=== PATIENT | male | born 1945 | race Caucasian/White ===

== ENCOUNTER 2020-06-14 16:16 | Emergency (ER) | payer MEDICARE, SELFPAY ==
--- NOTE | 2020-06-14 16:23 | ED.EYEPROB ---
HPI - Eye Problem General Chief complaint: Skin/Abscess/Foreign Body Stated complaint: right eye redness/rash Time Seen by Provider: 06/14/20 16:23 Source: patient and RN notes reviewed Mode of arrival: ambulatory Limitations: no limitations History of Present Illness HPI Narrative: 75-year-old male presents to the [facility] with complaints of crusted over and red eye for approximately 1 week, right worse than left. Denies pain to the eye but states every time he naps and wakes up in the morning it is crusted shut. Patient also reports that he wants his rash to the right inner thigh checked. Reports that he has had it for at least 3 to 4 weeks. Has been putting creams on it that you would use for diaper rash. Patient denies any past medical or surgical history. Additional information received from [facility] rocha's [id number]. She reports he does have a history of Parkinson's, hypertension and diabetes. She also reports that he had been recently living in [place] with a girlfriend. She reports that approximately 1 week ago her and Joe son received a call from the girlfriend stating she could no longer take care of him and they went picked him up and moved Joe in with them. She is unsure of medications that he takes. Has an appointment set up early July with a primary care doctor in the local area. Related Data Home Medications Medication Instructions Recorded Confirmed carbidopa-levodopa tablet 06/14/20 latanoprost drp 06/14/20 losartan 06/14/20 phentermine mg 06/14/20 tamsulosin mg PO 06/14/20 tramadol mg 06/14/20 Allergies Allergy/AdvReac Type Severity Reaction Status Date / Time No Known Allergies Allergy Verified 06/14/20 17:48 Review of Systems Review of Systems: Narrative: CONSTITUTIONAL: Denies fever, chills, or sweats. EYES: Denies visual changes. Reports redness with discharge. ENT: Denies rhinorrhea, congestion, sore throat, or otalgia. CARDIOVASCULAR: Denies chest pain, palpitations, or edema. RESPIRATORY: Denies cough or dyspnea. GASTROINTESTINAL: Denies abdominal pain, nausea, vomiting, or diarrhea. GENITOURINARY: Denies dysuria or hematuria. SKIN: Reports painful rash to the right inner thigh All other systems reviewed are negative, except as documented in HPI. PMFSH Past Medical History Medical History (Updated 06/14/20 @ 17:24 by Talita Spence) Diabetes Hypertension Parkinsons Social History Social History Gender identity (if verbalized by the patient): Male Comments At the time of my signature, I reviewed and agree with the nursing past medical, surgical, social, and family history. There is no relevant family history pertinent to the patient complaint. Exam Const: General: no acute distress, alert and confusion (Additional information had to be obtained from [id number], [employer]) Nutritional Appearance: thin Orientation/consciousness: patient oriented x3 Eyes: Conjunctivae: conjunctival abnormality bilateral Other: Red, crusted areas noted bilateral eyes, worse on right than left. Resp: Effort & Inspection: normal respiratory effort Cardio: Rate: regular rate Rhythm: regular rhythm : Male General Exam: No normal external exam Scrotum: scrotal swelling (With redness and pain) bilateral Other: [place] Area cellulitic changes noted, red with mild swelling. Patient reports is painful. Scrotum and penis red. Patient currently wears depends. Excoriated skin Neuro: Other: Uses a cane with a shuffling gait oriented to this place and self. Unable to answer questions Extrem: General: no pedal edema Psych: Attitude: cooperative Course Vital Signs Vital signs: Vital Signs Temperature 98.0 F 06/14/20 16:39 Pulse Rate 75 06/14/20 16:39 Respiratory Rate 16 06/14/20 16:39 Blood Pressure 162/90 H 06/14/20 16:39 Pulse Oximetry 98 06/14/20 16:39 Temperature 98.0 F 06/14/20 16:39 Pulse Rate 75 06/14/20 16:39 Respirato
[2020-06-14 16:39] VITALS: BP 162/90; PULSE 75; RESP 16; TEMP 36.7; O2SAT 98
--- NOTE | 2020-06-14 17:15 | PC.NURSE ---
1645- Eye kit was not used on pt as he was being transferred to ER, returned to [facility].
== END 2020-06-14 16:49 | disposition short-term general hospital (02) ==
PROVIDERS: Emergency Provider Nurse Practitioner
DX: L03.315 Cellulitis of perineum (principal); E11.9 Type 2 diabetes mellitus without complications; I10 Essential (primary) hypertension; G20 Parkinson's disease
CPT/HCPCS: 99212; A9270; G0463

== ENCOUNTER 2020-06-14 17:31 | Inpatient (IN) | payer MEDICARE, SELFPAY ==
--- NOTE | ~2020-06-14 | CT_ITS ---
EXAMINATION: CT abdomen pelvis w con DATE: 06/14/2020 19:00 INDICATION: Pelvic pain. TECHNIQUE: Computed tomography (CT) of the abdomen and pelvis was performed with 100 mL Omnipaque 350 intravenous contrast. Automated exposure control and iterative reconstruction technique were employe d. The dose-length product was 1140.22 mGy-cm. COMPARISON: None. FINDINGS: The visualized portions of the lung bases demonstrate mild atelectasis. No pleural effusion . The heart size is normal. There are coronary artery calcifications. No pericardial effusion. There are calcifications of the aortic valve. The liver, gallbladder, spleen, and adrenal glands are normal . There are calcifications in the pancreas, consistent with chronic pancreatitis. There are 12 mm and 10 mm cystic lesions in the head of the pancreas, likely pseudocysts. There is a 4 mm stone in right kidney. There are 10 mm and 3 mm stones in left kidney. The prostate is mildly enlarged. There are b rachytherapy seeds in the prostate and posterior bladder wall. Stool distends the rectum. There are n o dilated loops of bowel. The appendix is normal. There is calcified atherosclerosis of the aorta and many of the other arteries. There are chronic bilateral L5 pars defects. There is 9 mm anterolisthes is of L5 on S1. There is severe lower lumbar spondylosis. IMPRESSION: 1. Stool distends the rectum. Reviewed, dictated and finalized at location A.
[2020-06-14 17:36] VITALS: BP 173/83; PULSE 74; RESP 20; TEMP 36.7; O2SAT 97
[2020-06-14 18:13] LABS: Basophils Percent Auto 0.4 % (0.2-1.2); Eosinophils Absolute Auto 0.2 K/mm3 (0-0.3); Eosinophils Percent Auto 2.1 % (0-4.4); Hematocrit 40.5 % (42.0-52.0); Hemoglobin 13.4 g/dL (14.0-18.0); Immature Granulocyte Absolute 0.02 K/mm3 (0.00-0.031); Immature Granulocyte Percent A 0.2 % (0-0.5); Lymphocytes Absolute Auto 1.22 K/mm3 (0.9-3.2); Lymphocytes Percent Auto 15.1 % (18.3-44.2); Mean Corpuscular HGB Conc 33.1 g/dl (32-36); Mean Corpuscular Hemoglobin 29.1 pg (26-34); Mean Corpuscular Volume 87.9 fl (80-100); Mean Platelet Volume 9.6 fl (7.4-10.4); Monocytes Absolute Auto 0.5 K/mm3 (0.1-0.6); Monocytes Percent Auto 6.5 % (2.6-8.5); Neutrophils Absolute Auto 6.1 K/mm3 (1.3-6.7); Neutrophils Percent Auto 75.7 % (45.5-73.1); Platelet Count Result 201 k/mm3 (150-375); Red Blood Count 4.61 M/mm3 (4.6-6.20); Red Cell Distribution Width 12.8 % (11.5-14.5); White Blood Count 8.1 K/mm3 (4.5-10.0)
[2020-06-14 18:23] LABS: Lactic Acid Reflex 1.7 mmol/L (0.7-2.1)
[2020-06-14 18:25] LABS: Alanine Aminotransferase 16 U/L (4-50); Albumin Level 3.9 g/dL (3.5-5.1); Alkaline Phosphatase 93 U/L (38-126); Anion Gap 4 mmol/L (8-16); Aspartate Amino Transferase 20 U/L (17-59); Bilirubin,Total 0.5 mg/dL (0.2-1.3); Blood Urea Nitrogen 13 mg/dL (9-20); Calcium 9.5 mg/dL (8.4-10.2); Carbon Dioxide 35 mmol/L (22-30); Chloride 98 mmol/L (98-107); Estimated CRCL calculation 57 ml/min; Estimated Glomerular Filt Rate > 60; Glucose 380 mg/dL (75-110); Potassium 4.3 mmol/L (3.4-5.0); Sodium 137 mmol/L (137-145)
[2020-06-14 18:28] LABS: Add Urine Microscopic? YES; Appearance Urine Clear (Clear); Bilirubin Urine Negative (Negative); Blood Urine Negative (Negative); Color Urine Yellow (Yellow); Glucose Urine UA 3+ mg/dL (Negative); Ketones Urine Negative (Negative); Leukocyte Esterase Ur Negative LEU/UL (Negative); Mucus Urine Rare /lpf; Nitrate Urine Negative (Negative); Protein Urine Negative (Negative); RBC Urine 0-2 /hpf (0-2); Urobilinogen Urine Negative mg/dL (<2.0); WBC Urine 0-3 /hpf
[2020-06-14 18:34] LABS: Partial Thromboplastin Time 26.7 SECONDS (22.3-36.8); Prothrombin Time 13.6 Seconds (11.1-14.7)
[2020-06-14 18:52] LABS: Specific Grav Ur 1.035 (1.001-1.035)
--- NOTE | 2020-06-14 18:56 | PC.NURSE ---
Pt to CT via stretcher at this time.
[2020-06-14] MEDS: SODIUM CHLORIDE 0.9% IV 1,000 ML 999 ML IV CONT (20:08)
--- NOTE | 2020-06-14 20:11 | ED.GENADULT ---
HPI - General Adult General Chief complaint: Skin/Abscess/Foreign Body Stated complaint: right redness and drainage, genital rash Time Seen by Provider: 06/14/20 17:41 Source: RN notes reviewed History of Present Illness HPI narrative: Patient presents to emergency department from urgent care for right eye infection and rash in the groin. Patient states his right thigh has been erythematous for the past 1 to 2 weeks with drainage of thick mucus he notes some mild swelling of the upper and lower eyelids he denies any trauma or injury denies any vision changes denies any trauma or injury. Patient also notes a rash in his penis scrotum and groin region has been present for the past 3 weeks and progressively worsening he notes pain to the region he denies any fevers or chills abdominal pain nausea vomiting or any other symptoms. Patient does states he has a history of Parkinson's disease as well as diabetes mellitus Related Data Home Medications Medication Instructions Recorded Confirmed carbidopa-levodopa tablet 06/14/20 latanoprost drp 06/14/20 losartan 06/14/20 phentermine mg 06/14/20 tamsulosin mg PO 06/14/20 tramadol mg 06/14/20 Allergies Allergy/AdvReac Type Severity Reaction Status Date / Time No Known Allergies Allergy Verified 06/14/20 17:48 Review of Systems Review of Systems: Narrative: Gen.: Denies fevers or chills Eyes: See HPI ENT: Denies congestion Respiratory: Denies shortness of breath or cough CV: Denies chest pain or palpitations GI: Denies abdominal pain nausea, emesis or diarrhea denies burning, urgency, frequency or hematuria Musculoskeletal: Denies back pain or muscle pain Neuro: Denies numbness, tingling, weakness or focal weakness Skin: See HPI Except as documented, all other systems reviewed and negative [facility] Past Medical History Medical History Diabetes Hypertension Parkinsons Social History Social History (Updated 06/14/20 @ 20:15 by Jamie No DO) Smoking status: Never smoker Gender identity (if verbalized by the patient): Male Exam Narrative: Exam Narrative: APPEARANCE: No acute distress, nontoxic, resting in bed EYES: EOMI PERRL, the left eye is normal in appearance, the right eye has mild erythema of the upper eyelid mild swelling there is diffuse conjunctival erythema of the right eye with thick yellow mucus drainage full range of motion of the eyes without pain no papilledema HEENT: Normocephalic, atraumatic, OMM RESPIRATORY: No respiratory distress Clear to auscultation bilaterally with no rhonchi wheezing or rales. CARDIOVASCULAR: Regular rate and rhythm without murmurs rubs or gallops. ABDOMINAL: Soft, nontender, nondistended, no rebound or guarding : Circumcised male no testicular tenderness to palpation review of both the, the scrotum is nontender to palpation there is diffuse erythema of the entire penis and scrotum that extends into the bilateral groin and the perineum and stops at the rectum there is no fluctuance there is no crepitance there is mild serous oozing MUSCULOSKELETAl: Moves all extremities. No clubbing, cyanosis or edema. NEURO: Awake and alert. Following commands, speech normal, no focal deficits SKIN:: Warm, dry. No other rashes other than those noted in PSYCHIATRIC: Normal affect/mood, Course Course Emergency Course: Discussed with Dr. Donnelly presentation work-up agrees with admission at this time with patient started on imipenem and vancomycin per antibiotic protocol request consult with urology Discussed Dr. Carroll for urology agrees with consult Discussed with patient and family results of workup and diagnosis. Discussed need for admission. Patient and family understand and agree to current treatment plan Vital Signs Vital signs: Vital Signs Temperature 98.1 F 06/14/20 17:36 Pulse Rate 74 06/14/20 17:36 Respiratory Rate 20 06/14/20 17:36 Blood Pressure
[2020-06-14 20:15] LABS: Glucose Point of Care 312 (65-105)
[2020-06-14] MEDS: INSULIN ASPART (*BKC) 100 UNITS/ML SUB-Q (21:43)
[2020-06-14 21:50] VITALS: BP 153/81; PULSE 68; RESP 18; TEMP 36.4; O2SAT 98
--- NOTE | 2020-06-14 21:54 | PC.NURSE ---
vancomycin transported to floor, 200ml left to infuse.
--- NOTE | 2020-06-14 22:12 | ADMGEN ---
This patient, Joe Marion, was admitted to 3 Med Surg Room 316-01. Patient/family oriented to hospital policies and general routines including ID bracelet, bed and alarms, visiting hours, pain management, procedures, bathroom and other care routines, personal items, smoking policy, room service/diet, and visiting hours. Information on how to activate the Rapid Response Team has been discussed. Patient/Family are encouraged to report perceived risks to care and to ask questions if they do not understand what they are told or what they should do.
[2020-06-14 22:13] VITALS: BMI 23.8
--- NOTE | 2020-06-14 22:43 | PM.IMHP ---
H&P: HPI History of Present Illness Date/Time: 06/14/20 22:43 Patient presents to emergency department from urgent care for right eye infection and rash in the groin. he reorts that he has been having erythematous rash on his groin and scrotum, which is itchy for the past few weeks period. he has been using local treatmetn for this with benadryl however today he developed redness in eyes and hence went to the urgent care. they saw the rash thre and bianca sent to the ED for evaluation. no fever, chills. he is chronicaly urine incontinent and has underlying diabetes. he uses depends. Chief Complaint: rash, cellulitis Review of Systems Review of Systems: Narrative: - CONSTITUTIONAL: Denies weight loss, fever and chills. - HEENT: Denies changes in vision and hearing, rash on his right eye with draainage - RESPIRATORY: Denies SOB and cough. - CV: Denies palpitations and CP. - GI: Denies abdominal pain, nausea, vomiting and diarrhea. - : Denies dysuria and urinary frequency. - MSK: Denies myalgia and joint pain. - SKIN: reports rash and pruritus. - NEUROLOGICAL: Denies headache and syncope. - PSYCHIATRIC: Denies recent changes in mood. Denies anxiety and depression. All systems reviewed & are unremarkable except as noted in HPI and below PMFSH Past Medical History Medical History (Updated 06/14/20 @ 23:49 by Carlos Donnelly MD) Diabetes Hypertension Parkinsons Family History Family History (Updated 06/14/20 @ 22:21 by Ela Herrera RN) Father Heart attack Mother Heart attack Sibling Diabetes mellitus Social History Social History (Updated 06/14/20 @ 20:15 by Jamie No DO) Smoking status: Former smoker Alcohol intake: current Drinks per week: 3 Substance use: never Gender identity (if verbalized by the patient): Male Spiritual care concerns: No Meds Home Medications and Allergies Home Medications Medication Instructions Recorded Confirmed Type Xadago 50 mg PO DAILY 06/14/20 06/14/20 History allopurinol 150 mg BYMOUTH DAILY 06/14/20 06/14/20 History amlodipine [Norvasc] 5 mg PO DAILY 06/14/20 06/14/20 History aspirin 81 mg PO DAILY 06/14/20 06/14/20 History carbidopa-levodopa tablet 06/14/20 History cetirizine 5 mg PO DAILY 06/14/20 06/14/20 History cholecalciferol (vitamin D3) 125 mg PO DAILY 06/14/20 06/14/20 History escitalopram oxalate 10 mg PO DAILY 06/14/20 06/14/20 History hydrochlorothiazide 25 mg PO DAILY 06/14/20 06/14/20 History latanoprost drp 06/14/20 History lorazepam 1 mg PO DAILY 06/14/20 06/14/20 History losartan 06/14/20 History metformin 500 mg PO BID 06/14/20 06/14/20 History pravastatin 10 mg PO HS 06/14/20 06/14/20 History sitagliptin 10 mg PO DAILY 06/14/20 06/14/20 History tamsulosin mg PO 06/14/20 History tramadol mg 06/14/20 History Allergies Allergy/AdvReac Type Severity Reaction Status Date / Time No Known Allergies Allergy Verified 06/14/20 17:48 Vital Signs Vital Signs - 24 hr 06/14/20 17:36 Temperature 98.1 F Pulse Rate 74 Respiratory Rate 20 Blood Pressure 173/83 H Pulse Oximetry 97 Exam Narrative: Exam Narrative: GENERAL APPEARANCE: No acute distress, nontoxic, resting in bed EYES: EOMI PERRL, the left eye is normal in appearance, the right eye has mild erythema of the upper eyelid mild swelling there is diffuse conjunctival erythema of the right eye with thick yellow mucus drainage full range of motion of the eyes without pain HEENT: Normocephalic, atraumatic, RESPIRATORY: No respiratory distress Clear to auscultation bilaterally with no rhonchi wheezing or rales. CARDIOVASCULAR: Regular rate and rhythm without murmurs rubs or gallops. ABDOMINAL: Soft, nontender, nondistended, no rebound or guarding : Circumcised male, whole area of scrotum and the groin along with penis diffusely erythematous extends back to perineum and around the rectal area. no sloughing of skin noted, no creptiance, few scratch
[2020-06-14 23:16] LABS: Glucose Point of Care 299 (65-105)
[2020-06-14] MEDS: ERYTHROMYCIN OPHTH OINTMENT 1 GM TUBE 1 APPLIC EACH EYE (23:40)
[2020-06-14] MEDS: SODIUM CHLORIDE 0.9% IV 1,000 ML 125 ML IV CONT (23:40)
[2020-06-15] MEDS: PRAVASTATIN SODIUM 10 MG TABLET PO ×2 (01:12→20:46)
[2020-06-15] MEDS: TAMSULOSIN HCL 0.4 MG CAPSULE PO ×2 (01:12→20:45)
[2020-06-15] MEDS: CARBIDOPA/LEVODOPA 25/100 MG TABLET 1 TABLET PO ×4 (01:12→17:29)
[2020-06-15] MEDS: LATANOPROST 0.005% OP SOLN 2.5 ML BTL 1 DROP EACH EYE ×2 (01:13→20:46)
[2020-06-15] MEDS: INSULIN GLARGINE (*BKC) 100 UNITS/ML 30 UNITS SUB-Q ×2 (01:16→20:57)
[2020-06-15] MEDS: ERYTHROMYCIN OPHTH OINTMENT 1 GM TUBE 1 APPLIC EACH EYE ×5 (05:08→20:46)
[2020-06-15 06:00] VITALS: BP 146/75; PULSE 71; RESP 18; TEMP 36.3; O2SAT 95
[2020-06-15 06:13] LABS: Basophils Percent Auto 0.4 % (0.2-1.2); Eosinophils Absolute Auto 0.2 K/mm3 (0-0.3); Eosinophils Percent Auto 2.5 % (0-4.4); Hematocrit 36.3 % (42.0-52.0); Hemoglobin 12.3 g/dL (14.0-18.0); Immature Granulocyte Absolute 0.03 K/mm3 (0.00-0.031); Immature Granulocyte Percent A 0.3 % (0-0.5); Lymphocytes Absolute Auto 1.46 K/mm3 (0.9-3.2); Mean Corpuscular HGB Conc 33.9 g/dl (32-36); Mean Corpuscular Hemoglobin 28.9 pg (26-34); Mean Corpuscular Volume 85.4 fl (80-100); Mean Platelet Volume 10.2 fl (7.4-10.4); Monocytes Absolute Auto 0.7 K/mm3 (0.1-0.6); Monocytes Percent Auto 7.8 % (2.6-8.5); Neutrophils Absolute Auto 6.6 K/mm3 (1.3-6.7); Platelet Count Result 184 k/mm3 (150-375); Red Blood Count 4.25 M/mm3 (4.6-6.20); Red Cell Distribution Width 12.7 % (11.5-14.5); White Blood Count 9.1 K/mm3 (4.5-10.0)
[2020-06-15 06:28] LABS: Anion Gap 3 mmol/L (8-16); Blood Urea Nitrogen 12 mg/dL (9-20); Calcium 8.7 mg/dL (8.4-10.2); Carbon Dioxide 33 mmol/L (22-30); Chloride 101 mmol/L (98-107); Estimated CRCL calculation 68 ml/min; Estimated Glomerular Filt Rate > 60; Glucose 255 mg/dL (75-110); Potassium 3.7 mmol/L (3.4-5.0); Sodium 137 mmol/L (137-145)
--- NOTE | 2020-06-15 07:25 | WPDURCON ---
Assessment and Plan Assessment and plan (1) Fungal rash of torso: Code(s): B36.9 - Superficial mycosis, unspecified Status: Acute Assessment and Plan: Genital rash for which, to me, is more consistent with an advanced fungal infection than true cellulitis. I will add an antifungal cream to the antibiotics which he is currently receiving. Urology Consult Note HPI Date Seen: 06/15/20 Requesting Physician: Carlos Donnelly MD Primary Care Provider: PHYSICIAN NOT ON STAFF Consult Narrative Narrative: Joe Marion is a 75 year old male admitted to the emergency department after presenting with a several week history of incrustation of his eye, consistent with conjunctivitis. Additionally, he reports a 3 history of genital rash that is mildly pruritic. He denies significant obstructive her irritable voiding symptoms. Review of Systems Eyes: Eyes: Reports as per HPI Cardiovascular: Cardiovascular: Denies chest pain, Denies lightheadedness, Denies palpitations and Denies dyspnea Respiratory: Respiratory: Denies dyspnea Gastrointestinal: Gastrointestinal: Denies diarrhea, Denies nausea and Denies vomiting Genitourinary: Genitourinary: Reports as per HPI, Denies hematuria and Denies dysuria Endocrine: Endocrine: Denies palpitations PMFSH Past Medical History Medical History Diabetes Hypertension Parkinsons Family History Family History Father Heart attack Mother Heart attack Sibling Diabetes mellitus Social History Social History Smoking status: Former smoker Alcohol intake: current Drinks per week: 3 Substance use: never Gender identity (if verbalized by the patient): Male Spiritual care concerns: No Meds Home Medications and Allergies Home Medications Medication Instructions Recorded Confirmed Type Xadago 50 mg PO DAILY 06/14/20 06/14/20 History allopurinol 150 mg BYMOUTH DAILY 06/14/20 06/14/20 History amlodipine [Norvasc] 5 mg PO DAILY 06/14/20 06/14/20 History aspirin 81 mg PO DAILY 06/14/20 06/14/20 History carbidopa-levodopa [Sinemet] 25 - 100 tablet PO TID 06/14/20 06/14/20 History cetirizine 5 mg PO DAILY 06/14/20 06/14/20 History cholecalciferol (vitamin D3) 125 mg PO DAILY 06/14/20 06/14/20 History escitalopram oxalate 10 mg PO DAILY 06/14/20 06/14/20 History hydrochlorothiazide 25 mg PO DAILY 06/14/20 06/14/20 History latanoprost 1 drp EACH EYE HS 06/14/20 06/14/20 History lorazepam 1 mg PO DAILY 06/14/20 06/14/20 History losartan [Cozaar] 50 mg PO DAILY 06/14/20 06/14/20 History metformin 500 mg PO BID 06/14/20 06/14/20 History pravastatin 10 mg PO HS 06/14/20 06/14/20 History sitagliptin 100 mg PO DAILY 06/14/20 06/15/20 History tamsulosin [Flomax] 0.4 mg PO HS 06/14/20 06/14/20 History tramadol [Ultram] 50 mg PO Q6H PRN 06/14/20 06/14/20 History Allergies Allergy/AdvReac Type Severity Reaction Status Date / Time No Known Allergies Allergy Verified 06/14/20 17:48 Vital Signs Vital Signs - 24 hr 06/14/20 17:36 06/14/20 21:50 06/15/20 06:00 Temperature 98.1 F 97.5 F L 97.3 F L Pulse Rate 74 68 71 Respiratory Rate 20 18 18 Blood Pressure 173/83 H 153/81 H 146/75 H Pulse Oximetry 97 98 95 Exam Const: General: no acute distress Resp: Effort & Inspection: normal respiratory effort GI: Inspection: non-distended GI Palp: No abdominal tenderness and No Guarding due to palpation present (GI) Auscultation: normal bowel sounds Results Labs CBC & Chem 7: 06/15/20 05:53 06/15/20 05:53 Labs: Short CBC 06/14/20 06/15/20 Range/Units 18:05 05:53 WBC 8.1 9.1 (4.5-10.0) K/mm3 Hgb 13.4 L 12.3 L (14.0-18.0) g/dL Hct 40.5 L 36.3 L (42.0-52.0) % Plt Count 201 184 (150-375) k/mm3 [facility] 06/14/20 06/15/20 18:05 05:
[2020-06-15 07:45] LABS: Glucose Point of Care 231 (65-105)
[2020-06-15] MEDS: SODIUM CHLORIDE 0.9% IV 1,000 ML 125 ML IV CONT ×2 (08:08→17:31)
[2020-06-15] MEDS: INSULIN ASPART (*BKC) 100 UNITS/ML SUB-Q ×3 (08:11→17:28)
[2020-06-15] MEDS: LORazepam (*CRX) 1 MG TABLET PO (08:12)
[2020-06-15] MEDS: ASPIRIN 81 MG CHEWABLE TABLET PO (08:13)
[2020-06-15] MEDS: allopurinoL 150 MG TABLET BY MOUTH (08:13)
[2020-06-15] MEDS: amLODIPine BESYLATE 5 MG TABLET PO (08:13)
[2020-06-15] MEDS: CHOLECALCIFEROL 1,000 UNITS TABLET 5000 UNITS PO (08:13)
[2020-06-15] MEDS: LORATADINE 5 MG TABLET PO (08:14)
[2020-06-15] MEDS: LOSARTAN POTASSIUM 50 MG TABLET PO (08:14)
[2020-06-15] MEDS: hydroCHLOROthiazide 25 MG TABLET PO (08:14)
[2020-06-15] MEDS: metFORMIN HCL 500 MG TABLET PO ×2 (08:15→17:30)
[2020-06-15] MEDS: FLUCONAZOLE 200 MG/NACL 100 ML 200 MG/100 ML BAG 100 MG IVPB (08:51)
[2020-06-15] MEDS: BETAMETHASONE/CLOTRIMAZOLE CR 15 GM TUBE 1 APPLIC TOPICAL ×2 (08:54→20:46)
[2020-06-15 10:16] VITALS: O2SAT 94
[2020-06-15 11:41] LABS: Glucose Point of Care 339 (65-105)
--- NOTE | 2020-06-15 13:21 | PM.IMPN ---
Progress Note: A&P Assessment and Plan (1) Cellulitis of scrotum: Code(s): N49.2 - Inflammatory disorders of scrotum Status: Acute Assessment and Plan: Urology has been consulted, Pt on iv imipenem and vancomycin for bacterial coverage. will also add fluconazole iv for antifungal coverage. (2) Acute conjunctivitis, right eye: Code(s): H10.31 - Unspecified acute conjunctivitis, right eye Status: Acute Assessment and Plan: pt is on eyes drops (3) Diabetes mellitus: Code(s): E11.9 - Type 2 diabetes mellitus without complications Status: Acute Assessment and Plan: ACCUCHECKS< SSI (4) Fungal infection of the groin: Code(s): B35.6 - Tinea cruris Status: Acute Assessment and Plan: Pt seen by urology continue recommendations (5) Cellulitis: Qualifiers: Site of cellulitis: trunk Site of cellulitis of trunk: perineum Qualified Code(s): L03.315 - Cellulitis of perineum Code(s): L03.90 - Cellulitis, unspecified Status: Inactive (6) Urine incontinence: Code(s): R32 - Unspecified urinary incontinence Status: Acute (7) Parkinsons: Code(s): G20 - Parkinson's disease Status: Acute Assessment and Plan: History of Parkinson Subjective Date/time seen: 06/15/20 13:21 Interval history: 75 year old male presented with right eye infection and rash in the groin. Pt states he was trying some care on it for a few days himself. without going to doctor. But it was getting worse and now his eyes are both purulent, Pt denies any sexual activity. or std problems. Review of Systems Review of Systems: All systems reviewed & are unremarkable except as noted in HPI and below Exam Narrative: Exam Narrative: GENERAL APPEARANCE: No acute distress EYES: BL eyes with yellow purulent drainage HEENT: Normocephalic, atraumatic RESPIRATORY: No respiratory distress Clear to auscultation bilaterally with no rhonchi wheezing or rales. CARDIOVASCULAR: Regular rate and rhythm without murmurs rubs or gallops. ABDOMINAL: Soft, nontender, nondistended, no rebound or guarding : Erythematous red swollen scrotum and penis with excoriation and whitish patches in the groin. Objective Data Vital Signs Vital Signs: Vital Signs - 24 hr 06/14/20 17:36 06/14/20 21:50 06/15/20 06:00 Temperature 36.7 C 36.4 C L 36.3 C L Pulse Rate 74 68 71 Respiratory Rate 20 18 18 Blood Pressure 173/83 H 153/81 H 146/75 H Pulse Oximetry 97 98 95 06/15/20 10:16 Temperature Pulse Rate Respiratory Rate Blood Pressure Pulse Oximetry 94 Intake/Output Intake/Output: Intake & Output 06/12/20 06/13/20 06/14/20 06/15/20 23:59 23:59 23:59 23:59 Intake Total 1000 1900 Output Total 850 Balance 1000 1050 Meds/Results Medications: Active Medications Generic Name Dose Route Start Last Admin Trade Name Luisq PRN Reason Stop Dose Admin Allopurinol 150 mg 06/15/20 09:00 06/15/20 08:13 Allopurinol 150 Mg Tablet BY MOUTH 150 mg DAILY RADHA Administration Amlodipine Besylate 5 mg 06/15/20 09:00 06/15/20 08:13 Amlodipine Besylate 5 Mg Tablet PO 5 mg DAILY RADHA Administration Aspirin 81 mg 06/15/20 09:00 06/15/20 08:13 Aspirin 81 Mg Chewable Tablet PO 81 mg DAILY RADHA Administration Carbidopa/Levodopa 1 tablet 06/14/20 23:45 06/15/20 12:12 Carbidopa/Levodopa 25/100 Mg Tablet PO 1 tablet TID RADHA Administration Clotrimazole 1 applic 06/15/20 09:00 06/15/20 08:54 Betamethasone/Clotrimazole Cr 15 Gm Tube TOPICAL 1 applic Q12HR RADHA Administration Dextrose 12.5 gm 06/14/20 23:46 Dextrose 50% 25 Gm/50 Ml Syringe IV PUSH PRN PRN Hypoglycemia Protocol Erythromycin 1 applic 06/14/20 21:00 06/15/20 12:12 Erythromycin Ophth Ointment 1 Gm Tube EACH EYE 1 applic Q4HWA RADHA Administration Glucagon 1 mg 06/14/20 23:46 Glucagon For Inj 1 Mg V
[2020-06-15 14:00] VITALS: BP 150/73; PULSE 81; RESP 18; TEMP 36.4; O2SAT 96
[2020-06-15 17:21] LABS: Glucose Point of Care 249 (65-105)
[2020-06-15 21:02] LABS: Glucose Point of Care 290 (65-105)
[2020-06-15 22:00] VITALS: BP 157/75; PULSE 75; RESP 16; TEMP 36.2; O2SAT 97
[2020-06-16] MEDS: SODIUM CHLORIDE 0.9% IV 1,000 ML 125 ML IV CONT ×2 (02:34→15:09)
[2020-06-16] MEDS: ERYTHROMYCIN OPHTH OINTMENT 1 GM TUBE 1 APPLIC EACH EYE ×5 (05:23→20:14)
[2020-06-16 06:00] VITALS: BP 158/67; PULSE 92; RESP 18; TEMP 36.3; O2SAT 96
--- NOTE | 2020-06-16 07:19 | WPDUROPN2 ---
Progress Note: A&P Assessment and Plan (1) Fungal infection of the groin: Code(s): B35.6 - Tinea cruris Status: Acute Assessment and Plan: Genital rash unchanged. Agree with systemic antifungal (either IV or oral) x1 week. If not improving by early next week I would recommend dermatology evaluation. I'm comfortable with treating genital rash as outpatient once other issues improved. Subjective Subjective Date/Time Seen: 06/16/20 07:19 No c/o genital pain, itching or voiding difficulty Review of Systems Cardiovascular: Cardiovascular: Denies chest pain, Denies lightheadedness, Denies palpitations and Denies dyspnea Respiratory: Respiratory: Denies dyspnea Gastrointestinal: Gastrointestinal: Denies diarrhea, Denies nausea and Denies vomiting Genitourinary: Genitourinary: Denies hematuria and Denies dysuria Endocrine: Endocrine: Denies palpitations Exam Const: General: no acute distress Resp: Effort & Inspection: normal respiratory effort GI: Inspection: non-distended GI Palp: No abdominal tenderness and No Guarding due to palpation present (GI) Auscultation: normal bowel sounds : General: Yes other (Genital rash unchanged) Objective Data Vital Signs Vital Signs: Vital Signs - 24 hr 06/15/20 10:16 06/15/20 14:00 06/15/20 22:00 Temperature 97.5 F L 97.2 F L Pulse Rate 81 75 Respiratory Rate 18 16 Blood Pressure 150/73 H 157/75 H Pulse Oximetry 94 96 97 06/16/20 06:00 Temperature 97.3 F L Pulse Rate 92 Respiratory Rate 18 Blood Pressure 158/67 H Pulse Oximetry 96 Intake/Output Intake/Output: Intake & Output 06/13/20 06/14/20 06/15/20 06/16/20 23:59 23:59 23:59 23:59 Intake Total 1000 5190 1350 Output Total 1600 1200 Balance 1000 3590 150 Meds/Results Medications: Active Medications Generic Name Dose Route Start Last Admin Trade Name Freq PRN Reason Stop Dose Admin Allopurinol 150 mg 06/15/20 09:00 06/15/20 08:13 Allopurinol 150 Mg Tablet BY MOUTH 150 mg DAILY RADHA Administration Amlodipine Besylate 5 mg 06/15/20 09:00 06/15/20 08:13 Amlodipine Besylate 5 Mg Tablet PO 5 mg DAILY RADHA Administration Aspirin 81 mg 06/15/20 09:00 06/15/20 08:13 Aspirin 81 Mg Chewable Tablet PO 81 mg DAILY RADHA Administration Carbidopa/Levodopa 1 tablet 06/14/20 23:45 06/15/20 17:29 Carbidopa/Levodopa 25/100 Mg Tablet PO 1 tablet TID RADHA Administration Clotrimazole 1 applic 06/15/20 09:00 06/15/20 20:46 Betamethasone/Clotrimazole Cr 15 Gm Tube TOPICAL 1 applic Q12HR RADHA Administration Dextrose 12.5 gm 06/14/20 23:46 Dextrose 50% 25 Gm/50 Ml Syringe IV PUSH PRN PRN Hypoglycemia Protocol Erythromycin 1 applic 06/14/20 21:00 06/16/20 05:23 Erythromycin Ophth Ointment 1 Gm Tube EACH EYE 1 applic Q4HWA RADHA Administration Glucagon 1 mg 06/14/20 23:46 Glucagon For Inj 1 Mg Vial IM PRN PRN Hypoglycemia Protocol Glucose 15 gm 06/14/20 23:46 Glucose Oral Gel 15 Gm Of Glucse In 37.5 Gm Tube PO PRN PRN Hypoglycemia Protocol Hydrochlorothiazide 25 mg 06/15/20 09:00 06/15/20 08:14 Hydrochlorothiazide 25 Mg Tablet PO 25 mg DAILY RADHA Administration Sodium Chloride 1,000 mls @ 125 mls/hr 06/14/20 20:00 06/16/20 02:34 Normal Saline Iv IV CONT 125 mls/hr .Q8H RADHA Administration Fluconazole 200 mg in 100 mls @ 100 mls/hr 06/15/20 09:00 06/15/20 13:48 Diflucan 200 Mg/Nacl 100 Ml IVPB Infused DAILY RADHA Infusion Dextrose 1,000 mls @ 100 mls/hr 06/14/20 23:46 Dextrose 5% 1,000 Ml IVPB PRN PRN Hypoglycemia Protocol Imipenem/Cilastatin Sodium 500 mg in 100 mls @ 300 mls/hr 06/15/20 16:00 06/16/20 02:48 Primaxin 500 Mg/D5w 100 Ml IVPB Infused Q8H RADHA Infusion Vancomycin HCl 1,250 mg in 250 mls @ 200 mls/hr 06/16/20 12:00 Vancomycin 1,250 Mg/D5w 250 Ml IVPB Q12H RADHA Insulin Asp
[2020-06-16 08:06] LABS: Glucose Point of Care 200 (65-105)
[2020-06-16] MEDS: CHOLECALCIFEROL 1,000 UNITS TABLET 5000 UNITS PO (08:49)
[2020-06-16] MEDS: ASPIRIN 81 MG CHEWABLE TABLET PO (08:49)
[2020-06-16] MEDS: BETAMETHASONE/CLOTRIMAZOLE CR 15 GM TUBE 1 APPLIC TOPICAL ×2 (08:49→20:14)
[2020-06-16] MEDS: CARBIDOPA/LEVODOPA 25/100 MG TABLET 1 TABLET PO ×3 (08:49→16:20)
[2020-06-16] MEDS: allopurinoL 150 MG TABLET BY MOUTH (08:50)
[2020-06-16] MEDS: LOSARTAN POTASSIUM 50 MG TABLET PO (08:50)
[2020-06-16] MEDS: metFORMIN HCL 500 MG TABLET PO ×2 (08:50→16:20)
[2020-06-16] MEDS: amLODIPine BESYLATE 5 MG TABLET PO (08:50)
[2020-06-16] MEDS: hydroCHLOROthiazide 25 MG TABLET PO (08:50)
[2020-06-16] MEDS: LORATADINE 5 MG TABLET PO (08:50)
[2020-06-16] MEDS: LORazepam (*CRX) 1 MG TABLET PO (09:08)
[2020-06-16] MEDS: FLUCONAZOLE 200 MG/NACL 100 ML 200 MG/100 ML BAG 100 MG IVPB (11:12)
--- NOTE | 2020-06-16 12:13 | PM.IMPN ---
Progress Note: A&P Assessment and Plan (1) Cellulitis of scrotum: Code(s): N49.2 - Inflammatory disorders of scrotum Status: Acute Assessment and Plan: Urology has been consulted, Pt on iv imipenem and vancomycin for bacterial coverage. will also add fluconazole iv for antifungal coverage. Continue seen by urology. (2) Acute conjunctivitis, right eye: Code(s): H10.31 - Unspecified acute conjunctivitis, right eye Status: Acute Assessment and Plan: pt is on eyes drops (3) Diabetes mellitus: Code(s): E11.9 - Type 2 diabetes mellitus without complications Status: Acute Assessment and Plan: ACCUCHECKs, SSI (4) Fungal infection of the groin: Code(s): B35.6 - Tinea cruris Status: Acute Assessment and Plan: Pt seen by urology continue recommendations (5) Cellulitis: Qualifiers: Site of cellulitis: trunk Site of cellulitis of trunk: perineum Qualified Code(s): L03.315 - Cellulitis of perineum Code(s): L03.90 - Cellulitis, unspecified Status: Inactive (6) Urine incontinence: Code(s): R32 - Unspecified urinary incontinence Status: Acute (7) Parkinsons: Code(s): G20 - Parkinson's disease Status: Acute Assessment and Plan: History of Parkinson start patient on PT/ OT Subjective Date/time seen: 06/16/20 12:13 Interval history: 75 year old male presented with right eye infection and rash in the groin. Pt states he was trying some care on it for a few days himself. without going to doctor. But it was getting worse and now his eyes are both purulent, Pt denies any sexual activity. or std problems. Discussion with his granddaughter pt has not been looking after himself. Pt has Parkinson disease, lives with his granddaughter and family who are his main carers. Review of Systems Review of Systems: All systems reviewed & are unremarkable except as noted in HPI and below Exam Narrative: Exam Narrative: GENERAL APPEARANCE: No acute distress EYES: BL eyes with yellow purulent drainage HEENT: Normocephalic, atraumatic RESPIRATORY: No respiratory distress Clear to auscultation bilaterally with no rhonchi wheezing or rales. CARDIOVASCULAR: Regular rate and rhythm without murmurs rubs or gallops. ABDOMINAL: Soft, nontender, nondistended, no rebound or guarding : Erythematous red swollen scrotum and penis with excoriation and whitish patches in the groin. Objective Data Vital Signs Vital Signs: Vital Signs - 24 hr 06/15/20 14:00 06/15/20 22:00 06/16/20 06:00 Temperature 36.4 C L 36.2 C L 36.3 C L Pulse Rate 81 75 92 Respiratory Rate 18 16 18 Blood Pressure 150/73 H 157/75 H 158/67 H Pulse Oximetry 96 97 96 Intake/Output Intake/Output: Intake & Output 06/13/20 06/14/20 06/15/20 06/16/20 23:59 23:59 23:59 23:59 Intake Total 1000 5190 1690 Output Total 1600 1200 Balance 1000 3590 490 Meds/Results Medications: Active Medications Generic Name Dose Route Start Last Admin Trade Name Freq PRN Reason Stop Dose Admin Allopurinol 150 mg 06/15/20 09:00 06/16/20 08:50 Allopurinol 150 Mg Tablet BY MOUTH 150 mg DAILY RADHA Administration Amlodipine Besylate 5 mg 06/15/20 09:00 06/16/20 08:50 Amlodipine Besylate 5 Mg Tablet PO 5 mg DAILY RADHA Administration Aspirin 81 mg 06/15/20 09:00 06/16/20 08:49 Aspirin 81 Mg Chewable Tablet PO 81 mg DAILY RADHA Administration Carbidopa/Levodopa 1 tablet 06/14/20 23:45 06/16/20 08:49 Carbidopa/Levodopa 25/100 Mg Tablet PO 1 tablet TID RADHA Administration Clotrimazole 1 applic 06/15/20 09:00 06/16/20 08:49 Betamethasone/Clotrimazole Cr 15 Gm Tube TOPICAL 1 applic Q12HR RADHA Administration Dextrose 12.5 gm 06/14/20 23:46 Dextrose 50% 25 Gm/50 Ml Syringe IV PUSH PRN PRN Hypoglycemia Protocol Erythromycin 1 applic 06/14/20 21:00 06/16/20 08:50 Erythromycin Ophth Oi
[2020-06-16 12:23] LABS: Glucose Point of Care 228 (65-105)
[2020-06-16] MEDS: INSULIN ASPART (*BKC) 100 UNITS/ML SUB-Q (12:25)
[2020-06-16 14:00] VITALS: BP 156/94; PULSE 87; RESP 18; TEMP 36.7; O2SAT 97
[2020-06-16 16:20] LABS: Glucose Point of Care 197 (65-105)
[2020-06-16] MEDS: PRAVASTATIN SODIUM 10 MG TABLET PO (20:13)
[2020-06-16] MEDS: TAMSULOSIN HCL 0.4 MG CAPSULE PO (20:13)
[2020-06-16] MEDS: INSULIN GLARGINE (*BKC) 100 UNITS/ML 30 UNITS SUB-Q (20:14)
[2020-06-16] MEDS: LATANOPROST 0.005% OP SOLN 2.5 ML BTL 1 DROP EACH EYE (20:14)
[2020-06-16 20:46] LABS: Glucose Point of Care 303 (65-105)
[2020-06-16 22:00] VITALS: BP 161/77; PULSE 86; RESP 18; TEMP 36.4; O2SAT 98
[2020-06-16 23:39] LABS: Vancomycin Trough 14.3 ug/mL (10.0-20.0)
[2020-06-17] MEDS: SODIUM CHLORIDE 0.9% IV 1,000 ML 125 ML IV CONT (00:19)
[2020-06-17] MEDS: ERYTHROMYCIN OPHTH OINTMENT 1 GM TUBE 1 APPLIC EACH EYE ×4 (05:30→20:18)
[2020-06-17 05:59] LABS: Hemoglobin 12.6 g/dL (14.0-18.0); Mean Corpuscular HGB Conc 34.1 g/dl (32-36); Mean Corpuscular Hemoglobin 28.9 pg (26-34); Mean Corpuscular Volume 84.9 fl (80-100); Mean Platelet Volume 9.9 fl (7.4-10.4); Platelet Count Result 189 k/mm3 (150-375); Red Blood Count 4.36 M/mm3 (4.6-6.20); Red Cell Distribution Width 12.5 % (11.5-14.5); White Blood Count 7.8 K/mm3 (4.5-10.0)
[2020-06-17 06:00] VITALS: BP 167/55; PULSE 90; RESP 20; TEMP 36.4; O2SAT 99
[2020-06-17 06:16] LABS: Anion Gap 4 mmol/L (8-16); Blood Urea Nitrogen 15 mg/dL (9-20); Calcium 9.5 mg/dL (8.4-10.2); Carbon Dioxide 32 mmol/L (22-30); Chloride 103 mmol/L (98-107); Estimated CRCL calculation 76 ml/min; Estimated Glomerular Filt Rate > 60; Glucose 238 mg/dL (75-110); Sodium 139 mmol/L (137-145)
[2020-06-17 08:22] LABS: Glucose Point of Care 182 (65-105)
[2020-06-17] MEDS: metFORMIN HCL 500 MG TABLET PO ×2 (08:30→16:32)
[2020-06-17] MEDS: LORazepam (*CRX) 1 MG TABLET PO (08:30)
[2020-06-17] MEDS: LOSARTAN POTASSIUM 50 MG TABLET PO (08:30)
[2020-06-17] MEDS: hydroCHLOROthiazide 25 MG TABLET PO (08:30)
[2020-06-17] MEDS: BETAMETHASONE/CLOTRIMAZOLE CR 15 GM TUBE 1 APPLIC TOPICAL ×2 (08:31→20:18)
[2020-06-17] MEDS: CHOLECALCIFEROL 1,000 UNITS TABLET 5000 UNITS PO (08:31)
[2020-06-17] MEDS: allopurinoL 150 MG TABLET BY MOUTH (08:31)
[2020-06-17] MEDS: LORATADINE 5 MG TABLET PO (08:31)
[2020-06-17] MEDS: amLODIPine BESYLATE 5 MG TABLET PO (08:31)
[2020-06-17] MEDS: ASPIRIN 81 MG CHEWABLE TABLET PO (08:31)
[2020-06-17] MEDS: CARBIDOPA/LEVODOPA 25/100 MG TABLET 2 TABLET PO ×3 (08:52→16:33)
[2020-06-17] MEDS: FLUCONAZOLE 200 MG/NACL 100 ML 200 MG/100 ML BAG 100 MG IVPB (09:40)
--- NOTE | 2020-06-17 11:09 | PCOTNOTE ---
Patient with Physical therapy first attempt; sleeping soundly second attempt.
[2020-06-17 12:27] LABS: Glucose Point of Care 324 (65-105)
--- NOTE | 2020-06-17 12:35 | PM.IMPN ---
Progress Note: A&P Assessment and Plan (1) Cellulitis of scrotum: Code(s): N49.2 - Inflammatory disorders of scrotum Status: Acute Assessment and Plan: Urology has been consulted, Pt on iv imipenem and vancomycin for bacterial coverage. will also add fluconazole iv for antifungal coverage. continue current treatment until Friday then hopeful Dc home. (2) Acute conjunctivitis, right eye: Code(s): H10.31 - Unspecified acute conjunctivitis, right eye Status: Acute Assessment and Plan: Pt is on eyes drops (3) Diabetes mellitus: Code(s): E11.9 - Type 2 diabetes mellitus without complications Status: Acute Assessment and Plan: ACCUCHECKs, SSI, continue home lantus (4) Fungal infection of the groin: Code(s): B35.6 - Tinea cruris Status: Acute Assessment and Plan: Pt seen by urology continue recommendations, pt is on fluconzoale iv for antifungal covergae.and nystatin powder. (5) Cellulitis: Qualifiers: Site of cellulitis: trunk Site of cellulitis of trunk: perineum Qualified Code(s): L03.315 - Cellulitis of perineum Code(s): L03.90 - Cellulitis, unspecified Status: Inactive Assessment and Plan: iv imipenem and vancomycin. Bc negative to date (6) Urine incontinence: Code(s): R32 - Unspecified urinary incontinence Status: Acute (7) Parkinsons: Code(s): G20 - Parkinson's disease Status: Acute Assessment and Plan: History of Parkinson start patient on PT/ OT on carbidpoa levodopa Subjective Date/time seen: 06/17/20 12:35 Interval history: 75 year old male presented with right eye infection and rash in the groin. Pt states he was trying some care on it for a few days himself. without going to doctor. But it was getting worse and now his eyes are both purulent, Pt denies any sexual activity. or std problems. Discussion with his granddaughter pt has not been looking after himself. Pt has Parkinson disease, lives with his granddaughter and family who are his main carers. Eyes are clear rash ongoing mostly in groin area Review of Systems Review of Systems: All systems reviewed & are unremarkable except as noted in HPI and below Exam Narrative: Exam Narrative: GENERAL APPEARANCE: No acute distress, alert sitting up, more talkative EYES: BL eyes clean no discharge HEENT: Normocephalic, atraumatic RESPIRATORY: No respiratory distress Clear to auscultation bilaterally with no rhonchi wheezing or rales. CARDIOVASCULAR: Regular rate and rhythm without murmurs rubs or gallops. ABDOMINAL: Soft, nontender, nondistended, no rebound or guarding : Erythematous red swollen scrotum and penis with excoriation and whitish patches in the groin- improving Objective Data Vital Signs Vital Signs: Vital Signs - 24 hr 06/16/20 14:00 06/16/20 22:00 06/17/20 06:00 Temperature 36.7 C 36.4 C L 36.4 C Pulse Rate 87 86 90 Respiratory Rate 18 18 20 Blood Pressure 156/94 H 161/77 H 167/55 H Pulse Oximetry 97 98 99 Intake/Output Intake/Output: Intake & Output 06/14/20 06/15/20 06/16/20 06/17/20 23:59 23:59 23:59 23:59 Intake Total 1000 5190 3990 2040 Output Total 1600 1460 400 Balance 1000 3590 2530 1640 Meds/Results Medications: Active Medications Generic Name Dose Route Start Last Admin Trade Name Freq PRN Reason Stop Dose Admin Allopurinol 150 mg 06/15/20 09:00 06/17/20 08:31 Allopurinol 150 Mg Tablet BY MOUTH 150 mg DAILY RADHA Administration Amlodipine Besylate 5 mg 06/15/20 09:00 06/17/20 08:31 Amlodipine Besylate 5 Mg Tablet PO 5 mg DAILY RADHA Administration Aspirin 81 mg 06/15/20 09:00 06/17/20 08:31 Aspirin 81 Mg Chewable Tablet PO 81 mg DAILY RADHA Administration Carbidopa/Levodopa 2 tablet 06/17/20 09:00 06/17/20 08:52 Carbidopa/Levodopa 25/100 Mg Tablet PO 2 tablet TID RADHA Administration Clotrimazole 1 applic 06/15/20 09:
[2020-06-17] MEDS: INSULIN ASPART (*BKC) 100 UNITS/ML SUB-Q ×2 (13:00→17:18)
[2020-06-17 14:00] VITALS: BP 137/64; PULSE 87; RESP 18; TEMP 36.7; O2SAT 96
[2020-06-17 17:18] LABS: Glucose Point of Care 320 (65-105)
[2020-06-17] MEDS: INSULIN GLARGINE (*BKC) 100 UNITS/ML 30 UNITS SUB-Q (20:18)
[2020-06-17] MEDS: PRAVASTATIN SODIUM 10 MG TABLET PO (20:18)
[2020-06-17] MEDS: TAMSULOSIN HCL 0.4 MG CAPSULE PO (20:18)
[2020-06-17] MEDS: LATANOPROST 0.005% OP SOLN 2.5 ML BTL 1 DROP EACH EYE (20:18)
[2020-06-17 21:55] VITALS: BP 132/63; PULSE 80; RESP 18; TEMP 36.3; O2SAT 94
[2020-06-17 22:09] LABS: Glucose Point of Care 260 (65-105)
[2020-06-18] MEDS: ERYTHROMYCIN OPHTH OINTMENT 1 GM TUBE 1 APPLIC EACH EYE ×5 (05:35→21:33)
[2020-06-18 06:00] VITALS: BP 147/65; PULSE 81; RESP 18; TEMP 37.1; O2SAT 93
[2020-06-18] MEDS: INSULIN ASPART (*BKC) 100 UNITS/ML SUB-Q ×3 (08:09→16:47)
[2020-06-18] MEDS: CHOLECALCIFEROL 1,000 UNITS TABLET 5000 UNITS PO (08:17)
[2020-06-18] MEDS: CARBIDOPA/LEVODOPA 25/100 MG TABLET 2 TABLET PO ×3 (08:18→16:49)
[2020-06-18] MEDS: BETAMETHASONE/CLOTRIMAZOLE CR 15 GM TUBE 1 APPLIC TOPICAL ×2 (08:18→22:27)
[2020-06-18] MEDS: allopurinoL 150 MG TABLET BY MOUTH (08:18)
[2020-06-18] MEDS: amLODIPine BESYLATE 5 MG TABLET PO (08:19)
[2020-06-18] MEDS: ASPIRIN 81 MG CHEWABLE TABLET PO (08:19)
[2020-06-18] MEDS: hydroCHLOROthiazide 25 MG TABLET PO (08:19)
[2020-06-18] MEDS: LORATADINE 5 MG TABLET PO (08:19)
[2020-06-18] MEDS: metFORMIN HCL 500 MG TABLET PO ×2 (08:19→16:49)
[2020-06-18] MEDS: LOSARTAN POTASSIUM 50 MG TABLET PO (08:19)
[2020-06-18] MEDS: LORazepam (*CRX) 1 MG TABLET PO (08:21)
[2020-06-18 08:25] LABS: Glucose Point of Care 282 (65-105)
[2020-06-18] MEDS: FLUCONAZOLE 200 MG/NACL 100 ML 200 MG/100 ML BAG 100 MG IVPB (09:21)
[2020-06-18 11:36] LABS: Glucose Point of Care 277 (65-105)
--- NOTE | 2020-06-18 12:00 | WPDUROPN2 ---
Progress Note: A&P Assessment and Plan (1) Fungal infection of the groin: Code(s): B35.6 - Tinea cruris Status: Acute Assessment and Plan: Genital rash much improved Would recommend another week of oral Fluconazole and topical antifungal at time of discharge. Subjective Subjective Date/Time Seen: 06/18/20 12:00 Comfortable, no complaints Review of Systems Cardiovascular: Cardiovascular: Denies chest pain, Denies lightheadedness, Denies palpitations and Denies dyspnea Respiratory: Respiratory: Denies dyspnea Gastrointestinal: Gastrointestinal: Denies diarrhea, Denies nausea and Denies vomiting Genitourinary: Genitourinary: Denies hematuria and Denies dysuria Endocrine: Endocrine: Denies palpitations Exam Const: General: no acute distress Resp: Effort & Inspection: normal respiratory effort GI: Inspection: non-distended GI Palp: No abdominal tenderness and No Guarding due to palpation present (GI) Auscultation: normal bowel sounds : Male General Exam: Yes erythema (much improved) Objective Data Vital Signs Vital Signs: Vital Signs - 24 hr 06/17/20 14:00 06/17/20 21:55 06/18/20 06:00 Temperature 98.0 F 97.3 F L 98.7 F Pulse Rate 87 80 81 Respiratory Rate 18 18 18 Blood Pressure 137/64 132/63 147/65 H Pulse Oximetry 96 94 93 Intake/Output Intake/Output: Intake & Output 06/15/20 06/16/20 06/17/20 06/18/20 23:59 23:59 23:59 23:59 Intake Total 5190 3990 3970 1090 Output Total 1600 1460 400 650 Balance 3590 2530 3570 440 Meds/Results Medications: Active Medications Generic Name Dose Route Start Last Admin Trade Name Freq PRN Reason Stop Dose Admin Allopurinol 150 mg 06/15/20 09:00 06/18/20 08:18 Allopurinol 150 Mg Tablet BY MOUTH 150 mg DAILY RADHA Administration Amlodipine Besylate 5 mg 06/15/20 09:00 06/18/20 08:19 Amlodipine Besylate 5 Mg Tablet PO 5 mg DAILY RADHA Administration Aspirin 81 mg 06/15/20 09:00 06/18/20 08:19 Aspirin 81 Mg Chewable Tablet PO 81 mg DAILY RADHA Administration Carbidopa/Levodopa 2 tablet 06/17/20 09:00 06/18/20 11:41 Carbidopa/Levodopa 25/100 Mg Tablet PO 2 tablet TID RADHA Administration Clotrimazole 1 applic 06/15/20 09:00 06/18/20 08:18 Betamethasone/Clotrimazole Cr 15 Gm Tube TOPICAL 1 applic Q12HR RADHA Administration Dextrose 12.5 gm 06/14/20 23:46 Dextrose 50% 25 Gm/50 Ml Syringe IV PUSH PRN PRN Hypoglycemia Protocol Erythromycin 1 applic 06/14/20 21:00 06/18/20 11:41 Erythromycin Ophth Ointment 1 Gm Tube EACH EYE 1 applic Q4HWA RADHA Administration Glucagon 1 mg 06/14/20 23:46 Glucagon For Inj 1 Mg Vial IM PRN PRN Hypoglycemia Protocol Glucose 15 gm 06/14/20 23:46 Glucose Oral Gel 15 Gm Of Glucse In 37.5 Gm Tube PO PRN PRN Hypoglycemia Protocol Hydrochlorothiazide 25 mg 06/15/20 09:00 06/18/20 08:19 Hydrochlorothiazide 25 Mg Tablet PO 25 mg DAILY RADHA Administration Fluconazole 200 mg in 100 mls @ 100 mls/hr 06/15/20 09:00 06/18/20 10:19 Diflucan 200 Mg/Nacl 100 Ml IVPB Infused DAILY RADHA Infusion Dextrose 1,000 mls @ 100 mls/hr 06/14/20 23:46 Dextrose 5% 1,000 Ml IVPB PRN PRN Hypoglycemia Protocol Imipenem/Cilastatin Sodium 500 mg in 100 mls @ 300 mls/hr 06/15/20 16:00 06/18/20 09:09 Primaxin 500 Mg/D5w 100 Ml IVPB Infused Q8H RADHA Infusion Vancomycin HCl 1,500 mg in 500 mls @ 333.333 mls/hr 06/17/20 02:00 06/18/20 03:22 Vancomycin 1,500 Mg/D5w 500 Ml IVPB Infused Q12H RADHA Infusion Insulin Aspart 2 - 5 units 06/15/20 08:00 06/18/20 11:36 Insulin Aspart (*Bkc) 100 Units/Ml SUB-Q 3 units TIDWM RADHA Administration Protocol Insulin Glargine 30 units 06/14/20 23:50 06/17/20 20:18 Insulin Glargine (*Bkc) 100 Units/Ml SUB-Q 30 units HS RADHA Administration Latanoprost 1 drop 06/14/20 23:50 06/17/20 20:18 [place]
[2020-06-18 14:00] VITALS: BP 115/74; PULSE 76; RESP 16; TEMP 36.3; O2SAT 99
--- NOTE | 2020-06-18 14:06 | PM.IMPN ---
Progress Note: A&P Assessment and Plan (1) Cellulitis of scrotum: Code(s): N49.2 - Inflammatory disorders of scrotum Status: Acute Assessment and Plan: Urology has been consulted, Pt on iv imipenem and vancomycin for bacterial coverage. will also add fluconazole iv for antifungal coverage. continue current treatment until Friday then hopeful Dc home. (2) Acute conjunctivitis, right eye: Code(s): H10.31 - Unspecified acute conjunctivitis, right eye Status: Acute Assessment and Plan: Pt is on eyes drops (3) Diabetes mellitus: Code(s): E11.9 - Type 2 diabetes mellitus without complications Status: Acute Assessment and Plan: ACCUCHECKs, SSI, continue home lantus (4) Fungal infection of the groin: Code(s): B35.6 - Tinea cruris Status: Acute Assessment and Plan: Pt seen by urology continue recommendations, pt is on fluconzoale iv for antifungal covergae.and nystatin powder. (5) Cellulitis: Qualifiers: Site of cellulitis: trunk Site of cellulitis of trunk: perineum Qualified Code(s): L03.315 - Cellulitis of perineum Code(s): L03.90 - Cellulitis, unspecified Status: Inactive Assessment and Plan: iv imipenem and vancomycin. Bc negative to date (6) Urine incontinence: Code(s): R32 - Unspecified urinary incontinence Status: Acute (7) Parkinsons: Code(s): G20 - Parkinson's disease Status: Acute Assessment and Plan: History of Parkinson start patient on PT/ OT on carbidpoa levodopa Subjective Date/time seen: 06/18/20 14:06 Interval history: 75 year old male presented with right eye infection and rash in the groin. Pt states he was trying some care on it for a few days himself. without going to doctor. But it was getting worse and now his eyes are both purulent, Pt denies any sexual activity. or std problems. Discussion with his granddaughter pt has not been looking after himself. Pt has Parkinson disease, lives with his granddaughter and family who are his main carers. Eyes are clear rash much improved, hopeful DC tomorrow. Review of Systems Review of Systems: All systems reviewed & are unremarkable except as noted in HPI and below Exam Narrative: Exam Narrative: GENERAL APPEARANCE: No acute distress, alert sitting up, more talkative EYES: BL eyes clean no discharge HEENT: Normocephalic, atraumatic RESPIRATORY: No respiratory distress Clear to auscultation bilaterally with no rhonchi wheezing or rales. CARDIOVASCULAR: Regular rate and rhythm without murmurs rubs or gallops. ABDOMINAL: Soft, nontender, nondistended, no rebound or guarding : Slight redness of scrotum and penis with excoriation and whitish patches in the groin- improving Objective Data Vital Signs Vital Signs: Vital Signs - 24 hr 06/17/20 21:55 06/18/20 06:00 06/18/20 14:00 Temperature 36.3 C L 37.1 C 36.3 C L Pulse Rate 80 81 76 Respiratory Rate 18 18 16 Blood Pressure 132/63 147/65 H 115/74 Pulse Oximetry 94 93 99 Intake/Output Intake/Output: Intake & Output 06/15/20 06/16/20 06/17/20 06/18/20 23:59 23:59 23:59 23:59 Intake Total 5190 3990 3970 1330 Output Total 1600 1460 400 650 Balance 3590 2530 3570 680 Meds/Results Medications: Active Medications Generic Name Dose Route Start Last Admin Trade Name Luisq PRN Reason Stop Dose Admin Allopurinol 150 mg 06/15/20 09:00 06/18/20 08:18 Allopurinol 150 Mg Tablet BY MOUTH 150 mg DAILY RADHA Administration Amlodipine Besylate 5 mg 06/15/20 09:00 06/18/20 08:19 Amlodipine Besylate 5 Mg Tablet PO 5 mg DAILY RADHA Administration Aspirin 81 mg 06/15/20 09:00 06/18/20 08:19 Aspirin 81 Mg Chewable Tablet PO 81 mg DAILY RADHA Administration Carbidopa/Levodopa 2 tablet 06/17/20 09:00 06/18/20 11:41 Carbidopa/Levodopa 25/100 Mg Tablet PO 2 tablet TID RADHA Administration Clotrimazole 1 applic 06/15/20
[2020-06-18 14:21] LABS: Vancomycin Trough 16.8 ug/mL (10.0-20.0)
[2020-06-18 16:44] VITALS: O2SAT 97
[2020-06-18 16:49] LABS: Glucose Point of Care 305 (65-105)
[2020-06-18 22:00] VITALS: BP 129/71; PULSE 89; RESP 16; TEMP 36.4; O2SAT 97
[2020-06-18] MEDS: TAMSULOSIN HCL 0.4 MG CAPSULE PO (22:27)
[2020-06-18] MEDS: PRAVASTATIN SODIUM 10 MG TABLET PO (22:27)
[2020-06-18] MEDS: LATANOPROST 0.005% OP SOLN 2.5 ML BTL 1 DROP EACH EYE (22:27)
[2020-06-18] MEDS: INSULIN GLARGINE (*BKC) 100 UNITS/ML 30 UNITS SUB-Q (22:28)
[2020-06-18 22:51] LABS: Glucose Point of Care 303 (65-105)
[2020-06-19] MEDS: ERYTHROMYCIN OPHTH OINTMENT 1 GM TUBE 1 APPLIC EACH EYE ×4 (01:51→12:25)
[2020-06-19 06:00] VITALS: BP 160/85; PULSE 81; RESP 18; TEMP 36.2; O2SAT 98
[2020-06-19 06:25] LABS: Estimated CRCL calculation 68 ml/min; Estimated Glomerular Filt Rate > 60
[2020-06-19 08:03] LABS: Glucose Point of Care 216 (65-105)
[2020-06-19] MEDS: INSULIN ASPART (*BKC) 100 UNITS/ML SUB-Q ×2 (08:03→12:29)
[2020-06-19] MEDS: CHOLECALCIFEROL 1,000 UNITS TABLET 5000 UNITS PO (08:07)
[2020-06-19] MEDS: CARBIDOPA/LEVODOPA 25/100 MG TABLET 2 TABLET PO ×2 (08:08→12:25)
[2020-06-19] MEDS: ASPIRIN 81 MG CHEWABLE TABLET PO (08:08)
[2020-06-19] MEDS: hydroCHLOROthiazide 25 MG TABLET PO (08:08)
[2020-06-19] MEDS: amLODIPine BESYLATE 5 MG TABLET PO (08:08)
[2020-06-19] MEDS: LORATADINE 5 MG TABLET PO (08:08)
[2020-06-19] MEDS: LOSARTAN POTASSIUM 50 MG TABLET PO (08:08)
[2020-06-19] MEDS: metFORMIN HCL 500 MG TABLET PO (08:08)
[2020-06-19] MEDS: allopurinoL 150 MG TABLET BY MOUTH (08:08)
[2020-06-19] MEDS: BETAMETHASONE/CLOTRIMAZOLE CR 15 GM TUBE 1 APPLIC TOPICAL (08:09)
[2020-06-19] MEDS: FLUCONAZOLE 200 MG/NACL 100 ML 200 MG/100 ML BAG 100 MG IVPB (09:22)
[2020-06-19] MEDS: LORazepam (*CRX) 1 MG TABLET PO (09:23)
[2020-06-19 12:46] LABS: Glucose Point of Care 276 (65-105)
--- NOTE | 2020-06-19 13:29 | PM.DS ---
DS: Admitting Diagnosis Admitting Diagnosis Admitting Diagnosis: Rash, cellulitis DS: Discharge Diagnosis Discharge Diagnosis (1) Cellulitis of scrotum: Code(s): N49.2 - Inflammatory disorders of scrotum Status: Acute Assessment and Plan: Urology has been consulted, Pt on iv imipenem and vancomycin for bacterial coverage. will also add fluconazole iv for antifungal coverage. continue current treatment until Friday then hopeful Dc home. With 10 days of oral fluconazole and antifungal cream. (2) Acute conjunctivitis, right eye: Code(s): H10.31 - Unspecified acute conjunctivitis, right eye Status: Resolved Assessment and Plan: After using eyes drops (3) Diabetes mellitus: Code(s): E11.9 - Type 2 diabetes mellitus without complications Status: Acute Assessment and Plan: ACCUCHECKs, SSI, continue home lantus (4) Fungal infection of the groin: Code(s): B35.6 - Tinea cruris Status: Acute Assessment and Plan: Pt seen by urology continue recommendations, pt is on fluconzoale iv for antifungal covergae.and nystatin powder. (5) Cellulitis: Qualifiers: Site of cellulitis: trunk Site of cellulitis of trunk: perineum Qualified Code(s): L03.315 - Cellulitis of perineum Code(s): L03.90 - Cellulitis, unspecified Status: Inactive Assessment and Plan: iv imipenem and vancomycin. Bc negative to date can stop antibiotics now. (6) Urine incontinence: Code(s): R32 - Unspecified urinary incontinence Status: Chronic Assessment and Plan: Pt to follow with urology, urinary incontinence source of fungal infection (7) Parkinsons: Code(s): G20 - Parkinson's disease Status: Acute Assessment and Plan: History of Parkinson start patient on PT/ OT on carbidpoa levodopa DS: Summary Hospital Course Hospital Course: 75 year old male presented with right eye infection and rash in the groin. Pt states he was trying some care on it for a few days himself. without going to doctor. But it was getting worse and now his eyes are both purulent, Pt denies any sexual activity. or std problems. Discussion with his granddaughter pt has not been looking after himself. Pt has Parkinson disease, lives with his granddaughter and family who are his main carers. Eyes are clear groin rash much improved, discharge today. Time Spent with Patient Time attestation: Total time spent providing and/or coordinating discharge services:40 minutes on day of discharge Exam Narrative: Exam Narrative: GENERAL APPEARANCE: No acute distress, alert sitting up, more talkative EYES: BL eyes clean no discharge HEENT: Normocephalic, atraumatic RESPIRATORY: No respiratory distress Clear to auscultation bilaterally with no rhonchi wheezing or rales. CARDIOVASCULAR: Regular rate and rhythm without murmurs rubs or gallops. ABDOMINAL: Soft, nontender, nondistended, no rebound or guarding : Slight redness of scrotum and penis much improved DS: Data Data Completed and Pending Labs on day of discharge: Labs from last 24 hours 06/19/20 06/19/20 06/19/20 12:23 07:51 05:50 Creatinine 0.90 Estim Creat Clear Calc 68 Estimated GFR > 60 POC Capillary Glucose 276 H 216 H Vancomycin Trough 06/18/20 06/18/20 06/18/20 22:26 16:43 13:12 Creatinine Estim Creat Clear Calc Estimated GFR POC Capillary Glucose 303 H 305 H Vancomycin Trough 16.8 Preliminary micro results at discharge 06/14/20 18:05 Blood Culture - Preliminary Blood 06/14/20 18:08 Blood Culture - Preliminary Blood Discharge Plan Discharge Attending physician on discharge: Leena Lisa Consulting providers: Jr Carroll Discharging Clinician: Leena Lisa Anticipated Discharge Date/Time: 06/19/20 13:22 Patient Disposition: Home, Self-Care Activity: as tolerated Diet: diabetic Discharg
[2020-06-19 14:00] VITALS: BP 140/74; PULSE 91; RESP 20; TEMP 36.8; O2SAT 96
--- NOTE | 2020-06-19 16:30 | PC.NURSE ---
Went over discharge instructions with jarad Smith and Gave address and phone number to [facility]. Also discussed how to put cream on private area.
--- NOTE | 2020-06-19 16:35 | PC.NURSE ---
Called son Luis Marion about his dads discharge for today.. Son was very upset because Dr Lisa had not called him back. Son was here at [phone] waiting to talk to doctor. Dr Lisa came by at 1100. Son did not return to the hospital. I called Dr Lisa that son was upset she had not returned phone call.
--- NOTE | 2020-06-20 18:51 | PC.NURSE ---
received call at 1830 from Luis (patient's son) regarding inability to get diflucan because dose needed clarified. Attempted to reach Dr. Lisa and message left at 1830. Pharmacy closes at [address] Montemayor notified at 183. Dr. Montemayor attempted to reach Dr. Lisa to clarify medication and did not receive a call back either. Orders received at 184 for Diflucan 100 mg tonight and to have Dr. Lisa clarify medication tomorrow. Pharmacy called and order placed. Luis notified.
== END 2020-06-19 16:35 | disposition home health service (06) | DRG 607 ==
LOC: ANHED 20:19 → ANH3MEDSUR 21:29
PROVIDERS: Admitting Provider Internal Medicine; Emergency Provider Emergency Medicine; Visit Provider Family Medicine
DX: B36.8 Other specified superficial mycoses (principal); L03.315 Cellulitis of perineum; B96.89 Other specified bacterial agents as the cause of diseases classified elsewhere; N49.2 Inflammatory disorders of scrotum; H10.31 Unspecified acute conjunctivitis, right eye; E11.8 Type 2 diabetes mellitus with unspecified complications; B35.6 Tinea cruris; G20 Parkinson's disease; R32 Unspecified urinary incontinence
CPT/HCPCS: 36415; 74177; 80048; 80053; 80202; 81001; 82565; 82948; 83605; 85025; 85027; 85610; 85730; 87040; 96361; 96365; 96366; 96367; 96368; 96374; 97110; 97116; 97161; 97165; 97530; 97535; 99285; A9270; G0378; J0743; J1450; J1815; J3370; J7030; Q9967

== ENCOUNTER 2020-07-17 18:14 | Emergency (ER) | payer MEDICARE, SELFPAY ==
[2020-07-17 18:27] VITALS: BP 148/77; PULSE 96; RESP 18; TEMP 36.6; O2SAT 97
[2020-07-17 18:43] LABS: Basophils Percent Auto 0.5 % (0.2-1.2); Eosinophils Absolute Auto 0.1 K/mm3 (0-0.3); Eosinophils Percent Auto 1.8 % (0-4.4); Hematocrit 36.2 % (42.0-52.0); Hemoglobin 12.2 g/dL (14.0-18.0); Immature Granulocyte Absolute 0.03 K/mm3 (0.00-0.031); Immature Granulocyte Percent A 0.4 % (0-0.5); Lymphocytes Absolute Auto 1.34 K/mm3 (0.9-3.2); Mean Corpuscular HGB Conc 33.7 g/dl (32-36); Mean Corpuscular Hemoglobin 29.1 pg (26-34); Mean Corpuscular Volume 86.4 fl (80-100); Mean Platelet Volume 10.4 fl (7.4-10.4); Monocytes Absolute Auto 0.5 K/mm3 (0.1-0.6); Monocytes Percent Auto 6.5 % (2.6-8.5); Neutrophils Absolute Auto 5.8 K/mm3 (1.3-6.7); Neutrophils Percent Auto 73.8 % (45.5-73.1); Platelet Count Result 225 k/mm3 (150-375); Red Blood Count 4.19 M/mm3 (4.6-6.20); Red Cell Distribution Width 12.4 % (11.5-14.5); White Blood Count 7.9 K/mm3 (4.5-10.0)
[2020-07-17 18:57] LABS: Alanine Aminotransferase 14 U/L (4-50); Alkaline Phosphatase 103 U/L (38-126); Anion Gap 12 mmol/L (8-16); Aspartate Amino Transferase 19 U/L (17-59); Bilirubin,Total 0.6 mg/dL (0.2-1.3); Blood Urea Nitrogen 17 mg/dL (9-20); Calcium 9.8 mg/dL (8.4-10.2); Carbon Dioxide 26 mmol/L (22-30); Chloride 95 mmol/L (98-107); Estimated CRCL calculation 57 ml/min; Estimated Glomerular Filt Rate > 60; Glucose 512 mg/dL (75-110); Potassium 4.1 mmol/L (3.4-5.0); Sodium 133 mmol/L (137-145)
[2020-07-17 19:05] VITALS: PULSE 79; RESP 18; O2SAT 100
[2020-07-17 19:19] VITALS: PULSE 81; RESP 13; O2SAT 97
--- NOTE | 2020-07-17 19:25 | ED.GENADULT ---
HPI - General Adult General Chief complaint: Skin/Abscess/Foreign Body Stated complaint: wound on leg- hx of cellulitis Time Seen by Provider: 07/17/20 19:01 Source: patient and family History of Present Illness HPI narrative: Patient is a 75 y/o male complaining of bilateral groin rash for over 1 month. The rash is erythematous. Patient states that he was admitted for this approximately 1 month ago. He was prescribed antifungal cream, which helped. However, he ran out of his medication. He states that his rash itches, but does not hurt. He has no fever, chill or vomiting. Related Data Home Medications Medication Instructions Recorded Confirmed Xadago 50 mg PO DAILY 06/14/20 06/14/20 allopurinol 150 mg BYMOUTH DAILY 06/14/20 06/14/20 amlodipine [Norvasc] 5 mg PO DAILY 06/14/20 06/14/20 aspirin 81 mg PO DAILY 06/14/20 06/14/20 carbidopa-levodopa [Sinemet] 2 tablet PO TID 06/14/20 06/16/20 cetirizine 5 mg PO DAILY 06/14/20 06/14/20 cholecalciferol (vitamin D3) 125 mg PO DAILY 06/14/20 06/14/20 escitalopram oxalate 10 mg PO DAILY 06/14/20 06/14/20 hydrochlorothiazide 25 mg PO DAILY 06/14/20 06/14/20 latanoprost 1 drp EACH EYE HS 06/14/20 06/14/20 lorazepam 1 mg PO DAILY 06/14/20 06/14/20 losartan [Cozaar] 50 mg PO DAILY 06/14/20 06/14/20 metformin 500 mg PO BID 06/14/20 06/14/20 pravastatin 10 mg PO HS 06/14/20 06/14/20 sitagliptin 100 mg PO DAILY 06/14/20 06/15/20 tamsulosin [Flomax] 0.4 mg PO HS 06/14/20 06/14/20 tramadol [Ultram] 50 mg PO Q6H PRN 06/14/20 06/14/20 Allergies Allergy/AdvReac Type Severity Reaction Status Date / Time No Known Allergies Allergy Verified 06/16/20 02:46 Review of Systems Constitutional: Constitutional: Denies chills, Denies fever(s), Denies headache(s) and Denies weakness Eyes: Eyes: Denies blurry vision ENT: Denies headache(s) and Denies neck pain Cardiovascular: Cardiovascular: Denies chest pain and Denies dyspnea Respiratory: Respiratory: Denies cough and Denies dyspnea Gastrointestinal: Gastrointestinal: Denies abdominal pain, Denies diarrhea, Denies nausea and Denies vomiting Genitourinary: Genitourinary: Denies hematuria and Denies dysuria Musculoskeletal: Musculoskeletal: Denies back pain and Denies neck pain Integumentary/Breasts: Skin/Breast: Reports rash Neurologic: Denies headache(s) and Denies weakness PMFSH Past Medical History Medical History Diabetes Hypertension Parkinsons Family History Family History Father Heart attack Mother Heart attack Sibling Diabetes mellitus Social History Social History Smoking status: Former smoker Alcohol intake: current Drinks per week: 3 Substance use: never Gender identity (if verbalized by the patient): Male Spiritual care concerns: No Exam Const: General: no acute distress and well developed Orientation/consciousness: oriented to person, oriented to place, oriented to time and patient oriented x3 HENMT: Head: normocephalic Ears: external ears normal General nose exam: Normal external nose present Eyes: General: appearance normal, both eyes and all related structures Conjunctivae: conjunctivae normal Neck: Neck: normal visual inspection and full ROM Chest: Chest palpation & inspection: normal inspection of the chest and no tenderness Resp: Effort & Inspection: normal respiratory effort Auscultation: clear to auscultation bilaterally Cardio: Rate: regular rate Rhythm: regular rhythm GI: GI Palp: No abdominal tenderness and Yes Soft to palpation Skin: General skin exam: normal color and turgor normal Rashes: rashes noted (bilateral erthematous rash in groin) and other (No sign of necrotic tissue) Neuro: General: oriented to person, oriented to place, oriented to time and patient oriented x3 Cognition (Neuro): normal cognition Extrem:
[2020-07-17 19:30] VITALS: PULSE 81; RESP 15
[2020-07-17 19:31] VITALS: BP 131/66; PULSE 80; RESP 15; O2SAT 96
[2020-07-17 19:45] VITALS: PULSE 83; RESP 18; O2SAT 94
--- NOTE | 2020-07-17 19:47 | PC.NURSE ---
Per , Insulin and fluids ordered for pt's high blood glucose. pt is diabetic, but poorly managed. he reports to this RN that he would like to go home, and he will take his own insulin there. this is the same thing he told Dr. Huerta prior to my arrival. Per Dr. Huerta, OK to d/c pt.
== END 2020-07-17 20:14 | disposition home or self-care (01) ==
PROVIDERS: Emergency Medicine; Emergency Provider Emergency Medicine; PCP Physician Assistant
DX: E11.65 Type 2 diabetes mellitus with hyperglycemia (principal); B35.6 Tinea cruris; I10 Essential (primary) hypertension; G20 Parkinson's disease; Z79.84 Long term (current) use of oral hypoglycemic drugs
CPT/HCPCS: 36415; 80053; 85025; 99283

== ENCOUNTER 2021-09-12 13:44 | Inpatient (IN) | payer MEDICARE, SELFPAY ==
--- NOTE | ~2021-09-12 | XR_ITS ---
EXAMINATION: XR forearm LT 2V DATE: 09/13/2021 05:56 INDICATION: Left forearm injury. TECHNIQUE: 2 views of left forearm were obtained. COMPARISON: None. FINDINGS: Bone alignment is normal. No fracture. Joint spaces are normal. No elbow joint effusion. IMPRESSION: 1. No fracture. Reviewed, dictated and finalized at location A. IMPRESSION: 1. No fracture.
--- NOTE | ~2021-09-12 | XR_ITS ---
EXAMINATION: XR chest 1V portable DATE: 09/12/2021 14:32 INDICATION: Cough. Transient alteration of awareness. TECHNIQUE: frontal view of the chest was obtained. COMPARISON: None FINDINGS: The lungs are clear with no focal airspace opacities, pulmonary edema, pleural effusion or pneumothor ax. The cardiomediastinal silhouette is normal. Age-indeterminate anterior left sixth and anterior ri ght seventh rib fractures. IMPRESSION: 1. No acute cardiopulmonary disease. 2. A couple age-indeterminate bilateral anterior rib fractures. Reviewed, dictated and finalized at location A.
--- NOTE | ~2021-09-12 | XR_ITS ---
EXAM: XR foot RT min 3V DATE: 09/12/2021 17:42 HISTORY: fall, DORSUM SWELLING, POOR HISTORIAN . COMPARISON: None available. FINDINGS: Decreased mineralization. No fracture or dislocation. No lytic or blastic lesion. Scattere d degenerative changes. No erosion or periosteal change. Vascular calcification. IMPRESSION: No acute osseous finding in the feet. Reviewed, dictated and finalized at location K.
--- NOTE | ~2021-09-12 | XR_ITS ---
EXAM: XR knee LT min 4V DATE: 09/12/2021 17:42 HISTORY: fall TODAY, ABRASION TO ANTERIOR SIDE, POOR HISTORIAN . COMPARISON: None available. FINDINGS: Decreased mineralization. No fracture or dislocation. No lytic or blastic lesion. Moderate tricompartmental osteoarthritis. No erosion or periosteal change. Extensive vascular calcification. IMPRESSION: No acute osseous finding in the left knee. Reviewed, dictated and finalized at location K.
--- NOTE | ~2021-09-12 | CT_ITS ---
EXAMINATION: CT brain wo con DATE: 09/12/2021 14:51 INDICATION: ams . TECHNIQUE: Computed tomography (CT) of the head was performed without intravenous contrast. The mA wa s adjusted according to patient size. Iterative reconstruction technique was employed. The dose-lengt h product was 681.00 mGy-cm. COMPARISON: None FINDINGS: No acute intracranial hemorrhage or extra-axial fluid collection. No hydrocephalus, mass, or herniation. No acute ischemic infarct. Unremarkable dural venous sinus attenuation. No acute osseous abnormality. Right middle ethmoid air cell and bilateral maxillary retention cyst/polyps, otherwise the aerated sp aces are clear. Moderate atrophy and chronic white matter change. Bilateral basal ganglia old lacunar infarcts. Ather osclerotic intracranial calcification. Bilateral lens replacements. IMPRESSION: No acute intracranial process. Reviewed, dictated and finalized at location K.
--- NOTE | ~2021-09-12 | XR_ITS ---
EXAM: XR foot LT min 3V DATE: 09/12/2021 17:42 HISTORY: fall TODAY, DORSUM SWELLING, POOR HISTORIAN . COMPARISON: None available. FINDINGS: Decreased mineralization. No fracture or dislocation. No lytic or blastic lesion. Scattere d degenerative changes. No erosion or periosteal change. Vascular calcification. IMPRESSION: No acute osseous finding in the feet. Reviewed, dictated and finalized at location K.
[2021-09-12 13:45] VITALS: BP 132/69; PULSE 122; RESP 20; TEMP 38.7; O2SAT 94
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
[2021-09-12 14:08] LABS: Alveolar/Arterial O2 Gradient 37.4 mmHg; Base Excess ABG 2.8 mEq/l (+/-2.0); Carboxyhemoglobin 0.2 % THb (0-2.0); Fractional Inspired Oxygen 21 %; HCO3 ABG 26.9 mEq/l (22.0-26.0); Methemoglobin ABG 0.2 %THb (0-1.5); Oxygen Content ABG 16.2 %vol (16.0-22.0); Oxygen Saturation ABG 93.8 % (95.0-100.0); Oxyhemoglobin 92.2 % THb (90.0-100.0); PCO2 ABG 39.3 mmHg (35.0-45.0); PO2 ABG 65.3 mmHg (80.0-100.0); PO2 FiO2 Ratio Arterial Blood 3.11 %; Reduced Hemoglobin 7.4 %THb (0-5.0); Total Hemoglobin 12.5 g/dL (12.0-18.0); pH ABG 7.453 (7.350-7.450)
[2021-09-12 14:09] LABS: Device ROOM AIR; Modified Allen's Test Pass; Site Drawn RIGHT RADIAL
[2021-09-12 14:09] LABS: Basophils Absolute Auto 0.1 K/mm3 (0.0-0.1); Basophils Percent Auto 0.9 % (0.2-1.2); Eosinophils Absolute Auto 0.1 K/mm3 (0-0.3); Eosinophils Percent Auto 2.6 % (0-4.4); Hematocrit 35.6 % (42.0-52.0); Hemoglobin 11.8 g/dL (14.0-18.0); Immature Granulocyte Absolute 0.03 K/mm3 (0.00-0.031); Immature Granulocyte Percent A 0.6 % (0-0.5); Lymphocytes Absolute Auto 0.96 K/mm3 (0.9-3.2); Lymphocytes Percent Auto 17.9 % (18.3-44.2); Mean Corpuscular HGB Conc 33.1 g/dl (32-36); Mean Corpuscular Hemoglobin 28.9 pg (26-34); Mean Corpuscular Volume 87.3 fl (80-100); Mean Platelet Volume 10.8 fl (7.4-10.4); Monocytes Absolute Auto 0.4 K/mm3 (0.1-0.6); Monocytes Percent Auto 7.8 % (2.6-8.5); Neutrophils Absolute Auto 3.8 K/mm3 (1.3-6.7); Neutrophils Percent Auto 70.2 % (45.5-73.1); Platelet Count Result 231 k/mm3 (150-375); Red Blood Count 4.08 M/mm3 (4.6-6.20); Red Cell Distribution Width 12.5 % (11.5-14.5); White Blood Count 5.4 K/mm3 (4.5-10.0)
[2021-09-12 14:19] LABS: Prothrombin Time 12.4 Seconds (11.1-14.7)
[2021-09-12 14:20] LABS: Ethanol < 10 mg/dL (<10); Lactic Acid Reflex 2.9 mmol/L (0.7-2.0)
[2021-09-12 14:20] LABS: Appearance Urine Clear (Clear); Bilirubin Urine Negative (Negative); Blood Urine 2+ (Negative); Color Urine Yellow (Yellow); Glucose Urine UA 2+ mg/dL (Negative); Ketones Urine Negative (Negative); Leukocyte Esterase Ur Negative LEU/UL (Negative); Nitrate Urine Negative (Negative); Protein Urine Negative (Negative); Specific Grav Ur <= 1.005 (1.001-1.035); Urobilinogen Urine 0.2 mg/dL (<2.0); pH Urine 5.5 (5.0-9.0)
[2021-09-12 14:22] LABS: Glucose Point of Care > 500 mg/dl (65-105)
[2021-09-12 14:27] LABS: RBC Urine 21-50 /hpf (0-2); Squamous Epithelial Cell Urine Rare /hpf (Few); WBC Urine 0-3 /hpf
[2021-09-12 14:30] LABS: Add Urine Microscopic? YES
[2021-09-12 14:42] LABS: Beta-Hydroxybutyrate/Acetoacetate 0.37 mmol/L (0.02-0.27)
[2021-09-12] MEDS: SODIUM CHLORIDE 0.9% IV 1,000 ML 999 ML IV CONT ×2 (14:43→15:34)
[2021-09-12 14:50] LABS: Troponin I < 0.012 ng/mL (0.000-0.034)
[2021-09-12 15:06] LABS: SARS-CoV-2 RNA PCR Negative
--- NOTE | 2021-09-12 15:24 | ECG_ITS ---
Measurements Intervals [place] Rate: 120 P: 39 OK: 141 QRS: -53 QRSD: 97 T: 58 QT: 305 QTc: 433 Interpretive Statements SINUS TACHYCARDIA BASELINE ARTIFACT PATTERN CONSISTENT WITH PULMONARY DISEASE LEFT ANTERIOR FASCICULAR BLOCK ABNORMAL ECG NO PREVIOUS ECG AVAILABLE FOR COMPARISON Electronically Signed On 09-12-2021 16:09:30 CDT by Tha Mitchell M.D.
[2021-09-12 15:41] VITALS: BP 120/67; PULSE 87; RESP 14; TEMP 37; O2SAT 97
[2021-09-12 16:20] LABS: Alanine Aminotransferase 13 U/L (6-50); Albumin Level 3.5 g/dL (3.5-5.1); Alkaline Phosphatase 88 U/L (38-126); Anion Gap 6 mmol/L (8-16); Aspartate Amino Transferase 22 U/L (17-59); Bilirubin,Total 0.5 mg/dL (0.2-1.3); Blood Urea Nitrogen 14 mg/dL (9-20); Calcium 8.7 mg/dL (8.4-10.2); Carbon Dioxide 28 mmol/L (22-30); Chloride 98 mmol/L (98-107); Creatine Kinase 96 U/L (55-170); Estimated CRCL calculation 64 ml/min; Estimated Glomerular Filt Rate > 60; Glucose 466 mg/dL (65-110); Lipase 48 U/L (23-300); Magnesium 1.9 mg/dL (1.6-2.3); Potassium 4.7 mmol/L (3.4-5.0); Sodium 132 mmol/L (137-145)
[2021-09-12 16:24] LABS: Troponin I < 0.012 ng/mL (0.000-0.034)
--- NOTE | 2021-09-12 16:41 | PC.NURSE ---
blood glucose 414 at 1640
[2021-09-12 16:50] LABS: Glucose Point of Care 414 mg/dl (65-105)
[2021-09-12] MEDS: INSULIN ASPART (*BKC) 100 UNITS/ML 8 UNITS SUB-Q ×2 (16:52→21:08)
[2021-09-12 17:06] LABS: Reflex Lactic Acid Yes or No Add Lactic
[2021-09-12 17:37] VITALS: PULSE 83; RESP 16; O2SAT 98
[2021-09-12 18:32] LABS: Glucose Point of Care 374 mg/dl (65-105)
[2021-09-12 18:33] LABS: Lactic Acid 2.1 mmol/L (0.7-2.0)
[2021-09-12 18:38] VITALS: BP 138/70; PULSE 80; RESP 13; O2SAT 98
[2021-09-12 19:10] VITALS: BP 141/74; PULSE 82; RESP 14; O2SAT 99
[2021-09-12 19:19] LABS: Troponin I < 0.012 ng/mL (0.000-0.034)
--- NOTE | 2021-09-12 20:10 | ADMGEN ---
This patient, Joe Marion, was admitted to Medical Room 253-01. Patient/family oriented to hospital policies and general routines including ID bracelet, bed and alarms, visiting hours, pain management, procedures, bathroom and other care routines, personal items, smoking policy, room service/diet, and visiting hours. Information on how to activate the Rapid Response Team has been discussed. Patient/Family are encouraged to report perceived risks to care and to ask questions if they do not understand what they are told or what they should do.
[2021-09-12 20:19] VITALS: BP 154/61; PULSE 78; RESP 16; TEMP 36.4; O2SAT 97
[2021-09-12 20:20] VITALS: BMI 24.0
[2021-09-12] MEDS: SODIUM CHLORIDE 0.9% IV 1,000 ML 100 ML IV CONT (21:08)
[2021-09-12 21:51] LABS: Troponin I 0.014 ng/mL (0.000-0.034)
[2021-09-12 22:15] LABS: Glucose Point of Care 343 mg/dl (65-105)
[2021-09-12 22:15] LABS: Glucose Point of Care 266 mg/dl (65-105)
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
--- NOTE | 2021-09-12 23:21 | PC.NURSE ---
Unable to reach JERRELL Smith for home medication list, pt states son takes care of all of his medications. Message left with Luis, will reattempt to contact in AM.
[2021-09-13 00:02] LABS: Lactic Acid Reflex 2.8 mmol/L (0.7-2.0)
[2021-09-13 03:36] VITALS: BP 148/60; PULSE 54; RESP 17; TEMP 36.5; O2SAT 95
[2021-09-13 06:41] LABS: Basophils Percent Auto 0.7 % (0.2-1.2); Eosinophils Absolute Auto 0.2 K/mm3 (0-0.3); Eosinophils Percent Auto 3.3 % (0-4.4); Hematocrit 33.6 % (42.0-52.0); Hemoglobin 10.8 g/dL (14.0-18.0); Immature Granulocyte Absolute 0.07 K/mm3 (0.00-0.031); Immature Granulocyte Percent A 1.1 % (0-0.5); Lymphocytes Absolute Auto 1.58 K/mm3 (0.9-3.2); Lymphocytes Percent Auto 25.9 % (18.3-44.2); Mean Corpuscular HGB Conc 32.1 g/dl (32-36); Mean Corpuscular Hemoglobin 28.9 pg (26-34); Mean Corpuscular Volume 89.8 fl (80-100); Mean Platelet Volume 10.9 fl (7.4-10.4); Monocytes Absolute Auto 0.5 K/mm3 (0.1-0.6); Monocytes Percent Auto 8.5 % (2.6-8.5); Neutrophils Absolute Auto 3.7 K/mm3 (1.3-6.7); Neutrophils Percent Auto 60.5 % (45.5-73.1); Platelet Count Result 200 k/mm3 (150-375); Red Blood Count 3.74 M/mm3 (4.6-6.20); Red Cell Distribution Width 12.4 % (11.5-14.5); White Blood Count 6.1 K/mm3 (4.5-10.0)
[2021-09-13 06:57] LABS: Alanine Aminotransferase 13 U/L (6-50); Albumin Level 3.2 g/dL (3.5-5.1); Alkaline Phosphatase 77 U/L (38-126); Anion Gap 5 mmol/L (8-16); Aspartate Amino Transferase 26 U/L (17-59); Bilirubin,Total 0.5 mg/dL (0.2-1.3); Blood Urea Nitrogen 10 mg/dL (9-20); Calcium 8.1 mg/dL (8.4-10.2); Carbon Dioxide 28 mmol/L (22-30); Chloride 103 mmol/L (98-107); Estimated CRCL calculation 59 ml/min; Estimated Glomerular Filt Rate > 60; Glucose 197 mg/dL (65-110); Potassium 3.8 mmol/L (3.4-5.0); Sodium 136 mmol/L (137-145)
[2021-09-13 07:32] LABS: Hemoglobin A1C 13.9 % (<5.7)
[2021-09-13 07:51] LABS: Glucose Point of Care 233 mg/dl (65-105)
[2021-09-13 08:33] LABS: Lactic Acid Reflex 0.8 mmol/L (0.7-2.0)
[2021-09-13 09:00] VITALS: BP 159/73
[2021-09-13] MEDS: ASPIRIN 81 MG ENTERIC TABLET PO (09:01)
[2021-09-13] MEDS: INSULIN ASPART (*BKC) 100 UNITS/ML SUB-Q ×3 (09:01→17:23)
[2021-09-13] MEDS: amLODIPine BESYLATE 5 MG TABLET PO (09:01)
[2021-09-13] MEDS: SODIUM CHLORIDE 0.9% IV 1,000 ML 100 ML IV CONT ×2 (09:03→23:17)
[2021-09-13 12:17] LABS: Glucose Point of Care 400 mg/dl (65-105)
[2021-09-13] MEDS: INSULIN ASPART (*BKC) 100 UNITS/ML 6 UNITS SUB-Q (12:23)
[2021-09-13] MEDS: ACETAMINOPHEN 325 MG TABLET 650 MG PO (12:24)
[2021-09-13 13:22] VITALS: BP 126/53; PULSE 60; RESP 16; TEMP 36.1; O2SAT 96
[2021-09-13 14:53] LABS: Glucose Point of Care 345 mg/dl (65-105)
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
[2021-09-13 17:22] LABS: Glucose Point of Care 270 mg/dl (65-105)
[2021-09-13] MEDS: INSULIN ASPART (*BKC) 100 UNITS/ML 7 UNITS SUB-Q (17:23)
[2021-09-13] MEDS: DOXYCYCLINE HYCLATE 100 MG TABLET PO (17:24)
[2021-09-13 17:40] LABS: Ammonia < 9 umol/L (9-30)
[2021-09-13 21:26] VITALS: O2SAT 95
[2021-09-13] MEDS: FLUTICASONE/SALMETEROL 115-21 MCG INHALER 1 PUFF 2 PUFF INHALATION (21:28)
[2021-09-13 21:32] VITALS: BP 132/53; PULSE 59; RESP 20; TEMP 36.6; O2SAT 96
[2021-09-13] MEDS: INSULIN GLARGINE (*BKC) 100 UNITS/ML 35 UNITS SUB-Q (22:43)
[2021-09-13] MEDS: LOSARTAN POTASSIUM 50 MG TABLET PO (23:17)
[2021-09-13 23:43] LABS: Glucose Point of Care 150 mg/dl (65-105)
[2021-09-14] VITALS (7 sets, daily range): BP systolic 112–165; BP diastolic 52–70; PULSE 58–70; RESP 12–20; TEMP 36.2–36.9; O2SAT 95–100
[2021-09-14 05:50] LABS: Basophils Percent Auto 0.7 % (0.2-1.2); Eosinophils Absolute Auto 0.3 K/mm3 (0-0.3); Eosinophils Percent Auto 4.4 % (0-4.4); Hematocrit 33.8 % (42.0-52.0); Immature Granulocyte Absolute 0.06 K/mm3 (0.00-0.031); Lymphocytes Absolute Auto 1.62 K/mm3 (0.9-3.2); Lymphocytes Percent Auto 26.6 % (18.3-44.2); Mean Corpuscular HGB Conc 32.5 g/dl (32-36); Mean Corpuscular Hemoglobin 29.4 pg (26-34); Mean Corpuscular Volume 90.4 fl (80-100); Monocytes Absolute Auto 0.5 K/mm3 (0.1-0.6); Monocytes Percent Auto 8.9 % (2.6-8.5); Neutrophils Absolute Auto 3.6 K/mm3 (1.3-6.7); Neutrophils Percent Auto 58.4 % (45.5-73.1); Platelet Count Result 197 k/mm3 (150-375); Red Blood Count 3.74 M/mm3 (4.6-6.20); Red Cell Distribution Width 12.5 % (11.5-14.5); White Blood Count 6.1 K/mm3 (4.5-10.0)
[2021-09-14 06:03] LABS: Anion Gap 5 mmol/L (8-16); Blood Urea Nitrogen 16 mg/dL (9-20); Calcium 8.6 mg/dL (8.4-10.2); Carbon Dioxide 27 mmol/L (22-30); Chloride 103 mmol/L (98-107); Estimated CRCL calculation 65 ml/min; Estimated Glomerular Filt Rate > 60; Glucose 207 mg/dL (65-110); Potassium 3.7 mmol/L (3.4-5.0); Sodium 135 mmol/L (137-145)
[2021-09-14 08:10] LABS: Glucose Point of Care 205 mg/dl (65-105)
[2021-09-14] MEDS: FLUTICASONE/SALMETEROL 115-21 MCG INHALER 1 PUFF 2 PUFF INHALATION ×2 (08:21→20:53)
[2021-09-14] MEDS: ASPIRIN 81 MG ENTERIC TABLET PO (08:34)
[2021-09-14] MEDS: DOXYCYCLINE HYCLATE 100 MG TABLET PO ×2 (08:34→19:58)
[2021-09-14] MEDS: INSULIN ASPART (*BKC) 100 UNITS/ML 7 UNITS SUB-Q ×3 (08:34→17:33)
[2021-09-14] MEDS: INSULIN ASPART (*BKC) 100 UNITS/ML SUB-Q ×2 (08:35→17:32)
[2021-09-14] MEDS: amLODIPine BESYLATE 5 MG TABLET PO (08:40)
[2021-09-14] MEDS: ACETAMINOPHEN 325 MG TABLET 650 MG PO (10:08)
[2021-09-14] MEDS: SODIUM CHLORIDE 0.9% IV 1,000 ML 100 ML IV CONT ×2 (10:10→20:45)
--- NOTE | 2021-09-14 12:07 | P.PNIM_ITS ---
Progress Note: A&P Assessment and Plan (1) Sepsis: Code(s): A41.9 - Sepsis, unspecified organism Status: Suspected Assessment and Plan: Patient met sepsis criteria on admission evident by fever, tachycardia, and lactic acidosis * Etiology not clear at this time and in fact may be questionable. Pts son states his initial fever of 101.6 was taken immediately on arrival after the patient was outside during a heat advisory for >1 hour while wearing a sweater. He believes this was falsely elevated and the patient was overheated. He has had no subsequent fever. Patient tachycardic only on initial screening as well and heart rate has been well controlled following. * UA not concerning for infection, no evidence of pneumonia or respiratory illness on exam or imaging, no evidence of intra-abdominal infection, no evidence of cellulitis or septic arthritis. * Possibly related to ingrown infected toenail, although this is not concerning for acute infection on my exam. No evidence of osseous abnormality on imaging of the foot. The toenail was removed in the ED * Patient initially started on broad spectrum abx but narrowed to PO Doxycycline 09/13/21. Will continue and monitor for response. Discussed case wit ID PharmD. * Patient afebrile 36 hours, no leukocytosis, tachycardia resolved. Lactic acidosis resolved following IV fluid bolus and may be better explained due to metformin use. * Monitor output, vital signs, labs. * Blood cultures pending, negative to date (2) Confusion: Code(s): R41.0 - Disorientation, unspecified Status: Acute Assessment and Plan: Persistent issue for 1 month with odd, eyi-ut-qiaelhtyw behavior. 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 Will plan for outpatient Neurology follow up * Suspect patient has underlying dementia which is now becoming more evident (3) Diabetes mellitus: Qualifiers: Diabetes mellitus complication status: with hyperglycemia Diabetes mellitus automation clerk insulin use: with shelter use Diabetes mellitus type: type 2 Qualified Code(s): E11.65 - Type 2 diabetes mellitus with hyperglycemia; Z79.4 - director regulatory agency (current) use of insulin Code(s): E11.9 - Type 2 diabetes mellitus without complications Status: Acute Assessment and Plan: Uncontrolled. Glucose >500 on arrival. A1c is 13.9 * Patient had been poorly compliant with glucose regimen * Accuchecks, high dose sliding scale insulin, and hypoglycemic protocol * Scheduled insulin 7 units TID with meals * Lantus 35 units qHS * No anion gap elevation. * Blood sugars better controlled today 160-200 (4) Hypertension: Code(s): I10 - Essential (primary) hypertension Status: Chronic Assessment and Plan: Blood pressures have been reasonable. Last BP 158/68 * Continue home amlodipine and losartan * Monitor BP trends (5) Parkinsons: Code(s): G20 - Parkinson's disease Status: Acute Assessment and Plan: Questionable history * Patient is not on medications for Parkinsons * No tremor on exam * Outpatient neurology follow is planned (6) Lactic acidosis: Code(s): E87.2 - Acidosis Status: Acute Assessment and Plan: Lactic acid 2.9 on arrival * May have been due to dehydration vs metformin use vs sepsis [facility]
--- NOTE | 2021-09-14 12:07 | PM.IMPN ---
Progress Note: A&P Assessment and Plan (1) Sepsis: Code(s): A41.9 - Sepsis, unspecified organism Status: Suspected Assessment and Plan: Patient met sepsis criteria on admission evident by fever, tachycardia, and lactic acidosis Etiology not clear at this time and in fact may be questionable. Pts son states his initial fever of 101.6 was taken immediately on arrival after the patient was outside during a heat advisory for >1 hour while wearing a sweater. He believes this was falsely elevated and the patient was overheated. He has had no subsequent fever. Patient tachycardic only on initial screening as well and heart rate has been well controlled following. UA not concerning for infection, no evidence of pneumonia or respiratory illness on exam or imaging, no evidence of intra-abdominal infection, no evidence of cellulitis or septic arthritis. Possibly related to ingrown infected toenail, although this is not concerning for acute infection on my exam. No evidence of osseous abnormality on imaging of the foot. The toenail was removed in the ED Patient initially started on broad spectrum abx but narrowed to PO Doxycycline 09/13/21. Will continue and monitor for response. Discussed case with ID PharmD. Patient afebrile 36 hours, no leukocytosis, tachycardia resolved. Lactic acidosis resolved following IV fluid bolus and may be better explained due to metformin use. Monitor output, vital signs, labs. Blood cultures pending, negative to date (2) Confusion: Code(s): R41.0 - Disorientation, unspecified Status: Acute Assessment and Plan: Persistent issue for 1 month with odd, syk-rp-kauuyvlug behavior. 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 Will plan for outpatient Neurology follow up Suspect patient has underlying dementia which is now becoming more evident (3) Diabetes mellitus: Qualifiers: Diabetes mellitus complication status: with hyperglycemia Diabetes mellitus long term care pharmacist insulin use: with alf use Diabetes mellitus type: type 2 Qualified Code(s): E11.65 - Type 2 diabetes mellitus with hyperglycemia; Z79.4 - termite exterminator (current) use of insulin Code(s): E11.9 - Type 2 diabetes mellitus without complications Status: Acute Assessment and Plan: Uncontrolled. Glucose >500 on arrival. A1c is 13.9 Patient had been poorly compliant with glucose regimen Accuchecks, high dose sliding scale insulin, and hypoglycemic protocol Scheduled insulin 7 units TID with meals Lantus 35 units qHS No anion gap elevation. Blood sugars better controlled today 160-200 (4) Hypertension: Code(s): I10 - Essential (primary) hypertension Status: Chronic Assessment and Plan: Blood pressures have been reasonable. Last BP 158/68 Continue home amlodipine and losartan Monitor BP trends (5) Parkinsons: Code(s): G20 - Parkinson's disease Status: Acute Assessment and Plan: Questionable history Patient is not on medications for Parkinsons No tremor on exam Outpatient neurology follow is planned (6) Lactic acidosis: Code(s): E87.2 - Acidosis Status: Acute Assessment and Plan: Lactic acid 2.9 on arrival May have been due to dehydration vs metformin use vs sepsis which does seem less likely at this juncture Resolved with IV fluids Continue to avoid metformin Plan Appreciate PT/OT eval. Planning for SNF Time Spent With Patient Time: 50 minutes Subjective Date/time seen: 09/14/21 12:07 Interval history: Date of service: 09/14/2021 Joe Daviesfoster is a 76-year-old male with a history of poorly controlled type 2 diabetes mellitus, Parkinson's disease
[2021-09-14 12:17] LABS: Glucose Point of Care 158 mg/dl (65-105)
[2021-09-14 16:56] LABS: Glucose Point of Care 206 mg/dl (65-105)
[2021-09-14] MEDS: LOSARTAN POTASSIUM 50 MG TABLET PO (19:58)
[2021-09-14 21:04] LABS: Glucose Point of Care 86 mg/dl (65-105)
[2021-09-15 04:42] VITALS: BP 147/89; PULSE 67; RESP 16; TEMP 36.6; O2SAT 98
[2021-09-15 06:36] LABS: Hematocrit 36.1 % (42.0-52.0); Hemoglobin 11.7 g/dL (14.0-18.0); Mean Corpuscular HGB Conc 32.4 g/dl (32-36); Mean Corpuscular Hemoglobin 29.3 pg (26-34); Mean Corpuscular Volume 90.5 fl (80-100); Mean Platelet Volume 11.2 fl (7.4-10.4); Platelet Count Result 217 k/mm3 (150-375); Red Blood Count 3.99 M/mm3 (4.6-6.20); Red Cell Distribution Width 12.6 % (11.5-14.5); White Blood Count 5.8 K/mm3 (4.5-10.0)
[2021-09-15 07:08] LABS: Anion Gap 6 mmol/L (8-16); Blood Urea Nitrogen 14 mg/dL (9-20); CRP < 0.5 mg/dL (<1.0); Calcium 8.4 mg/dL (8.4-10.2); Carbon Dioxide 28 mmol/L (22-30); Chloride 105 mmol/L (98-107); Estimated CRCL calculation 59 ml/min; Estimated Glomerular Filt Rate > 60; Glucose 274 mg/dL (65-110); Potassium 3.9 mmol/L (3.4-5.0); Sodium 139 mmol/L (137-145)
[2021-09-15 08:12] LABS: Glucose Point of Care 271 mg/dl (65-105)
[2021-09-15] MEDS: FLUTICASONE/SALMETEROL 115-21 MCG INHALER 1 PUFF 2 PUFF INHALATION ×2 (08:33→20:38)
[2021-09-15] MEDS: INSULIN ASPART (*BKC) 100 UNITS/ML SUB-Q ×4 (08:55→17:56)
[2021-09-15 08:56] VITALS: RESP 16; O2SAT 98
[2021-09-15] MEDS: amLODIPine BESYLATE 5 MG TABLET PO (08:56)
[2021-09-15] MEDS: DOXYCYCLINE HYCLATE 100 MG TABLET PO (08:56)
[2021-09-15] MEDS: ASPIRIN 81 MG ENTERIC TABLET PO (08:56)
[2021-09-15] MEDS: SODIUM CHLORIDE 0.9% IV 1,000 ML 100 ML IV CONT ×2 (08:56→22:00)
[2021-09-15 12:00] LABS: Glucose Point of Care 200 mg/dl (65-105)
[2021-09-15] MEDS: ACETAMINOPHEN 325 MG TABLET 650 MG PO (12:21)
--- NOTE | 2021-09-15 15:03 | P.PNIM_ITS ---
Progress Note: A&P Assessment and Plan (1) Sepsis: Code(s): A41.9 - Sepsis, unspecified organism Status: Ruled-out Assessment and Plan: Ruled out. Patient met sepsis criteria on admission evident by fever, tach ycardia, and lactic acidosis, however findings are better explained by heat exhaustion/dehydration. * Pts son states his initial fever of 101.6 was taken immediately on arrival after the patient was outside during a heat advisory for >1 hour while wearing a sweater. Elevated temperature likely due to heat exposure. No subsequent fevers. * Patient tachycardic only on initial screening as and heart rate has been well controlled following. Also can be explained by dehydration/heat * UA not concerning for infection, no evidence of pneumonia or respiratory illness on exam or imaging, no evidence of intra-abdominal infection, no evidence of cellulitis or septic arthritis. * Patient initially started on broad spectrum abx but narrowed to PO Doxycycline 09/13/21. Will discontinue antibiotics at this time as sepsis ruled out and no evidence of acute infection * Blood cultures pending, negative to date (2) Confusion: Code(s): R41.0 - Disorientation, unspecified Status: Acute Assessment and Plan: Persistent issue for 1 month with odd, atd-dj-umteouuaw behavior. 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 Will plan for outpatient Neurology follow up * Suspect patient has underlying dementia which is now becoming more evident * Planning for placement as the patient can no longer be cared for at home. Care coordination following (3) Diabetes mellitus: Qualifiers: Diabetes mellitus complication status: with hyperglycemia Diabetes mellitus custodial insulin use: with watermaster use Diabetes mellitus type: type 2 Qualified Code(s): E11.65 - Type 2 diabetes mellitus with hyperglycemia; Z79.4 - jail (current) use of insulin Code(s): E11.9 - Type 2 diabetes mellitus without complications Status: Acute Assessment and Plan: Uncontrolled. Glucose >500 on arrival. A1c is 13.9 * Patient had been poorly compliant with glucose regimen * Accuchecks, high dose sliding scale insulin, and hypoglycemic protocol * Blood sugars today ranging 200-270 * Scheduled insulin 5 units TID with meals * Increae Lantus to 40 units qHS * No anion gap elevation. (4) Hypertension: Code(s): I10 - Essential (primary) hypertension Status: Chronic Assessment and Plan: Blood pressures have been reasonable. Last BP 147/89 * Continue home amlodipine and losartan * Monitor BP trends (5) Parkinsons: Code(s): G20 - Parkinson's disease Status: Acute Assessment and Plan: Questionable history * Patient is not on medications for Parkinsons * No tremor on exam * Outpatient neurology follow is planned (6) Lactic acidosis: Code(s): E87.2 - Acidosis Status: Acute Assessment and Plan: Lactic acid 2.9 on arrival * Most likely due to dehydration however may have been exacerbated by metformin although renal function is stable * Resolved with IV fluids * Metformin on hold Plan Appreciate PT/OT eval. Planning for SNF Subjective Date/time seen: 09/15/21 15:03 Interval histo
--- NOTE | 2021-09-15 15:03 | PM.IMPN ---
Progress Note: A&P Assessment and Plan (1) Sepsis: Code(s): A41.9 - Sepsis, unspecified organism Status: Ruled-out Assessment and Plan: Ruled out. Patient met sepsis criteria on admission evident by fever, tachycardia, and lactic acidosis, however findings are better explained by heat exhaustion/dehydration. Pts son states his initial fever of 101.6 was taken immediately on arrival after the patient was outside during a heat advisory for >1 hour while wearing a sweater. Elevated temperature likely due to heat exposure. No subsequent fevers. Patient tachycardic only on initial screening as and heart rate has been well controlled following. Also can be explained by dehydration/heat UA not concerning for infection, no evidence of pneumonia or respiratory illness on exam or imaging, no evidence of intra-abdominal infection, no evidence of cellulitis or septic arthritis. Patient initially started on broad spectrum abx but narrowed to PO Doxycycline 09/13/21. Will discontinue antibiotics at this time as sepsis ruled out and no evidence of acute infection Blood cultures pending, negative to date (2) Confusion: Code(s): R41.0 - Disorientation, unspecified Status: Acute Assessment and Plan: Persistent issue for 1 month with odd, yiw-ps-nszwndlui behavior. 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 Will plan for outpatient Neurology follow up Suspect patient has underlying dementia which is now becoming more evident Planning for placement as the patient can no longer be cared for at home. Care coordination following (3) Diabetes mellitus: Qualifiers: Diabetes mellitus complication status: with hyperglycemia Diabetes mellitus jail insulin use: with electroencephalograph technician use Diabetes mellitus type: type 2 Qualified Code(s): E11.65 - Type 2 diabetes mellitus with hyperglycemia; Z79.4 - seed laboratory technician (current) use of insulin Code(s): E11.9 - Type 2 diabetes mellitus without complications Status: Acute Assessment and Plan: Uncontrolled. Glucose >500 on arrival. A1c is 13.9 Patient had been poorly compliant with glucose regimen Accuchecks, high dose sliding scale insulin, and hypoglycemic protocol Blood sugars today ranging 200-270 Scheduled insulin 5 units TID with meals Increae Lantus to 40 units qHS No anion gap elevation. (4) Hypertension: Code(s): I10 - Essential (primary) hypertension Status: Chronic Assessment and Plan: Blood pressures have been reasonable. Last BP 147/89 Continue home amlodipine and losartan Monitor BP trends (5) Parkinsons: Code(s): G20 - Parkinson's disease Status: Acute Assessment and Plan: Questionable history Patient is not on medications for Parkinsons No tremor on exam Outpatient neurology follow is planned (6) Lactic acidosis: Code(s): E87.2 - Acidosis Status: Acute Assessment and Plan: Lactic acid 2.9 on arrival Most likely due to dehydration however may have been exacerbated by metformin although renal function is stable Resolved with IV fluids Metformin on hold Plan Appreciate PT/OT eval. Planning for SNF Subjective Date/time seen: 09/15/21 15:03 Interval history: Date of service: 09/15/2021 Joe Marion is a 76-year-old male with a history of poorly controlled type 2 diabetes mellitus, Parkinson's disease, hypertension, anxiety, and BPH who is seen in follow-up for increased confusion. He states he feels tired today. He just ate lunch in states he has a good appetite. He denies abdominal pain, nausea, vomiting, fever, or chills. He did state he had an episode of diarrhea this morning. He denies
[2021-09-15 15:39] VITALS: BP 119/89; PULSE 50; RESP 16; TEMP 36.6; O2SAT 98
[2021-09-15 17:31] LABS: Glucose Point of Care 189 mg/dl (65-105)
[2021-09-15 19:49] VITALS: BP 133/58; PULSE 60; RESP 16; TEMP 36.7; O2SAT 97
[2021-09-15 20:41] VITALS: O2SAT 94
[2021-09-15] MEDS: INSULIN GLARGINE (*BKC) 100 UNITS/ML 40 UNITS SUB-Q (20:47)
[2021-09-15] MEDS: LOSARTAN POTASSIUM 50 MG TABLET PO (20:47)
[2021-09-15 21:55] LABS: Glucose Point of Care 249 mg/dl (65-105)
[2021-09-16] VITALS (8 sets, daily range): BP systolic 138–159; BP diastolic 54–68; PULSE 52–75; RESP 16–18; TEMP 36.6–37; O2SAT 95–98
[2021-09-16] MEDS: ACETAMINOPHEN 325 MG TABLET 650 MG PO ×3 (01:27→20:39)
[2021-09-16 06:25] LABS: Hematocrit 31.9 % (42.0-52.0); Hemoglobin 10.4 g/dL (14.0-18.0); Mean Corpuscular HGB Conc 32.6 g/dl (32-36); Mean Corpuscular Hemoglobin 29.4 pg (26-34); Mean Corpuscular Volume 90.1 fl (80-100); Mean Platelet Volume 11.1 fl (7.4-10.4); Platelet Count Result 202 k/mm3 (150-375); Red Blood Count 3.54 M/mm3 (4.6-6.20); Red Cell Distribution Width 12.7 % (11.5-14.5); White Blood Count 5.1 K/mm3 (4.5-10.0)
[2021-09-16 06:40] LABS: Anion Gap 5 mmol/L (8-16); Blood Urea Nitrogen 12 mg/dL (9-20); Calcium 8.1 mg/dL (8.4-10.2); Carbon Dioxide 29 mmol/L (22-30); Chloride 105 mmol/L (98-107); Estimated CRCL calculation 59 ml/min; Estimated Glomerular Filt Rate > 60; Glucose 240 mg/dL (65-110); Potassium 3.8 mmol/L (3.4-5.0); Sodium 139 mmol/L (137-145)
[2021-09-16] MEDS: SODIUM CHLORIDE 0.9% IV 1,000 ML 100 ML IV CONT ×2 (07:14→17:34)
[2021-09-16] MEDS: FLUTICASONE/SALMETEROL 115-21 MCG INHALER 1 PUFF 2 PUFF INHALATION ×2 (08:01→20:42)
[2021-09-16 08:07] LABS: Glucose Point of Care 177 mg/dl (65-105)
[2021-09-16] MEDS: ASPIRIN 81 MG ENTERIC TABLET PO (08:18)
[2021-09-16] MEDS: amLODIPine BESYLATE 5 MG TABLET PO (08:18)
[2021-09-16] MEDS: INSULIN ASPART (*BKC) 100 UNITS/ML 6 UNITS SUB-Q ×3 (08:18→17:36)
--- NOTE | 2021-09-16 11:07 | P.PNIM_ITS ---
Progress Note: A&P Assessment and Plan (1) Sepsis: Code(s): A41.9 - Sepsis, unspecified organism Status: Ruled-out Assessment and Plan: Ruled out. Patient met sepsis criteria on admission evident by fever, tach ycardia, and lactic acidosis, however findings are better explained by heat exhaustion/dehydration. * Pts son states his initial fever of 101.6 was taken immediately on arrival after the patient was outside during a heat advisory for >1 hour while wearing a sweater. Initial elevated temp likely due to heat exposure. No subsequent fevers. * Patient tachycardic only on initial screening and heart rate has been well controlled following. Also can be explained by dehydration/heat * UA not concerning for infection, no evidence of pneumonia or respiratory illness on exam or imaging, no evidence of intra-abdominal infection, no evidence of cellulitis or septic arthritis. * Patient initially started on broad spectrum abx but narrowed to PO Doxycycline 09/13/21. Antibiotics discontinued on 09/15/2021s sepsis ruled out and no evidence of acute infection * Blood cultures pending, negative to date (2) Confusion: Code(s): R41.0 - Disorientation, unspecified Status: Acute Assessment and Plan: Persistent issue for 1 month with odd, zax-ih-unjjldqod behavior per family. 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 Will plan for outpatient Neurology follow up * Suspect patient has underlying dementia which is now becoming more evident * Planning for placement as the patient can no longer be cared for at home. Care coordination following (3) Diabetes mellitus: Qualifiers: Diabetes mellitus complication status: with hyperglycemia Diabetes mellitus correction insulin use: with buttermaker helper use Diabetes mellitus type: type 2 Qualified Code(s): E11.65 - Type 2 diabetes mellitus with hyperglycemia; Z79.4 - termite treater helper (current) use of insulin Code(s): E11.9 - Type 2 diabetes mellitus without complications Status: Acute Assessment and Plan: Uncontrolled. Glucose >500 on arrival. A1c is 13.9 * Patient had been poorly compliant with glucose regimen * Accuchecks, high dose sliding scale insulin, and hypoglycemic protocol * Blood sugars today ranging 170-240 * Scheduled insulin 6 units TID with meals * Increase Lantus to 42 units qHS * No anion gap elevation. (4) Hypertension: Code(s): I10 - Essential (primary) hypertension Status: Chronic Assessment and Plan: Blood pressures have been reasonable. Last BP 159/68 * Continue home amlodipine and losartan * Monitor BP trends (5) Parkinsons: Code(s): G20 - Parkinson's disease Status: Acute Assessment and Plan: Questionable history * Patient is not on medications for Parkinsons * No tremor on exam * Outpatient neurology follow is planned (6) Lactic acidosis: Code(s): E87.2 - Acidosis Status: Resolved Assessment and Plan: Resolved. Lactic acid 2.9 on arrival * Most likely due to dehydration. May have been exacerbated by metformin although renal function is stable * Resolved with IV fluids * Metformin on hold Plan Appreciate PT/OT eval. Planning for SNF Subjective Date/time seen: 09/16/21 11:07 In
--- NOTE | 2021-09-16 11:07 | PM.IMPN ---
Progress Note: A&P Assessment and Plan (1) Sepsis: Code(s): A41.9 - Sepsis, unspecified organism Status: Ruled-out Assessment and Plan: Ruled out. Patient met sepsis criteria on admission evident by fever, tachycardia, and lactic acidosis, however findings are better explained by heat exhaustion/dehydration. Pts son states his initial fever of 101.6 was taken immediately on arrival after the patient was outside during a heat advisory for >1 hour while wearing a sweater. Initial elevated temp likely due to heat exposure. No subsequent fevers. Patient tachycardic only on initial screening and heart rate has been well controlled following. Also can be explained by dehydration/heat UA not concerning for infection, no evidence of pneumonia or respiratory illness on exam or imaging, no evidence of intra-abdominal infection, no evidence of cellulitis or septic arthritis. Patient initially started on broad spectrum abx but narrowed to PO Doxycycline 09/13/21. Antibiotics discontinued on 09/15/2021s sepsis ruled out and no evidence of acute infection Blood cultures pending, negative to date (2) Confusion: Code(s): R41.0 - Disorientation, unspecified Status: Acute Assessment and Plan: Persistent issue for 1 month with odd, uis-uz-fokmqinkj behavior per family. 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 Will plan for outpatient Neurology follow up Suspect patient has underlying dementia which is now becoming more evident Planning for placement as the patient can no longer be cared for at home. Care coordination following (3) Diabetes mellitus: Qualifiers: Diabetes mellitus complication status: with hyperglycemia Diabetes mellitus longterm insulin use: with longterm use Diabetes mellitus type: type 2 Qualified Code(s): E11.65 - Type 2 diabetes mellitus with hyperglycemia; Z79.4 - snf (current) use of insulin Code(s): E11.9 - Type 2 diabetes mellitus without complications Status: Acute Assessment and Plan: Uncontrolled. Glucose >500 on arrival. A1c is 13.9 Patient had been poorly compliant with glucose regimen Accuchecks, high dose sliding scale insulin, and hypoglycemic protocol Blood sugars today ranging 170-240 Scheduled insulin 6 units TID with meals Increase Lantus to 42 units qHS No anion gap elevation. (4) Hypertension: Code(s): I10 - Essential (primary) hypertension Status: Chronic Assessment and Plan: Blood pressures have been reasonable. Last BP 159/68 Continue home amlodipine and losartan Monitor BP trends (5) Parkinsons: Code(s): G20 - Parkinson's disease Status: Acute Assessment and Plan: Questionable history Patient is not on medications for Parkinsons No tremor on exam Outpatient neurology follow is planned (6) Lactic acidosis: Code(s): E87.2 - Acidosis Status: Resolved Assessment and Plan: Resolved. Lactic acid 2.9 on arrival Most likely due to dehydration. May have been exacerbated by metformin although renal function is stable Resolved with IV fluids Metformin on hold Plan Appreciate PT/OT eval. Planning for SNF Subjective Date/time seen: 09/16/21 11:07 Interval history: Date of service: 09/16/2021 Joe Marion is a 76-year-old male with a history of poorly controlled type 2 diabetes mellitus, Parkinson's disease, hypertension, anxiety, and BPH who is seen in follow-up for increased confusion. he is feeling well today. He offers no complaints. He ate a good breakfast. He states he is still feeling hungry because he did not feel like he had enough food on his tray. He denies abdominal pain, n
[2021-09-16 12:31] LABS: Glucose Point of Care 176 mg/dl (65-105)
[2021-09-16 17:33] LABS: Glucose Point of Care 157 mg/dl (65-105)
[2021-09-16 20:06] LABS: Glucose Point of Care 155 mg/dl (65-105)
[2021-09-16] MEDS: LOSARTAN POTASSIUM 50 MG TABLET PO (20:34)
[2021-09-16] MEDS: INSULIN GLARGINE (*BKC) 100 UNITS/ML 42 UNITS SUB-Q (20:37)
[2021-09-17] VITALS (7 sets, daily range): BP systolic 132–143; BP diastolic 52–65; PULSE 55–75; RESP 12–16; TEMP 36.6–36.7; O2SAT 94–100
[2021-09-17] MEDS: SODIUM CHLORIDE 0.9% IV 1,000 ML 100 ML IV CONT (03:32)
[2021-09-17] MEDS: ACETAMINOPHEN 325 MG TABLET 650 MG PO (04:49)
[2021-09-17 05:44] LABS: Hematocrit 34.2 % (42.0-52.0); Mean Corpuscular HGB Conc 32.2 g/dl (32-36); Mean Corpuscular Hemoglobin 29.4 pg (26-34); Mean Corpuscular Volume 91.4 fl (80-100); Mean Platelet Volume 10.6 fl (7.4-10.4); Platelet Count Result 213 k/mm3 (150-375); Red Blood Count 3.74 M/mm3 (4.6-6.20); White Blood Count 6.3 K/mm3 (4.5-10.0)
[2021-09-17 07:50] LABS: Anion Gap 7 mmol/L (8-16); Blood Urea Nitrogen 12 mg/dL (9-20); Calcium 8.6 mg/dL (8.4-10.2); Carbon Dioxide 26 mmol/L (22-30); Chloride 107 mmol/L (98-107); Estimated CRCL calculation 65 ml/min; Estimated Glomerular Filt Rate > 60; Glucose 78 mg/dL (65-110); Potassium 3.7 mmol/L (3.4-5.0); Sodium 140 mmol/L (137-145)
[2021-09-17] MEDS: ASPIRIN 81 MG ENTERIC TABLET PO (08:09)
[2021-09-17] MEDS: amLODIPine BESYLATE 5 MG TABLET PO (08:09)
[2021-09-17 08:11] LABS: Glucose Point of Care 85 mg/dl (65-105)
[2021-09-17] MEDS: FLUTICASONE/SALMETEROL 115-21 MCG INHALER 1 PUFF 2 PUFF INHALATION ×2 (08:18→20:26)
[2021-09-17 11:38] LABS: EDCOVIDSCREEN Negative (Negative)
[2021-09-17 12:13] LABS: Glucose Point of Care 142 mg/dl (65-105)
--- NOTE | 2021-09-17 16:18 | P.PNIM_ITS ---
Progress Note: A&P Assessment and Plan (1) Sepsis: Code(s): A41.9 - Sepsis, unspecified organism Status: Ruled-out Assessment and Plan: Ruled out. Patient met sepsis criteria on admission evident by fever, tach ycardia, and lactic acidosis, however findings are better explained by heat exhaustion/dehydration. * Pts son states his initial fever of 101.6 was taken immediately on arrival after the patient was outside during a heat advisory for >1 hour while wearing a sweater. Initial elevated temp likely due to heat exposure. No subsequent fevers. * Patient tachycardic only on initial screening and heart rate has been well controlled following. Also can be explained by dehydration/heat * UA not concerning for infection, no evidence of pneumonia or respiratory illness on exam or imaging, no evidence of intra-abdominal infection, no evidence of cellulitis or septic arthritis. * Patient initially started on broad spectrum abx but narrowed to PO Doxycycline 09/13/21. Antibiotics discontinued on 09/15/2021 as sepsis ruled out and no evidence of acute infection * Blood cultures pending, negative to date (2) Confusion: Code(s): R41.0 - Disorientation, unspecified Status: Acute Assessment and Plan: Persistent issue for 1 month with odd, [id number]-dkrqarect behavior per family. * No evidence of UTI * Head CT with no acute findings and findings of old infarct which was known to patients family * Electrolytes stable * TSH, B12, folate, and ammonia within normal limits * Unfortunately no access to inpatient neurology consultation at this time * Discussed case with patients PCP. Will plan for outpatient Neurology follow up * Suspect patient has underlying dementia which is now becoming more evident * Planning for placement as the patient can no longer be cared for at home. 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 Glucose >500 on arrival. A1c is 13.9 * Patient had been poorly compliant with glucose regimen * Accuchecks, high dose sliding scale insulin, and hypoglycemic protocol * Fasting blood sugar today was 85. * Will discontinue scheduled NovoLog with meals * Decrease Lantus to 40 units q.h.s. * Monitor glucose trends closely (4) Hypertension: Code(s): I10 - Essential (primary) hypertension Status: Chronic Assessment and Plan: Blood pressures have been stable. Last BP 132/55 * Continue home amlodipine and losartan * Monitor BP trends (5) Parkinsons: Code(s): G20 - Parkinson's disease Status: Acute Assessment and Plan: Questionable history * Patient is not on medications for Parkinsons * No tremor on exam * Outpatient neurology follow up is planned (6) Lactic acidosis: Code(s): E87.2 - Acidosis Status: Resolved Assessment and Plan: Resolved. Lactic acid 2.9 on arrival * Most likely due to dehydration. May have been exacerbated by metformin although renal function is stable * Resolved with IV fluids * Metformin on hold Plan Appreciate PT/OT eval. Planning for SNF. Plan for discharge tomorrow pending facility acceptanc
--- NOTE | 2021-09-17 16:18 | PM.IMPN ---
Progress Note: A&P Assessment and Plan (1) Sepsis: Code(s): A41.9 - Sepsis, unspecified organism Status: Ruled-out Assessment and Plan: Ruled out. Patient met sepsis criteria on admission evident by fever, tachycardia, and lactic acidosis, however findings are better explained by heat exhaustion/dehydration. Pts son states his initial fever of 101.6 was taken immediately on arrival after the patient was outside during a heat advisory for >1 hour while wearing a sweater. Initial elevated temp likely due to heat exposure. No subsequent fevers. Patient tachycardic only on initial screening and heart rate has been well controlled following. Also can be explained by dehydration/heat UA not concerning for infection, no evidence of pneumonia or respiratory illness on exam or imaging, no evidence of intra-abdominal infection, no evidence of cellulitis or septic arthritis. Patient initially started on broad spectrum abx but narrowed to PO Doxycycline 09/13/21. Antibiotics discontinued on 09/15/2021 as sepsis ruled out and no evidence of acute infection Blood cultures pending, negative to date (2) Confusion: Code(s): R41.0 - Disorientation, unspecified Status: Acute Assessment and Plan: Persistent issue for 1 month with odd, [id number]-fw-[id number] behavior per family. No evidence of UTI Head CT with no acute findings and findings of old infarct which was known to patients family Electrolytes stable TSH, B12, folate, and ammonia within normal limits Unfortunately no access to inpatient neurology consultation at this time Discussed case with patients PCP. Will plan for outpatient Neurology follow up Suspect patient has underlying dementia which is now becoming more evident Planning for placement as the patient can no longer be cared for at home. 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 Glucose >500 on arrival. A1c is 13.9 Patient had been poorly compliant with glucose regimen Accuchecks, high dose sliding scale insulin, and hypoglycemic protocol Fasting blood sugar today was 85. Will discontinue scheduled NovoLog with meals Decrease Lantus to 40 units q.h.s. Monitor glucose trends closely (4) Hypertension: Code(s): I10 - Essential (primary) hypertension Status: Chronic Assessment and Plan: Blood pressures have been stable. Last BP 132/55 Continue home amlodipine and losartan Monitor BP trends (5) Parkinsons: Code(s): G20 - Parkinson's disease Status: Acute Assessment and Plan: Questionable history Patient is not on medications for Parkinsons No tremor on exam Outpatient neurology follow up is planned (6) Lactic acidosis: Code(s): E87.2 - Acidosis Status: Resolved Assessment and Plan: Resolved. Lactic acid 2.9 on arrival Most likely due to dehydration. May have been exacerbated by metformin although renal function is stable Resolved with IV fluids Metformin on hold Plan Appreciate PT/OT eval. Planning for SNF. Plan for discharge tomorrow pending facility acceptance. Subjective Date/time seen: 09/17/21 16:18 Interval history: Date of service: 09/17/2021 Joe Marion is a 76-year-old male with a history of poorly controlled type 2 diabetes mellitus, Parkinson's disease, hypertension, anxiety, and BPH who is seen in follow-up for increased confusion. He feels very well today. States he ate a good breakfast. He did not sleep very well last night. He does complain of so
[2021-09-17 17:58] LABS: Glucose Point of Care 186 mg/dl (65-105)
[2021-09-17] MEDS: LOSARTAN POTASSIUM 50 MG TABLET PO (20:42)
[2021-09-17] MEDS: INSULIN GLARGINE (*BKC) 100 UNITS/ML 40 UNITS SUB-Q (20:44)
[2021-09-17 20:56] LABS: Glucose Point of Care 291 mg/dl (65-105)
[2021-09-18 04:51] VITALS: BP 150/61; PULSE 51; RESP 16; TEMP 36.9; O2SAT 95
[2021-09-18] MEDS: ASPIRIN 81 MG ENTERIC TABLET PO (08:06)
[2021-09-18] MEDS: amLODIPine BESYLATE 5 MG TABLET PO (08:06)
[2021-09-18 08:41] LABS: Glucose Point of Care 190 mg/dl (65-105)
[2021-09-18] MEDS: FLUTICASONE/SALMETEROL 115-21 MCG INHALER 1 PUFF 2 PUFF INHALATION (08:58)
[2021-09-18 09:00] VITALS: O2SAT 99
[2021-09-18 11:20] LABS: EDCOVIDSCREEN Negative (Negative)
--- NOTE | 2021-09-18 11:42 | PC.NURSE ---
On 09/18/21, the Graduate Nurse, Duc Carrillo, provided care and completed [facility] documentation on this patient. I have reviewed the student's documentation and agree with the findings.
--- NOTE | 2021-09-18 11:50 | P.DS_ITS ---
DS: Admitting Diagnosis Discharge Date 09/18/2021 Admitting Diagnosis Confusion DS: Discharge Diagnosis Discharge Diagnosis (1) Sepsis: Code(s): A41.9 - Sepsis, unspecified organism Status: Ruled-out Assessment and Plan: Ruled out. Patient met sepsis criteria on admission evident by fever, tachycardia, and lactic acidosis, however findings are better explained by heat exhaustion/dehydration. * Pts son states his initial fever of 101.6 was taken immediately on arrival after the patient was outside during a heat advisory for >1 hour while wearing a sweater. Initial elevated temp likely due to heat exposure. No subsequent fevers. * Patient tachycardic only on initial screening and heart rate has been well controlled following. Also can be explained by dehydration/heat * UA not concerning for infection, no evidence of pneumonia or respiratory illness on exam or imaging, no evidence of intra-abdominal infection, no evidence of cellulitis or septic arthritis. * Patient initially started on broad spectrum abx but narrowed to PO Doxycycline 09/13/21. Antibiotics discontinued on 09/15/2021 as sepsis was ruled out and no evidence of acute infection * Blood cultures negative (2) Confusion: Code(s): R41.0 - Disorientation, unspecified Status: Acute Assessment and Plan: Persistent issue for 1> month with odd, [id number] behavior per family. * No evidence of UTI * Head CT with no acute findings and findings of old infarct which was known to patients family * Electrolytes stable * TSH, B12, folate, and ammonia within normal limits * Unfortunately no inpatient Neurology consultation available during admission * Discussed case with patients PCP. Will plan for outpatient Neurology follow up. I set up an appt with Dr. Levine, Neurology, on 10/02/21 at 3:00 pm. * Suspect patient has underlying dementia which is now becoming more evident * SNF placement as the patient could no longer be cared for at home. 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 Glucose >500 on arrival. A1c is 13.9 * Patient had been poorly compliant with glucose regimen * Managed during admission with accuchecks, high dose sliding scale insulin, and hypoglycemic protocol * Continue with home Lantus 40 units. * Record blood sugars ACHS at nursing facility and follow up with PCP in 1-2 weeks. (4) Hypertension: Code(s): I10 - Essential (primary) hypertension Status: Chronic Assessment and Plan: Blood pressures were stable * Continue home amlodipine and losartan (5) Parkinsons: Code(s): G20 - Parkinson's disease Status: Acute Assessment and Plan: Questionable history * Patient is not on medications for Parkinsons * No tremor on exam * Outpatient neurology follow up is planned (6) Lactic acidosis: Code(s): E87.2 - Acidosis Status: Resolved Assessment and Plan: Resolved. Lactic acid 2.9 on arrival * Most likely due to dehydration. * Resolved with IV fluids * May have been exacerbated by metformin although renal function is stable. Metformin will be held and follow up with PCP.
--- NOTE | 2021-09-18 11:50 | PM.DS ---
DS: Admitting Diagnosis Discharge Date 09/18/2021 Admitting Diagnosis Confusion DS: Discharge Diagnosis Discharge Diagnosis (1) Sepsis: Code(s): A41.9 - Sepsis, unspecified organism Status: Ruled-out Assessment and Plan: Ruled out. Patient met sepsis criteria on admission evident by fever, tachycardia, and lactic acidosis, however findings are better explained by heat exhaustion/dehydration. Pts son states his initial fever of 101.6 was taken immediately on arrival after the patient was outside during a heat advisory for >1 hour while wearing a sweater. Initial elevated temp likely due to heat exposure. No subsequent fevers. Patient tachycardic only on initial screening and heart rate has been well controlled following. Also can be explained by dehydration/heat UA not concerning for infection, no evidence of pneumonia or respiratory illness on exam or imaging, no evidence of intra-abdominal infection, no evidence of cellulitis or septic arthritis. Patient initially started on broad spectrum abx but narrowed to PO Doxycycline 09/13/21. Antibiotics discontinued on 09/15/2021 as sepsis was ruled out and no evidence of acute infection Blood cultures negative (2) Confusion: Code(s): R41.0 - Disorientation, unspecified Status: Acute Assessment and Plan: Persistent issue for 1> month with odd, mdw-mu-psayotlfd behavior per family. No evidence of UTI Head CT with no acute findings and findings of old infarct which was known to patients family Electrolytes stable TSH, B12, folate, and ammonia within normal limits Unfortunately no inpatient Neurology consultation available during admission Discussed case with patients PCP. Will plan for outpatient Neurology follow up. I set up an appt with Dr. Levine, Neurology, on 10/02/21 at 3:00 pm. Suspect patient has underlying dementia which is now becoming more evident SNF placement as the patient could no longer be cared for at home. (3) Diabetes mellitus: Qualifiers: Diabetes mellitus complication status: with hyperglycemia Diabetes mellitus [facility] use: with [facility] use Diabetes mellitus type: type 2 Qualified Code(s): E11.65 - Type 2 diabetes mellitus with hyperglycemia; Z79.4 - intermediate project manager (current) use of insulin Code(s): E11.9 - Type 2 diabetes mellitus without complications Status: Acute Assessment and Plan: Uncontrolled. Glucose >500 on arrival. A1c is 13.9 Patient had been poorly compliant with glucose regimen Managed during admission with accuchecks, high dose sliding scale insulin, and hypoglycemic protocol Continue with home Lantus 40 units. Record blood sugars ACHS at nursing facility and follow up with PCP in 1-2 weeks. (4) Hypertension: Code(s): I10 - Essential (primary) hypertension Status: Chronic Assessment and Plan: Blood pressures were stable Continue home amlodipine and losartan (5) Parkinsons: Code(s): G20 - Parkinson's disease Status: Acute Assessment and Plan: Questionable history Patient is not on medications for Parkinsons No tremor on exam Outpatient neurology follow up is planned (6) Lactic acidosis: Code(s): E87.2 - Acidosis Status: Resolved Assessment and Plan: Resolved. Lactic acid 2.9 on arrival Most likely due to dehydration. Resolved with IV fluids May have been exacerbated by metformin although renal function is stable. Metformin will be held and follow up with PCP. DS: Summary Hospital Course Hospital Course: Date of admission: 09/12/2021 Date of discharge: 09/18/2021 Joe Marion is a 76-year-old male with a history of poorly controlled type 2 diabetes mellitus, Parkinson's disease, hypertension, anxiety, and BPH who presented to the emergency department on 09/12/2021 due to altered mental status. He was reportedly found by his neighbors outside in the heat and was felt t
[2021-09-18 12:12] LABS: Glucose Point of Care 288 mg/dl (65-105)
[2021-09-18] MEDS: INSULIN ASPART (*BKC) 100 UNITS/ML SUB-Q (12:49)
== END 2021-09-18 13:35 | DRG 641 ==
LOC: ANHED 18:50 → ANH2MED 19:26
PROVIDERS: Nurse Practitioner; Physician Assistant; Admitting Provider Internal Medicine; Emergency Provider Emergency Medicine; PCP Physician Assistant; Visit Provider Internal Medicine
DX: E86.0 Dehydration (principal); X30.XXXA Exposure to excessive natural heat, initial encounter; R00.0 Tachycardia, unspecified; R41.0 Disorientation, unspecified; L60.0 Ingrowing nail; E87.2 Acidosis; Z20.822 Contact with and (suspected) exposure to COVID-19; E11.65 Type 2 diabetes mellitus with hyperglycemia; F03.90 Unspecified dementia, unspecified severity, without behavioral disturbance, psychotic disturbance, mood disturbance, and anxiety; G20 Parkinson's disease; I10 Essential (primary) hypertension; N40.0 Benign prostatic hyperplasia without lower urinary tract symptoms; F41.9 Anxiety disorder, unspecified; H40.9 Unspecified glaucoma; Z79.4 Long term (current) use of insulin; Z87.891 Personal history of nicotine dependence; Z91.14 Patient's other noncompliance with medication regimen
CPT/HCPCS: 36415; 36600; 70450; 71045; 73090; 73564; 73630; 80048; 80053; 80307; 81001; 82010; 82140; 82375; 82550; 82607; 82746; 82805; 82948; 83036; 83050; 83605; 83690; 83735; 84443; 84484; 85025; 85027; 85610; 85730; 86140; 87040; 87426; 93005; 94640; 96361; 96365; 96366; 96376; 97110; 97116; 97161; 97165; 97530; 97535; 99285; A9270; C9803; G0378; J0131; J0743; J1815; J3370; J7030; U0003; U0005

== ENCOUNTER 2022-01-23 20:29 | Emergency (ER) | payer MEDICARE, SELFPAY ==
[2022-01-23] VITALS (17 sets, daily range): BP systolic 146–183; BP diastolic 73–96; PULSE 80–109; RESP 16–20; TEMP 37.2; O2SAT 90–98
--- NOTE | ~2022-01-23 | XR_ITS ---
EXAM: XR hip RT 2V w AP pelvis DATE: 01/23/2022 21:10 HISTORY: fall, hip pain . COMPARISON: None available. FINDINGS: Normal mineralization. No fracture or dislocation. No lytic or blastic lesion. Lower lumba r degenerative disc disease. Moderate bilateral hip osteoarthritis. Scattered pelvic enthesopathy No erosion or periosteal change. Surgical clips over the midline pelvis. Vascular calcifications. IMPRESSION: No acute osseous finding in the pelvis or right hip. Reviewed, dictated and finalized at location K. [employer] GR[employer]
--- NOTE | ~2022-01-23 | XR_ITS ---
EXAM: XR tibia fibula RT 2V DATE: 01/23/2022 21:10 HISTORY: leg pain s/p fall . COMPARISON: None available. FINDINGS: Normal mineralization. No fracture or dislocation. No lytic or blastic lesion. Joint space s are maintained. No erosion or periosteal change. Vascular calcifications. IMPRESSION: No acute osseous finding in the right tibia or fibula. Reviewed, dictated and finalized at location K. [employer]
--- NOTE | ~2022-01-23 | CT_ITS ---
EXAMINATION: CT brain wo con DATE: 01/23/2022 21:11 INDICATION: fall . TECHNIQUE: Computed tomography (CT) of the head was performed without intravenous contrast. The mA wa s adjusted according to patient size. Iterative reconstruction technique was employed. The dose-lengt h product was 681.00 mGy-cm. COMPARISON: 09/12/2021. FINDINGS: No acute intracranial hemorrhage or extra-axial fluid collection. No hydrocephalus, mass, or herniation. No acute ischemic infarct. Unremarkable dural venous sinus attenuation. No acute osseous abnormality. Mucosal thickening in the maxillary and ethmoid sinuses, the remaining aerated spaces are clear. Mild atrophy and chronic white matter change. Atherosclerotic intracranial calcification. Bilateral l ens replacements. Bilateral chronic lacunar infarcts. IMPRESSION: No acute intracranial process. Reviewed, dictated and finalized at location K. RETTE MAKER
--- NOTE | 2022-01-23 20:42 | ED.FALL ---
HPI - Fall General Chief Complaint: Fall Stated Complaint: RLE PAIN S/P FALL Time Seen by Provider: 01/23/22 20:42 Source: patient and EMS Mode of arrival: EMS Limitations: no limitations History of Present Illness HPI Narrative: The patient is a 76-year-old male with a history type 2 diabetes mellitus, Parkinson's disease, hypertension, presenting to the emergency department for evaluation of fall while being transferred to bed. Patient states that he rolled while being transferred, falling onto his bottom. Patient is reporting right lower leg pain. He denies hip or lower back pain. He denies head trauma or loss of conscious. Patient denies prodromal symptoms prior to the fall such as chest pain, lightheadedness, dizziness or palpitations patient is not on any anticoagulation per my chart review. Patient states that he ambulates with the use of a walker. He denies any fever, chills, nausea or vomiting. He was given some Tylenol for the pain but denies any improvement with this. Patient reports an aching sensation in the right lower extremity. He denies bruising or bleeding. He denies ankle pain or foot pain. Related Data Home Medications Medication Instructions Recorded Confirmed cholecalciferol (vitamin D3) 125 mg PO DAILY 06/14/20 09/13/21 latanoprost 0.005 % eye drops 1 drp EACH EYE HS 06/14/20 09/13/21 insulin glargine 100 unit/mL (3 40 unit subcut HS 09/13/21 09/13/21 mL) subcutaneous pen (Basaglar KwikPen U-100 Insulin) losartan 50 mg tablet (Cozaar) 50 mg PO HS 09/13/21 09/13/21 Allergies Allergy/AdvReac Type Severity Reaction Status Date / Time No Known Allergies Allergy Verified 08/27/21 10:33 Review of Systems Review of Systems: CONSTITUTIONAL: Denies fever CARDIOVASCULAR: Denies chest pain RESPIRATORY: Denies cough or dyspnea. GASTROINTESTINAL: Denies abdominal pain SKIN: Denies rash MUSCULOSKELETAL: Denies back pain, reports right lower extremity pain NEUROLOGIC: Denies headache PMFSH Past Medical History Medical History Anxiety BPH (benign prostatic hyperplasia) Cellulitis of scrotum Confusion Diabetes DKA (diabetic ketoacidosis) Glaucoma Hypertension Insomnia Lactic acidosis Overweight (BMI 25.0-29.9) Parkinsons Sepsis Type 2 diabetes mellitus Surgical History Surgical History Cataract extraction status Hernia Family History Family History Father Heart attack Alcoholism Mother Heart attack Heart disease Cerebrovascular accident Sibling Diabetes mellitus Heart disease Cerebrovascular accident Hypertension Cancer Social History Social History Social History: the patient tells me that he has 1 son. He is . He used to smoke. He is not sure if he has a durable power insurance attorney for healthcare. It was noted earlier in ER that the son stated that the patient lives with him and his . The patient believes that he lives home alone. Code status full code Smoking packs per day: 1 Smoking cigarettes per day: 20.0 Years smoked: 30 Smoking pack-years: 30.00 Smoking status: Former smoker Tobacco type: cigarettes Alcohol intake: current Drinks per week: 1 Substance use: never Substance use type: does not use Gender identity (if verbalized by the patient): Male Spiritual care concerns: No Exam Narrative: Nursing note and vitals reviewed. CONSTITUTIONAL: The patient appears well-developed and well-nourished. No distress. HEAD: Normocephalic and atraumatic. EYES: PERRL, EOMI, normal conjunctiva, anicteric EARS: External ears clear bilaterally, no hemotympanum MOUTH: OP clear, no erythema, exudates NECK: midline trachea, supple, FROM. No midline cervical spinal tenderness. CARDIOVASCULAR: Normal rate, regula
[2022-01-23 21:28] LABS: Basophils Percent Auto 0.6 % (0.2-1.2); Eosinophils Absolute Auto 0.1 K/mm3 (0-0.3); Eosinophils Percent Auto 1.1 % (0-4.4); Hematocrit 36.7 % (42.0-52.0); Hemoglobin 12.3 g/dL (14.0-18.0); Immature Granulocyte Absolute 0.03 K/mm3 (0.00-0.031); Immature Granulocyte Percent A 0.5 % (0-0.5); Lymphocytes Absolute Auto 0.93 K/mm3 (0.9-3.2); Lymphocytes Percent Auto 14.2 % (18.3-44.2); Mean Corpuscular HGB Conc 33.5 g/dl (32-36); Mean Corpuscular Hemoglobin 28.7 pg (26-34); Mean Corpuscular Volume 85.5 fl (80-100); Mean Platelet Volume 10.1 fl (7.4-10.4); Monocytes Absolute Auto 0.8 K/mm3 (0.1-0.6); Monocytes Percent Auto 11.5 % (2.6-8.5); Neutrophils Absolute Auto 4.7 K/mm3 (1.3-6.7); Neutrophils Percent Auto 72.1 % (45.5-73.1); Platelet Count Result 183 k/mm3 (150-375); Red Blood Count 4.29 M/mm3 (4.6-6.20); Red Cell Distribution Width 12.8 % (11.5-14.5); White Blood Count 6.5 K/mm3 (4.5-10.0)
[2022-01-23 21:45] LABS: Anion Gap 7 mmol/L (8-16); Blood Urea Nitrogen 19 mg/dL (9-20); Calcium 8.5 mg/dL (8.4-10.2); Carbon Dioxide 27 mmol/L (22-30); Chloride 106 mmol/L (98-107); Estimated CRCL calculation 47 ml/min; Estimated Glomerular Filt Rate 54; Glucose 207 mg/dL (65-110); Potassium 3.8 mmol/L (3.4-5.0); Sodium 140 mmol/L (137-145)
[2022-01-23] MEDS: oxyCODONE/ACETAMINOPHEN (*CRX) 5-325 MG TABLET 1 TABLET PO (21:50)
== END 2022-01-23 23:59 ==
PROVIDERS: Emergency Provider Emergency Medicine; PCP Physician Assistant
DX: M79.604 Pain in right leg (principal); G20 Parkinson's disease; I10 Essential (primary) hypertension; E11.39 Type 2 diabetes mellitus with other diabetic ophthalmic complication; H42 Glaucoma in diseases classified elsewhere; N40.0 Benign prostatic hyperplasia without lower urinary tract symptoms; E66.3 Overweight; Z68.28 Body mass index [BMI] 28.0-28.9, adult; Z79.4 Long term (current) use of insulin; Z98.49 Cataract extraction status, unspecified eye; Z87.891 Personal history of nicotine dependence; W18.39XA Other fall on same level, initial encounter
CPT/HCPCS: 36415; 70450; 73502; 73590; 80048; 85025; 99284; A9270

== ENCOUNTER 2022-06-10 15:16 | Observation (INO) | payer OTHER, SELFPAY ==
[2022-06-10] VITALS (21 sets, daily range): BP systolic 99–165; BP diastolic 53–105; PULSE 63–87; RESP 11–21; TEMP 36.2–36.6; O2SAT 90–100
--- NOTE | ~2022-06-10 | CT_ITS ---
EXAMINATION: CT brain wo con DATE: 06/10/2022 17:15 INDICATION: AMS . TECHNIQUE: Computed tomography (CT) of the head was performed without intravenous contrast. The mA wa s adjusted according to patient size. Iterative reconstruction technique was employed. The dose-lengt h product was 681.00 mGy-cm. COMPARISON: 01/23/2022. FINDINGS: No acute intracranial hemorrhage or extra-axial fluid collection. No hydrocephalus, mass, or herniation. No acute ischemic infarct. Unremarkable dural venous sinus attenuation. No acute osseous abnormality. Left maxillary and ethmoid mucosal thickening, the remaining aerated spaces are clear. Mild atrophy and chronic white matter change. Atherosclerotic intracranial calcification. Bilateral l ens replacements. Bilateral chronic basal ganglia lacunar infarcts. IMPRESSION: No acute intracranial process. Reviewed, dictated and finalized at location K.
--- NOTE | ~2022-06-10 | XR_ITS ---
EXAMINATION: XR chest 1V portable DATE: 06/10/2022 17:01 INDICATION: Altered mental status TECHNIQUE: frontal view of the chest was obtained. COMPARISON: Chest radiograph dated 09/12/2021 FINDINGS: Unchanged elevation the right hemidiaphragm. Mild streaky opacities at the left lower lung zone. No o ther airspace opacities, pulmonary edema, pleural effusion or pneumothorax. The cardiomediastinal betsy houette is normal. Visualized bones and soft tissues are unremarkable. IMPRESSION: 1. Mild opacities at the left lower lung zone and favor atelectasis over pneumonia. 2. Unchanged elevation of the right hemidiaphragm. Reviewed, dictated and finalized at location B. IMPRESSION: 1. Mild opacities at the left lower lung zone and favor atelectasis over pneumo lyla. 2. Unchanged elevation of the right hemidiaphragm.
--- NOTE | ~2022-06-10 | XR_ITS ---
EXAMINATION: XR barium swallow modified DATE: 06/11/2022 10:07 INDICATION: Aspiration. TECHNIQUE: The patient was given barium-containing material of multiple consistencies to swallow by t jovana speech pathologist while I performed fluoroscopy. Fluoroscopy exposure time was 2.5 minutes. The n umber of fluoroscopy images saved to the PACS was 1. Dose-area product was 1.881 Gy-cm^2. FINDINGS: There is reduced laryngeal elevation and reduced tongue base retraction. There is vallecular residue and piriform sinus residue. There is laryngeal penetration of uncontrolled thin liquids without cough . IMPRESSION: 1. Laryngeal penetration. 2. Please refer to the speech therapy report for recommendations. Reviewed, dictated and finalized at location A.
--- NOTE | 2022-06-10 15:28 | ECG_ITS ---
Measurements Intervals [place] Rate: 76 P: 17 [place]: 161 QRS: -34 QRSD: 109 T: 16 QT: 400 QTc: 451 Interpretive Statements SINUS RHYTHM LEFT AXIS DEVIATION PATTERN CONSISTENT WITH PULMONARY DISEASE BASELINE ARTIFACT- V1-V2 BORDERLINE ECG COMPARED TO ECG 09/12/2021 13:58:10 SINUS RHYTHM NOW PRESENT Electronically Signed On 06-10-2022 16:09:17 CDT by Ran Estrella D.O.
[2022-06-10 15:50] LABS: Basophils Percent Auto 0.6 % (0.2-1.2); Eosinophils Absolute Auto 0.4 K/mm3 (0-0.3); Eosinophils Percent Auto 6.1 % (0-4.4); Hematocrit 37.7 % (42.0-52.0); Immature Granulocyte Absolute 0.03 K/mm3 (0.00-0.031); Immature Granulocyte Percent A 0.5 % (0-0.5); Lymphocytes Absolute Auto 1.13 K/mm3 (0.9-3.2); Lymphocytes Percent Auto 17.8 % (18.3-44.2); Mean Corpuscular HGB Conc 31.8 g/dl (32-36); Mean Corpuscular Hemoglobin 28.2 pg (26-34); Mean Corpuscular Volume 88.7 fl (80-100); Mean Platelet Volume 10.4 fl (7.4-10.4); Monocytes Absolute Auto 0.5 K/mm3 (0.1-0.6); Monocytes Percent Auto 7.9 % (2.6-8.5); Neutrophils Absolute Auto 4.3 K/mm3 (1.3-6.7); Neutrophils Percent Auto 67.1 % (45.5-73.1); Platelet Count Result 239 k/mm3 (150-375); Red Blood Count 4.25 M/mm3 (4.6-6.20); Red Cell Distribution Width 13.5 % (11.5-14.5); White Blood Count 6.4 K/mm3 (4.5-10.0)
[2022-06-10 15:55] LABS: Alanine Aminotransferase 31 U/L (6-50); Albumin Level 3.9 g/dL (3.5-5.1); Alkaline Phosphatase 94 U/L (38-126); Anion Gap 8 mmol/L (8-16); Aspartate Amino Transferase 33 U/L (17-59); Bilirubin,Total 0.6 mg/dL (0.2-1.3); Blood Urea Nitrogen 24 mg/dL (9-20); Calcium 8.7 mg/dL (8.4-10.2); Carbon Dioxide 28 mmol/L (22-30); Chloride 105 mmol/L (98-107); Estimated CRCL calculation 46 ml/min; Estimated Glomerular Filt Rate 54; Glucose 164 mg/dL (65-110); Potassium 3.7 mmol/L (3.4-5.0); Sodium 141 mmol/L (137-145)
[2022-06-10 15:56] LABS: Appearance Urine Clear (Clear); Bacteria Urine None Seen /hpf; Bilirubin Urine Negative (Negative); Blood Urine Negative (Negative); Color Urine Yellow (Yellow); Glucose Urine UA Trace mg/dL (Negative); Ketones Urine Negative (Negative); Leukocyte Esterase Ur Negative LEU/UL (Negative); Nitrate Urine Negative (Negative); Non Pathogenic Casts 0-2; Protein Urine Trace mg/dL (Negative); RBC Urine 0-2 /hpf (0-2); Specific Grav Ur 1.023 (1.001-1.035); Squamous Epithelial Cell Urine None seen /hpf (Few); WBC Urine 0-5 /hpf
[2022-06-10 15:59] LABS: Add Urine Microscopic? YES
[2022-06-10] MEDS: DEXTROSE 10% 500 ML 10 ML IV CONT (16:00)
[2022-06-10 16:08] LABS: INR 1.1; Prothrombin Time 14.4 Seconds (11.1-14.7)
[2022-06-10 16:10] LABS: Partial Thromboplastin Time 28.9 SECONDS (22.3-36.8)
[2022-06-10 16:34] LABS: Glucose Point of Care 113 mg/dl (65-105)
--- NOTE | 2022-06-10 16:51 | ED.AMS ---
HPI - Altered Mental Status General Chief Complaint: Altered Mental Status Stated Complaint: AMS Time Seen by Provider: 06/10/22 15:39 History of Present Illness HPI narrative: Patient presents with declining health over the last year, according to family, with increasing weakness and sleepiness especially over the last few weeks. Patient denies any symptoms. EMS, they noted that blood sugar was low and patient seemed to improve in mental status after given sugar, supposedly he had not been eating well at the shelter and had received a dose of insulin. Related Data Home Medications Medication Instructions Recorded Confirmed cholecalciferol (vitamin D3) 125 mg PO DAILY 06/14/20 09/13/21 latanoprost 0.005 % eye drops 1 drp EACH EYE HS 06/14/20 09/13/21 insulin glargine 100 unit/mL (3 40 unit subcut HS 09/13/21 09/13/21 mL) subcutaneous pen (Basaglar KwikPen U-100 Insulin) losartan 50 mg tablet (Cozaar) 50 mg PO HS 09/13/21 09/13/21 Allergies Allergy/AdvReac Type Severity Reaction Status Date / Time No Known Allergies Allergy Verified 06/10/22 15:51 Review of Systems Review of Systems: CONST: No fever. HEENT: No sore throat C/V: No chest pain RESP: No trouble breathing GI: no abdominal pain : No dysuria. M/S: No joint pain. SKIN: No rash. NEURO: [No headache or focal numbness or weakness] PSYCH: [No depression] PMFSH Past Medical History Medical History Anxiety BPH (benign prostatic hyperplasia) Cellulitis of scrotum Confusion Diabetes DKA (diabetic ketoacidosis) Glaucoma Hypertension Insomnia Lactic acidosis Overweight (BMI 25.0-29.9) Parkinsons Sepsis Type 2 diabetes mellitus Surgical History Surgical History Cataract extraction status Hernia Family History Family History Father Heart attack Alcoholism Mother Heart attack Heart disease Cerebrovascular accident Sibling Diabetes mellitus Heart disease Cerebrovascular accident Hypertension Cancer Social History Social History Social History: the patient tells me that he has 1 son. He is . He used to smoke. He is not sure if he has a durable power commercial attorney for healthcare. It was noted earlier in ER that the son stated that the patient lives with him and his . The patient believes that he lives home alone. Code status full code Smoking packs per day: 1 Smoking cigarettes per day: 20.0 Years smoked: 30 Smoking pack-years: 30.00 Smoking status: Former smoker Tobacco type: cigarettes Alcohol intake: current Drinks per week: 1 Substance use: never Substance use type: does not use Gender identity (if verbalized by the patient): Male Spiritual care concerns: No Exam Narrative: EXAMINATION OF ORGAN SYSTEMS/BODY AREAS: Constitutional: Vital signs per nursing GENERAL: Sleeping but arouses to voice and answers questions HEAD: Normal with no signs of head trauma. EYES: EOMI, crusted eyes ENT: Hearing grossly intact LUNGS: Nonlabored breathing. HEART: [Regular rate and rhythm] ABD: [Soft], [nontender to palpation] EXT: Moves all extremities to stimulus SKIN: [No rashes or lesions.] NEURO: [Sleepy but arouses to voice, oriented x2. No gross focal sensory or strength deficits.] PSYCH: Normal affect Course Vital Signs Vital signs: Vital Signs Pulse Rate 80 06/10/22 15:24 Temperature 97.1 F L 06/10/22 15:29 Pulse Rate 76 06/10/22 16:31 Respiratory Rate 14 06/10/22 16:31 Blood Pressure 102/65 06/10/22 16:31 Pulse Oximetry 100 06/10/22 16:31 MDM - Altered Mental Status MDM Narrative Medical decision making narrative: 76-year-old male with history of dementia, prior strokes, diabetes presents here with altered mental status an
[2022-06-10 17:52] LABS: Glucose Point of Care 82 mg/dl (65-105)
--- NOTE | 2022-06-10 18:32 | PC.NURSE ---
Attempted call to [facility] at [phone] , x 3 unsuccessful attempt with no voice mail set up for facility at this time.
--- NOTE | 2022-06-10 19:00 | PC.NURSE ---
Received verbal order to finish EMS bag of D10W which equal 200ml given and to administer the last 300ml to pt at this time.
[2022-06-10 19:28] LABS: Glucose Point of Care 114 mg/dl (65-105)
[2022-06-10 20:55] LABS: Glucose Point of Care 65 mg/dl (65-105)
--- NOTE | 2022-06-10 21:04 | PC.NURSE ---
Call [facility] at [phone] to cancel transport. Patient is admiited to the hospital.
[2022-06-10] MEDS: DEXTROSE 5%/0.45% SOD CHL 1,000 ML 100 ML IV CONT (21:13)
[2022-06-10 22:03] LABS: Glucose Point of Care 60 mg/dl (65-105)
[2022-06-10 22:30] LABS: Glucose Point of Care 82 mg/dl (65-105)
--- NOTE | 2022-06-10 23:26 | PC.NURSE ---
Report given to DARRELL Shaw at this time.
[2022-06-10 23:34] LABS: Glucose Point of Care 87 mg/dl (65-105)
--- NOTE | 2022-06-10 23:35 | PM.IMHP ---
H&P: HPI History of Present Illness Date/Time: 06/10/22 23:35 Chief Complaint: Hypoglycemia Narrative: 77-year-old male with past medical history of COPD, diabetes, hypertension, Parkinson's related dementia, CVA and BPH presented to the ER from [facility] for concern of altered mental status versus stroke. When EMS arrived on scene the patient's glucoses were 64. The patient was initially only arousable to pain. The patient received 300 mL of D10 fluids and patient woke up and was alert and complaining of back pain with altered mental status. In the ER the patient's mental status was waxing and waning but at the time my evaluation he was alert oriented to person and place he could tell us that it was his birthday. However he could not tell us his age he stated that he was [age] years old and he is currently 77 years old. He would intermittently know that he is at the hospital. He could not state the year. The nursing staff had told the ER that the patient has had steady decline in his mental status for the last week and half. ER provider contact the patient's family who reported the patient has not been eating. ER staff did give patient some nutrition by mouth in the ER and the patient was noted to choke on the pudding. [facility] staff has evidently continued to give the patient is insulin despite decreased oral intake. The patient will not answer any of my questions regarding review of systems in just tells me to leave him alone. He keeps trying to cover himself up fallen trying to perform his exam. Review of Systems Review of Systems: ROS unobtainable: Yes unobtainable due to mental status and other (Lack of cooperation) FORMERLY [facility], [facility] Past Medical History Medical History (Updated 06/11/22 @ 05:06 by Martha Adrian DO) Anxiety BPH (benign prostatic hyperplasia) Cellulitis of scrotum CVA (cerebral vascular accident) Dementia Diabetes DKA (diabetic ketoacidosis) Glaucoma Hypertension Insomnia Kidney stones Overweight (BMI 25.0-29.9) Parkinsons Type 2 diabetes mellitus Surgical History Surgical History Cataract extraction status Hernia Family History Family History Father Heart attack Alcoholism Mother Heart attack Heart disease Cerebrovascular accident Sibling Diabetes mellitus Heart disease Cerebrovascular accident Hypertension Cancer Social History Social History (Updated 06/11/22 @ 04:55 by Martha Adrian DO) Social History: He is and has 1 son. He used to smoke. The patient previously lived with his son and [id number] (I am assuming until his last hospitalization September 2021) but he now resides at [facility]. Code status: DNR/DNI Surrogate decision maker: Son Smoking packs per day: 1 Smoking cigarettes per day: 20.0 Years smoked: 30 Smoking pack-years: 30.00 Smoking status: Former smoker Tobacco type: cigarettes Alcohol intake: never Drinks per week: 1 Substance use: never Substance use type: does not use Lack of Transportation: No Lack of Food: Never True Current Housing: I Have Housing Concerned About Future Housing: No Difficulty Paying Gas/Electric Bills: No Difficulty Paying for Meds: No Currently Unemployed: No Education: High School Diploma/GED Difficulty w/ Childcare or Family Care: No Gender identity (if verbalized by the patient): Male Spiritual care concerns: No Meds Home Medications and Allergies Home Medications Medication Instructions Recorded Confirmed Type cholecalciferol (vitamin D3) 125 mg PO DAILY 06/14/20 06/11/22 History latanoprost 0.005 % eye drops 1 drp EACH EYE HS 06/14/20 06/11/22 History amlodipine 5 mg tablet (Norvasc) 5 mg PO DAILY #90 tabs 05/28/21 06/11/22 Rx aspirin 81 mg tablet,delayed 81 mg PO DAILY #90 tabs 05/28/21 06/11/22 Rx release ([facility]
[2022-06-11 00:16] VITALS: BP 129/64; PULSE 81; RESP 12; TEMP 36.4; O2SAT 96
[2022-06-11 00:37] VITALS: BMI 26.7
[2022-06-11 00:39] VITALS: BP 156/72; PULSE 69; RESP 20; TEMP 36.9; O2SAT 92
--- NOTE | 2022-06-11 00:42 | ADMGEN ---
This patient, Joe Marion, was admitted to Medical Room 245-. Patient/family oriented to hospital policies and general routines including ID bracelet, bed and alarms, visiting hours, pain management, procedures, bathroom and other care routines, personal items, smoking policy, room service/diet, and visiting hours. Information on how to activate the Rapid Response Team has been discussed. Patient/Family are encouraged to report perceived risks to care and to ask questions if they do not understand what they are told or what they should do.
[2022-06-11 00:44] LABS: Glucose Point of Care 90 mg/dl (65-105)
[2022-06-11] MEDS: DEXTROSE 10% 1,000 ML 75 ML IV CONT (01:29)
[2022-06-11 04:32] VITALS: BP 144/93; PULSE 98; RESP 22; TEMP 36.6; O2SAT 100
[2022-06-11 04:33] LABS: Glucose Point of Care 128 mg/dl (65-105)
[2022-06-11 05:24] LABS: Hematocrit 31.9 % (42.0-52.0); Hemoglobin 10.5 g/dL (14.0-18.0); Mean Corpuscular HGB Conc 32.9 g/dl (32-36); Mean Corpuscular Hemoglobin 28.4 pg (26-34); Mean Corpuscular Volume 86.2 fl (80-100); Platelet Count Result 216 k/mm3 (150-375); Red Cell Distribution Width 13.1 % (11.5-14.5); White Blood Count 5.9 K/mm3 (4.5-10.0)
[2022-06-11 05:33] LABS: Anion Gap 4 mmol/L (8-16); Blood Urea Nitrogen 17 mg/dL (9-20); Calcium 8.1 mg/dL (8.4-10.2); Carbon Dioxide 28 mmol/L (22-30); Chloride 108 mmol/L (98-107); Estimated CRCL calculation 58 ml/min; Estimated Glomerular Filt Rate > 60; Glucose 138 mg/dL (65-110); Potassium 3.5 mmol/L (3.4-5.0); Sodium 140 mmol/L (137-145)
[2022-06-11 08:36] LABS: Glucose Point of Care 155 mg/dl (65-105)
[2022-06-11] MEDS: ENOXAPARIN 40 MG/0.4 ML SYRINGE SUB-Q (08:49)
[2022-06-11 09:05] VITALS: O2SAT 99
[2022-06-11] MEDS: FLUCONAZOLE 100 MG/NACL 50 ML 100 MG/50 ML BTL 50 MG IVPB (10:10)
[2022-06-11 12:10] LABS: Glucose Point of Care 138 mg/dl (65-105)
--- NOTE | 2022-06-11 12:24 | PCSTNOTE ---
Please refer to the Modified Barium Swallow Evaluation in the EMR.
--- NOTE | 2022-06-11 13:47 | PM.IMPN ---
Progress Note: A&P Assessment and Plan (1) Hypoglycemia due to insulin: Code(s): E16.0 - Drug-induced hypoglycemia without coma; T38.3X5A - Adverse effect of insulin and oral hypoglycemic [antidiabetic] drugs, initial encounter Status: Acute Assessment and Plan: Patient is having hypoglycemia due to decreased oral intake in the setting of continued insulin use. Lantus and mealtime insulin on hold Continue Accu-Cheks ACHS. Continue with D10 water at 75 ml/hr Monitor glucose trends closely (2) Aspiration into airway: Qualifiers: Encounter type: initial encounter Qualified Code(s): T17.908A - Unspecified foreign body in respiratory tract, part unspecified causing other injury, initial encounter Code(s): T17.908A - Unspecified foreign body in respiratory tract, part unspecified causing other injury, initial encounter Status: Acute Assessment and Plan: The patient was witnessed to cough and choke on pudding in the ER concerning for airway aspiration Appreciate speech therapy eval and treatment Underwent modified barium swallow today which revealed penetration only on thin liquids Recommendations for minced and moist diet with mildly thickened liquids Aspiration precautions in place No findings to suggest pneumonia and antibiotic therapy has been deferred as patient has no leukocytosis or fever and no radiographic findings on CXR (3) Type 2 diabetes mellitus: Qualifiers: Diabetes mellitus complication detail: with other oral complications Diabetes mellitus complication status: with oral complications Diabetes mellitus long-term insulin use: with terminal operator use Qualified Code(s): E11.638 - Type 2 diabetes mellitus with other oral complications; Z79.4 - terminal operator (current) use of insulin Code(s): E11.9 - Type 2 diabetes mellitus without complications Status: Acute Assessment and Plan: With hypoglycemia as noted above Plan as above. Continue with Accu-Cheks (4) Failure to thrive: Qualifiers: Failure to thrive age range: in adult Qualified Code(s): R62.7 - Adult failure to thrive Status: Acute Assessment and Plan: The patient has been having decreased oral intake which has lead to hypoglycemia and decreased responsiveness. I think patient's decreased oral intake is likely a combination of the patient's dementia due to Parkinson's disease and likely component of oral thrush. Discussed G-tube vs possible palliative care/hospice. Pt declines G tube Will assess patients ability to tolerate dietary modifications and monitor oral intake If still with decreased PO intake and decline, will revisit possible hospice care (5) Oral thrush: Code(s): B37.0 - Candidal stomatitis Status: Acute Assessment and Plan: The patient had mild leukoplakia noted to the tongue on admission but was unable to evaluate the patient's whole oral cavity today Continue Fluconazole, will transition to PO 100 mg daily Subjective Date/time seen: 06/11/22 11:00 Interval history: Date of service: 06/11/2022 Joe Marion is a 77-year-old male with a history of hypertension, type 2 diabetes mellitus, CVA, BPH, Parkinson's who is seen in follow-up for hypoglycemia and aspiration. Patient was seen this morning just after modified barium swallow study. He complains of feeling hungry. He also complains of chronic back and leg pain. He states that he has been regurgitating food and having a hard time keeping it down. He states that if required, he would not wish to have a G-tube placed. He denies nausea. No fevers or chills. No shortness of breath, cough, or chest pain. He endorses feeling weak. Review of Systems Review of Systems: All systems reviewed & are unremarkable except as noted in HPI and below Exam Narrative: General: Thin, chronically ill-appearing 77-year-old male, sitting up in bed, co
[2022-06-11 14:00] VITALS: BP 132/69; PULSE 79; RESP 18; TEMP 36.8; O2SAT 97
[2022-06-11 17:18] LABS: Glucose Point of Care 201 mg/dl (65-105)
[2022-06-11] MEDS: LOSARTAN POTASSIUM 50 MG TABLET PO (20:08)
[2022-06-11] MEDS: OLANZapine 5 MG TABLET PO (20:08)
[2022-06-11] MEDS: LATANOPROST 0.005% OP SOLN 2.5 ML BTL 1 DROP EACH EYE (20:08)
[2022-06-11 20:18] VITALS: BP 154/73; PULSE 73; RESP 22; TEMP 36.6; O2SAT 97
[2022-06-11 20:53] LABS: Glucose Point of Care 162 mg/dl (65-105)
[2022-06-12 03:52] VITALS: BP 155/75; PULSE 75; RESP 20; TEMP 36.8; O2SAT 94
[2022-06-12 05:42] LABS: Hematocrit 35.7 % (42.0-52.0); Hemoglobin 11.6 g/dL (14.0-18.0); Mean Corpuscular HGB Conc 32.5 g/dl (32-36); Mean Corpuscular Hemoglobin 27.7 pg (26-34); Mean Corpuscular Volume 85.2 fl (80-100); Mean Platelet Volume 10.1 fl (7.4-10.4); Platelet Count Result 250 k/mm3 (150-375); Red Blood Count 4.19 M/mm3 (4.6-6.20); Red Cell Distribution Width 12.7 % (11.5-14.5); White Blood Count 5.5 K/mm3 (4.5-10.0)
[2022-06-12 05:50] LABS: Anion Gap 3 mmol/L (8-16); Blood Urea Nitrogen 12 mg/dL (9-20); Calcium 8.4 mg/dL (8.4-10.2); Carbon Dioxide 31 mmol/L (22-30); Chloride 104 mmol/L (98-107); Estimated CRCL calculation 53 ml/min; Estimated Glomerular Filt Rate > 60; Glucose 135 mg/dL (65-110); Potassium 3.8 mmol/L (3.4-5.0); Sodium 138 mmol/L (137-145)
[2022-06-12 07:10] VITALS: PULSE 83; RESP 18; O2SAT 95
[2022-06-12] MEDS: FLUTICASONE/UMECLIDIN/VILANTER 100-62.5-25 MCG ELLIPTA 1 PUFF INHALATION (07:10)
[2022-06-12 08:32] LABS: Glucose Point of Care 148 mg/dl (65-105)
[2022-06-12 09:20] VITALS: BP 152/64; PULSE 78
[2022-06-12] MEDS: CHOLECALCIFEROL 1,000 UNITS TABLET 5000 UNITS PO (09:25)
[2022-06-12] MEDS: OLANZapine 5 MG TABLET PO ×2 (09:25→20:13)
[2022-06-12] MEDS: oxyBUTYnin CHLORIDE XL 5 MG TAB.ER.24 PO (09:27)
[2022-06-12] MEDS: amLODIPine BESYLATE 5 MG TABLET PO (09:27)
[2022-06-12] MEDS: FLUCONAZOLE 100 MG TABLET PO (09:28)
[2022-06-12] MEDS: ENOXAPARIN 40 MG/0.4 ML SYRINGE SUB-Q (09:29)
[2022-06-12] MEDS: ASPIRIN 81 MG CHEWABLE TABLET PO (10:27)
[2022-06-12 10:42] LABS: Hemoglobin A1C 6.9 % (<5.7)
--- NOTE | 2022-06-12 11:32 | PCPTNOTE ---
Attempted PT evaluation, pt with OT at this time. Will follow
[2022-06-12 11:54] LABS: Glucose Point of Care 168 mg/dl (65-105)
--- NOTE | 2022-06-12 12:34 | PC.NURSE ---
Contacted speech therapy per provider to clarify if they needed to see pt again before d/c. Speech therapy OK with d/c.
[2022-06-12 13:05] LABS: EDCOVIDSCREEN Negative (Negative)
[2022-06-12 14:10] VITALS: BP 113/62; PULSE 73; RESP 18; TEMP 36.7; O2SAT 97
--- NOTE | 2022-06-12 14:41 | PM.DS ---
DS: Admitting Diagnosis Discharge Date 06/12/2022 Admitting Diagnosis Hypoglycemia Type 2 diabetes mellitus on insulin therapy aspiration into airway Oral thrush Failure to thrive DS: Discharge Diagnosis Discharge Diagnosis (1) Hypoglycemia due to insulin: Code(s): E16.0 - Drug-induced hypoglycemia without coma; T38.3X5A - Adverse effect of insulin and oral hypoglycemic [antidiabetic] drugs, initial encounter Status: Acute Assessment and Plan: Patient is having hypoglycemia due to decreased oral intake in the setting of continued insulin use. Lantus and mealtime insulin on hold Continue Accu-Cheks ACHS. Continue with D10 water at 75 ml/hr Monitor glucose trends closely (2) Aspiration into airway: Qualifiers: Encounter type: initial encounter Qualified Code(s): T17.908A - Unspecified foreign body in respiratory tract, part unspecified causing other injury, initial encounter Code(s): T17.908A - Unspecified foreign body in respiratory tract, part unspecified causing other injury, initial encounter Status: Acute Assessment and Plan: The patient was witnessed to cough and choke on pudding in the ER concerning for airway aspiration Appreciate speech therapy eval and treatment Underwent modified barium swallow today which revealed penetration only on thin liquids Recommendations for minced and moist diet with mildly thickened liquids Aspiration precautions in place No findings to suggest pneumonia and antibiotic therapy has been deferred as patient has no leukocytosis or fever and no radiographic findings on CXR (3) Type 2 diabetes mellitus: Qualifiers: Diabetes mellitus complication detail: with other oral complications Diabetes mellitus complication status: with oral complications Diabetes mellitus watermelon inspector insulin use: with senior care use Qualified Code(s): E11.638 - Type 2 diabetes mellitus with other oral complications; Z79.4 - longterm (current) use of insulin Code(s): E11.9 - Type 2 diabetes mellitus without complications Status: Acute Assessment and Plan: With hypoglycemia as noted above Plan as above. Continue with Accu-Cheks (4) Failure to thrive: Qualifiers: Failure to thrive age range: in adult Qualified Code(s): R62.7 - Adult failure to thrive Status: Acute Assessment and Plan: The patient has been having decreased oral intake which has lead to hypoglycemia and decreased responsiveness. I think patient's decreased oral intake is likely a combination of the patient's dementia due to Parkinson's disease and likely component of oral thrush. Discussed G-tube vs possible palliative care/hospice. Pt declines G tube Will assess patients ability to tolerate dietary modifications and monitor oral intake If still with decreased PO intake and decline, will revisit possible hospice care (5) Oral thrush: Code(s): B37.0 - Candidal stomatitis Status: Acute Assessment and Plan: The patient had mild leukoplakia noted to the tongue on admission but was unable to evaluate the patient's whole oral cavity today Continue Fluconazole, will transition to PO 100 mg daily DS: Summary Hospital Course Reason for hospitalization: Hypoglycemia Hospital Course: Patient is a 77-year-old male with Parkinson disease, dementia, prior stroke, BPH, COPD, insulin dependent diabetes mellitus, and hypertension. Patient presented to the emergency department from [facility] for concerns of altered mental status. Upon arrival patient's glucose was noted to be 64 he was only arousable to pain. He received 300 mL of D10 fluids with improvement in mentation. In the emergency department he had waxing and waning mentation. The emergency room was reportedly told by [facility] staff patient has had steady decline in mentation over the last week prior to admission and had not been e
--- NOTE | 2022-06-12 15:25 | PCCCNOTE ---
On 06/12/22, the student, [Sharon Washington ], provided care and completed [facility] documentation on this patient. I have reviewed the student's documentation and agree with the findings.
[2022-06-12 17:08] LABS: Glucose Point of Care 160 mg/dl (65-105)
[2022-06-12] MEDS: LATANOPROST 0.005% OP SOLN 2.5 ML BTL 1 DROP EACH EYE (20:13)
[2022-06-12] MEDS: LOSARTAN POTASSIUM 50 MG TABLET PO (20:13)
[2022-06-12 20:20] VITALS: PULSE 83; RESP 17; O2SAT 95
[2022-06-12 20:28] LABS: Glucose Point of Care 187 mg/dl (65-105)
[2022-06-12 21:01] VITALS: BP 129/70; PULSE 83; RESP 17; TEMP 36.7; O2SAT 95
[2022-06-27 16:56] LABS: Glucose Point of Care 159 mg/dl (65-105)
== END 2022-06-12 21:25 ==
LOC: ANHED 21:07 → ANH2MED 06-11 00:49
PROVIDERS: Emergency Medicine; Nurse Practitioner Family; Admitting Provider Internal Medicine; Emergency Provider Emergency Medicine; PCP Hospitalist; Visit Provider Physician Assistant
DX: E16.0 Drug-induced hypoglycemia without coma (principal); T38.3X5A Adverse effect of insulin and oral hypoglycemic [antidiabetic] drugs, initial encounter; T17.908A Unspecified foreign body in respiratory tract, part unspecified causing other injury, initial encounter; E11.638 Type 2 diabetes mellitus with other oral complications; B37.0 Candidal stomatitis; R62.7 Adult failure to thrive; F41.9 Anxiety disorder, unspecified; Z20.822 Contact with and (suspected) exposure to COVID-19; N40.0 Benign prostatic hyperplasia without lower urinary tract symptoms; H40.9 Unspecified glaucoma; I10 Essential (primary) hypertension; G47.00 Insomnia, unspecified; E66.3 Overweight; Z68.26 Body mass index [BMI] 26.0-26.9, adult; G20 Parkinson's disease; G89.29 Other chronic pain; M79.606 Pain in leg, unspecified; M54.9 Dorsalgia, unspecified; F02.80 Dementia in other diseases classified elsewhere, unspecified severity, without behavioral disturbance, psychotic disturbance, mood disturbance, and anxiety; F10.90 Alcohol use, unspecified, uncomplicated; Z66 Do not resuscitate; Z79.4 Long term (current) use of insulin; Z86.73 Personal history of transient ischemic attack (TIA), and cerebral infarction without residual deficits; Z87.891 Personal history of nicotine dependence; Z79.82 Long term (current) use of aspirin; Z79.51 Long term (current) use of inhaled steroids; Z79.899 Other long term (current) drug therapy; Z83.3 Family history of diabetes mellitus
CPT/HCPCS: 36415; 70450; 71045; 80048; 80053; 81001; 82948; 83036; 84443; 85025; 85027; 85610; 85730; 87426; 92611; 93005; 94640; 96365; 96366; 96372; 96375; 96376; 97165; 99285; A9270; C9803; G0378; J1450; J1650

== ENCOUNTER 2023-02-22 02:59 | Inpatient (IN) | payer MEDICARE, MEDICAID, SELFPAY ==
[2023-02-22] VITALS (16 sets, daily range): BP systolic 109–138; BP diastolic 55–94; PULSE 56–105; RESP 12–17; TEMP 36.1–36.7; O2SAT 95–100
--- NOTE | ~2023-02-22 | XR_ITS ---
EXAMINATION: XR shoulder LT min 2V INDICATION: Left shoulder pain TECHNIQUE: Four views of the left shoulder are submitted. COMPARISON: None FINDINGS: Normal alignment. No fracture. There is mild osteoarthritis of the glenohumeral and acromio clavicular joints. Soft tissues are unremarkable. IMPRESSION: 1. No acute osseous abnormality. Reviewed, dictated and finalized at location F. IRONER
--- NOTE | ~2023-02-22 | XR_ITS ---
EXAMINATION: XR chest 1V portable INDICATION: Pain after fall TECHNIQUE: Portable AP chest at 0431 hours COMPARISON: 06/10/2022 FINDINGS: The lungs are free of acute opacities. No pleural effusion or pneumothorax. The cardiomedia stinal silhouette is normal. IMPRESSION: 1. No acute cardiopulmonary abnormality. Reviewed, dictated and finalized at location F. E DOG TRAINER
--- NOTE | ~2023-02-22 | CT_ITS ---
EXAMINATION: CT cervical spine wo con DATE: 02/22/2023 04:32 INDICATION: Neck pain TECHNIQUE: Computed tomography (CT) of the cervical spine was performed without intravenous contrast. The dose-length product (DLP) was 418.48 mGy-cm. Automated exposure control and iterative reconstruc tion technique were employed. COMPARISON: CT brain, 01/23/2022 FINDINGS: There are 2 mm of retrolisthesis of C5 on C6. There is severe loss of intervertebral disc s pace height at C5-6 and C6-7. The vertebral body heights are maintained. There is no acute fracture. There is a well-corticated osseous fragment without change posterolateral to the tip of the odontoid process which could reflect prior fracture and/or ligamentous calcification. There is multilevel marilyn re facet and uncovertebral joint osteoarthritis. IMPRESSION: 1. Severe cervical spondylosis without acute findings. Reviewed, dictated and finalized at location F. RUCTIONAL FACILITATOR
--- NOTE | ~2023-02-22 | XR_ITS ---
EXAMINATION: XR pelvis 1-2V INDICATION: Pain after fall TECHNIQUE: AP view of the pelvis is obtained. COMPARISON: None available FINDINGS: Bone alignment is normal. There is no fracture. There is moderate osteoarthritis of the hip s. Calcified atherosclerosis is noted. There are surgical clips in the pelvis, likely related to pros tatectomy. IMPRESSION: 1. No acute osseous abnormality. Reviewed, dictated and finalized at location F. ICAL SPRAYER
--- NOTE | ~2023-02-22 | CT_ITS ---
EXAMINATION: CT brain wo con INDICATION: Headache COMPARISON: 06/10/2022 TECHNIQUE: Standard unenhanced head CT. The dose-length product (DLP) was 681.00 mGy-cm. The mA was a djusted according to patient size. Iterative reconstruction technique was employed. FINDINGS: No acute intraparenchymal hemorrhage. No evidence of mass lesion. No evidence of acute infa rction. There are old infarcts of the bilateral basal ganglia. There is mild periventricular and subc ortical hypodensity probably related to small vessel ischemic disease. There is mild prominence of th e sulci and ventricles related to cerebral atrophy. Intracranial calcified cerebral atherosclerosis i s noted. No extra-axial collections. No mass effect or midline shift. Changes in the globes are likel y from ocular lens surgery. There is mild mucosal thickening of the paranasal sinuses. IMPRESSION: 1. Areas of prior infarction without acute intracranial abnormality. 2. Age related findings. Reviewed, dictated and finalized at location F. ER PLACEMENT SERVICES COUNSELOR
--- NOTE | ~2023-02-22 | XR_ITS ---
MODIFIED ESOPHAGRAM HISTORY: Dysphagia. TECHNIQUE: Modified barium esophagram was performed on 02/24/2023. I administered fluoroscopy and perf ormed the exam with speech pathologist. Patient was seated for lateral fluoroscopic imaging for tello stion of thin liquids, pudding, solids and quantified amounts, followed by thin liquids in uncontroll ed amounts. This was recorded on tape. A single fluoroscopic spot image was also recorded. The DAP fo r this procedure was 2.085 Gycm2. The amount of fluoroscopy time used during this procedure was 3.7 m inutes. FINDINGS: Oral stage: Reduced lingual movement with excessive oral transit time. Pharyngeal stage: Reduced laryngeal elevation, tongue base retraction and pharyngeal squeeze. There i s large amount of vallecular residue with delayed laryngeal penetration with thin and pudding consist encies. There is expected to result in eventual aspiration although this was not directly observed. Cervical/esophageal stage: Adequate function. IMPRESSION: Oropharyngeal dysphagia with large amount of vallecular residue resulting in delayed christen ngeal penetration. This is expected to result in aspiration although this would not directly observed . Please correlate with speech pathologist findings and specific feeding recommendations. Reviewed, dictated and finalized at location A. MBLER BONDING IMPRESSION: Oropharyngeal dysphagia with large amount of vallecular residue res ulting in delayed laryngeal penetration. This is expected to result in aspirati on although this would not directly observed. Please correlate with speech pat hologist findings and specific feeding recommendations.
--- NOTE | 2023-02-22 03:25 | ECG_ITS ---
Measurements Intervals [place] Rate: 103 P: 44 SD: 169 QRS: -66 QRSD: 86 T: -20 QT: 357 QTc: 468 Interpretive Statements SINUS TACHYCARDIA ANTEROLATERAL INFARCT, AGE INDETERMINATE INFERIOR INFARCT, AGE INDETERMINATE BORDERLINE ST-T WAVE ABNORMALITY- HIGH LATERAL LEADS ABNORMAL ECG COMPARED TO ECG 06/10/2022 15:27:53 SINUS TACHYCARDIA NOW PRESENT MYOCARDIAL INFARCT FINDING NOW PRESENT Electronically Signed On 02-22-2023 7:14:52 RIGGER HELPER by Ran Estrella D.O.
--- NOTE | 2023-02-22 03:26 | ED.GENADULT ---
HPI - General Adult General Chief complaint: Fall Stated complaint: fall Time Seen by Provider: 02/22/23 03:16 History of Present Illness HPI narrative: This is a 77-year-old male from the half[place]way presenting for unwitnessed fall. The patient self does not know why he is in the emergency department. Patient is A&O x3 but a poor historian. His only complaint at this time his neck pain and left shoulder pain. He denies head trauma, headache chest pain difficulty breathing abdominal pain urinary symptoms. Related Data Home Medications Medication Instructions Recorded Confirmed cholecalciferol (vitamin D3) 125 mg PO DAILY 06/14/20 06/11/22 latanoprost 0.005 % eye drops 1 drp EACH EYE HS 06/14/20 06/11/22 losartan 50 mg tablet (Cozaar) 50 mg PO HS 09/13/21 06/11/22 albuterol sulfate 90 mcg/actuation 2 puff inhalation Q4H PRN 06/11/22 06/11/22 aerosol inhaler Shortness Of Breath Or Wheezing olanzapine 5 mg tablet 5 mg PO Q12H 06/11/22 06/11/22 quetiapine 25 mg tablet 12.5 mg PO DAILY 06/11/22 06/11/22 trazodone 50 mg tablet 50 mg PO HS 06/11/22 06/11/22 Allergies Allergy/AdvReac Type Severity Reaction Status Date / Time No Known Allergies Allergy Verified 06/10/22 15:51 [facility] Past Medical History Medical History Anxiety BPH (benign prostatic hyperplasia) Cellulitis of scrotum CVA (cerebral vascular accident) Dementia Diabetes DKA (diabetic ketoacidosis) Glaucoma Hypertension Insomnia Kidney stones Overweight (BMI 25.0-29.9) Parkinsons Type 2 diabetes mellitus Surgical History Surgical History Cataract extraction status Hernia Family History Family History Father Heart attack Alcoholism Mother Heart attack Heart disease Cerebrovascular accident Sibling Diabetes mellitus Heart disease Cerebrovascular accident Hypertension Cancer Social History Social History Social History: He is and has 1 son. He used to smoke. The patient previously lived with his son and [id number] (I am assuming until his last hospitalization September 2021) but he now resides at [facility]. Code status: DNR/DNI Surrogate decision maker: Son Smoking packs per day: 1 Smoking cigarettes per day: 20.0 Years smoked: 30 Smoking pack-years: 30.00 Smoking status: Former smoker Tobacco type: cigarettes Alcohol intake: never Drinks per week: 1 Substance use: never Substance use type: does not use Lack of Transportation: No Lack of Food: Never True Current Housing: I Have Housing Concerned About Future Housing: No Difficulty Paying Gas/Electric Bills: No Difficulty Paying for Meds: No Currently Unemployed: No Education: High School Diploma/GED Difficulty w/ Childcare or Family Care: No Gender identity (if verbalized by the patient): Male Spiritual care concerns: No Exam Narrative: APPEARANCE: No apparent distress. Head: atraumatic. EYES: EOMI, NOSE: Atraumatic NECK: Trachea midline, supple, no midline tenderness RESPIRATORY: No increased rate of breathing, clear to auscultation CARDIOVASCULAR: RRR, no peripheral edema ABDOMINAL: Non-distended, soft nontender MUSCULOSKELETAl: Head to toe trauma exam revealed no obvious deformities. Some pain with active and passive range of motion of the left shoulder. NEURO: Alert. Moving 4/4 extremities SKIN:: Warm, dry. Normal color PSYCHIATRIC: Normal affect Course Vital Signs Vital signs: Vital Signs Temperature 97.9 F 02/22/23 02:57 Pulse Rate 105 H 02/22/23 02:57 Respiratory Rate 15 02/22/23 02:57 Blood Pressure 126/75 02/22/23 02:57 Pulse Oximetry 95 02/22/23 02:57 Oxygen Delivery Room Air 02/22/23 02:57 Temperature 97.9 F 02/22/23 02:57 Pulse Ra
[2023-02-22] MEDS: SODIUM CHLORIDE 0.9% IV 2,000 ML 999 ML IV CONT (03:38)
[2023-02-22 03:51] LABS: Basophils Percent Auto 0.2 % (0.2-1.2); Eosinophils Absolute Auto 0.1 K/mm3 (0-0.3); Eosinophils Percent Auto 0.8 % (0-4.4); Hematocrit 35.9 % (42.0-52.0); Hemoglobin 11.4 g/dL (14.0-18.0); Immature Granulocyte Absolute 0.05 K/mm3 (0.00-0.031); Immature Granulocyte Percent A 0.4 % (0-0.5); Lymphocytes Absolute Auto 1.13 K/mm3 (0.9-3.2); Lymphocytes Percent Auto 9.2 % (18.3-44.2); Mean Corpuscular HGB Conc 31.8 g/dl (32-36); Mean Corpuscular Hemoglobin 28.1 pg (26-34); Mean Corpuscular Volume 88.4 fl (80-100); Mean Platelet Volume 10.7 fl (7.4-10.4); Monocytes Absolute Auto 0.8 K/mm3 (0.1-0.6); Monocytes Percent Auto 6.6 % (2.6-8.5); Neutrophils Absolute Auto 10.2 K/mm3 (1.3-6.7); Neutrophils Percent Auto 82.8 % (45.5-73.1); Platelet Count Result 222 k/mm3 (150-375); Red Blood Count 4.06 M/mm3 (4.6-6.20); Red Cell Distribution Width 12.6 % (11.5-14.5); White Blood Count 12.3 K/mm3 (4.5-10.0)
[2023-02-22 04:01] LABS: Ethanol < 10 mg/dL (<10); Lactic Acid Reflex 3.2 mmol/L (0.7-2.0)
[2023-02-22 04:02] LABS: Alanine Aminotransferase 17 U/L (6-50); Albumin Level 3.4 g/dL (3.5-5.1); Alkaline Phosphatase 83 U/L (38-126); Anion Gap 7 mmol/L (8-16); Aspartate Amino Transferase 28 U/L (17-59); Bilirubin,Total 0.5 mg/dL (0.2-1.3); Blood Urea Nitrogen 15 mg/dL (9-20); Calcium 9.1 mg/dL (8.4-10.2); Carbon Dioxide 27 mmol/L (22-30); Chloride 105 mmol/L (98-107); Creatine Kinase 113 U/L (55-170); Estimated CRCL calculation 64 ml/min; Estimated Glomerular Filt Rate > 60; Glucose 268 mg/dL (65-110); Lipase 24 U/L (23-300); Magnesium 1.3 mg/dL (1.6-2.3); Sodium 139 mmol/L (137-145)
[2023-02-22 04:04] LABS: Prothrombin Time 13.6 Seconds (11.1-14.7)
[2023-02-22 04:05] LABS: Partial Thromboplastin Time 32.5 SECONDS (22.3-36.8)
[2023-02-22 04:19] LABS: Appearance Urine Clear (Clear); Bacteria Urine None Seen /hpf; Bilirubin Urine Negative (Negative); Blood Urine 3+ (Negative); Color Urine Yellow (Yellow); Glucose Urine UA 3+ mg/dL (Negative); Ketones Urine 1+ mg/dL (Negative); Leukocyte Esterase Ur Negative LEU/UL (Negative); Nitrate Urine Negative (Negative); Non Pathogenic Casts 0-2; Protein Urine Trace mg/dL (Negative); RBC Urine 21-50 /hpf (0-2); Specific Grav Ur 1.026 (1.001-1.035); Squamous Epithelial Cell Urine None seen /hpf (Few); WBC Urine 0-5 /hpf
[2023-02-22 04:27] LABS: Add Urine Microscopic? YES
[2023-02-22 04:33] LABS: Influenza A QL RT-PCR Negative (Negative); Influenza B QL RT-PCR Negative (Negative); RSV RNA, RT-PCR Negative (Negative); SARS-CoV-2 RNA PCR Negative (Negative)
[2023-02-22 04:39] LABS: NT Pro B Type Natriuretic Pept 2100 pg/mL (19.9-100)
--- NOTE | 2023-02-22 04:40 | ECG_ITS ---
Measurements Intervals [place] Rate: 93 P: 31 OH: 116 QRS: -55 QRSD: 100 T: -53 QT: 396 QTc: 494 Interpretive Statements SINUS RHYTHM WITH SHORT OH INTERVAL ATRIAL PREMATURE COMPLEXES LEFT ANTERIOR FASCICULAR BLOCK ST-T WAVE ABNORMALITY IN ANTEROLATERAL LEADS- CONSIDER ISCHEMIA ABNORMAL ECG COMPARED TO ECG 02/22/2023 03:07:18 SINUS RHYTHM NOW PRESENT LEFT ANTERIOR FASCICULAR BLOCK NOW PRESENT Electronically Signed On 02-24-2023 7:58:23 WIRE DRAWING SETTER by Ran Estrella D.O.
[2023-02-22 04:41] LABS: Amphetamine Screen Urine Negative (Negative); Barbiturate Screen Urine Negative (Negative); Benzodiazepines Screen Urine Negative (Negative); Cannabinoid Screen Urine Negative (Negative); Cocaine Screen Urine Negative (Negative); Methadone Screen Urine Negative (Negative); Opiate Screen Urine Negative (Negative); Phencyclidine Screen Urine Negative (Negative)
[2023-02-22 06:14] LABS: Glucose Point of Care 206 mg/dl (65-105)
[2023-02-22 06:48] LABS: Reflex Lactic Acid Yes or No Add Lactic
[2023-02-22] MEDS: HEPARIN SODIUM 5,000 UNITS/ML VIAL 4000 UNITS IV PUSH (06:59)
[2023-02-22] MEDS: HEPARIN SOD/D5W 100 UNITS/ML 25,000 UNITS/250 ML BAG 10 UNITS IV CONT (07:14)
--- NOTE | 2023-02-22 07:17 | PC.NURSE ---
This RN attempted to call [facility] to update staff that pt is to be admitted. No answer from facility at this time, no option to leave a voicemail.
[2023-02-22 07:26] LABS: Basophils Percent Auto 0.3 % (0.2-1.2); Eosinophils Absolute Auto 0.1 K/mm3 (0-0.3); Hematocrit 33.3 % (42.0-52.0); Hemoglobin 10.4 g/dL (14.0-18.0); Immature Granulocyte Absolute 0.05 K/mm3 (0.00-0.031); Immature Granulocyte Percent A 0.4 % (0-0.5); Lymphocytes Absolute Auto 1.47 K/mm3 (0.9-3.2); Lymphocytes Percent Auto 11.5 % (18.3-44.2); Mean Corpuscular HGB Conc 31.2 g/dl (32-36); Mean Corpuscular Hemoglobin 27.8 pg (26-34); Mean Platelet Volume 10.4 fl (7.4-10.4); Monocytes Absolute Auto 0.8 K/mm3 (0.1-0.6); Monocytes Percent Auto 6.1 % (2.6-8.5); Neutrophils Absolute Auto 10.3 K/mm3 (1.3-6.7); Neutrophils Percent Auto 80.7 % (45.5-73.1); Platelet Count Result 207 k/mm3 (150-375); Red Blood Count 3.74 M/mm3 (4.6-6.20); Red Cell Distribution Width 12.7 % (11.5-14.5); White Blood Count 12.7 K/mm3 (4.5-10.0)
[2023-02-22] MEDS: ASPIRIN 81 MG CHEWABLE TABLET 324 MG PO (07:37)
[2023-02-22 07:41] LABS: Lactic Acid 1.7 mmol/L (0.7-2.0)
--- NOTE | 2023-02-22 12:24 | PC.NURSE ---
This RN called [facility] and spoke with Kathy RAMÍREZ, This RN gave update regarding pt and told her that pt is to be admitted
--- NOTE | 2023-02-22 12:42 | PM.CNCAR ---
Assessment and Plan Assessment and plan (1) Non-ST elevation [place] (NSTEMI): Code(s): I21.4 - Non-ST elevation (NSTEMI) myocardial infarction Status: Acute Assessment and Plan: Patient presented with an unwitnessed fall the EKG is concerning for recent infarction. Troponins are elevated. Continue to trend with a repeat troponin now. Will start heparin drip per weight based protocol. Aspirin 81 mg p.o. daily will also be continued. 2D echocardiogram Doppler will be ordered and reviewed. Metoprolol 12.5 mg p.o. b.i.d.. Will start atorvastatin 20 mg daily and check a fasting lipid panel. (2) Failure to thrive: Qualifiers: Failure to thrive age range: in adult Qualified Code(s): R62.7 - Adult failure to thrive Status: Acute Assessment and Plan: In a nursing facility at this point (3) Hypertension associated with diabetes: Code(s): E11.59 - Type 2 diabetes mellitus with other circulatory complications; I15.2 - Hypertension secondary to endocrine disorders Status: Acute Assessment and Plan: On losartan Hold amlodipine for now. will use metoprolol instead (4) History of CVA (cerebrovascular accident): Code(s): Z86.73 - Personal history of transient ischemic attack (TIA), and cerebral infarction without residual deficits Status: Acute Assessment and Plan: Continue aspirin History of Present Illness History of Present Illness Consult date/time: 02/22/23 12:42 Requesting physician: Trell Aparicio MD Consult reason: Other (Non-STEMI) Reason For Visit: NSTEMI Narrative: Date of service 02/22/2023 Reason consultation: Non-STEMI Requesting provider: Dr. Aparicio History: Patient is a 77-year-old male who is a very difficult historian. He does not know why he is here. Reportedly came to the hospital following an unwitnessed fall. Patient does admit to being a bit more short of breath over the past several days. He denies any chest pain. No syncope that he is aware of. No paroxysmal nocturnal dyspnea, orthopnea, edema, palpitations. In the process of workup an EKG was performed which was abnormal. Discussion was had with Dr. Perez in according to ER records and it was decided that the patient was not having an acute ST-elevation myocardial infarction. Troponins were drawn which were modestly elevated. He currently is pain-free and still in the emergency department. Review of Systems Review of Systems: All systems reviewed & are unremarkable except as noted in HPI and below Constitutional: Constitutional: Denies body ache(s) Eyes: Eyes: Denies blurry vision ENT: Reports Normal hearing present Cardiovascular: Cardiovascular: Denies chest pain Respiratory: Respiratory: Reports dyspnea Gastrointestinal: Gastrointestinal: Denies abdominal pain Genitourinary: Genitourinary: Denies hematuria Musculoskeletal: Musculoskeletal: Denies back pain Integumentary/Breasts: Skin/Breast: Denies pruritus, Reports erythema and Reports unusual bruising Neurologic: Denies confusion Psychiatric: Psychiatric: Denies anxiety Endocrine: Endocrine: Denies excessive sweating Hematologic/Lymphatic: Hematologic/Lymphatic: Denies easy bleeding Allergic/Immunologic: Allergic/Immunologic: Denies GI upset with certain foods PMFSH Past Medical History Medical History Anxiety BPH (benign prostatic hyperplasia) Cellulitis of scrotum CVA (cerebral vascular accident) Dementia Diabetes DKA (diabetic ketoacidosis) Glaucoma Hypertension Insomnia Kidney stones Overweight (BMI 25.0-29.9) Parkinsons Type 2 diabetes mellitus Surgical History Surgical History Cataract extraction status Hernia Family History Family History Father Heart attack Alcoholism Mother Heart attack Heart disea
[2023-02-22 13:07] LABS: INR 1.1; Prothrombin Time 14.6 Seconds (11.1-14.7)
[2023-02-22 13:09] LABS: Partial Thromboplastin Time 111.3 SECONDS (22.3-36.8)
[2023-02-22 13:20] LABS: Cholesterol 135 mg/dL (0-200); HDL Direct 30 mg/dL; Triglycerides 73 mg/dL (<150)
--- NOTE | 2023-02-22 13:21 | ECG_ITS ---
Rate ND QRSd QT QTc P QRS T Severity 93 116 100 396 494 31 -55 -53 Abnormal ECG SINUS RHYTHM WITH SHORT ND INTERVAL ATRIAL PREMATURE COMPLEXES LEFT ANTERIOR FASCICULAR BLOCK ST-T WAVE ABNORMALITY IN ANTEROLATERAL LEADS- CONSIDER ISCHEMIA ABNORMAL ECG Electronically Signed On 02-22-2023 7:16:20 PUTTY GLAZER by Ran Estrella D.O. COMPARED TO ECG 02/22/2023 03:07:18 SINUS RHYTHM NOW PRESENT LEFT ANTERIOR FASCICULAR BLOCK NOW PRESENT MTDD
[2023-02-22] MEDS: ATORVASTATIN 20 MG TABLET PO (13:29)
[2023-02-22 13:31] LABS: LDL Cholesterol Direct 93 mg/dL
--- NOTE | 2023-02-22 13:45 | PM.IMHP ---
H&P: HPI History of Present Illness Date/Time: 02/22/23 14:45 Chief Complaint: Unwitnessed fall. Narrative: This is a 77-year-old male with history of stroke, Parkinson's related dementia, hypertension, type 2 diabetes mellitus, chronic obstructive pulmonary disease, and benign prostatic hyperplasia who presented to the emergency department via EMS from his nursing facility for evaluation after an unwitnessed fall. He is alert and oriented x2 but is a poor historian. He does not remember how or when he fell but is my understanding that he fell or slid out of bed. Upon arrival to the ED was complaining of pain in the neck and left shoulder; imaging did not show any acute findings. Labs were significant for a WBC count of 12.7, hemoglobin 10.4, lactic acid 3.2, magnesium 1.3, troponin 1.340, proBNP 2100, total CK 113. Urine showed 3+ glucose, 1+ ketone, 3+ blood, 21 to 50 RBC. Urine drug screen was negative. He was negative for influenza, COVID, and SARS-CoV-2 by PCR. Brain and cervical spine CT showed no acute findings. X-rays of the chest, pelvis, and shoulder were also without acute findings. EKG is concerning for a recent infarction and with elevated troponins he is being admitted in this setting. He has no complaints of chest pain but does admit to being a bit short of breath though he does not elaborate. He has no current complaints. Review of Systems Review of Systems: Twelve systems were reviewed but are limited due to his memory loss. He essentially said no to every question asked of him. [facility] Past Medical History Medical History (Updated 02/22/23 @ 19:05 by Myra Painting PA-C) Anxiety Benign prostatic hyperplasia Cerebrovascular accident Chronic anemia Dementia Glaucoma Hypertension Insomnia Insulin dependent type 2 diabetes mellitus Kidney stones Overweight (BMI 25.0-29.9) Parkinsons Type 2 diabetes mellitus Surgical History Surgical History (Updated 02/22/23 @ 19:02 by Myra Painting PA-C) History of cataract extraction History of hernia repair Family History Family History Father Heart attack Alcoholism Mother Heart attack Heart disease Cerebrovascular accident Sibling Diabetes mellitus Heart disease Cerebrovascular accident Hypertension Cancer Social History Social History Social History: Code status: DNR/DNI Surrogate decision maker: Son Smoking packs per day: 1 Smoking cigarettes per day: 20.0 Years smoked: 30 Smoking pack-years: 30.00 Smoking status: Former smoker Tobacco type: cigarettes Alcohol intake: never Drinks per week: 1 Substance use: never Substance use type: does not use Lack of Transportation: No Lack of Food: Never True Current Housing: I Have Housing Concerned About Future Housing: No Difficulty Paying Gas/Electric Bills: No Difficulty Paying for Meds: No Currently Unemployed: No Education: High School Diploma/GED Difficulty w/ Childcare or Family Care: No Additional living arrangements comments: Resident at [facility]. with 1 son. Spiritual care concerns: No Meds Home Medications and Allergies Home Medications Medication Instructions Recorded Confirmed Type cholecalciferol (vitamin D3) 125 mg PO DAILY 06/14/20 02/22/23 History latanoprost 0.005 % eye drops 1 drp EACH EYE HS 06/14/20 02/22/23 History amlodipine 5 mg tablet (Norvasc) 5 mg PO DAILY #90 tabs 05/28/21 02/22/23 Rx budesonide 160 mcg-glycopyr 9 2 inh inhalation QAM AND QPM #10.7 06/12/21 02/22/23 Rx mcg-formot 4.8 mcg/actuation HFA grams inhaler (Breztri Aerosphere) oxybutynin chloride 5 mg 5 mg PO DAILY #90 tabs 08/27/21 02/22/23 Rx tablet,extended release 24 hr losartan 50 mg tablet (Cozaar) 50 mg PO HS 09/13/21 02/22/23 History albuterol sulfate 90 mcg/actuation 2 puff inhalation Q4H PRN 05/0
[2023-02-22] MEDS: MAGNESIUM SULF 2 GM/WATER 50ML 2 GM/50 ML BAG IVPB (14:49)
--- NOTE | 2023-02-22 15:26 | ADMGEN ---
This patient, Joe Marion, was admitted to IMU Room 206-01. Patient/family oriented to hospital policies and general routines including ID bracelet, bed and alarms, visiting hours, pain management, procedures, bathroom and other care routines, personal items, smoking policy, room service/diet, and visiting hours. Information on how to activate the Rapid Response Team has been discussed. Patient/Family are encouraged to report perceived risks to care and to ask questions if they do not understand what they are told or what they should do.
[2023-02-22 16:41] LABS: Glucose Point of Care 151 mg/dl (65-105)
[2023-02-22 20:11] LABS: Glucose Point of Care 153 mg/dl (65-105)
[2023-02-22 20:55] LABS: Partial Thromboplastin Time 61.6 SECONDS (22.3-36.8)
[2023-02-22] MEDS: HEPARIN SODIUM 5,000 UNITS/ML VIAL 3500 UNITS IV PUSH (21:07)
[2023-02-22] MEDS: LOSARTAN POTASSIUM 50 MG TABLET PO (21:08)
[2023-02-22] MEDS: OLANZapine 2.5 MG TABLET PO (21:08)
[2023-02-22] MEDS: traZODone HCL 50 MG TABLET PO (21:08)
[2023-02-22] MEDS: METOPROLOL TARTRATE 12.5 MG TABLET PO (21:08)
[2023-02-22] MEDS: LATANOPROST 0.005% OP SOLN 2.5 ML BTL 1 DROP EACH EYE (21:23)
[2023-02-23] VITALS (21 sets, daily range): BP systolic 131–147; BP diastolic 56–78; PULSE 47–77; RESP 12–20; TEMP 36.3–36.9; O2SAT 93–100
[2023-02-23 04:01] LABS: Basophils Percent Auto 0.5 % (0.2-1.2); Eosinophils Absolute Auto 0.4 K/mm3 (0-0.3); Eosinophils Percent Auto 6.2 % (0-4.4); Hematocrit 31.8 % (42.0-52.0); Immature Granulocyte Absolute 0.02 K/mm3 (0.00-0.031); Immature Granulocyte Percent A 0.3 % (0-0.5); Lymphocytes Absolute Auto 1.71 K/mm3 (0.9-3.2); Lymphocytes Percent Auto 26.6 % (18.3-44.2); Mean Corpuscular HGB Conc 31.4 g/dl (32-36); Mean Corpuscular Hemoglobin 28.1 pg (26-34); Mean Corpuscular Volume 89.3 fl (80-100); Mean Platelet Volume 10.9 fl (7.4-10.4); Monocytes Absolute Auto 0.6 K/mm3 (0.1-0.6); Monocytes Percent Auto 8.9 % (2.6-8.5); Neutrophils Absolute Auto 3.7 K/mm3 (1.3-6.7); Neutrophils Percent Auto 57.5 % (45.5-73.1); Platelet Count Result 195 k/mm3 (150-375); Red Blood Count 3.56 M/mm3 (4.6-6.20); Red Cell Distribution Width 12.7 % (11.5-14.5); White Blood Count 6.4 K/mm3 (4.5-10.0)
[2023-02-23 04:11] LABS: Anion Gap 3 mmol/L (8-16); Blood Urea Nitrogen 11 mg/dL (9-20); Carbon Dioxide 30 mmol/L (22-30); Chloride 107 mmol/L (98-107); Cholesterol 137 mg/dL (0-200); Estimated CRCL calculation 64 ml/min; Estimated Glomerular Filt Rate > 60; Glucose 148 mg/dL (65-110); HDL Direct 28 mg/dL; Magnesium 1.8 mg/dL (1.6-2.3); Potassium 3.7 mmol/L (3.4-5.0); Sodium 140 mmol/L (137-145); Triglycerides 87 mg/dL (<150)
[2023-02-23 04:22] LABS: LDL Cholesterol Direct 88 mg/dL
[2023-02-23 04:32] LABS: Partial Thromboplastin Time 174.7 SECONDS (22.3-36.8)
[2023-02-23] MEDS: FLUTICASONE/UMECLIDIN/VILANTER 100-62.5-25 MCG ELLIPTA 1 PUFF INHALATION (07:58)
[2023-02-23 08:56] LABS: Glucose Point of Care 175 mg/dl (65-105)
[2023-02-23] MEDS: CHOLECALCIFEROL 1,000 UNITS TABLET 5000 UNITS PO (09:12)
[2023-02-23] MEDS: oxyBUTYnin CHLORIDE XL 5 MG TAB.ER.24 PO (09:12)
[2023-02-23] MEDS: ASPIRIN 81 MG ENTERIC TABLET PO (09:12)
[2023-02-23] MEDS: METOPROLOL TARTRATE 12.5 MG TABLET PO ×2 (09:13→20:21)
[2023-02-23] MEDS: ATORVASTATIN 20 MG TABLET PO (09:13)
[2023-02-23] MEDS: OLANZapine 2.5 MG TABLET PO ×2 (09:13→20:21)
--- NOTE | 2023-02-23 09:21 | PM.IMPN ---
Progress Note: A&P Assessment and Plan (1) Non-ST elevation [place] (NSTEMI): Code(s): I21.4 - Non-ST elevation (NSTEMI) myocardial infarction Status: Acute (2) Insulin dependent type 2 diabetes mellitus: Code(s): E11.9 - Type 2 diabetes mellitus without complications; Z79.4 - front line supervisor (current) use of insulin Status: Acute (3) Hypertension: Code(s): I10 - Essential (primary) hypertension Status: Chronic (4) Hematuria: Code(s): R31.9 - Hematuria, unspecified Status: Acute (5) Chronic anemia: Code(s): D64.9 - Anemia, unspecified Status: Acute (6) Dementia associated with Parkinson's disease: Code(s): G20.A1 - Parkinson's disease without dyskinesia, without mention of fluctuations; F02.80 - Dementia in other diseases classified elsewhere, unspecified severity, without behavioral disturbance, psychotic disturbance, mood disturbance, and anxiety Status: Acute Plan 77-year-old male from [facility] presented with unwitnessed fall. He was found on the floor. Poor historian and history of dementia complained of neck pain and left shoulder pain. ED evaluation showed normal vitals. Troponin was elevated at 1.34 EKG showed nonspecific T-wave changes. Ruled out for STEMI. Underlying history of Parkinson's disease diabetes anxiety WBC count was elevated at 12.3. Lactate was high at 3.2 alcohol and UDS is negative urinalysis is negative for infection. COVID RSV flu negative bNP 2100 cardiology consulted. Serial troponin with continued elevation to 1.6-2.9. Aspirin beta-don and statin started heparin drip started. Diagnosed with non ST elevation MA. CT head and CT cervical spine with no acute findings. LDL at 88/93 History of CVA on aspirin Dementia COPD Type 2 diabetes Hypertension Chronic anemia BPH with some hematuria noted on UA DVT prophylaxis on heparin drip Subjective Date/time seen: 02/23/23 09:21 Interval history: 77-year-old male from [facility] presented with unwitnessed fall. He was found on the floor. Poor historian and history of dementia complained of neck pain and left shoulder pain. ED evaluation showed normal vitals. Troponin was elevated at 1.34 EKG showed nonspecific T-wave changes. Ruled out for STEMI. Underlying history of Parkinson's disease diabetes anxiety WBC count was elevated at 12.3. Lactate was high at 3.2 alcohol and UDS is negative urinalysis is negative for infection. COVID RSV flu negative bNP 2100 cardiology consulted. Aspirin beta-don and statin started heparin drip started. Diagnosed with non ST elevation MA. CT head and CT cervical spine with no acute findings. History of CVA on aspirin Dementia COPD Type 2 diabetes Hypertension BPH with some hematuria noted on UA. DVT prophylaxis on heparin drip Review of Systems Review of Systems: All systems reviewed & are unremarkable except as noted in HPI and below Exam Narrative: APPEARANCE: No apparent distress. Awake but confused Head: atraumatic. EYES:? EOMI, NOSE: Atraumatic NECK: Trachea midline, supple, no midline tenderness RESPIRATORY: No increased rate of breathing, clear to auscultation CARDIOVASCULAR: RRR, no peripheral edema ABDOMINAL: Non-distended, soft nontender NEURO: Alert. Moving 4/4 extremities confused due to underlying dementia SKIN:: Warm, dry. Normal color PSYCHIATRIC: Normal affect Objective Data Vital Signs Vital Signs: Vital Signs - 24 hr 02/22/23 09:31 02/22/23 13:22 02/22/23 13:30 Temperature Pulse Rate 63 66 82 Respiratory Rate 15 14 17 Blood Pressure 115/59 L 127/76 127/76 Pulse Oximetry 99 99 100 Oxygen Delivery 02/22/23 14:39 02/22/23 16:00 02/22/23 16:00 Temperature 98.1 F Pulse Rate 66 66 77 Respiratory Rate 14 12 Blood Pressure 117/67 137/66 Pulse Oximetry 99 99 Oxygen Delivery 02/22/23 16:00 02/22/23 18:00 02/22/23 20:00 Temperature 97.0 F L Pulse Rate 73 67 Respir
--- NOTE | 2023-02-23 10:31 | PM.PNCARD ---
Progress Note: A&P Assessment and Plan (1) Non-ST elevation [place] (NSTEMI): Code(s): I21.4 - Non-ST elevation (NSTEMI) myocardial infarction Status: Acute Assessment and Plan: Patient presented with an unwitnessed fall. The EKG is concerning for recent infarction. Troponins are elevated. Last troponin was still elevating. Will repeat a troponin now. Continue heparin drip, aspirin, statin, metoprolol. Echocardiogram is pending. Nitropaste 1/2 inch q.6 hours to be started. Consider cardiac catheterization but given his comorbid Parkinson's and dementia, medical management may be more reasonable. In the meantime he is completely asymptomatic at this point and will continue to treat medically and await the result of the echo and further testing/discussion with family (2) Failure to thrive: Qualifiers: Failure to thrive age range: in adult Qualified Code(s): R62.7 - Adult failure to thrive Status: Acute Assessment and Plan: In a nursing facility at this point (3) Hypertension associated with diabetes: Code(s): E11.59 - Type 2 diabetes mellitus with other circulatory complications; I15.2 - Hypertension secondary to endocrine disorders Status: Acute Assessment and Plan: On losartan And metoprolol (4) History of CVA (cerebrovascular accident): Code(s): Z86.73 - Personal history of transient ischemic attack (TIA), and cerebral infarction without residual deficits Status: Acute Assessment and Plan: Continue aspirin Subjective Date/time seen: 02/23/23 10:31 Interval history: 77-year-old male from skilled nursing presented with unwitnessed fall. He was found on the floor. Poor historian and history of dementia complained of neck pain and left shoulder pain. ED evaluation showed normal vitals. Troponin was elevated at 1.34 EKG showed nonspecific T-wave changes. Ruled out for STEMI. Underlying history of Parkinson's disease diabetes anxiety Date of service: 02/23/2023: Denies chest pain. Denies shortness of breath. Review of Systems Review of Systems: All systems reviewed & are unremarkable except as noted in HPI and below Constitutional: Constitutional: Denies body ache(s) and Denies excessive sweating Eyes: Eyes: Denies blurry vision ENT: Reports Normal hearing present Cardiovascular: Cardiovascular: Denies chest pain and Reports dyspnea Respiratory: Respiratory: Reports dyspnea Gastrointestinal: Gastrointestinal: Denies abdominal pain Genitourinary: Genitourinary: Denies hematuria Musculoskeletal: Musculoskeletal: Denies back pain Integumentary/Breasts: Skin/Breast: Denies pruritus, Reports erythema and Reports unusual bruising Neurologic: Reports Normal hearing present and Denies confusion Psychiatric: Psychiatric: Denies anxiety and Denies confusion Endocrine: Endocrine: Denies excessive sweating Hematologic/Lymphatic: Hematologic/Lymphatic: Denies easy bleeding Allergic/Immunologic: Allergic/Immunologic: Denies GI upset with certain foods Exam Narrative: Awake but speech is slow. Const: General: comfortable and no acute distress; No confusion Orientation/consciousness: No confusion HENMT: Face/Nose/Sinus: Normal nares present Mouth: Yes moist mucous membranes Eyes: General: appearance normal, both eyes and all related structures Sclera: sclerae normal Neck: Neck: supple and no JVD Chest: Other: No reproducible chest wall pain to palpation Resp: Effort & Inspection: normal respiratory effort Auscultation: clear to auscultation bilaterally Cardio: Rate: regular rate Rhythm: regular rhythm Heart sounds: no murmurs GI: Inspection: non-distended Auscultation: normal bowel sounds Skin: General skin exam: normal color Other: Bruising noted Neuro: General: No confusion Cranial nerves: Yes Normal hearing present Speech: normal speech Sensory Exam: normal sensation Extrem: Gener
--- NOTE | 2023-02-23 11:55 | PC.NURSE ---
Pt's son and POA, Luis Marion, indicated that patient is a DNR which was incorrectly reflected in [facility] paperwork. Son to bring physical paperwork 02/24 to add to chart. Code status changed to DNR per son's request.
[2023-02-23 12:11] LABS: Partial Thromboplastin Time 51.9 SECONDS (22.3-36.8)
[2023-02-23] MEDS: NITROGLYCERIN OINTMENT 1 INCH DOSE 0.5 INCH TRANSDERM ×3 (12:37→23:42)
[2023-02-23] MEDS: HEPARIN SODIUM 5,000 UNITS/ML VIAL 4000 UNITS IV PUSH (12:38)
[2023-02-23] MEDS: HEPARIN SOD/D5W 100 UNITS/ML 25,000 UNITS/250 ML BAG 11 UNITS IV CONT (12:44)
[2023-02-23 14:25] LABS: Glucose Point of Care 150 mg/dl (65-105)
[2023-02-23 16:33] LABS: Glucose Point of Care 179 mg/dl (65-105)
[2023-02-23 19:24] LABS: Partial Thromboplastin Time 135.6 SECONDS (22.3-36.8)
[2023-02-23 20:21] LABS: Glucose Point of Care 201 mg/dl (65-105)
[2023-02-23] MEDS: traZODone HCL 50 MG TABLET PO (20:21)
[2023-02-23] MEDS: LOSARTAN POTASSIUM 50 MG TABLET PO (20:21)
[2023-02-23] MEDS: LATANOPROST 0.005% OP SOLN 2.5 ML BTL 1 DROP EACH EYE (20:21)
[2023-02-23 21:47] LABS: Appearance Urine Clear (Clear); Bacteria Urine None Seen /hpf; Bilirubin Urine Negative (Negative); Blood Urine 1+ (Negative); Color Urine Yellow (Yellow); Glucose Urine UA 1+ mg/dL (Negative); Ketones Urine 1+ mg/dL (Negative); Leukocyte Esterase Ur Negative LEU/UL (Negative); Nitrate Urine Negative (Negative); Non Pathogenic Casts 0-2; Protein Urine Negative (Negative); RBC Urine 21-50 /hpf (0-2); Specific Grav Ur 1.024 (1.001-1.035); Squamous Epithelial Cell Urine None seen /hpf (Few); WBC Urine 0-5 /hpf
[2023-02-23 22:03] LABS: Add Urine Microscopic? YES
[2023-02-24] VITALS (16 sets, daily range): BP systolic 112–143; BP diastolic 58–70; PULSE 48–71; RESP 16–18; TEMP 36.3–37; O2SAT 95–100; BMI 22.7
--- NOTE | 2023-02-24 | ECHO_ITS ---
Patient Info Name: Joe Marion Age: 77 years : 1945 Gender: Male Ht: 71 in Wt: 200 lbs BSA: 2.15 m2 HR: 59 bpm BP: 147 / 63 mmHg Heart Rhythm: Sinus Rhythm Technical Quality: Fair Exam Date: 02/24/2023 9:03 AM Exam Location: Echo Lab Patient Status: Inpatient Admit Date: 02/22/2023 Staff Ordering Physician: Ted Fuentes MD Attending Provider: Sandra Garnica DO Referring Physician: Gina DEJESUS; Exam Type: CA echo doppler color flow Study Info Indications I21.4 - Non-ST elevation (NSTEMI) myocardial infarction Complete two-dimensional, color flow and Doppler transthoracic echocardiogram is performed. Summary 1. Complete two-dimensional, color flow and Doppler transthoracic echocardiogram is performed. 2. Normal left ventricular size with overall normal systolic function and grade 1 diastolic noncompliance. 3. Small area of akinesia/dyskinesia of the left ventricular apex consistent with area of previous infarction. 4. Calcified mitral valve annulus. 5. Mildly enlarged left atrium. Left Ventricle Left ventricular chamber dimension is normal. Left ventricular systolic function is normal, estimated at 55-60%. The left ventricular diastolic function is grade I diastolic dysfunction. Right Ventricle Right ventricular chamber dimension is normal. Left Atria Left atrial chamber dimension is mildly enlarged. Right Atria Right atrial chamber dimension is normal. Aortic Valve The aortic valve is trileaflet. There is mild aortic valve sclerosis. Pulmonic Valve The pulmonic valve is normal. Mitral Valve The mitral valve has normal leaflets. Tricuspid Valve The tricuspid valve leaflets are normal. Pericardium/Pleural The pericardium appears normal. Aorta The aortic root size at the sinus of Valsalva is normal. Left Ventricular Outflow Tract Name Value Normal LVOT 2D LVOT Diameter 2.0 cm LVOT Doppler LVOT Peak Gradient 4 mmHg LVOT Mean Gradient 2 mmHg LVOT VTI 26 cm LVOT VTI/AV VTI Ratio 0.9 LVOT Stroke Volume 81 ml LVOT CO 5.6 l/min LVOT CI 2.6 l/min/m2 Mitral Valve Name Value Normal MV Doppler MV Peak Gradient 8 mmHg MV Mean Gradient 2 mmHg MV Decel [place] 298 cm/s2 MV PHT 95 ms MV Area (PHT) 2.3 cm2 4.0-5.0 MV Area (Cont Eq VTI) 1.7 cm2 MV Diastolic Function MV E Peak Velocity 98 cm/s MV A Peak Velocity 129 cm/s MV E/A 0.8 MV Decel Time
[2023-02-24 02:59] LABS: Basophils Percent Auto 0.5 % (0.2-1.2); Eosinophils Absolute Auto 0.3 K/mm3 (0-0.3); Hematocrit 30.3 % (42.0-52.0); Hemoglobin 9.7 g/dL (14.0-18.0); Immature Granulocyte Absolute 0.03 K/mm3 (0.00-0.031); Immature Granulocyte Percent A 0.5 % (0-0.5); Lymphocytes Absolute Auto 1.49 K/mm3 (0.9-3.2); Lymphocytes Percent Auto 24.6 % (18.3-44.2); Mean Corpuscular Volume 87.3 fl (80-100); Mean Platelet Volume 10.6 fl (7.4-10.4); Monocytes Absolute Auto 0.6 K/mm3 (0.1-0.6); Monocytes Percent Auto 9.9 % (2.6-8.5); Neutrophils Absolute Auto 3.6 K/mm3 (1.3-6.7); Neutrophils Percent Auto 59.5 % (45.5-73.1); Platelet Count Result 210 k/mm3 (150-375); Red Blood Count 3.47 M/mm3 (4.6-6.20); Red Cell Distribution Width 12.7 % (11.5-14.5); White Blood Count 6.1 K/mm3 (4.5-10.0)
[2023-02-24 03:11] LABS: Alanine Aminotransferase 12 U/L (6-50); Alkaline Phosphatase 73 U/L (38-126); Anion Gap 5 mmol/L (8-16); Aspartate Amino Transferase 20 U/L (17-59); Bilirubin,Total 0.4 mg/dL (0.2-1.3); Blood Urea Nitrogen 12 mg/dL (9-20); Calcium 8.3 mg/dL (8.4-10.2); Carbon Dioxide 27 mmol/L (22-30); Chloride 106 mmol/L (98-107); Estimated CRCL calculation 72 ml/min; Estimated Glomerular Filt Rate > 60; Glucose 175 mg/dL (65-110); Magnesium 1.7 mg/dL (1.6-2.3); Partial Thromboplastin Time 62.1 SECONDS (22.3-36.8); Potassium 3.7 mmol/L (3.4-5.0); Sodium 138 mmol/L (137-145)
[2023-02-24] MEDS: NITROGLYCERIN OINTMENT 1 INCH DOSE 0.5 INCH TRANSDERM ×3 (05:11→23:32)
[2023-02-24 05:17] LABS: Glucose Point of Care 177 mg/dl (65-105)
[2023-02-24 07:43] LABS: Glucose Point of Care 154 mg/dl (65-105)
[2023-02-24] MEDS: METOPROLOL TARTRATE 12.5 MG TABLET PO ×2 (08:19→20:28)
[2023-02-24] MEDS: oxyBUTYnin CHLORIDE XL 5 MG TAB.ER.24 PO (08:20)
[2023-02-24] MEDS: ATORVASTATIN 20 MG TABLET PO (08:20)
[2023-02-24] MEDS: CHOLECALCIFEROL 1,000 UNITS TABLET 5000 UNITS PO (08:20)
[2023-02-24] MEDS: ASPIRIN 81 MG ENTERIC TABLET PO (08:20)
[2023-02-24] MEDS: OLANZapine 2.5 MG TABLET PO ×2 (08:20→20:29)
[2023-02-24] MEDS: FLUTICASONE/UMECLIDIN/VILANTER 100-62.5-25 MCG ELLIPTA 1 PUFF INHALATION (08:23)
--- NOTE | 2023-02-24 09:11 | PCSTNOTE ---
Please refer to the Bedside Swallow Evaluation in the EMR. Please note, silent aspiration cannot be ruled out at bedside.
--- NOTE | 2023-02-24 09:23 | PM.PNCARD ---
Progress Note: A&P Assessment and Plan (1) Non-ST elevation [place] (NSTEMI): Code(s): I21.4 - Non-ST elevation (NSTEMI) myocardial infarction Status: Acute Assessment and Plan: Patient presented with an unwitnessed fall. The EKG is concerning for recent infarction. Troponins are elevated. Last troponin checked yesterday was downtrending. He was heparinized for 48 hours, will d/c heparin this morning. Continue aspirin, statin, metoprolol, and will add Plavix as well. Continue with medical management for now. Echo showed overall normal LV systolic function with small area of akinesia/dyskinesia of the left ventricular apex consistent with area of previous infarction, grade I diastolic dysfunction. (2) Failure to thrive: Qualifiers: Failure to thrive age range: in adult Qualified Code(s): R62.7 - Adult failure to thrive Status: Acute Assessment and Plan: In a nursing facility at this point (3) Hypertension associated with diabetes: Code(s): E11.59 - Type 2 diabetes mellitus with other circulatory complications; I15.2 - Hypertension secondary to endocrine disorders Status: Acute Assessment and Plan: On losartan And metoprolol (4) History of CVA (cerebrovascular accident): Code(s): Z86.73 - Personal history of transient ischemic attack (TIA), and cerebral infarction without residual deficits Status: Acute Assessment and Plan: Continue aspirin Subjective Date/time seen: 02/24/23 09:23 Interval history: 77-year-old male from skilled nursing presented with unwitnessed fall. He was found on the floor. Poor historian and history of dementia complained of neck pain and left shoulder pain. ED evaluation showed normal vitals. Troponin was elevated at 1.34 EKG showed nonspecific T-wave changes. Ruled out for STEMI. Underlying history of Parkinson's disease diabetes anxiety Date of service: 02/23/2023: Denies chest pain. Denies shortness of breath. Date of service 02/24/23:Feels ok. Denies any chest pain. Review of Systems Review of Systems: All systems reviewed & are unremarkable except as noted in HPI and below Constitutional: Constitutional: Denies body ache(s) and Denies excessive sweating Eyes: Eyes: Denies blurry vision ENT: Reports Normal hearing present Cardiovascular: Cardiovascular: Denies chest pain and Reports dyspnea Respiratory: Respiratory: Reports dyspnea Gastrointestinal: Gastrointestinal: Denies abdominal pain Genitourinary: Genitourinary: Denies hematuria Musculoskeletal: Musculoskeletal: Denies back pain Integumentary/Breasts: Skin/Breast: Denies pruritus, Reports erythema and Reports unusual bruising Neurologic: Reports Normal hearing present and Denies confusion Psychiatric: Psychiatric: Denies anxiety and Denies confusion Endocrine: Endocrine: Denies excessive sweating Hematologic/Lymphatic: Hematologic/Lymphatic: Denies easy bleeding Allergic/Immunologic: Allergic/Immunologic: Denies GI upset with certain foods Exam Narrative: Awake but speech is slow. Const: General: comfortable and no acute distress; No confusion Orientation/consciousness: No confusion HENMT: Face/Nose/Sinus: Normal nares present Mouth: Yes moist mucous membranes Eyes: General: appearance normal, both eyes and all related structures Sclera: sclerae normal Neck: Neck: supple and no JVD Chest: Other: No reproducible chest wall pain to palpation Resp: Effort & Inspection: normal respiratory effort Auscultation: clear to auscultation bilaterally Cardio: Rate: regular rate Rhythm: regular rhythm Heart sounds: no murmurs GI: Inspection: non-distended Auscultation: normal bowel sounds Skin: General skin exam: normal color Other: Bruising noted Neuro: General: No confusion Cranial nerves: Yes Normal hearing present Speech: normal speech Sensory Exam: normal sensation Extrem: General: normal
[2023-02-24 09:36] LABS: Partial Thromboplastin Time 71.9 SECONDS (22.3-36.8)
[2023-02-24 12:21] LABS: Glucose Point of Care 276 mg/dl (65-105)
--- NOTE | 2023-02-24 12:58 | PCSTNOTE ---
Please refer to the Modified Barium Swallow Evaluation in the EMR.
--- NOTE | 2023-02-24 14:49 | PM.IMPN ---
Progress Note: A&P Assessment and Plan (1) Non-ST elevation [place] (NSTEMI): Code(s): I21.4 - Non-ST elevation (NSTEMI) myocardial infarction Status: Acute (2) Insulin dependent type 2 diabetes mellitus: Code(s): E11.9 - Type 2 diabetes mellitus without complications; Z79.4 - extermination inspector (current) use of insulin Status: Acute (3) Hypertension: Code(s): I10 - Essential (primary) hypertension Status: Chronic (4) Hematuria: Code(s): R31.9 - Hematuria, unspecified Status: Acute (5) Chronic anemia: Code(s): D64.9 - Anemia, unspecified Status: Acute (6) Dementia associated with Parkinson's disease: Code(s): G20.A1 - Parkinson's disease without dyskinesia, without mention of fluctuations; F02.80 - Dementia in other diseases classified elsewhere, unspecified severity, without behavioral disturbance, psychotic disturbance, mood disturbance, and anxiety Status: Acute Plan 77-year-old male from skilled nursing presented with unwitnessed fall. He was found on the floor. Poor historian and history of dementia complained of neck pain and left shoulder pain. ED evaluation showed normal vitals. Troponin was elevated at 1.34 EKG showed nonspecific T-wave changes. Ruled out for STEMI. Underlying history of Parkinson's disease diabetes anxiety WBC count was elevated at 12.3. Lactate was high at 3.2 alcohol and UDS is negative urinalysis is negative for infection. COVID RSV flu negative bNP 2100 cardiology consulted. Serial troponin with continued elevation to 1.6-2.9. Aspirin beta-don and statin started heparin drip started. Diagnosed with non ST elevation GA. CT head and CT cervical spine with no acute findings. LDL at 88/93. Echocardiogram 02/24/2023: Normal left ventricular size normal systolic function grade 1 diastolic noncompliance small area of akinesia/dyskinesia of the left ventricular apex consistent with the area of previous infarction. No valvular abnormality. Started on dual antiplatelet therapy for non ST elevation GA. Conservative medical treatment with DAPT and beta-don and statin History of CVA on aspirin Dementia COPD Type 2 diabetes Hypertension Chronic anemia BPH with some hematuria noted on UA DVT prophylaxis on heparin drip Subjective Date/time seen: 02/24/23 14:50 Interval history: 77-year-old male from skilled nursing presented with unwitnessed fall. He was found on the floor. Poor historian and history of dementia complained of neck pain and left shoulder pain. ED evaluation showed normal vitals. Troponin was elevated at 1.34 EKG showed nonspecific T-wave changes. Ruled out for STEMI. Underlying history of Parkinson's disease diabetes anxiety WBC count was elevated at 12.3. Lactate was high at 3.2 alcohol and UDS is negative urinalysis is negative for infection. COVID RSV flu negative bNP 2100 cardiology consulted. Aspirin beta-don and statin started heparin drip started. Diagnosed with non ST elevation GA. CT head and CT cervical spine with no acute findings. History of CVA on aspirin Dementia COPD Type 2 diabetes Hypertension BPH with some hematuria noted on UA. DVT prophylaxis on heparin drip 02/24/2023: No overnight events. Denies any issues. Patient has underlying dementia remains confused. Echocardiogram done today Review of Systems Review of Systems: All systems reviewed & are unremarkable except as noted in HPI and below Exam Narrative: APPEARANCE: No apparent distress. Awake but confused Head: atraumatic. EYES:? EOMI, NOSE: Atraumatic NECK: Trachea midline, supple, no midline tenderness RESPIRATORY: No increased rate of breathing, clear to auscultation CARDIOVASCULAR: RRR, no peripheral edema ABDOMINAL: Non-distended, soft nontender NEURO: Alert. Moving 4/4 extremities confused due to underlying dementia SKIN:: Warm, dry. Normal color PSYCHIATRIC: Normal affect Objective Data Vital Signs Vital Sig
[2023-02-24 16:45] LABS: Glucose Point of Care 175 mg/dl (65-105)
[2023-02-24 20:22] LABS: Glucose Point of Care 189 mg/dl (65-105)
[2023-02-24] MEDS: traZODone HCL 50 MG TABLET PO (20:28)
[2023-02-24] MEDS: LOSARTAN POTASSIUM 50 MG TABLET PO (20:29)
[2023-02-24] MEDS: LATANOPROST 0.005% OP SOLN 2.5 ML BTL 1 DROP EACH EYE (20:29)
[2023-02-25] VITALS (8 sets, daily range): BP systolic 119–122; BP diastolic 42–60; PULSE 45–76; RESP 16; TEMP 36.6–37.1; O2SAT 94–98
[2023-02-25 04:42] LABS: Basophils Percent Auto 0.4 % (0.2-1.2); Eosinophils Absolute Auto 0.3 K/mm3 (0-0.3); Eosinophils Percent Auto 4.8 % (0-4.4); Hematocrit 29.9 % (42.0-52.0); Hemoglobin 9.7 g/dL (14.0-18.0); Immature Granulocyte Absolute 0.04 K/mm3 (0.00-0.031); Immature Granulocyte Percent A 0.7 % (0-0.5); Lymphocytes Absolute Auto 1.29 K/mm3 (0.9-3.2); Mean Corpuscular HGB Conc 32.4 g/dl (32-36); Mean Corpuscular Hemoglobin 28.4 pg (26-34); Mean Corpuscular Volume 87.7 fl (80-100); Mean Platelet Volume 10.2 fl (7.4-10.4); Monocytes Absolute Auto 0.6 K/mm3 (0.1-0.6); Monocytes Percent Auto 11.9 % (2.6-8.5); Neutrophils Absolute Auto 3.1 K/mm3 (1.3-6.7); Neutrophils Percent Auto 58.2 % (45.5-73.1); Platelet Count Result 191 k/mm3 (150-375); Red Blood Count 3.41 M/mm3 (4.6-6.20); Red Cell Distribution Width 12.7 % (11.5-14.5); White Blood Count 5.4 K/mm3 (4.5-10.0)
[2023-02-25 04:53] LABS: Alanine Aminotransferase 11 U/L (6-50); Alkaline Phosphatase 71 U/L (38-126); Anion Gap 4 mmol/L (8-16); Aspartate Amino Transferase 27 U/L (17-59); Bilirubin,Total 0.5 mg/dL (0.2-1.3); Blood Urea Nitrogen 11 mg/dL (9-20); Calcium 8.2 mg/dL (8.4-10.2); Carbon Dioxide 29 mmol/L (22-30); Chloride 105 mmol/L (98-107); Estimated CRCL calculation 57 ml/min; Estimated Glomerular Filt Rate > 60; Glucose 163 mg/dL (65-110); Magnesium 1.7 mg/dL (1.6-2.3); Potassium 3.8 mmol/L (3.4-5.0); Sodium 138 mmol/L (137-145)
[2023-02-25] MEDS: NITROGLYCERIN OINTMENT 1 INCH DOSE 0.5 INCH TRANSDERM (05:20)
[2023-02-25] MEDS: FLUTICASONE/UMECLIDIN/VILANTER 100-62.5-25 MCG ELLIPTA 1 PUFF INHALATION (07:32)
[2023-02-25] MEDS: CLOPIDOGREL BISULFATE 75 MG TABLET PO (08:49)
[2023-02-25] MEDS: ATORVASTATIN 20 MG TABLET PO (08:49)
[2023-02-25] MEDS: ASPIRIN 81 MG ENTERIC TABLET PO (08:49)
[2023-02-25] MEDS: METOPROLOL TARTRATE 12.5 MG TABLET PO (08:49)
[2023-02-25] MEDS: oxyBUTYnin CHLORIDE XL 5 MG TAB.ER.24 PO (08:50)
[2023-02-25] MEDS: CHOLECALCIFEROL 1,000 UNITS TABLET 5000 UNITS PO (08:50)
[2023-02-25] MEDS: OLANZapine 2.5 MG TABLET PO (08:50)
[2023-02-25 09:07] LABS: Glucose Point of Care 169 mg/dl (65-105)
--- NOTE | 2023-02-25 10:31 | PM.PNCARD ---
Progress Note: A&P Assessment and Plan (1) Non-ST elevation [place] (NSTEMI): Code(s): I21.4 - Non-ST elevation (NSTEMI) myocardial infarction Status: Acute Assessment and Plan: Patient presented with an unwitnessed fall. The EKG is concerning for recent infarction or anterolateral ischemia. Troponins are elevated. Teating pt for his NstEMI. ll. Continue with medical management for now. Echo showed overall normal LV systolic function with small area of akinesia/dyskinesia of the left ventricular apex consistent with area of previous infarction, grade I diastolic dysfunction. BP and heart rate are good, and doing fine on room air. Doesn't look like we can titrate meds any further at this time. He was heparinized for 48 hours, discontinued 02/24/2023. Continue statin, metoprolol, and continue dual antiplatelet therapy with aspirin and Plavix. DC NTP. Add SL TNG prn. OK for discharge (2) Failure to thrive: Qualifiers: Failure to thrive age range: in adult Qualified Code(s): R62.7 - Adult failure to thrive Status: Acute Assessment and Plan: In a nursing facility at this point (3) Hypertension associated with diabetes: Code(s): E11.59 - Type 2 diabetes mellitus with other circulatory complications; I15.2 - Hypertension secondary to endocrine disorders Status: Acute Assessment and Plan: BP at goal Continue losartan And metoprolol (4) History of CVA (cerebrovascular accident): Code(s): Z86.73 - Personal history of transient ischemic attack (TIA), and cerebral infarction without residual deficits Status: Acute Assessment and Plan: Continue aspirin (5) Anemia: Code(s): D64.9 - Anemia, unspecified Status: Acute Assessment and Plan: H&H has drifted down slightly; may need to be followed as OPT. Subjective Date/time seen: 02/25/23 10:31 Interval history: 77-year-old male from alf presented with unwitnessed fall. He was found on the floor. Poor historian and history of dementia complained of neck pain and left shoulder pain. ED evaluation showed normal vitals. Troponin was elevated at 1.34. EKG showed nonspecific T-wave changes. Being treated as a NSTEMI, medically with aspirin, Plavix, statin, beta-don and heparin. Underlying history of Parkinson's disease, diabetes,anxiety, stroke. Echo showed small area of akinesis at the apex, overall good LV function, diastolic dysfunction. Date of service: 02/23/2023: Denies chest pain. Denies shortness of breath. Date of service 02/24/23: Feels ok. Denies any chest pain. Heparin discontinued. Date of service 02/25/2023: Wants to go back to bed. No CP, SOB. Tele: NSR, occ PVCs, APCs EKGs on 02/22/2023 reviewed, some anterolateral ST and T-wave changes consistent with ischemia. Review of Systems Review of Systems: No shortness of breath, chest pain, nausea, abdominal pain. Main complaint is that he is tired and wants to go back to bed, and is cold. Exam Narrative: Sitting up in chair, no distress, I provided an extra blanket. Const: General: cooperative and comfortable Orientation/consciousness: oriented to person HENMT: Mouth: Yes moist mucous membranes Eyes: EOM: EOMs intact bilaterally Neck: Neck: supple and no JVD Resp: Effort & Inspection: normal respiratory effort Auscultation: clear to auscultation bilaterally Other: Decreased breath sounds right base Cardio: Rate: regular rate Rhythm: regular rhythm Heart sounds: no gallops, no murmurs and no rubs GI: Inspection: normal to inspection GI Palp: No abdominal tenderness Skin: General skin exam: normal color and no rashes or lesions noted Neuro: General: oriented to person Extrem: Right lower extremity: no edema Left lower extremity: no edema Psych: Mental Status: other (Flat affect but verbal) Speech and movement: Slowed speech present (Psych) Insig
[2023-02-25 11:51] LABS: Glucose Point of Care 293 mg/dl (65-105)
--- NOTE | 2023-02-25 12:27 | PCSTNOTE ---
[employer]HW[employer] ENGINE[employer] attempted to see Joe for speech therapy session. Pt was not awake and nurse stated he refused to awaken recently for vitals.
[2023-02-25] MEDS: INSULIN ASPART (*BKC) 100 UNITS/ML SUB-Q (12:28)
--- NOTE | 2023-02-25 13:49 | PM.DS ---
DS: Admitting Diagnosis Discharge Date 02/25/2023 Admitting Diagnosis Fall DS: Discharge Diagnosis Discharge Diagnosis (1) Non-ST elevation [place] (NSTEMI): Code(s): I21.4 - Non-ST elevation (NSTEMI) myocardial infarction Status: Acute (2) Insulin dependent type 2 diabetes mellitus: Code(s): E11.9 - Type 2 diabetes mellitus without complications; Z79.4 - retirement (current) use of insulin Status: Acute (3) Hypertension: Code(s): I10 - Essential (primary) hypertension Status: Chronic (4) Hematuria: Code(s): R31.9 - Hematuria, unspecified Status: Acute (5) Chronic anemia: Code(s): D64.9 - Anemia, unspecified Status: Acute (6) Dementia associated with Parkinson's disease: Code(s): G20.A1 - Parkinson's disease without dyskinesia, without mention of fluctuations; F02.80 - Dementia in other diseases classified elsewhere, unspecified severity, without behavioral disturbance, psychotic disturbance, mood disturbance, and anxiety Status: Acute DS: Summary Hospital Course Hospital Course: 77-year-old male from long term presented with unwitnessed fall.? He was found on the floor.? Poor historian and history of dementia complained of neck pain and left shoulder pain.? ED evaluation showed normal vitals.? Troponin was elevated at 1.34 EKG showed nonspecific T-wave changes.? Ruled out for STEMI. Underlying history of Parkinson's disease diabetes anxiety WBC count was elevated at 12.3.? Lactate was high at 3.2 alcohol and UDS is negative urinalysis is negative for infection.? COVID RSV flu negative bNP 2100 cardiology consulted.? Serial troponin with continued elevation to 1.6-2.9.? Aspirin beta-don and statin started heparin drip started.? Diagnosed with non ST elevation NC.? CT head and CT cervical spine with no acute findings.? LDL at 88/93.? Echocardiogram 02/24/2023:? Normal left ventricular size normal systolic function grade 1 diastolic noncompliance small area of akinesia/dyskinesia of the left ventricular apex consistent with the area of previous infarction.? No valvular abnormality.? Started on dual antiplatelet therapy for non ST elevation NC along with statin.? Conservative medical treatment with DAPT and beta-don and statin. Remained stable throughout the hospital stay okay urge per Cardiology History of CVA on aspirin Dementia COPD Type 2 diabetes back to home regimen Hypertension nude at discharge metoprolol added at discharge Chronic anemia BPH with some hematuria noted on UA DVT prophylaxis treated with heparin drip Time Spent with Patient Time attestation: Total time spent providing and/or coordinating discharge services: 45 minutes Exam Narrative: APPEARANCE: No apparent distress. Awake but confused Head: atraumatic. EYES:? EOMI, NOSE: Atraumatic NECK: Trachea midline, supple, no midline tenderness RESPIRATORY: No increased rate of breathing, clear to auscultation CARDIOVASCULAR: RRR, no peripheral edema ABDOMINAL: Non-distended, soft nontender NEURO: Alert. Moving 4/4 extremities confused due to underlying dementia SKIN:: Warm, dry. Normal color PSYCHIATRIC: Normal affect DS: Data Data Completed and Pending Completed studies during hospitalization: Exam Type: ? ? CA echo doppler color flow Study Info Indications ? ? I21.4 - Non-ST elevation (NSTEMI) myocardial infarction Complete two-dimensional, color flow and Doppler transthoracic echocardiogram is performed. Account #: ? ? [id number] Summary ? 1. Complete two-dimensional, color flow and Doppler transthoracic echocardiogram is performed. ? 2. Normal left ventricular size with overall normal systolic function and grade 1 diastolic noncompliance. ? 3. Small area of akinesia/dyskinesia of the left ventricular apex consistent with area of previous infarction. ? 4. Calcified mitral valve annulus. ? 5. Mildly enlarged left atrium. Left Ventricle ? Left ventricular ch
--- NOTE | 2023-02-25 14:21 | PC.NURSE ---
Pt received discharge orders. Nurse called [facility] and gave report to Kathy(nurse) at [phone].
== END 2023-02-25 14:42 | DRG 282 ==
LOC: ANHED 07:31 → ANH3MEDSUR 08:04 → ANHIMU 14:19
PROVIDERS: Internal Medicine; Internal Medicine Cardiovascular Disease; Physician Assistant; Admitting Provider Student in an Organized Health Care Education/Training Program; Emergency Provider Emergency Medicine; PCP Hospitalist; Visit Provider Internal Medicine
DX: I21.4 Non-ST elevation (NSTEMI) myocardial infarction (principal); I10 Essential (primary) hypertension; E11.9 Type 2 diabetes mellitus without complications; J44.9 Chronic obstructive pulmonary disease, unspecified; D64.9 Anemia, unspecified; R31.9 Hematuria, unspecified; R62.7 Adult failure to thrive; N40.0 Benign prostatic hyperplasia without lower urinary tract symptoms; H40.9 Unspecified glaucoma; G20.A1 Parkinson's disease without dyskinesia, without mention of fluctuations; F02.80 Dementia in other diseases classified elsewhere, unspecified severity, without behavioral disturbance, psychotic disturbance, mood disturbance, and anxiety; F41.9 Anxiety disorder, unspecified; Z20.822 Contact with and (suspected) exposure to COVID-19; Z68.22 Body mass index [BMI] 22.0-22.9, adult; Z79.82 Long term (current) use of aspirin; Z79.4 Long term (current) use of insulin; Z87.442 Personal history of urinary calculi; Z86.73 Personal history of transient ischemic attack (TIA), and cerebral infarction without residual deficits; Z87.891 Personal history of nicotine dependence
CPT/HCPCS: 36415; 70450; 71045; 72125; 72170; 73030; 80048; 80053; 80061; 80307; 81001; 82550; 82948; 83605; 83690; 83735; 83880; 84443; 84484; 85025; 85610; 85730; 87040; 87637; 92610; 92611; 93005; 93306; 94640; 96361; 96365; 96366; 99291; A9270; J1644; J1815; J2250; J3475; J7030

== ENCOUNTER 2023-06-23 20:52 | Inpatient (IN) | payer MEDICARE, MEDICAID, SELFPAY ==
--- NOTE | ~2023-06-23 | XR_ITS ---
MODIFIED ESOPHAGRAM HISTORY: Aspiration TECHNIQUE: Modified barium esophagram was performed on 06/25/2023. I administered fluoroscopy and perf ormed the exam with speech pathologist. Patient was seated for lateral fluoroscopic imaging for tello stion of thin liquids, pudding, solids and quantified amounts, followed by thin liquids in uncontroll ed amounts. This was recorded on tape. A single fluoroscopic spot image was also recorded. The DAP fo r this procedure was 3.22 Gycm2. The amount of fluoroscopy time used during this procedure was 4.6 mi nutes. FINDINGS: Oral stage: Adequate function. Pharyngeal stage: There is reduced laryngeal elevation and tongue base retraction. There is vallecula r and piriform sinus residue. There is laryngeal penetration and aspiration. Cervical/esophageal stage: Adequate function. IMPRESSION: Pharyngeal dysphagia with laryngeal penetration and aspiration. Please correlate with sp eech pathologist findings and specific feeding recommendations. Reviewed, dictated and finalized at location A. IMPRESSION: Pharyngeal dysphagia with laryngeal penetration and aspiration. Pl ease correlate with speech pathologist findings and specific feeding recommenda tions.
--- NOTE | ~2023-06-23 | CT_ITS ---
EXAMINATION: CT chest abdomen pelvis w con DATE: 06/23/2023 22:42 INDICATION: Sepsis. unknown origin . TECHNIQUE: Computed tomography (CT) of the chest, abdomen, and pelvis was performed with 100 mL Omnip aque-350 intravenous contrast. Automated exposure control and iterative reconstruction technique were employed. The dose-length product was 681.00 mGy-cm. COMPARISON: 06/14/2020 FINDINGS: Artifact present from arm down positioning. CHEST: Thoracic aorta: No significant dilation. No dissection. Moderate arch calcification. Lung parenchyma and airways: Clear airways. Patchy areas of groundglass opacity and septal thickening most pronounced in the left upper and lower lobes. Thoracic inlet, axillae and chest wall: Multiple sub-1.5 cm thyroid hypodensities which require no ad ditional evaluation. No soft tissue mass. No axillary lymphadenopathy. Mediastinum: Mild mediastinal and bilateral hilar lymphadenopathy. Heart and pericardium: Normal heart size. No pericardial effusion. Mitral calcifications. Coronary artery calcifications: Heavy. Pleura: No effusion or mass. Thoracic bones: No acute osseous finding in the chest. ABDOMEN/PELVIS: Liver: Normal. Biliary/Gallbladder: Gallbladder is normal. No bile duct dilation. Pancreas: Pancreatic atrophy. Spleen: Normal. Adrenals:No mass. Kidneys: No suspicious mass, obstructing stone, or hydronephrosis. Bilateral nonobstructing calculi m easuring up to 6 mm on the right and 15 mm on the left. Bilateral mild cortical atrophy. GI tract: Mild distal esophageal and gastric wall edema. No small or large bowel dilation. Normal lamin endix. Mesentery/Peritoneum: No ascites, mass, or free air. Retroperitoneum: No mass Atherosclerotic abdominal aortic and/or arterial calcifications. Partially d istended urinary bladder with wall thickening. 1 cm intraluminal calcification associated with a surg ical clip in the left inferior urinary bladder. Multiple additional surgical clips in the inferior as pect of the bladder and prostate Pelvis: Pelvic organs are within normal limits Soft Tissues: Soft tissues and body wall unremarkable. Abdominopelvic bones: No acute osseous finding in the abdomen/pelvis. Grade 1 anterolisthesis at L5- S1 with bilateral pars defects. IMPRESSION: Pulmonary opacities may represent asymmetric edema or infection. Mediastinal lymphadenopathy. Mild esophagitis/gastritis. Bilateral nephrolithiasis without obstructive uropathy. Intraluminal bladder calcification associated with a surgical clip. Bladder wall thickening may be se condary to cystitis, chronic obstruction, or incomplete distention. Reviewed, dictated and finalized at location [facility]. IMPRESSION: Pulmonary opacities may represent asymmetric edema or infection. Mediastinal lymphadenopathy. Mild esophagitis/gastritis. Bilateral nephrolithiasis without obstructive uropathy. Intraluminal bladder calcification associated with a surgical clip. Bladder wal l thickening may be secondary to cystitis, chronic obstruction, or incomplete d istention.
--- NOTE | ~2023-06-23 | CT_ITS ---
EXAMINATION: CT brain wo con DATE: 06/23/2023 22:42 INDICATION: Fall . TECHNIQUE: Computed tomography (CT) of the head was performed without intravenous contrast. The mA wa s adjusted according to patient size. Iterative reconstruction technique was employed. The dose-lengt h product was 681.00 mGy-cm. COMPARISON: 02/22/2023. FINDINGS: No acute intracranial hemorrhage or extra-axial fluid collection. No hydrocephalus, mass, or herniation. No acute ischemic infarct. Unremarkable dural venous sinus attenuation. No acute osseous abnormality. Nodular mucosal thickening in the ethmoid air cells, retention cyst/polyp in the left maxillary sinus , the remaining aerated spaces are clear. Moderate atrophy and chronic white matter change. Atherosclerotic intracranial calcification. Bilater al lens replacements. Old bilateral basal ganglia lacunar infarcts. IMPRESSION: No acute intracranial process. Reviewed, dictated and finalized at location [facility].
[2023-06-23 20:59] VITALS: BP 129/64; PULSE 128; RESP 19; TEMP 39.4; O2SAT 96
--- NOTE | 2023-06-23 21:11 | ECG_ITS ---
SEE SCANNED COPY FOR CONFIRMED REPORT MTDD
[2023-06-23] MEDS: ACETAMINOPHEN 650 MG SUPPOSITORY RECTAL (21:12)
[2023-06-23 21:28] VITALS: O2SAT 94
[2023-06-23 21:29] VITALS: BP 144/86; PULSE 127; RESP 18; TEMP 39.4; O2SAT 94
[2023-06-23 21:32] LABS: Basophils Percent Auto 0.1 % (0.2-1.2); Eosinophils Absolute Auto 0.1 K/mm3 (0-0.3); Hematocrit 36.5 % (42.0-52.0); Hemoglobin 11.4 g/dL (14.0-18.0); Immature Granulocyte Absolute 0.06 K/mm3 (0.00-0.031); Immature Granulocyte Percent A 0.4 % (0-0.5); Lymphocytes Absolute Auto 0.73 K/mm3 (0.9-3.2); Lymphocytes Percent Auto 5.2 % (18.3-44.2); Mean Corpuscular HGB Conc 31.2 g/dl (32-36); Mean Corpuscular Hemoglobin 26.5 pg (26-34); Mean Corpuscular Volume 84.7 fl (80-100); Mean Platelet Volume 10.5 fl (7.4-10.4); Monocytes Absolute Auto 0.6 K/mm3 (0.1-0.6); Monocytes Percent Auto 3.9 % (2.6-8.5); Neutrophils Absolute Auto 12.6 K/mm3 (1.3-6.7); Neutrophils Percent Auto 89.4 % (45.5-73.1); Platelet Count Result 315 k/mm3 (150-375); Red Blood Count 4.31 M/mm3 (4.6-6.20); Red Cell Distribution Width 14.1 % (11.5-14.5); White Blood Count 14.1 K/mm3 (4.5-10.0)
[2023-06-23 21:42] LABS: Prothrombin Time 14.1 Seconds (11.1-14.7)
[2023-06-23 21:47] LABS: Alanine Aminotransferase 11 U/L (6-50); Albumin Level 4.4 g/dL (3.5-5.1); Alkaline Phosphatase 98 U/L (38-126); Anion Gap 11 mmol/L (4-12); Aspartate Amino Transferase 16 U/L (17-59); Bilirubin,Total 0.6 mg/dL (0.2-1.3); Blood Urea Nitrogen 25 mg/dL (9-20); Calcium 10.6 mg/dL (8.4-10.2); Carbon Dioxide 28 mmol/L (22-30); Chloride 105 mmol/L (98-107); Estimated CRCL calculation 48 ml/min; Estimated Glomerular Filt Rate 59; Glucose 279 mg/dL (65-110); Potassium 4.4 mmol/L (3.4-5.0); Sodium 144 mmol/L (137-145)
[2023-06-23 21:49] LABS: Appearance Urine Turbid (Clear); Bacteria Urine None Seen /hpf; Bilirubin Urine Negative (Negative); Blood Urine 3+ (Negative); Color Urine Yellow (Yellow); Glucose Urine UA 3+ mg/dL (Negative); Ketones Urine Trace mg/dL (Negative); Lactic Acid Reflex 4.2 mmol/L (0.7-2.0); Leukocyte Esterase Ur Negative LEU/UL (Negative); Mucus Urine Present /lpf; Need Manual Microscopic Reviewed; Nitrate Urine Negative (Negative); Protein Urine 1+ mg/dL (Negative); RBC Urine >100 /hpf (0-2); Specific Grav Ur 1.023 (1.001-1.035); Squamous Epithelial Cell Urine Occasional /hpf (Few); Uric Acid Crystals Urine Present /hpf; WBC Urine 0-5 /hpf (0-3)
[2023-06-23 21:50] LABS: Add Urine Microscopic? YES
--- NOTE | 2023-06-23 21:54 | ED.GENADULT ---
HPI - General Adult General Chief complaint: Altered Mental Status Stated complaint: FALL, FEVER, AMS Time Seen by Provider: 06/23/23 21:29 History of Present Illness HPI narrative: this is a 70-year-old male with history of severe dementia presenting from the shelter after a fall. Per nursing he fell out of bed and struck his head. Before that he had been becoming more more confused throughout the day. Patient to the hospital be evaluated for UTI. The patient himself is nonverbal at this time and only response to pain. Cannot provide any meaningful information during the interview. I reached out to the patient's daughter and power of compliance attorney to discuss goals of care. The patient is DNR DNI with no cpr/intubation/central line/feeding tubes. Antibiotics are ok. Related Data Allergies Allergy/AdvReac Type Severity Reaction Status Date / Time No Known Allergies Allergy Verified 06/23/23 21:12 Exam Narrative: APPEARANCE: Response to pain Head: Dry mucous membrane EYES: AMARA NOSE: Atraumatic NECK: Trachea midline RESPIRATORY: No increased rate of breathing, scattered rhonchi CARDIOVASCULAR: tachycardic, no peripheral edema ABDOMINAL: Non-distended soft nontender MUSCULOSKELETAl: No obvious deformities NEURO: response to pain Moving 4/4 extremities SKIN:: no sacral decubitus general exam is PSYCHIATRIC: Course Vital Signs Vital signs: Vital Signs Temperature 103 F H 06/23/23 20:59 Pulse Rate 128 H 06/23/23 20:59 Respiratory Rate 19 06/23/23 20:59 Blood Pressure 129/64 06/23/23 20:59 Pulse Oximetry 96 06/23/23 20:59 Oxygen Delivery Room Air 06/23/23 20:59 Temperature 98.9 F 06/23/23 22:47 Pulse Rate 117 H 06/23/23 22:47 Respiratory Rate 14 06/23/23 22:47 Blood Pressure 108/67 06/23/23 22:47 Pulse Oximetry 97 06/23/23 22:47 Oxygen Delivery Room Air 06/23/23 21:28 Medical Decision Making MDM Narrative Medical decision making narrative: -Course: 70-year-old shelter patient dementia presenting for altered mental status. Patient is septic. Started on broad-spectrum antibiotics and given fluid resuscitation. Source appears to be pneumonia. No respiratory distress or oxygen requirements. patient's mental status improved after fluid resuscitation although he is still A&O 1 w/ severe dementia. Patient is DNR DNI. Patient be admitted the hospital for further management. -DDX includes but is not limited to: Sepsis, UTI, pneumonia, cellulitis, intra-abdominal pathology dehydration, intracranial hemorrhage -Co-morbidities complicating care: dementia -Independent interpretation of studies: White count 14. Hemoglobin 11. Kidney function at baseline. Initial lactic 4.2 which cleared 2.4 after fluid resuscitation. Urine showed greater than 100 red blood cells but no evidence of infection. Viral swabs negative CT head negative CT abdomen pelvis showed pneumonia. -Discussion of Management/Consultants: Wilmer-hospitalist -Interventions: pip/tazo, azithromycin, vancomycin 3 L saline, rectal tylenol -Shared decision making / Disposition: admitted Vital Signs Vital Signs: Vital Signs Temperature 103 F H 06/23/23 20:59 Pulse Rate 128 H 06/23/23 20:59 Respiratory Rate 19 06/23/23 20:59 Blood Pressure 129/64 06/23/23 20:59 Pulse Oximetry 96 06/23/23 20:59 Oxygen Delivery Room Air 06/23/23 20:59 Temperature 98.9 F 06/23/23 22:47 Pulse Rate 117 H 06/23/23 22:47 Respiratory Rate 14 06/23/23 22:47 Blood Pressure 108/67 06/23/23 22:47 Pulse Oximetry 97 06/23/23 22:47 Oxygen Delivery Room Air 06/23/23 21:28 Lab Data 06/23/23 21:23 06/23/23 21:23 Labs: Lab Results 06/23/23 06/23/23 06/24/23 Range/Units 21:23 21:38 00:42 WBC 14.1 H (4.5-10.0) K/mm3 RBC 4.31 L (4.6-6.20) M/mm3 Hgb 11.4 L (14.0-18.0) g/dL Hct 36.5 L (42.0-52.0) % MCV 84.7 (80-10
[2023-06-23] MEDS: PIPERACILLN/TAZ 3.375GM/NS50ML 3.375 GM/50 ML BAG IVPB (22:05)
[2023-06-23] MEDS: SODIUM CHLORIDE 0.9% IV 3,000 ML 999 ML IV CONT (22:05)
[2023-06-23 22:13] VITALS: BP 109/47; PULSE 118; RESP 16; TEMP 38.4; O2SAT 98
[2023-06-23 22:19] LABS: Influenza A QL RT-PCR Negative (Negative); Influenza B QL RT-PCR Negative (Negative); RSV RNA, RT-PCR Negative (Negative); SARS-CoV-2 RNA PCR Negative (Negative)
[2023-06-23 22:47] VITALS: BP 108/67; PULSE 117; RESP 14; TEMP 37.2; O2SAT 97
[2023-06-24] VITALS (10 sets, daily range): BP systolic 97–118; BP diastolic 55–65; PULSE 71–96; RESP 14–20; TEMP 36.6–37.1; O2SAT 91–100; BMI 22.4
[2023-06-24 00:29] LABS: Reflex Lactic Acid Yes or No Add Lactic
[2023-06-24] MEDS: VANCOMYCIN 2,000 MG/NS 500 ML 2,000 MG/500 ML BAG 250 MG IVPB (00:40)
--- NOTE | 2023-06-24 00:55 | PM.IMHP ---
H&P: HPI History of Present Illness Date/Time: 06/24/23 00:55 Chief Complaint: Altered mental status Narrative: This is a 78-year-old male with past medical history significant for insulin-dependent diabetes mellitus, dementia. patient was brought to the emergency room due to altered mental status, lethargy, generalized weakness. at the time of my visit patient is obtunded, lethargic, unable to give any history. Most of the history has been obtained from family. Preliminary workup was significant for CT of the chest with lung opacities. Patient is been admitted for further evaluation management and treatment. EXAMINATION: CT brain wo con DATE: 06/23/2023 22:42 INDICATION: Fall . TECHNIQUE: Computed tomography (CT) of the head was performed without intravenous contrast. The mA was adjusted according to patient size. Iterative reconstruction technique was employed. The dose-length product was 681.00 mGy-cm. COMPARISON: 02/22/2023. FINDINGS: No acute intracranial hemorrhage or extra-axial fluid collection. No hydrocephalus, mass, or herniation. No acute ischemic infarct. Unremarkable dural venous sinus attenuation. No acute osseous abnormality. Nodular mucosal thickening in the ethmoid air cells, retention cyst/polyp in the left maxillary sinus, the remaining aerated spaces are clear. Moderate atrophy and chronic white matter change. Atherosclerotic intracranial calcification. Bilateral lens replacements. Old bilateral basal ganglia lacunar infarcts. IMPRESSION:? No acute intracranial process. EXAMINATION: CT chest abdomen pelvis w con DATE: 06/23/2023 22:42 INDICATION: Sepsis. unknown origin . TECHNIQUE: Computed tomography (CT) of the chest, abdomen, and pelvis was performed with 100 mL Omnipaque-350 intravenous contrast. Automated exposure control and iterative reconstruction technique were employed. The dose-length product was 681.00 mGy-cm. COMPARISON: 06/14/2020 FINDINGS: Artifact present from arm down positioning. CHEST: Thoracic aorta: No significant dilation. No dissection. Moderate arch calcification. Lung parenchyma and airways: Clear airways. Patchy areas of groundglass opacity and septal thickening most pronounced in the left upper and lower lobes. Thoracic inlet, axillae and chest wall: Multiple sub-1.5 cm thyroid hypodensities which require no additional evaluation. No soft tissue mass. No axillary lymphadenopathy. Mediastinum: Mild mediastinal and bilateral hilar lymphadenopathy. Heart and pericardium: Normal heart size. No pericardial effusion. Mitral calcifications. Coronary artery calcifications: Heavy. Pleura: No effusion or mass. Thoracic bones: No acute osseous finding in the chest. ABDOMEN/PELVIS: Liver: Normal.? Biliary/Gallbladder: Gallbladder is normal. No bile duct dilation. Pancreas: Pancreatic atrophy. Spleen: Normal. Adrenals:No mass. Kidneys: No suspicious mass, obstructing stone, or hydronephrosis. Bilateral nonobstructing calculi measuring up to 6 mm on the right and 15 mm on the left. Bilateral mild cortical atrophy. GI tract: Mild distal esophageal and gastric wall edema. No small or large bowel dilation. Normal appendix. Mesentery/Peritoneum: No ascites, mass, or free air. Retroperitoneum: No mass Atherosclerotic abdominal aortic and/or arterial calcifications. Partially distended urinary bladder with wall thickening. 1 cm intraluminal calcification associated with a surgical clip in the left inferior urinary bladder. Multiple additional surgical clips in the inferior aspect of the bladder and prostate Pelvis: Pelvic organs are within normal limits Soft Tissues: Soft tissues and body wall unremarkable. Abdominopelvic bones:? No acute osseous finding in the abdomen/pelvis. Grade 1 anterolisthesis at L5-S1 with bilateral pars defects. IMPRESSION: Pulmonary opacities may represent asymmetric edema or infection. Mediastinal lymphadenopathy. Mild esophagitis/gastritis. Bi
[2023-06-24 00:57] LABS: Lactic Acid 2.4 mmol/L (0.7-2.0)
[2023-06-24 02:58] LABS: MRSA (PCR) NOT DETECTED (NOT DETECTE)
[2023-06-24] MEDS: LACTATED RINGERS 1,000 ML 125 ML IV CONT ×2 (03:04→12:47)
[2023-06-24] MEDS: AZITHROMYCIN 500 MG/NS 250 ML 500 MG/250 ML BAG 250 MG IVPB (03:04)
[2023-06-24 03:29] LABS: Glucose Point of Care 213 mg/dl (65-105)
[2023-06-24] MEDS: PIPERACILLN/TAZ 3.375GM/NS50ML 3.375 GM/50 ML BAG IVPB ×4 (04:22→22:36)
[2023-06-24 06:35] LABS: Estimated CRCL calculation 57 ml/min; Estimated Glomerular Filt Rate > 60
--- NOTE | 2023-06-24 07:50 | PM.IMPN ---
Progress Note: A&P Assessment and Plan (1) Sepsis: Code(s): A41.9 - Sepsis, unspecified organism Status: Acute Assessment and Plan: admit to regular medical floor early goal-directed therapy in progress CT chest abdomen and pelvis reviewed 06/23: now thought to be due to aspiration pneumonia (2) Dementia: Code(s): F03.90 - Unspecified dementia, unspecified severity, without behavioral disturbance, psychotic disturbance, mood disturbance, and anxiety Status: Acute Assessment and Plan: supportive care - DNR DNI but okay for antibiotics and fluids per ED report (3) Pneumonia: Code(s): J18.9 - Pneumonia, unspecified organism Status: Acute Assessment and Plan: patient on broad-spectrum antibiotics await blood cultures - MRSA nares negative, discontinue vancomycin - felt to be due to aspiration pneumonia given findings of aspiration with speech therapy (4) Lactic acidemia: Code(s): E87.20 - Acidosis, unspecified Status: Acute Assessment and Plan: likely secondary to #1 and #3. Fluids ongoing (5) Altered mental status: Code(s): R41.82 - Altered mental status, unspecified Status: Acute Assessment and Plan: likely encephalopathy in the setting of infection/dementia as well as concussion from minor head injury supportive care -level of consciousness improving throughout the day per nursing staff, NPO pending modified barium swallow tomorrow, meds crushed with pudding only per speech therapy Plan Advanced dementia status post minor head injury with resultant concussion altered mental status and likely aspiration pneumonia with sepsis. DNR/ DNI but okay for fluids/antibiotics Modified barium swallow ordered for morning of 06/24, pudding for crushed meds in the meantime PT/OT ordered for 06/24 though not sure if patient will benefit Time Spent With Patient Time with patient: Greater than 35 minutes Subjective Date/time seen: 06/24/23 07:50 Interval history: Patient altered level of consciousness not awakening withdrawing from painful stimuli reported fall out of bed striking his head at nursing facility. Nursing staff noted him choking on fluids so speech therapy was involved and with bedside swallow only pudding thick able to be swallowed without immediate cough. Imaging concerning for pneumonia, now concerning for aspiration pneumonia. Meds with pudding only, MBS tomorrow otherwise NPO. [facility] soft diet with nectar thick liquids and crush all meds. Review of Systems Review of Systems: ROS unobtainable: Yes unobtainable due to medical condition and unobtainable due to mental status Exam Narrative: APPEARANCE: withdrawal response to painful stimuli Head: Dry mucous membrane EYES: open to pain NOSE: Atraumatic NECK: Trachea midline RESPIRATORY: No increased rate of breathing, scattered rhonchi, occasional nonproductive cough CARDIOVASCULAR: normal rate normal rhythm, no peripheral edema ABDOMINAL: Non-distended soft nontender MUSCULOSKELETAl: No obvious deformities NEURO: withdraw response to pain Moving 4/4 extremities PSYCHIATRIC: unable to evaluate due to level of consciousness Objective Data Vital Signs Vital Signs: Vital Signs - 24 hr 06/23/23 20:59 06/23/23 21:28 06/23/23 21:29 Temperature 39.4 C H 39.4 C H Pulse Rate 128 H 127 H Respiratory Rate 19 18 Blood Pressure 129/64 144/86 H Pulse Oximetry 96 94 94 Oxygen Delivery Room Air Room Air 06/23/23 22:13 06/23/23 22:47 06/24/23 01:32 Temperature 38.4 C H 37.2 C Pulse Rate 118 H 117 H 89 Respiratory Rate 16 14 17 Blood Pressure 109/47 L 108/67 103/60 Pulse Oximetry 98 97 96 Oxygen Delivery 06/24/23 01:33 06/24/23 03:13 06/24/23 03:45 Temperature 36.8 C Pulse Rate 89 96 Respiratory Rate 14 Blood Pressure 97/60 L Pulse Oximetry 100 Oxygen Delivery 06/24/23
[2023-06-24] MEDS: ALBUTEROL SULFATE (*SP) AEROSOL 1 PUFF 2 PUFF INHALATION ×3 (13:20→20:43)
[2023-06-24 13:33] LABS: Hemoglobin A1C 7.4 % (<5.7)
[2023-06-24] MEDS: CHOLECALCIFEROL 1,000 UNITS TABLET 5000 UNITS PO (13:59)
[2023-06-24] MEDS: amLODIPine BESYLATE 5 MG TABLET PO (13:59)
[2023-06-24] MEDS: ASPIRIN 81 MG ENTERIC TABLET PO (14:00)
[2023-06-24] MEDS: oxyBUTYnin CHLORIDE 5 MG TABLET PO (14:00)
--- NOTE | 2023-06-24 15:35 | PCSTNOTE ---
Please refer to the Bedside Swallow Evaluation in the EMR. The above confused pt with a history of a CVA and severe dementia was seen for a bedside swallow evaluation. Pt was positioned upright in the bed and was responsive to questions (but did not open his eyes). Responses were delayed. The pt did not follow directives for an oral motor exam but stated he does not have teeth and claimed being able to masticate without them. Pt was able to dry swallow on command (despite dry oral mucosa) with what appeared to be adequate laryngeal elevation; vocal quality was clear. The pt was tested with ice chips, puree's; i.e. applesauce and pudding, & mildly thick liquids all in 3-5 ml amounts via a spoon. Pt exhibited coughing after the trials of the ice chips and mildly thick liquids but did not exhibit a cough until the 4th trial of puree. At that time, due to the overt s/s of aspiration with the third consistency, the bedside evaluation was terminated and an MBS recommended. Impression: overt s/s of aspiration; suspect dysphagia Recommendation: pills only this evening as tolerated and MBS recommended tomorrow.
[2023-06-24 16:33] LABS: Glucose Point of Care 167 mg/dl (65-105)
[2023-06-24 21:31] LABS: Glucose Point of Care 176 mg/dl (65-105)
[2023-06-24] MEDS: LOSARTAN POTASSIUM 50 MG TABLET PO (22:38)
[2023-06-24] MEDS: traZODone HCL 25 MG TABLET PO (22:38)
[2023-06-24] MEDS: LATANOPROST 0.005% OP SOLN 2.5 ML BTL 1 DROP EACH EYE (22:40)
[2023-06-24] MEDS: LACTATED RINGERS 1,000 ML 75 ML IV CONT (22:45)
[2023-06-25] VITALS (8 sets, daily range): BP systolic 113–136; BP diastolic 48–76; PULSE 70–87; RESP 16–20; TEMP 36.4–36.6; O2SAT 93–98
[2023-06-25] MEDS: ALBUTEROL SULFATE (*SP) AEROSOL 1 PUFF 2 PUFF INHALATION ×5 (00:30→20:09)
[2023-06-25] MEDS: AZITHROMYCIN 500 MG/NS 250 ML 500 MG/250 ML BAG 250 MG IVPB (01:40)
[2023-06-25] MEDS: PIPERACILLN/TAZ 3.375GM/NS50ML 3.375 GM/50 ML BAG IVPB ×4 (04:33→21:13)
[2023-06-25 05:27] LABS: Basophils Percent Auto 0.5 % (0.2-1.2); Eosinophils Absolute Auto 0.3 K/mm3 (0-0.3); Eosinophils Percent Auto 4.1 % (0-4.4); Hematocrit 28.8 % (42.0-52.0); Hemoglobin 8.8 g/dL (14.0-18.0); Immature Granulocyte Absolute 0.05 K/mm3 (0.00-0.031); Immature Granulocyte Percent A 0.6 % (0-0.5); Lymphocytes Absolute Auto 1.35 K/mm3 (0.9-3.2); Lymphocytes Percent Auto 16.9 % (18.3-44.2); Mean Corpuscular HGB Conc 30.6 g/dl (32-36); Mean Corpuscular Hemoglobin 26.3 pg (26-34); Mean Corpuscular Volume 86.2 fl (80-100); Mean Platelet Volume 10.4 fl (7.4-10.4); Monocytes Absolute Auto 0.5 K/mm3 (0.1-0.6); Monocytes Percent Auto 6.3 % (2.6-8.5); Neutrophils Absolute Auto 5.7 K/mm3 (1.3-6.7); Neutrophils Percent Auto 71.6 % (45.5-73.1); Platelet Count Result 214 k/mm3 (150-375); Red Blood Count 3.34 M/mm3 (4.6-6.20)
[2023-06-25 05:46] LABS: Alanine Aminotransferase 14 U/L (6-50); Albumin Level 2.8 g/dL (3.5-5.1); Alkaline Phosphatase 64 U/L (38-126); Anion Gap 7 mmol/L (4-12); Aspartate Amino Transferase 70 U/L (17-59); Bilirubin,Total 0.6 mg/dL (0.2-1.3); Blood Urea Nitrogen 12 mg/dL (9-20); Calcium 8.5 mg/dL (8.4-10.2); Carbon Dioxide 24 mmol/L (22-30); Chloride 110 mmol/L (98-107); Estimated CRCL calculation 63 ml/min; Estimated Glomerular Filt Rate > 60; Glucose 158 mg/dL (65-110); Magnesium 1.3 mg/dL (1.6-2.3); Potassium 3.6 mmol/L (3.4-5.0); Sodium 141 mmol/L (137-145)
[2023-06-25 07:36] LABS: Glucose Point of Care 177 mg/dl (65-105)
[2023-06-25] MEDS: CHOLECALCIFEROL 1,000 UNITS TABLET 5000 UNITS PO (09:31)
[2023-06-25] MEDS: ENOXAPARIN 40 MG/0.4 ML SYRINGE SUB-Q (09:31)
[2023-06-25] MEDS: oxyBUTYnin CHLORIDE 5 MG TABLET PO (09:32)
[2023-06-25] MEDS: amLODIPine BESYLATE 5 MG TABLET PO (09:32)
[2023-06-25] MEDS: ASPIRIN 81 MG CHEWABLE TABLET PO (09:32)
--- NOTE | 2023-06-25 10:08 | PCSTNOTE ---
Please refer to the Bedside Swallow Evaluation in the EMR. Please note, silent aspiration cannot be ruled out at bedside.
--- NOTE | 2023-06-25 10:45 | PCOTNOTE ---
Attempted to see pt. for occupational therapy evaluation. Pt. refused to participate at this at this.
[2023-06-25 11:07] LABS: Glucose Point of Care 163 mg/dl (65-105)
--- NOTE | 2023-06-25 11:48 | PM.IMPN ---
Progress Note: A&P Assessment and Plan (1) Sepsis: Code(s): A41.9 - Sepsis, unspecified organism Status: Acute Assessment and Plan: 06/23/23: admit to regular medical floor early goal-directed therapy in progress CT chest abdomen and pelvis reviewed 06/23: now thought to be due to aspiration pneumonia 06/25/23: patient initially meeting sepsis criteria with white blood cell count of 14.1, initial temp of 103?, pulse rate of 128, lactic acid of 4.2, and presence of aspiration on chest x-ray MRSA was negative vancomycin was discontinued continue with azithromycin and Zosyn white blood cell count down to 8.0 today, patient is afebrile (2) Dementia: Code(s): F03.90 - Unspecified dementia, unspecified severity, without behavioral disturbance, psychotic disturbance, mood disturbance, and anxiety Status: Acute Assessment and Plan: 06/23/23: supportive care 06/24/23: - DNR DNI but okay for antibiotics and fluids per ED report 06/25/23: no change to current treatment plan (3) Pneumonia: Code(s): J18.9 - Pneumonia, unspecified organism Status: Acute Assessment and Plan: 06/23/23: patient on broad-spectrum antibiotics await blood cultures 06/24/23: - MRSA nares negative, discontinue vancomycin - felt to be due to aspiration pneumonia given findings of aspiration with speech therapy 06/25/23: barium swallow today shown aspiration with thin liquids patient placed on a level 6 soft and bite size with mildly thick liquids blood cultures are pending continue Azithromycin and Zosyn (4) Lactic acidemia: Code(s): E87.20 - Acidosis, unspecified Status: Acute Assessment and Plan: 06/24/23: likely secondary to #1 and #3. Fluids ongoing 06/25/23: initial lactate 4.2> 2.4 will recheck lactic acid today (5) Altered mental status: Code(s): R41.82 - Altered mental status, unspecified Status: Acute Assessment and Plan: 06/23/23: likely encephalopathy in the setting of infection/dementia as well as concussion from minor head injury supportive care 06/24/23: -level of consciousness improving throughout the day per nursing staff, NPO pending modified barium swallow tomorrow, meds crushed with pudding only per speech therapy 06/25/23: continue neuro checks Time Spent With Patient Time with patient: Greater than 35 minutes Subjective Date/time seen: 06/25/23 11:48 Interval history: 06/23/23: This is a 78-year-old male with past medical history significant for insulin-dependent diabetes mellitus, dementia. patient was brought to the emergency room due to altered mental status, lethargy, generalized weakness. workup in the hospital included a head CT which shown no acute intracranial process. Chest/abdomen/ pelvis CT which showed pulmonary opacities representing edema or infection, mediastinal lymph edema pap the, mild esophagitis / gastritis, bilateral nephrolithiasis without obstructive uropathy, intra luminal bladder calcification associated with the surgical clip, bladder wall thickening may be secondary to cystitis, chronic obstruction, incomplete distension. Initial labs showed a white blood cell count of 14.1, hemoglobin 11.4, lactic acid 4.2> 2.4, calcium 10.6. UA showed 1+ urine protein, 3+ urine glucose, trace ketones, 3+ urine blood, greater than 100 urine RBCs, presence of uric acid crystals. MRSA PCR was negative. Respiratory panel was negative for influenza a and B, RSV, COVID. Hemoglobin A1c was 7.4. Blood cultures were obtained and are pending. Patient was started on vancomycin and Zosyn while in the ED. he had a barium swallow done today which shown pharyngeal dysphagia with laryngeal penetration and aspiration. Speech therapist is recommending a soft and bite size level 6 diet with mildly thick liquids as he was coughing on thin liquids during his swallow study. Patient initially meeting sepsis c
[2023-06-25] MEDS: LACTATED RINGERS 1,000 ML 75 ML IV CONT (12:01)
[2023-06-25 12:52] LABS: Lactic Acid Reflex 1.6 mmol/L (0.7-2.0)
[2023-06-25 16:19] LABS: Glucose Point of Care 184 mg/dl (65-105)
[2023-06-25 20:53] LABS: Glucose Point of Care 226 mg/dl (65-105)
[2023-06-25] MEDS: traZODone HCL 25 MG TABLET PO (21:13)
[2023-06-25] MEDS: LATANOPROST 0.005% OP SOLN 2.5 ML BTL 1 DROP EACH EYE (21:13)
[2023-06-25] MEDS: LOSARTAN POTASSIUM 50 MG TABLET PO (21:13)
[2023-06-26] MEDS: AZITHROMYCIN 500 MG/NS 250 ML 500 MG/250 ML BAG 250 MG IVPB (01:37)
[2023-06-26] MEDS: ALBUTEROL SULFATE (*SP) AEROSOL 1 PUFF 2 PUFF INHALATION ×5 (02:05→14:59)
[2023-06-26 02:08] VITALS: PULSE 68
[2023-06-26] MEDS: PIPERACILLN/TAZ 3.375GM/NS50ML 3.375 GM/50 ML BAG IVPB ×2 (04:09→10:24)
[2023-06-26 06:00] VITALS: BP 141/56; PULSE 73; RESP 18; TEMP 36.4; O2SAT 97
[2023-06-26 06:30] LABS: Basophils Percent Auto 0.6 % (0.2-1.2); Eosinophils Absolute Auto 0.3 K/mm3 (0-0.3); Eosinophils Percent Auto 3.8 % (0-4.4); Hematocrit 27.4 % (42.0-52.0); Hemoglobin 8.7 g/dL (14.0-18.0); Immature Granulocyte Absolute 0.04 K/mm3 (0.00-0.031); Immature Granulocyte Percent A 0.6 % (0-0.5); Lymphocytes Absolute Auto 1.19 K/mm3 (0.9-3.2); Lymphocytes Percent Auto 17.5 % (18.3-44.2); Mean Corpuscular HGB Conc 31.8 g/dl (32-36); Mean Corpuscular Hemoglobin 26.4 pg (26-34); Mean Corpuscular Volume 83.3 fl (80-100); Mean Platelet Volume 10.5 fl (7.4-10.4); Monocytes Absolute Auto 0.5 K/mm3 (0.1-0.6); Monocytes Percent Auto 7.8 % (2.6-8.5); Neutrophils Absolute Auto 4.7 K/mm3 (1.3-6.7); Neutrophils Percent Auto 69.7 % (45.5-73.1); Platelet Count Result 254 k/mm3 (150-375); Red Blood Count 3.29 M/mm3 (4.6-6.20); Red Cell Distribution Width 13.9 % (11.5-14.5); White Blood Count 6.8 K/mm3 (4.5-10.0)
[2023-06-26 06:39] LABS: Potassium 3.7 mmol/L (3.4-5.0); Sodium 138 mmol/L (137-145)
[2023-06-26 06:40] LABS: Alanine Aminotransferase 12 U/L (6-50); Albumin Level 2.8 g/dL (3.5-5.1); Alkaline Phosphatase 61 U/L (38-126); Anion Gap 1 mmol/L (4-12); Aspartate Amino Transferase 34 U/L (17-59); Bilirubin,Total 0.5 mg/dL (0.2-1.3); Blood Urea Nitrogen 8 mg/dL (9-20); Calcium 8.5 mg/dL (8.4-10.2); Carbon Dioxide 30 mmol/L (22-30); Chloride 107 mmol/L (98-107); Estimated CRCL calculation 57 ml/min; Estimated Glomerular Filt Rate > 60; Glucose 186 mg/dL (65-110); Magnesium 1.4 mg/dL (1.6-2.3)
[2023-06-26 07:29] LABS: Glucose Point of Care 170 mg/dl (65-105)
[2023-06-26] MEDS: FLUTICASONE/UMECLIDIN/VILANTER 100-62.5-25 MCG ELLIPTA 1 PUFF INHALATION (08:30)
[2023-06-26 08:34] VITALS: O2SAT 92
[2023-06-26] MEDS: CHOLECALCIFEROL 1,000 UNITS TABLET 5000 UNITS PO (10:24)
[2023-06-26] MEDS: amLODIPine BESYLATE 5 MG TABLET PO (10:25)
[2023-06-26] MEDS: ASPIRIN 81 MG CHEWABLE TABLET PO (10:25)
[2023-06-26] MEDS: ENOXAPARIN 40 MG/0.4 ML SYRINGE SUB-Q (10:25)
[2023-06-26] MEDS: oxyBUTYnin CHLORIDE 5 MG TABLET PO (10:25)
[2023-06-26 11:19] LABS: Glucose Point of Care 259 mg/dl (65-105)
[2023-06-26] MEDS: INSULIN ASPART (*BKC) 100 UNITS/ML SUB-Q (12:11)
--- NOTE | 2023-06-26 12:27 | PM.IMPN ---
Progress Note: A&P Assessment and Plan (1) Sepsis: Code(s): A41.9 - Sepsis, unspecified organism Status: Acute Assessment and Plan: 06/23/23: admit to regular medical floor early goal-directed therapy in progress CT chest abdomen and pelvis reviewed 06/23: now thought to be due to aspiration pneumonia 06/25/23: patient initially meeting sepsis criteria with white blood cell count of 14.1, initial temp of 103?, pulse rate of 128, lactic acid of 4.2, and presence of aspiration on chest x-ray MRSA was negative vancomycin was discontinued continue with azithromycin and Zosyn white blood cell count down to 8.0 today, patient is afebrile 06/26/23: Antibiotics changed to oral Augmentin and azithromycin (2) Dementia: Code(s): F03.90 - Unspecified dementia, unspecified severity, without behavioral disturbance, psychotic disturbance, mood disturbance, and anxiety Status: Acute Assessment and Plan: 06/23/23: supportive care 06/24/23: - DNR DNI but okay for antibiotics and fluids per ED report 06/25/23: no change to current treatment plan (3) Pneumonia: Code(s): J18.9 - Pneumonia, unspecified organism Status: Acute Assessment and Plan: 06/23/23: patient on broad-spectrum antibiotics await blood cultures 06/24/23: - MRSA nares negative, discontinue vancomycin - felt to be due to aspiration pneumonia given findings of aspiration with speech therapy 06/25/23: barium swallow today shown aspiration with thin liquids patient placed on a level 6 soft and bite size with mildly thick liquids blood cultures are pending continue Azithromycin and Zosyn 06/26/23: continue with mildly thick liquids and level 6 soft and bite size diet blood cultures are still pending and showing no growth to date switch antibiotics to azithromycin and Augmentin oral today (4) Altered mental status: Code(s): R41.82 - Altered mental status, unspecified Status: Acute Assessment and Plan: 06/23/23: likely encephalopathy in the setting of infection/dementia as well as concussion from minor head injury supportive care 06/24/23: -level of consciousness improving throughout the day per nursing staff, NPO pending modified barium swallow tomorrow, meds crushed with pudding only per speech therapy 06/25/23: continue neuro checks 06/26/23: no change to current treatment plan Time Spent With Patient Time with patient: 25 - 35 minutes Subjective Date/time seen: 06/26/23 12:27 Interval history: 06/23/23: This is a 78-year-old male with past medical history significant for insulin-dependent diabetes mellitus, dementia. patient was brought to the emergency room due to altered mental status, lethargy, generalized weakness. workup in the hospital included a head CT which shown no acute intracranial process. Chest/abdomen/ pelvis CT which showed pulmonary opacities representing edema or infection, mediastinal lymph edema pap the, mild esophagitis / gastritis, bilateral nephrolithiasis without obstructive uropathy, intra luminal bladder calcification associated with the surgical clip, bladder wall thickening may be secondary to cystitis, chronic obstruction, incomplete distension. Initial labs showed a white blood cell count of 14.1, hemoglobin 11.4, lactic acid 4.2> 2.4, calcium 10.6. UA showed 1+ urine protein, 3+ urine glucose, trace ketones, 3+ urine blood, greater than 100 urine RBCs, presence of uric acid crystals. MRSA PCR was negative. Respiratory panel was negative for influenza a and B, RSV, COVID. Hemoglobin A1c was 7.4. Blood cultures were obtained and are pending. Patient was started on vancomycin and Zosyn while in the ED. he had a barium swallow done today which shown pharyngeal dysphagia with laryngeal penetration and aspiration. Speech therapist is recommending a soft and bite size level 6 diet with mildly thick liquids as he was coughing on
[2023-06-26 14:00] VITALS: BP 127/65; PULSE 70; RESP 18; TEMP 36.9; O2SAT 98
--- NOTE | 2023-06-26 15:25 | PM.DS ---
DS: Admitting Diagnosis Discharge Date 06/26/23 Admitting Diagnosis Sepsis Aspiration pneumonia Dementia Lactic acidemia Altered mental status DS: Discharge Diagnosis Discharge Diagnosis (1) Sepsis: Code(s): A41.9 - Sepsis, unspecified organism Status: Acute (2) Dementia: Code(s): F03.90 - Unspecified dementia, unspecified severity, without behavioral disturbance, psychotic disturbance, mood disturbance, and anxiety Status: Acute (3) Pneumonia: Code(s): J18.9 - Pneumonia, unspecified organism Status: Acute (4) Altered mental status: Code(s): R41.82 - Altered mental status, unspecified Status: Acute DS: Summary Hospital Course Reason for hospitalization: Sepsis Aspiration pneumonia Dementia Lactic acidemia Altered mental status Hospital Course: 06/23/23: This is a 78-year-old male with past medical history significant for insulin-dependent diabetes mellitus, dementia. patient was brought to the emergency room due to altered mental status, lethargy, generalized weakness. workup in the hospital included a head CT which shown no acute intracranial process.? Chest/abdomen/ pelvis CT which showed pulmonary opacities representing edema or infection, mediastinal lymph edema pap the, mild esophagitis / gastritis, bilateral nephrolithiasis without obstructive uropathy, intra luminal bladder calcification associated with the surgical clip, bladder wall thickening may be secondary to cystitis, chronic obstruction, incomplete distension.? Initial labs showed a white blood cell count of 14.1, hemoglobin 11.4, lactic acid 4.2> 2.4, calcium 10.6.? UA showed 1+ urine protein, 3+ urine glucose, trace ketones, 3+ urine blood, greater than 100 urine RBCs, presence of uric acid crystals.? MRSA PCR was negative.? Respiratory panel was negative for influenza a and B, RSV, COVID.? Hemoglobin A1c was 7.4.? Blood cultures were obtained and are pending.? Patient was started on vancomycin and Zosyn while in the ED. he had a barium swallow done today which shown pharyngeal dysphagia with laryngeal penetration and aspiration.? Speech therapist is recommending a soft and bite size level 6 diet with mildly thick liquids as he was coughing on thin liquids during his swallow study.? Patient initially meeting sepsis criteria with an elevated white blood cell count of 14.1, initial temperature of 103?, pulse rate of 128, lactic acid of 4.2, and evidence of aspiration pneumonia on chest x-ray. 06/24/23:? Copy forward from chart Patient altered level of consciousness not awakening withdrawing from painful stimuli reported fall out of bed striking his head at nursing facility.? Nursing staff noted him choking on fluids so speech therapy was involved and with bedside swallow only pudding thick able to be swallowed without immediate cough.? Imaging concerning for pneumonia, now concerning for aspiration pneumonia.? Meds with pudding only, MBS tomorrow otherwise NPO.? At shelter he was on mechanical soft diet with nectar thick liquids and crush all meds. 06/25/23: ? On examination today patient is alert to voice, non-contributory. ? labs today revealed a normal white blood cell count of 8.0, hemoglobin 8.8, blood sugars ranging 158-177, magnesium 1.3, AST 70.? Patient will continue on? Azithromycin and Zosyn and? vancomycin was discontinued considering his MRSA swab was negative. 06/26/23: Labs today show a hemoglobin of 8.7, blood sugar 170-259, magnesium 1.4, otherwise unremarkable.? Blood cultures are still showing no growth on preliminary read.? We will transition to oral antibiotics today with azithromycin and Augmentin.? Patient is currently on room air, he is afebrile, his vital signs are stable. He is stable for discharge at this time. He will need to follow up with his primary care physician in 1 week. He will also need to continue with soft and bite size diet with nectar thick liquids. Final diagnosis: Sepsis, aspiration p
[2023-06-26 16:41] LABS: Glucose Point of Care 110 mg/dl (65-105)
[2023-06-26 17:39] LABS: SARS-CoV-2 RNA PCR Negative (Negative)
== END 2023-06-26 19:50 | DRG 871 ==
LOC: ANHED 06-24 01:07 → ANH3MEDSUR 06-24 02:04
PROVIDERS: Nurse Practitioner; Admitting Provider Internal Medicine; Emergency Provider Emergency Medicine; PCP Internal Medicine; Visit Provider Nurse Practitioner Acute Care
DX: A41.9 Sepsis, unspecified organism (principal); J18.9 Pneumonia, unspecified organism; J69.0 Pneumonitis due to inhalation of food and vomit; E87.21 Acute metabolic acidosis; G93.49 Other encephalopathy; Z20.822 Contact with and (suspected) exposure to COVID-19; F03.90 Unspecified dementia, unspecified severity, without behavioral disturbance, psychotic disturbance, mood disturbance, and anxiety; E11.9 Type 2 diabetes mellitus without complications; W06.XXXA Fall from bed, initial encounter; Z66 Do not resuscitate
CPT/HCPCS: 36415; 70450; 71260; 74177; 80053; 81001; 82565; 82948; 83036; 83605; 83735; 85025; 85610; 85730; 87040; 87635; 87637; 87641; 92610; 92611; 93005; 94640; 96361; 96365; 96367; 97161; 97165; 99285; A9270; J0456; J1650; J1815; J2543; J3370; J7030; J7120; Q9967

== ENCOUNTER 2023-07-12 00:48 | Inpatient (IN) | payer MEDICARE, MEDICAID, SELFPAY ==
[2023-07-12] VITALS (47 sets, daily range): BP systolic 100–134; BP diastolic 40–95; PULSE 79–129; RESP 12–35; TEMP 36.6–39.1; O2SAT 90–100; BMI 19.2
--- NOTE | ~2023-07-12 | XR_ITS ---
XR chest 1V portable DATE: 07/12/2023 01:47 INDICATION: Cough, shortness of breath, fever TECHNIQUE: Portable supine AP views on 07/12/2023 at 0143 and 0144 hours COMPARISON: 06/23/2023 CT chest examination 02/22/2023 AP chest 06/10/2022 portable AP chest FINDINGS: Normal heart size. There is aortic calcification and unfolding. Mild patchy infiltrate and/or atelectasis in the right mid and both lower lung zones. No pleural effusion or pulmonary vascular congestion or pneumothorax is detected. IMPRESSION: Mild patchy infiltrate and/or atelectasis in the right mid and both lower lung zones Reviewed, dictated and finalized at location A.
--- NOTE | ~2023-07-12 | XR_ITS ---
Portable chest x-ray Comparison: 07/12/2023 Clinical History: Respiratory distress Findings: There are extensive bilateral hazy pulmonary airspace disease, worse in the right upper lo be. Cardiomediastinal silhouette is stable. Bones and soft tissues are unremarkable. Impression: Bilateral hazy airspace disease, worse in the right upper lobe. Given rapid onset since 07/12/2023, fin dings may be due to to moderate pulmonary edema. Correlate clinically for infection. Reviewed, dictated and finalized at location . Impression: Bilateral hazy airspace disease, worse in the right upper lobe. Given rapid ons et since 07/12/2023, findings may be due to to moderate pulmonary edema. Correlat e clinically for infection.
--- NOTE | ~2023-07-12 | XR_ITS ---
EXAMINATION: XR chest PICC line DATE: 07/14/2023 16:29 INDICATION: Central line placement. TECHNIQUE: A single frontal view of the chest was obtained. COMPARISON: Chest view at 12:41 PM FINDINGS: There are airspace opacities in all lung zones bilaterally with a perihilar predominance. N o pleural effusion or pneumothorax. The heart size is normal. A right upper extremity peripherally in serted central venous catheter (PICC) is seen with tip at the superior cavoatrial junction. IMPRESSION: 1. PICC tip at the superior cavoatrial junction. 2. Worsened diffuse lung disease, consistent with pulmonary edema versus pneumonia. Reviewed, dictated and finalized at location A. IMPRESSION: 1. PICC tip at the superior cavoatrial junction. 2. Worsened diffuse lung disease, consistent with pulmonary edema versus pneumo lyla.
--- NOTE | ~2023-07-12 | CT_ITS ---
EXAMINATION: CT chest abdomen pelvis w con DATE: 07/12/2023 02:36 INDICATION: Shortness of breath, cough, fever. Sepsis. TECHNIQUE: Computed tomography (CT) of the chest, abdomen, and pelvis was performed with 100 CC Omnip aque 350 intravenous contrast. Automated exposure control and iterative reconstruction technique were employed. Exam dose: 708.93 mGy-cm total exam DLP. COMPARISON: 06/23/2023 CT chest abdomen FINDINGS: CHEST CT: There is patchy predominantly posterior segment right upper lobe infiltrate, mild predominantly poste rior middle lobe infiltrate and diffuse patchy right lower lobe infiltrate with focal atelectasis/con solidation at the dependent posterior lung base. There is mild infiltrate and/or atelectasis at the l eft lung base, primarily in the posterior basilar area. Different diagnosis includes bilateral pneumo lyla as well as aspiration pneumonitis. Mild emphysematous changes of the lungs. Scattered bilateral hypoattenuating lesions of the thyroid gland, measuring up to 11 mm. Mild mediastinal and bilateral hilar lymph nodes prominence, likely reactive. Normal heart size. There is extensive coronary artery calcification. No pericardial or pleural effusi on. ABDOMEN/PELVIS CT: The liver, gallbladder, bile ducts, pancreas, pancreatic duct are unremarkable except for some calcif ications in the pancreatic head and uncinate process, consistent with chronic pancreatitis. No adrenal mass lesion. Bilateral nonobstructive nephrolithiasis. No ureteral calculus or hydroureter onephrosis. Prominent calcification at the posterior left bladder base is again noted in addition to some surgica l clips. There is a Irizarry catheter within the urinary bladder. There is a moderate amount of air with in the bladder lumen, likely iatrogenic. Mild prostate enlargement. There is extensive calcification of the abdominal aorta with, calcification of the origins of the cecile iac and superior mesenteric and renal arteries, prominent inferior mesenteric artery calcification. N o abdominal aortic aneurysm. Prominent calcification of the common, internal and external iliac and f emoral arteries. No intraperitoneal or retroperitoneal or pelvic mass lesion or adenopathy or ascites is noted. No bowel obstruction or intraperitoneal free air is detected. Degenerative disease of the lower cervical spine. No suspicious osteolytic or osteoblastic lesions are noted. Bilateral L5 pars interarticularis defects with grade 2 anterolisthesis and severe degenerative disea se at L5-S1. 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 Reviewed, dictated and finalized at location A. 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
--- NOTE | ~2023-07-12 | US_ITS ---
US renal BI 07/16/2023 10:32 Procedure: Realtime transabdominal ultrasound of the kidneys and bladder. Indication: Acute renal insufficiency Comparison: CT dated 07/12/2023 Findings: Right renal echotexture is normal without hydronephrosis, contour deforming mass or renal s tone. The left kidney is not visualized due to overlying bowel gas. Bladder is unremarkable. Right ki dney measures 10.3 cm. There is fatty infiltration of the liver. There is a bladder stone. Impression: 1: Unremarkable right renal ultrasound. Left kidney not visualized due to bowel gas. 2: Bladder stone. Reviewed, dictated and finalized at location B. Impression: 1: Unremarkable right renal ultrasound. Left kidney not visualized due to bowel gas. 2: Bladder stone.
--- NOTE | ~2023-07-12 | XR_ITS ---
EXAMINATION: XR chest 1V portable DATE: 07/15/2023 09:30 INDICATION: Shortness of breath. TECHNIQUE: A single frontal view of the chest was obtained. COMPARISON: Chest view 07/14/2023 FINDINGS: There are airspace opacities in all lung zones bilaterally. No pleural effusion or pneumoth orax. The heart size is normal. A right upper extremity peripherally inserted central venous catheter (PICC) is seen with tip in the superior vena cava. A skin fold overlies left chest. IMPRESSION: 1. Stable diffuse lung disease, consistent with pulmonary edema versus pneumonia. Reviewed, dictated and finalized at location A. IMPRESSION: 1. Stable diffuse lung disease, consistent with pulmonary edema versus pneumoni a.
--- NOTE | 2023-07-12 00:58 | ECG_ITS ---
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 Measurements Intervals [place] Rate: 107 P: 42 IA: 128 QRS: 250 QRSD: 126 T: 19 QT: 394 QTc: 527 Interpretive Statements SINUS TACHYCARDIA MARKED RIGHT AXIS DEVIATION [QRS AXIS > 100] RIGHT BUNDLE BRANCH BLOCK [120+ ms QRS DURATION, UPRIGHT V1, 40+ ms S IN I/aVL/V4/V5/V6] POSSIBLE ANTERIOR MYOCARDIAL INFARCTION , OF INDETERMINATE AGE [30 ms Q WAVE IN V3/V4, OR R < 0.2 mV IN V4] No previous ECG available for comparison Electronically Signed On 07-12-2023 14:14:56 CDT by Jeri Perez M.D.
[2023-07-12 01:28] LABS: Basophils Percent Auto 0.3 % (0.2-1.2); Eosinophils Percent Auto 0.3 % (0-4.4); Hematocrit 30.2 % (42.0-52.0); Hemoglobin 9.5 g/dL (14.0-18.0); Immature Granulocyte Absolute 0.01 K/mm3 (0.00-0.031); Immature Granulocyte Percent A 0.1 % (0-0.5); Lymphocytes Absolute Auto 0.61 K/mm3 (0.9-3.2); Lymphocytes Percent Auto 8.9 % (18.3-44.2); Mean Corpuscular HGB Conc 31.5 g/dl (32-36); Mean Corpuscular Hemoglobin 26.2 pg (26-34); Mean Corpuscular Volume 83.2 fl (80-100); Mean Platelet Volume 10.5 fl (7.4-10.4); Monocytes Absolute Auto 0.5 K/mm3 (0.1-0.6); Monocytes Percent Auto 7.6 % (2.6-8.5); Neutrophils Absolute Auto 5.6 K/mm3 (1.3-6.7); Neutrophils Percent Auto 82.8 % (45.5-73.1); Platelet Count Result 311 k/mm3 (150-375); Red Blood Count 3.63 M/mm3 (4.6-6.20); Red Cell Distribution Width 14.2 % (11.5-14.5); White Blood Count 6.8 K/mm3 (4.5-10.0)
[2023-07-12] MEDS: ACETAMINOPHEN 650 MG SUPPOSITORY RECTAL ×2 (01:30→09:12)
[2023-07-12] MEDS: SODIUM CHLORIDE 0.9% IV 1,000 ML 999 ML IV CONT ×2 (01:30)
[2023-07-12 01:37] LABS: Lipase 22 U/L (23-300); Magnesium 1.5 mg/dL (1.6-2.3)
[2023-07-12 01:38] LABS: Lactic Acid Reflex 1.8 mmol/L (0.7-2.0)
[2023-07-12 01:43] LABS: Alanine Aminotransferase 10 U/L (6-50); Albumin Level 3.5 g/dL (3.5-5.1); Alkaline Phosphatase 67 U/L (38-126); Anion Gap 7 mmol/L (4-12); Aspartate Amino Transferase 22 U/L (17-59); Bilirubin,Total 0.6 mg/dL (0.2-1.3); Blood Urea Nitrogen 16 mg/dL (9-20); Calcium 9.1 mg/dL (8.4-10.2); Carbon Dioxide 27 mmol/L (22-30); Chloride 106 mmol/L (98-107); Estimated CRCL calculation 46 ml/min; Estimated Glomerular Filt Rate > 60; Glucose 168 mg/dL (65-110); Potassium 4.4 mmol/L (3.4-5.0); Sodium 140 mmol/L (137-145)
[2023-07-12 01:44] LABS: Alveolar/Arterial O2 Gradient 170.8 mmHg; Base Excess ABG -0.4 mEq/l (+/-2.0); Fractional Inspired Oxygen 40 %; HCO3 ABG 23.6 mEq/l (22.0-26.0); Oxygen Content ABG 14.3 %vol (16.0-22.0); Oxygen Saturation ABG 95.2 % (95.0-100.0); Oxyhemoglobin 93.6 % THb (90.0-100.0); PCO2 ABG 36.2 mmHg (35.0-45.0); PO2 ABG 72.8 mmHg (80.0-100.0); PO2 FiO2 Ratio Arterial Blood 1.82 %; Total Hemoglobin 10.8 g/dL (12.0-18.0); pH ABG 7.432 (7.350-7.450)
[2023-07-12 01:45] LABS: Device NASAL CANNULA; Site Drawn LEFT BRACHIAL
[2023-07-12 01:52] LABS: NT Pro B Type Natriuretic Pept 2510 pg/mL (19.9-100); Troponin I 0.041 ng/mL (0.000-0.034)
[2023-07-12 01:55] LABS: Procalcitonin 0.4 ng/mL
[2023-07-12 01:55] LABS: Appearance Urine Cloudy (Clear); Bacteria Urine None Seen /hpf; Bilirubin Urine Negative (Negative); Blood Urine 3+ (Negative); Color Urine Dark Yellow (Yellow); Glucose Urine UA Negative (Negative); Ketones Urine 2+ mg/dL (Negative); Leukocyte Esterase Ur Trace LEU/UL (Negative); Need Manual Microscopic Reviewed; Nitrate Urine Negative (Negative); Protein Urine 2+ mg/dL (Negative); RBC Urine >100 /hpf (0-2); Squamous Epithelial Cell Urine None Seen /hpf (Few); WBC Urine 21-50 /hpf (0-3); pH Urine 5.5 (5.0-9.0)
[2023-07-12 01:56] LABS: Add Urine Microscopic? YES
[2023-07-12 02:01] LABS: INR 1.1; Prothrombin Time 14.8 Seconds (11.1-14.7)
[2023-07-12 02:02] LABS: Partial Thromboplastin Time 33.8 Seconds (22.3-36.8)
[2023-07-12 02:04] LABS: Influenza A QL RT-PCR Negative (Negative); Influenza B QL RT-PCR Negative (Negative); RSV RNA, RT-PCR Negative (Negative); SARS-CoV-2 RNA PCR Negative (Negative)
[2023-07-12] MEDS: MAGNESIUM SULF 2 GM/WATER 50ML 2 GM/50 ML BAG IVPB (02:11)
[2023-07-12] MEDS: LORazepam INJ (*CRX) 2 MG/ML VIAL 0.5 MG IV PUSH (02:47)
[2023-07-12] MEDS: CEFEPIME 2 GM/NS 50 ML 2 GM/50 ML BAG IVPB (03:04)
[2023-07-12] MEDS: LORazepam INJ (*CRX) 2 MG/ML VIAL 1 MG IV PUSH (03:05)
[2023-07-12] MEDS: VANCOMYCIN 1,750 MG/NS 500 ML 1,750 MG/500 ML BAG 250 MG IVPB (03:54)
--- NOTE | 2023-07-12 04:16 | ECG_ITS ---
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 Measurements Intervals [place] Rate: 109 P: 60 [place]: 158 QRS: -8 QRSD: 86 T: 98 QT: 315 QTc: 425 Interpretive Statements SINUS TACHYCARDIA WITH FREQUENT SUPRAVENTRICULAR PREMATURE COMPLEXES LOW QRS VOLTAGE IN EXTREMITY LEADS [QRS DEFLECTION < 0.5 mV IN LIMB LEADS] MINIMAL ST DEPRESSION [0.025+ mV ST DEPRESSION] ABNORMAL QRS-T ANGLE [QRS-T AXIS DIFFERENCE > 60] Compared to ECG 07/12/2023 01:18:34 Low QRS voltage now present Right bundle-branch block no longer present Electronically Signed On 07-12-2023 14:16:02 CDT by Jeri Perez M.D.
[2023-07-12 04:33] LABS: MRSA (PCR) NOT DETECTED (NOT DETECTE)
[2023-07-12 04:33] LABS: Troponin I 0.049 ng/mL (0.000-0.034)
--- NOTE | 2023-07-12 04:46 | PC.NURSE ---
Addendum entered by Lizet Clifford RN 07/12/23 04:48: ERP also notified. Original Note: Pt sats 85% on 6L NC. Pt pulled up in bed, HOB elevated. Sats remain 88%. Resp called for alternative O2 method.
--- NOTE | 2023-07-12 04:55 | PC.NURSE ---
Per Resp, pt on 40L and 60% high flow O2
--- NOTE | 2023-07-12 05:18 | ED.GENADULT ---
HPI - General Adult General Chief complaint: Altered Mental Status Stated complaint: altered mental status Time Seen by Provider: 07/12/23 00:58 History of Present Illness HPI narrative: patient 78-year-old gentleman who presents emergency department with chief complaint of altered mental status and oxygen requirement increased. Patient recently for aspiration pneumonia discharge back to [place] and per the facility patient has been less responsive and has been short of breath and hypoxic. Related Data Home Medications Medication Instructions Recorded Confirmed cholecalciferol (vitamin D3) 125 mg PO DAILY 06/14/20 02/22/23 latanoprost 0.005 % eye drops 1 drp EACH EYE HS 06/14/20 02/22/23 losartan 50 mg tablet (Cozaar) 50 mg PO HS 09/13/21 02/22/23 albuterol sulfate 90 mcg/actuation 2 puff inhalation Q4H PRN 06/11/22 02/22/23 aerosol inhaler Shortness Of Breath Or Wheezing olanzapine 5 mg tablet 2.5 mg PO Q12H 06/11/22 02/22/23 trazodone 50 mg tablet 50 mg PO HS 06/11/22 02/22/23 insulin aspart U-100 100 unit/mL subcut 02/22/23 (3 mL) subcutaneous pen (Novolog FlexPen U-100 Insulin aspart) insulin aspart U-100 100 unit/mL subcut 02/22/23 (3 mL) subcutaneous pen (Novolog FlexPen U-100 Insulin aspart) albuterol sulfate 90 mcg/actuation 2 puff inhalation Q4H 06/24/23 06/24/23 aerosol inhaler aspirin 81 mg tablet 81 mg PO DAILY 06/24/23 06/24/23 budesonide 160 mcg-glycopyr 9 2 inh inhalation BID 06/24/23 06/24/23 mcg-formot 4.8 mcg/actuation HFA inhaler (Breztri Aerosphere) cholecalciferol (vitamin D3) 125 125 mcg PO DAILY 06/24/23 06/24/23 mcg (5,000 unit) capsule insulin aspart U-100 100 unit/mL See Protocol subcut AC 06/24/23 06/24/23 (3 mL) subcutaneous pen (Novolog FlexPen U-100 Insulin aspart) metformin 500 mg tablet 500 mg PO BID 06/24/23 06/24/23 ondansetron 4 mg disintegrating 4 mg translingual PC 06/24/23 06/24/23 tablet pen needle, diabetic, safety 30 06/24/23 06/24/23 gauge x 1/3 (Novofine Autocover) Allergies Allergy/AdvReac Type Severity Reaction Status Date / Time No Known Allergies Allergy Verified 06/25/23 08:38 Review of Systems Review of Systems: A 10 system review of systems was completed on the patient and is negative except for what is stated in the HPI. Nursing and ancillary documentation was reviewed. [facility] Past Medical History Medical History Anxiety Benign prostatic hyperplasia Cerebrovascular accident Chronic anemia Dementia Glaucoma Hypertension Insomnia Insulin dependent type 2 diabetes mellitus Kidney stones Overweight (BMI 25.0-29.9) Parkinsons Type 2 diabetes mellitus Surgical History Surgical History History of cataract extraction History of hernia repair Family History Family History Father Heart attack Alcoholism Mother Heart attack Heart disease Cerebrovascular accident Sibling Diabetes mellitus Heart disease Cerebrovascular accident Hypertension Cancer Social History Social History Social History: Code status: DNR/DNI Surrogate decision maker: Son Smoking packs per day: 1 Smoking cigarettes per day: 20.0 Years smoked: 30 Smoking pack-years: 30.00 Smoking status: Unknown if ever smoked Tobacco type: cigarettes Alcohol intake: unknown Drinks per week: 1 Substance use: unknown Substance use type: does not use Do You Feel Safe in your Home?: Yes Lack of Transportation: No Lack of Food: Never True Current Housing: I Have Housing Concerned About Future Housing: No Difficulty Paying Gas/Electric Bills: No Difficulty Paying for Meds: No Currently Unemployed: No Education: High School Diploma/GED Difficulty w/ Childcare
[2023-07-12] MEDS: SODIUM CHLORIDE 0.9% IV 1,000 ML 125 ML IV CONT ×2 (05:24→14:37)
--- NOTE | 2023-07-12 06:06 | PCDIET ---
Addendum entered by Kimberly Okeefe RN 07/12/23 07:43: GENERAL ADMIT NOTE Original Note: This patient, Joe Marion, was admitted to IMU Room 231-01. Patient/family oriented to hospital policies and general routines including ID bracelet, bed and alarms, visiting hours, pain management, procedures, bathroom and other care routines, personal items, smoking policy, room service/diet, and visiting hours. Information on how to activate the Rapid Response Team has been discussed. Patient/Family are encouraged to report perceived risks to care and to ask questions if they do not understand what they are told or what they should do.
[2023-07-12] MEDS: IPRATROPIUM 0.5 MG/ALBUTEROL SULFATE 2.5 MG AMPUL.NEB 3 ML INHALATION ×3 (08:10→20:08)
[2023-07-12 08:27] LABS: Troponin I 0.149 ng/mL (0.000-0.034)
--- NOTE | 2023-07-12 08:41 | ADMGEN ---
This patient, Joe Marion, was admitted to IMU Room 231-01 on 07/12/23 at 0605. Patient/family oriented to hospital policies and general routines including ID bracelet, bed and alarms, visiting hours, pain management, procedures, bathroom and other care routines, personal items, smoking policy, room service/diet, and visiting hours. Information on how to activate the Rapid Response Team has been discussed. Patient/Family are encouraged to report perceived risks to care and to ask questions if they do not understand what they are told or what they should do.
--- NOTE | 2023-07-12 09:26 | PM.IMHP ---
H&P: HPI History of Present Illness Date/Time: 07/12/23 09:26 Chief Complaint: Altered mental status hypoxia Narrative: patient 78-year-old gentleman who presents emergency department with chief complaint of altered mental status and oxygen requirement increased.? Patient recently for aspiration pneumonia discharge back to [place] and per the facility patient has been less responsive and has been short of breath and hypoxic. Patient unresponsive on BiPAP this a.m. while seen. Not in respiratory distress BiPAP was removed and was placed on oxygen via nasal cannula. Oxygen sat is Review of Systems Review of Systems: ROS unobtainable: Yes unobtainable due to mental status PMFSH Past Medical History Medical History Anxiety Benign prostatic hyperplasia Cerebrovascular accident Chronic anemia Dementia Glaucoma Hypertension Insomnia Insulin dependent type 2 diabetes mellitus Kidney stones Overweight (BMI 25.0-29.9) Parkinsons Type 2 diabetes mellitus Surgical History Surgical History History of cataract extraction History of hernia repair Family History Family History Father Heart attack Alcoholism Mother Heart attack Heart disease Cerebrovascular accident Sibling Diabetes mellitus Heart disease Cerebrovascular accident Hypertension Cancer Social History Social History Social History: Code status: DNR/DNI Surrogate decision maker: Son Smoking packs per day: 1 Smoking cigarettes per day: 20.0 Years smoked: 30 Smoking pack-years: 30.00 Smoking status: Unknown if ever smoked Tobacco type: cigarettes Alcohol intake: unknown Drinks per week: 1 Substance use: unknown Substance use type: unknown Do You Feel Safe in your Home?: Yes Lack of Transportation: No Lack of Food: Never True Current Housing: I Have Housing Concerned About Future Housing: No Difficulty Paying Gas/Electric Bills: No Difficulty Paying for Meds: No Currently Unemployed: No Education: High School Diploma/GED Difficulty w/ Childcare or Family Care: No Additional living arrangements comments: Resident at [facility]. with 1 son. Spiritual care concerns: No Meds Home Medications and Allergies Home Medications Medication Instructions Recorded Confirmed Type latanoprost 0.005 % eye drops 1 drp EACH EYE HS 06/14/20 07/12/23 History amlodipine 5 mg tablet (Norvasc) 5 mg PO DAILY #90 tabs 05/28/21 07/12/23 Rx oxybutynin chloride 5 mg 5 mg PO DAILY #90 tabs 08/27/21 07/12/23 Rx tablet,extended release 24 hr losartan 50 mg tablet (Cozaar) 50 mg PO HS 09/13/21 07/12/23 History albuterol sulfate 90 mcg/actuation 2 puff inhalation Q4H PRN 06/11/22 07/12/23 History aerosol inhaler Shortness Of Breath Or Wheezing olanzapine 5 mg tablet 5 mg PO Q12H 06/11/22 07/12/23 History trazodone 50 mg tablet 50 mg PO HS 06/11/22 07/12/23 History albuterol sulfate 90 mcg/actuation 2 puff inhalation Q4H 06/24/23 07/12/23 History aerosol inhaler aspirin 81 mg tablet 81 mg PO DAILY 06/24/23 07/12/23 History budesonide 160 mcg-glycopyr 9 2 inh inhalation BID 06/24/23 07/12/23 History mcg-formot 4.8 mcg/actuation HFA inhaler (Breztri Aerosphere) cholecalciferol (vitamin D3) 125 125 mcg PO DAILY 06/24/23 07/12/23 History mcg (5,000 unit) capsule insulin aspart U-100 100 unit/mL See Protocol subcut AC 06/24/23 07/12/23 History (3 mL) subcutaneous pen (Novolog FlexPen U-100 Insulin aspart) metformin 500 mg tablet 500 mg PO BID 06/24/23 07/12/23 History ondansetron 4 mg disintegrating 4 mg translingual PC 06/24/23 07/12/23 History tablet pen needle, diabetic, safety 30 06/24/23 07/12/23 History gauge x 1/3 (Novofine Autoc
[2023-07-12 10:58] LABS: Alveolar/Arterial O2 Gradient 175.5 mmHg; Base Excess ABG -3.9 mEq/l (+/-2.0); Device NASAL CANNULA; Fractional Inspired Oxygen 40 %; Modified Allen's Test Pass; Oxygen Content ABG 12.3 %vol (16.0-22.0); Oxygen Saturation ABG 95.2 % (95.0-100.0); Oxyhemoglobin 93.4 % THb (90.0-100.0); PCO2 ABG 31.7 mmHg (35.0-45.0); PO2 ABG 73.2 mmHg (80.0-100.0); PO2 FiO2 Ratio Arterial Blood 1.83 %; Site Drawn LEFT RADIAL; Total Hemoglobin 9.3 g/dL (12.0-18.0); pH ABG 7.417 (7.350-7.450)
[2023-07-12 12:33] LABS: Ammonia < 9 umol/L (9-30)
[2023-07-12 13:48] LABS: Glucose Point of Care 196 mg/dl (65-105)
[2023-07-12] MEDS: CEFEPIME 1 GM/NS 50 ML 1 GM/50 ML BAG IVPB (14:39)
[2023-07-12] MEDS: AZITHROMYCIN 500 MG/NS 250 ML 500 MG/250 ML BAG 250 MG IVPB (14:40)
[2023-07-12] MEDS: ONDANSETRON HCL ODT 4 MG TABLET SUBLINGUAL ×2 (14:42→18:23)
[2023-07-12] MEDS: LATANOPROST 0.005% OP SOLN 2.5 ML BTL 1 DROP EACH EYE (20:53)
[2023-07-12 23:56] LABS: Glucose Point of Care 154 mg/dl (65-105)
[2023-07-13] VITALS (27 sets, daily range): BP systolic 99–138; BP diastolic 59–74; PULSE 70–128; RESP 12–20; TEMP 36.4–37.8; O2SAT 84–100
[2023-07-13] MEDS: SODIUM CHLORIDE 0.9% IV 1,000 ML 125 ML IV CONT ×2 (00:20→10:31)
[2023-07-13] MEDS: IPRATROPIUM 0.5 MG/ALBUTEROL SULFATE 2.5 MG AMPUL.NEB 3 ML INHALATION ×4 (02:10→20:00)
[2023-07-13] MEDS: CEFEPIME 1 GM/NS 50 ML 1 GM/50 ML BAG IVPB ×2 (02:53→14:52)
[2023-07-13] MEDS: VANCOMYCIN 1,250 MG/NS 250 ML 1,250 MG/250 ML BAG 166.67 MG IVPB (03:41)
[2023-07-13 04:42] LABS: Basophils Percent Auto 0.2 % (0.2-1.2); Eosinophils Absolute Auto 0.1 K/mm3 (0-0.3); Eosinophils Percent Auto 0.4 % (0-4.4); Hematocrit 25.8 % (42.0-52.0); Hemoglobin 7.7 g/dL (14.0-18.0); Immature Granulocyte Absolute 0.12 K/mm3 (0.00-0.031); Immature Granulocyte Percent A 0.9 % (0-0.5); Lymphocytes Absolute Auto 1.06 K/mm3 (0.9-3.2); Lymphocytes Percent Auto 7.9 % (18.3-44.2); Mean Corpuscular HGB Conc 29.8 g/dl (32-36); Mean Corpuscular Hemoglobin 25.9 pg (26-34); Mean Corpuscular Volume 86.9 fl (80-100); Mean Platelet Volume 10.3 fl (7.4-10.4); Monocytes Absolute Auto 0.5 K/mm3 (0.1-0.6); Monocytes Percent Auto 3.5 % (2.6-8.5); Neutrophils Absolute Auto 11.7 K/mm3 (1.3-6.7); Neutrophils Percent Auto 87.1 % (45.5-73.1); Platelet Count Result 230 k/mm3 (150-375); Red Blood Count 2.97 M/mm3 (4.6-6.20); Red Cell Distribution Width 14.5 % (11.5-14.5); White Blood Count 13.4 K/mm3 (4.5-10.0)
[2023-07-13 04:58] LABS: Alanine Aminotransferase 11 U/L (6-50); Albumin Level 2.6 g/dL (3.5-5.1); Alkaline Phosphatase 52 U/L (38-126); Anion Gap 4 mmol/L (4-12); Aspartate Amino Transferase 31 U/L (17-59); Bilirubin,Total 0.4 mg/dL (0.2-1.3); Blood Urea Nitrogen 16 mg/dL (9-20); Calcium 7.7 mg/dL (8.4-10.2); Carbon Dioxide 22 mmol/L (22-30); Chloride 114 mmol/L (98-107); Estimated CRCL calculation 64 ml/min; Estimated Glomerular Filt Rate > 60; Glucose 148 mg/dL (65-110); Magnesium 1.8 mg/dL (1.6-2.3); Potassium 3.6 mmol/L (3.4-5.0); Sodium 140 mmol/L (137-145)
--- NOTE | 2023-07-13 08:38 | PCRCNOTE ---
Pt. unable to do DPI properly at this time. Omitted.
[2023-07-13] MEDS: CHOLECALCIFEROL 1,000 UNITS TABLET 5000 UNITS PO (08:55)
[2023-07-13] MEDS: ENOXAPARIN 40 MG/0.4 ML SYRINGE SUB-Q (08:56)
[2023-07-13] MEDS: oxyBUTYnin CHLORIDE XL 5 MG TAB.ER.24 PO (08:56)
[2023-07-13] MEDS: ASPIRIN 81 MG ENTERIC TABLET PO (08:56)
[2023-07-13] MEDS: OLANZapine 5 MG TABLET PO (08:56)
[2023-07-13] MEDS: amLODIPine BESYLATE 5 MG TABLET PO (08:56)
[2023-07-13] MEDS: ONDANSETRON HCL ODT 4 MG TABLET SUBLINGUAL (08:57)
--- NOTE | 2023-07-13 09:00 | PC.NURSE ---
Patient cough five minutes after receiving crushed meds in applesauce. No s/s of desaturation. Dr. Donnelly notified.
--- NOTE | 2023-07-13 11:41 | PM.IMPN ---
Progress Note: A&P Assessment and Plan (1) Pneumonia: Code(s): J18.9 - Pneumonia, unspecified organism Status: Acute (2) Acute hypoxic respiratory failure: Code(s): J96.01 - Acute respiratory failure with hypoxia Status: Acute (3) Hypomagnesemia: Code(s): E83.42 - Hypomagnesemia Status: Acute (4) Elevated troponin: Code(s): R79.89 - Other specified abnormal findings of blood chemistry Status: Acute (5) Parkinsons: Code(s): G20 - Parkinson's disease Status: Acute (6) Diabetes mellitus: Qualifiers: Diabetes mellitus complication status: with hyperglycemia Diabetes mellitus exterminator termite insulin use: with exterminator termite use Diabetes mellitus type: type 2 Qualified Code(s): E11.65 - Type 2 diabetes mellitus with hyperglycemia; Z79.4 - FDC (current) use of insulin Code(s): E11.9 - Type 2 diabetes mellitus without complications Status: Acute (7) Sepsis: Code(s): A41.9 - Sepsis, unspecified organism Status: Ruled-out Plan This is a 78-year-old male with past medical history significant for insulin-dependent diabetes mellitus, dementia. patient was brought to the emergency room due to altered mental status and hypoxia. He was recently admitted with the same with pneumonia. Was treated with IV antibiotics and was discharged. Has dysphagia and sewing glandular injection and aspiration. Was supposed to be on soft and bite size diet level with mildly thickened liquids. Initial workup in the ED showed fever with temperature 38.8? P tachycardic oxygen via nasal cannula at 6 L maintaining 97%. 0.8 electrolytes within normal limits. Lactic acid was a 1.8 at 1.5. Which was replaced. Elevated troponin 0.049. BNP was 2510. Lipase 22 procalcitonin was 0.4 urinalysis showed 21-50 wbc's. RSV were negative. Patient received fluid bolus in the ER was empirically started on vancomycin cefepime. Saturation on high-flow nasal cannula and hence was placed on BiPAP. Patient transferred to IMU for further treatment. ABG 7.43/36/72/23. Repeat troponin 0.041-0.04 9-0.149 Repeat ABG this a.m. 7.41/31/73/20. Chest x-ray with mild patchy infiltrate and/or atelectasis med and both lower lung zones. CT chest abdomen pelvis showed bilateral pulmonary infiltrates right greater than left probable mild reactive hard prominence. Mild emphysema. Pancreatic calcifications consistent with chronic pancreatitis bilateral nonobstructive nephrolithiasis. Bilateral L5 pars an articular surface defects with grade 2 anterolisthesis at L5-S1. Severe degenerative disc disease at L5-S1. Suspect aspiration on on the issue with repeated pneumonia Will continue antibiotics as ordered with vancomycin cefepime and azithromycin. Urine culture grew Enterococcus species. Blood culture remains negative to date. Continue current antibiotics Dysphagia coughing spell with diet. Speech to see. Will lower the IV fluid maintenance rate since NPO Underlying dementia [facility] resident? Sepsis needs criteria with altered mental status fever hypoxic respiratory failure continue IV antibiotics. Ammonia level was normal. Maintain oxygen supplementation to keep oxygen saturation more than 90%. DuoNebs as ordered. Altered mental status likely due to lorazepam he received on 07/12/2023 0.5 mg at 2:44 a.m. and 1 mg at 2:58 a.m. BPH History of stroke Hypertension Insulin-dependent type 2 diabetes mellitus Parkinson's disease Dysphagia Subjective Date/time seen: 07/13/23 11:41 Interval history: Patient is more alert today. Denies any new complaints. He stated he lives at home with his son. And came from there. He was recently discharged to [facility] after his hospital stay and discharged on 06/26/2023 Review of Systems Review of Systems: All systems reviewed & are unremarkable except as noted in HPI and below Exam Narrative: GENERAL: More alert oriented x2 not in acu
[2023-07-13 12:13] LABS: Glucose Point of Care 174 mg/dl (65-105)
--- NOTE | 2023-07-13 12:48 | PCSTNOTE ---
Please refer to the Bedside Swallow Evaluation in the EMR. Please note, silent aspiration cannot be ruled out at bedside.
--- NOTE | 2023-07-13 13:35 | PC.NURSE ---
This patient, Joe Marion, was transferred to [facility] via bed on 07/13/23 at 1335. Personal belongings sent with patient. Report given to DARRELL Padgett. Appropriate documentation sent with patient.
[2023-07-13] MEDS: AZITHROMYCIN 500 MG/NS 250 ML 500 MG/250 ML BAG 250 MG IVPB (13:47)
--- NOTE | 2023-07-13 14:21 | PCDIET ---
This patient, Joe Marion, was received from IMU on 07/13/23 at 1421. Report received from DARRELL Hall. Patient/family oriented to unit policies and routines
--- NOTE | 2023-07-13 16:44 | ECG_ITS ---
[facility] [address] Test Date: 2023-07-13 Pat Name: Joe Marion Department: Room: 256 Gender: M Division Leader: ELENA : 1945 Requested By: Carlos Donnelly Order Number: [id number] Reading MD: Paulo Verdugo M.D. Measurements Intervals [place] Rate: 124 P: 57 KS: 170 QRS: -9 QRSD: 101 T: 102 QT: 243 QTc: 350 Interpretive Statements SINUS TACHYCARDIA WITH OCCASIONAL SUPRAVENTRICULAR PREMATURE COMPLEXES LOW QRS VOLTAGE IN EXTREMITY LEADS [QRS DEFLECTION < 0.5 mV IN LIMB LEADS] ST SEGMENT ABNORMALITY CONSIDER ANTERIOR ISCHEMIA ABNORMAL ECG Compared to ECG 07/12/2023 04:03:39 NO SIGNIFICANT CHANGE Electronically Signed On 07-14-2023 07:21:47 CDT by Paulo Verdugo M.D.
[2023-07-13] MEDS: METOPROLOL TARTRATE INJ 5 MG/5 ML VIAL 2.5 MG IV PUSH (17:21)
[2023-07-13 18:11] LABS: Glucose Point of Care 153 mg/dl (65-105)
[2023-07-13] MEDS: LATANOPROST 0.005% OP SOLN 2.5 ML BTL 1 DROP EACH EYE (21:55)
--- NOTE | 2023-07-13 23:40 | ECG_ITS ---
[facility] [address] Test Date: 2023-07-13 Pat Name: Joe Marion Department: Room: 231 Gender: M Security Assurance Specialist: DARIEL : 1945 Requested By: Martha Dhaliwal Order Number: [id number] Andreia MD: Paulo Verdugo M.D. Measurements Intervals [place] Rate: 108 P: 38 VA: 132 QRS: -3 QRSD: 81 T: 120 QT: 309 QTc: 415 Interpretive Statements SINUS TACHYCARDIA LOW QRS VOLTAGE [QRS DEFLECTION < 0.5/1.0 mV IN LIMB/CHEST LEADS] NONSPECIFIC T-WAVE ABNORMALITY ABNORMAL ECG Compared to ECG 07/13/2023 16:09:[address] SEGMENT DEPRESSION IS IMPROVED Electronically Signed On 07-14-2023 07:34:01 CDT by Paulo Verdugo M.D.
[2023-07-14] VITALS (28 sets, daily range): BP systolic 96–124; BP diastolic 50–79; PULSE 95–123; RESP 20–40; TEMP 36.1–38.2; O2SAT 85–100
--- NOTE | 2023-07-14 | ECHO_ITS ---
Patient Info Name: Joe Marion Age: 78 years : 1945 Gender: Male Ht: 73 in Wt: 150 lbs BSA: 1.86 m2 HR: 111 bpm BP: 103 / 60 mmHg Heart Rhythm: Sinus Rhythm Technical Quality: Fair Exam Date: 07/14/2023 1:44 PM Exam Location: Echo Lab Patient Status: Inpatient Admit Date: 07/12/2023 Staff Ordering Physician: Carlos Donnelly MD [employer] Software Development Engineer: Bertrand Shannon [facility] Attending Provider: Morteza Guillen MD Exam Type: CA echo doppler color flow Study Info Indications I21.4 - Non-ST elevation (NSTEMI) myocardial infarction Complete two-dimensional, color flow and Doppler transthoracic echocardiogram is performed. Summary 1. Left ventricular chamber dimension is normal. 2. Left ventricular systolic function is moderately reduced, estimated at 30-35%. 3. There is hypokinesis of the mid anteroseptum, the apex, anterior wall. 4. Right ventricular systolic function is normal. 5. There is moderate mitral valve regurgitation. 6. There is mild tricuspid valve regurgitation. Left Ventricle There is hypokinesis of the mid anteroseptum, the apex, anterior wall. Left ventricular chamber dimension is normal. Left ventricular systolic function is moderately reduced, estimated at 30-35%. There is no increased left ventricular wall thickness. Right Ventricle Right ventricular chamber dimension is normal. Right ventricular systolic function is normal. Left Atria Left atrial chamber dimension is normal. Right Atria Right atrial chamber dimension is normal. Atrial Septum Intact interatrial septum visualized by color flow imaging. Aortic Valve The aortic valve is probable trileaflet. There is no aortic valve stenosis. There is no aortic valve regurgitation. There is moderate aortic valve calcification. Pulmonic Valve The pulmonic valve is not well visualized. Mitral Valve There is moderate mitral valve regurgitation. The mitral valve annulus is severely calcified. Tricuspid Valve There is mild tricuspid valve regurgitation. Pericardium/Pleural There is no pericardial effusion. Inferior Vena Cava Normal inferior vena cava with >50% collapse upon inspiration consistent with normal right atrial pressure, 3 mmHg. Aorta The aortic root size at the sinus of Valsalva is normal. Left Ventricular Outflow Tract Name Value Normal LVOT 2D LVOT Diameter 2.0 cm LVOT Doppler LVOT Peak Gradient 2 mmHg LVOT Mean Gradient 1 mmHg LVOT VTI 10 cm LVOT VTI/AV VTI Ratio 0.6 LVOT Stroke Volume 32 ml LVOT CO 3.4 l/min LVOT CI 1.8 l/min/m2 Pulmonic Valve Name Value Normal RVOT Doppler RVOT Peak Gradient 1 mmHg PV Doppler PV Peak Gradient
--- NOTE | 2023-07-14 00:58 | PC.NURSE ---
Message left for Orquidea about patient change in condition per Tello GillespieAgency Owner. Second contact, Luis, was able to be reached per Tello GillespieAgency Owner. Dr. Adrian did confirm with Luis per phone that patient is to be a DNR/ DNI.
[2023-07-14] MEDS: FUROSEMIDE INJ 40 MG/4 ML VIAL IV PUSH ×2 (01:24→17:45)
[2023-07-14] MEDS: IPRATROPIUM 0.5 MG/ALBUTEROL SULFATE 2.5 MG AMPUL.NEB 3 ML INHALATION ×4 (02:31→20:20)
[2023-07-14 02:45] LABS: Glucose Point of Care 158 mg/dl (65-105)
--- NOTE | 2023-07-14 02:54 | PM.EVENT ---
Event Note Event Note Event Note: Nursing staff called to notify me that the patient suddenly developed worsening hypoxic respiratory failure. The patient's oxygen requirement had went from 3 L up to a non-rebreather without improvement in oxygen saturations. He was still satting 80%. He had shallow respirations with coarse crackles and rhonchi bilaterally. The patient was only able to participate and minimal cough. He had been persistently tachycardic for about 12 hours. Stat EKG was performed and was consistent with sinus tachycardia. Stat chest x-ray demonstrated perihilar opacities consistent with pulmonary edema with a right upper lobe infiltrate noted. An order for 40 mg of IV Lasix was given. Patient had minimal urine output following Lasix. Patient was placed on BiPAP but had a large leak. Patient's mask was exchanged for smaller mask with still some leak but improved. Patient was pulling adequate to sometimes large tidal volumes. After being placed on BiPAP patient was still having some mild desaturations but with adjustments the patient condition improved significantly. He was much more alert and interactive. His color improved. BiPAP was adjusted to 14/8 with a rate of 18 and 100% FiO2. Patient's oxygen saturations were remaining at 99% in FiO2 was weaned. Stat labs were obtained with troponin come back elevated above 1.3 and lactic acid greater than 9. When the patient's labs returned as critical decision was made to transfer the patient to the IMU for closer monitoring. Will repeat troponin and lactic acid level. I am reluctant to give the patient fluid bolus although a meet sepsis criteria due to his worsening respiratory status. Pulmozyme as the patient does have a weak cough and could likely benefit from mobilization of secretions. We may need to consider adding vest therapy. Will continue antibiotic therapy with cefepime azithromycin and vancomycin. The patient has worsening elevation in troponin likely due to demand ischemia from acute hypoxic event and severe sepsis. However troponin is significantly elevated from comparison values on admission. Will start heparin drip. Will also provide aspirin rectally x1 as patient is NPO. However the patient has not had much urine output. Repeat labs have demonstrated evidence of shock liver, in the setting of lactic acidosis and low serum bicarb patient appears to be going into multiorgan system failure. Will check coag panel I had reviewed the patient's chart and the patient had had prior code status of DNR/DNI and multiple admissions including 1 at which I had admitted the patient. Nursing staff did contact the patient's son who was listed as the patient's surrogate decision maker. He confirmed with nursing staff the patient's code status is post be DNR/DNI from the start of admission. Patient had been placed as a full code from documentation provided in the snf records. I did discuss the patient's condition with his son who reiterated that he would not want heroic measures but is okay with patient being placed on BiPAP. He did mention that the patient had not passed a swallow eval and has not had any oral intake. He states the patient would never want a G-tube or enteral feedings. We did discuss that if the patient was not improving in the next couple of days that we may need to move forward with discussion of discharge on comfort based treatment/hospice. Patient's son did voice understanding. 1. Acute hypoxic respiratory failure 2. Pneumonia 3. Possible pulmonary edema 4. Severe sepsis 5. Non STEMI likely due to demand demand ischemia from above causes 6. Parkinson's disease end-stage with dysphagia 7. Acute kidney injury 8. Severe lactic acidosis 9. Shock liver 10. End of life care discussion 80 minutes spent in critical care activities. Due to a high probability of clinically significant, life threatening deterioration, the patient required my highest level
[2023-07-14 03:00] LABS: Basophils Percent Auto 0.2 % (0.2-1.2); Hemoglobin 10.1 g/dL (14.0-18.0); Immature Granulocyte Absolute 0.17 K/mm3 (0.00-0.031); Immature Granulocyte Percent A 1.4 % (0-0.5); Lymphocytes Absolute Auto 0.37 K/mm3 (0.9-3.2); Lymphocytes Percent Auto 3.1 % (18.3-44.2); Mean Corpuscular HGB Conc 27.3 g/dl (32-36); Mean Corpuscular Hemoglobin 25.8 pg (26-34); Mean Corpuscular Volume 94.6 fl (80-100); Mean Platelet Volume 10.8 fl (7.4-10.4); Monocytes Absolute Auto 0.4 K/mm3 (0.1-0.6); Monocytes Percent Auto 3.1 % (2.6-8.5); Neutrophils Percent Auto 92.2 % (45.5-73.1); Platelet Count Result 259 k/mm3 (150-375); Red Blood Count 3.91 M/mm3 (4.6-6.20); Red Cell Distribution Width 14.6 % (11.5-14.5); White Blood Count 11.9 K/mm3 (4.5-10.0)
[2023-07-14 03:01] LABS: Vancomycin Trough 9.5 ug/mL (10.0-20.0)
[2023-07-14 03:04] LABS: Alanine Aminotransferase 1115 U/L (6-50); Albumin Level 3.4 g/dL (3.5-5.1); Alkaline Phosphatase 88 U/L (38-126); Anion Gap 16 mmol/L (4-12); Aspartate Amino Transferase 2365 U/L (17-59); Bilirubin,Total 1.1 mg/dL (0.2-1.3); Blood Urea Nitrogen 18 mg/dL (9-20); Calcium 8.4 mg/dL (8.4-10.2); Carbon Dioxide 13 mmol/L (22-30); Chloride 115 mmol/L (98-107); Estimated CRCL calculation 40 ml/min; Estimated Glomerular Filt Rate 53; Glucose 179 mg/dL (65-110); Potassium 4.9 mmol/L (3.4-5.0); Sodium 144 mmol/L (137-145)
[2023-07-14] MEDS: CEFEPIME 1 GM/NS 50 ML 1 GM/50 ML BAG IVPB (03:10)
[2023-07-14 03:17] LABS: Anisocytosis 1+; Hypochromasia 1+; Platelet Clumps Present; Platelet Estimate Adequate (Adequate); Poikilocytosis 1+
[2023-07-14 03:18] LABS: Burr Cells 1+; Schistocytes None Seen
[2023-07-14] MEDS: SODIUM BICARBONATE 8.4% 50 MEQ/50 ML SYRINGE IV PUSH (03:30)
[2023-07-14] MEDS: ASPIRIN 300 MG SUPPOSITORY RECTAL (03:30)
[2023-07-14] MEDS: SODIUM CHLORIDE 0.9% IV 100 ML (03:30)
[2023-07-14 03:56] LABS: NT Pro B Type Natriuretic Pept 16000 pg/mL (19.9-100)
[2023-07-14 04:00] LABS: Reflex Lactic Acid Yes or No Add Lactic
[2023-07-14] MEDS: VANCOMYCIN 1,000 MG/NS 250 ML 1,000 MG/250 ML BAG 250 MG IVPB (04:00)
[2023-07-14 04:33] LABS: INR 1.8; Prothrombin Time 21.6 Seconds (11.1-14.7)
[2023-07-14 04:34] LABS: Fibrinogen 477 mg/dl (215-510)
[2023-07-14 04:38] LABS: D Dimer 3.89 ug/mL (<0.48)
[2023-07-14 04:54] LABS: Lactic Acid 4.9 mmol/L (0.7-2.0)
[2023-07-14] MEDS: SODIUM BICARBONATE 8.4% 150 MEQ in DEXTROSE 5% 1,000 ML 950 ML 75 MEQ IV CONT (05:25)
[2023-07-14] MEDS: HEPARIN SODIUM 5,000 UNITS/ML VIAL 4000 UNITS IV PUSH ×2 (05:26→12:16)
[2023-07-14] MEDS: HEPARIN SOD/D5W 100 UNITS/ML 25,000 UNITS/250 ML BAG 8 UNITS IV CONT (05:35)
[2023-07-14 07:12] LABS: MRSA (PCR) NOT DETECTED (NOT DETECTE)
[2023-07-14 07:24] LABS: Glucose Point of Care 283 mg/dl (65-105)
[2023-07-14] MEDS: DORNASE ALFA INH SOLN 1 MG/ML 2.5 ML AMP 2.5 MG INHALATION ×2 (08:27→20:21)
[2023-07-14 09:18] LABS: Albumin Level 2.9 g/dL (3.5-5.1); Alkaline Phosphatase 84 U/L (38-126); Anion Gap 10 mmol/L (4-12); Bilirubin,Total 0.8 mg/dL (0.2-1.3); Blood Urea Nitrogen 26 mg/dL (9-20); Calcium 8.3 mg/dL (8.4-10.2); Carbon Dioxide 20 mmol/L (22-30); Chloride 114 mmol/L (98-107); Estimated CRCL calculation 30 ml/min; Estimated Glomerular Filt Rate 37; Glucose 277 mg/dL (65-110); Potassium 4.9 mmol/L (3.4-5.0); Sodium 144 mmol/L (137-145)
[2023-07-14 10:28] LABS: Alanine Aminotransferase 1530 U/L (6-50); Aspartate Amino Transferase 3551 U/L (17-59)
[2023-07-14 11:30] LABS: Glucose Point of Care 247 mg/dl (65-105)
[2023-07-14 11:35] LABS: Basophils Percent Auto 0.1 % (0.2-1.2); Hematocrit 27.4 % (42.0-52.0); Hemoglobin 8.5 g/dL (14.0-18.0); Immature Granulocyte Absolute 0.08 K/mm3 (0.00-0.031); Immature Granulocyte Percent A 0.6 % (0-0.5); Lymphocytes Absolute Auto 0.82 K/mm3 (0.9-3.2); Lymphocytes Percent Auto 6.1 % (18.3-44.2); Mean Corpuscular Hemoglobin 26.2 pg (26-34); Mean Corpuscular Volume 84.3 fl (80-100); Monocytes Absolute Auto 0.3 K/mm3 (0.1-0.6); Monocytes Percent Auto 1.9 % (2.6-8.5); Neutrophils Absolute Auto 12.2 K/mm3 (1.3-6.7); Neutrophils Percent Auto 91.3 % (45.5-73.1); Platelet Count Result 247 k/mm3 (150-375); Red Blood Count 3.25 M/mm3 (4.6-6.20); Red Cell Distribution Width 14.6 % (11.5-14.5); White Blood Count 13.4 K/mm3 (4.5-10.0)
[2023-07-14 11:50] LABS: Partial Thromboplastin Time 49.6 Seconds (22.3-36.8)
[2023-07-14 12:19] LABS: Albumin Level 2.8 g/dL (3.5-5.1); Alkaline Phosphatase 82 U/L (38-126); Anion Gap 6 mmol/L (4-12); Bilirubin,Total 0.8 mg/dL (0.2-1.3); Blood Urea Nitrogen 33 mg/dL (9-20); Calcium 8.3 mg/dL (8.4-10.2); Carbon Dioxide 24 mmol/L (22-30); Chloride 114 mmol/L (98-107); Estimated CRCL calculation 30 ml/min; Estimated Glomerular Filt Rate 37; Glucose 264 mg/dL (65-110); Potassium 4.4 mmol/L (3.4-5.0); Sodium 144 mmol/L (137-145)
[2023-07-14 12:35] LABS: Alanine Aminotransferase 1426 U/L (6-50)
[2023-07-14 12:40] LABS: Aspartate Amino Transferase 3729 U/L (17-59)
[2023-07-14] MEDS: LIDOCAINE HCL 1% PF INJ 5 ML VIAL INFILTRATE (16:00)
--- NOTE | 2023-07-14 16:04 | PM.IMPN ---
Progress Note: A&P Assessment and Plan (1) Pneumonia: Code(s): J18.9 - Pneumonia, unspecified organism Status: Acute (2) Acute hypoxic respiratory failure: Code(s): J96.01 - Acute respiratory failure with hypoxia Status: Acute (3) Hypomagnesemia: Code(s): E83.42 - Hypomagnesemia Status: Acute (4) Elevated troponin: Code(s): R79.89 - Other specified abnormal findings of blood chemistry Status: Acute (5) Parkinsons: Code(s): G20 - Parkinson's disease Status: Acute (6) Diabetes mellitus: Qualifiers: Diabetes mellitus complication status: with hyperglycemia Diabetes mellitus termite control representative insulin use: with termite control representative use Diabetes mellitus type: type 2 Qualified Code(s): E11.65 - Type 2 diabetes mellitus with hyperglycemia; Z79.4 - senior living (current) use of insulin Code(s): E11.9 - Type 2 diabetes mellitus without complications Status: Acute (7) Sepsis: Code(s): A41.9 - Sepsis, unspecified organism Status: Ruled-out Plan This is a 78-year-old male with past medical history significant for insulin-dependent diabetes mellitus, dementia. patient was brought to the emergency room due to altered mental status and hypoxia. He was recently admitted with the same with pneumonia. Was treated with IV antibiotics and was discharged. Has dysphagia and sewing glandular injection and aspiration. Was supposed to be on soft and bite size diet level with mildly thickened liquids. Initial workup in the ED showed fever with temperature 38.8? P tachycardic oxygen via nasal cannula at 6 L maintaining 97%. 0.8 electrolytes within normal limits. Lactic acid was a 1.8 at 1.5. Which was replaced. Elevated troponin 0.049. BNP was 2510. Lipase 22 procalcitonin was 0.4 urinalysis showed 21-50 wbc's. RSV were negative. Patient received fluid bolus in the ER was empirically started on vancomycin cefepime. Saturation on high-flow nasal cannula and hence was placed on BiPAP. Patient transferred to IMU for further treatment. ABG 7.43/36/72/23. Repeat troponin 0.041-0.04 9-0.149 Repeat ABG this a.m. 7.41/31/73/20. Chest x-ray with mild patchy infiltrate and/or atelectasis med and both lower lung zones. CT chest abdomen pelvis showed bilateral pulmonary infiltrates right greater than left probable mild reactive hard prominence. Mild emphysema. Pancreatic calcifications consistent with chronic pancreatitis bilateral nonobstructive nephrolithiasis. Bilateral L5 pars an articular surface defects with grade 2 anterolisthesis at L5-S1. Severe degenerative disc disease at L5-S1. Suspect aspiration on on the issue with repeated pneumonia Continue antibiotics as ordered with vancomycin cefepime and azithromycin. Urine culture grew Enterococcus species. Blood culture remains negative to date. Continue current antibiotics Dysphagia coughing spell with diet. Speech to see and recommended NPO. Will lower the IV fluid maintenance rate since NPO Underlying dementia long-term resident? Sepsis needs criteria with altered mental status fever hypoxic respiratory failure continue IV antibiotics. Ammonia level was normal. Maintain oxygen supplementation to keep oxygen saturation more than 90%. DuoNebs as ordered. Altered mental status likely due to lorazepam he received on 07/12/2023 0.5 mg at 2:44 a.m. and 1 mg at 2:58 a.m. Patient decompensated with worsening hypoxia overnight on 07/13/2023. Saturation has lowered to 80% chest x-ray with worsening right upper lobe infiltrate. One dose of Lasix was given repeat labs suggestive of shock liver mild LONA severe lactic acidosis. Elevated troponin suggestive of non ST elevation TN. for which heparin has been started. Rectal aspirin was given. Will order echocardiogram and cardiology consultation. Suspected aspiration pneumonia more so than congestive changes. Though BNP was quite elevated. Acidosis has resolved. Will switch bicarb
[2023-07-14] MEDS: AMPICILLIN SULB 3 GM/NS 100 ML 3 GM/100 ML VIAL IVPB (16:45)
[2023-07-14] MEDS: SODIUM CHLORIDE 0.9% IV 1,000 ML 50 ML IV CONT (16:45)
[2023-07-14] MEDS: AZITHROMYCIN 500 MG/NS 250 ML 500 MG/250 ML BAG 250 MG IVPB (16:48)
[2023-07-14 18:14] LABS: Glucose Point of Care 222 mg/dl (65-105)
[2023-07-14 19:14] LABS: Lactic Acid Reflex 3.1 mmol/L (0.7-2.0)
[2023-07-14 19:25] LABS: Partial Thromboplastin Time 93.8 Seconds (22.3-36.8)
[2023-07-14 22:00] LABS: Reflex Lactic Acid Yes or No Add Lactic
[2023-07-14 22:50] LABS: Lactic Acid 2.5 mmol/L (0.7-2.0)
[2023-07-15] VITALS (35 sets, daily range): BP systolic 108–123; BP diastolic 48–73; PULSE 11–126; RESP 20–32; TEMP 36.1–37.4; O2SAT 91–100
[2023-07-15] MEDS: LATANOPROST 0.005% OP SOLN 2.5 ML BTL 1 DROP EACH EYE ×2 (00:41→20:51)
[2023-07-15] MEDS: AMPICILLIN SULB 3 GM/NS 100 ML 3 GM/100 ML VIAL IVPB ×4 (00:43→20:50)
[2023-07-15] MEDS: CENTRAL LINE FLUSH 10 ML IV PUSH ×4 (00:43→20:51)
[2023-07-15 00:48] LABS: Glucose Point of Care 259 mg/dl (65-105)
[2023-07-15] MEDS: IPRATROPIUM 0.5 MG/ALBUTEROL SULFATE 2.5 MG AMPUL.NEB 3 ML INHALATION ×4 (02:14→19:52)
[2023-07-15] MEDS: HEPARIN SOD/D5W 100 UNITS/ML 25,000 UNITS/250 ML BAG 11 UNITS IV CONT (03:48)
[2023-07-15 05:58] LABS: Basophils Percent Auto 0.3 % (0.2-1.2); Hematocrit 29.2 % (42.0-52.0); Hemoglobin 9.1 g/dL (14.0-18.0); Immature Granulocyte Absolute 0.08 K/mm3 (0.00-0.031); Immature Granulocyte Percent A 0.9 % (0-0.5); Lymphocytes Absolute Auto 0.69 K/mm3 (0.9-3.2); Lymphocytes Percent Auto 7.4 % (18.3-44.2); Mean Corpuscular HGB Conc 31.2 g/dl (32-36); Mean Corpuscular Hemoglobin 25.9 pg (26-34); Mean Platelet Volume 10.6 fl (7.4-10.4); Monocytes Absolute Auto 0.3 K/mm3 (0.1-0.6); Monocytes Percent Auto 3.6 % (2.6-8.5); Neutrophils Absolute Auto 8.2 K/mm3 (1.3-6.7); Neutrophils Percent Auto 87.8 % (45.5-73.1); Platelet Count Result 244 k/mm3 (150-375); Red Blood Count 3.52 M/mm3 (4.6-6.20); Red Cell Distribution Width 14.6 % (11.5-14.5); White Blood Count 9.4 K/mm3 (4.5-10.0)
[2023-07-15 06:01] LABS: Albumin Level 2.8 g/dL (3.5-5.1); Alkaline Phosphatase 98 U/L (38-126); Anion Gap 8 mmol/L (4-12); Bilirubin,Total 0.9 mg/dL (0.2-1.3); Blood Urea Nitrogen 45 mg/dL (9-20); Calcium 8.1 mg/dL (8.4-10.2); Carbon Dioxide 22 mmol/L (22-30); Chloride 114 mmol/L (98-107); Estimated CRCL calculation 19 ml/min; Estimated Glomerular Filt Rate 21; Glucose 240 mg/dL (65-110); Magnesium 1.9 mg/dL (1.6-2.3); Potassium 3.9 mmol/L (3.4-5.0); Sodium 144 mmol/L (137-145)
[2023-07-15 06:12] LABS: Alanine Aminotransferase 993 U/L (6-50); Aspartate Amino Transferase 1407 U/L (17-59)
[2023-07-15 07:16] LABS: Partial Thromboplastin Time 73.8 Seconds (22.3-36.8)
[2023-07-15] MEDS: DORNASE ALFA INH SOLN 1 MG/ML 2.5 ML AMP 2.5 MG INHALATION ×2 (07:53→19:52)
[2023-07-15] MEDS: ASPIRIN 300 MG SUPPOSITORY RECTAL (08:28)
--- NOTE | 2023-07-15 09:32 | PM.CNCAR ---
Assessment and Plan Assessment and plan (1) Non-ST elevation DC (NSTEMI): Code(s): I21.4 - Non-ST elevation (NSTEMI) myocardial infarction Status: Acute Assessment and Plan: Will pursue medical management. Agree with Heparin drip for now. Continue ASA rectally as patient unable to take PO. Echocardiogram ordered and pending. (2) Acute hypoxic respiratory failure: Code(s): J96.01 - Acute respiratory failure with hypoxia Status: Acute Assessment and Plan: On BIPAP. Would hold off on further doses of IV Lasix given worsening renal function. (3) Sepsis: Code(s): A41.9 - Sepsis, unspecified organism Status: Ruled-out Assessment and Plan: On antibiotics as per primary team. (4) Hypertension associated with diabetes: Code(s): E11.59 - Type 2 diabetes mellitus with other circulatory complications; I15.2 - Hypertension secondary to endocrine disorders Status: Acute Assessment and Plan: Blood pressures are stable, home antihypertensives are on hold for now. (5) History of CVA (cerebrovascular accident): Code(s): Z86.73 - Personal history of transient ischemic attack (TIA), and cerebral infarction without residual deficits Status: Acute Assessment and Plan: Continue ASA rectally as patient unable to take PO. (6) Insulin dependent type 2 diabetes mellitus: Code(s): E11.9 - Type 2 diabetes mellitus without complications; Z79.4 - shelter (current) use of insulin Status: Acute Assessment and Plan: Management as per primary team. (7) Altered mental status: Code(s): R41.82 - Altered mental status, unspecified Status: Acute Assessment and Plan: Workup and management as per primary team. (8) Acute kidney injury: Code(s): N17.9 - Acute kidney failure, unspecified Status: Acute Assessment and Plan: Would hold off on further doses of IV Lasix given worsening renal function. Plan Prognosis is guarded. Recommendations and plan discussed with Hospitalist. History of Present Illness History of Present Illness Consult date/time: 07/15/23 09:32 Requesting physician: Carlos Donnelly MD Consult reason: Other (NSTEMI) Reason For Visit: sepsis, pneumonia, hypoxic resp failure, uti Narrative: We are consulted for NSTEMI. Patient is not responsive at the time of my evaluation, therefore, cannot obtain any history from the patient, no family at bedside. Therefore, history obtained from the medical chart and the medical team. This is a 78 year old male with insulin-dependent diabetes, dementia, history of CVA, hypertension, Parkinson's who was admitted on 07/11 for altered mental status and hypoxia. On 07/13, patient had worsening hypoxic respiratory failure. He was placed on BIPAP with improvement. Troponin elevated at 1.3 and lactate greater than 9. Started on Heparin drip, given ASA rectally as patient was NPO. Patient developed multiorgan system failure. SCr on admission was normal, however, now up to 2.9. Lactate has improved from 9 to 2.5. Liver enzymes are elevated. Troponins on admission were 0.041, 0.049, 0.149, however on 07/13, troponins are 1.380, 3.720, 6.570. CXR with diffuse lung disease, consistent with pulmonary edema versus pneumonia. EKGs with sinus tachycardia, low voltage, nonspecific STTW abnormality. EKG o n 07/[address]ressions, however repeat EKG after that with improvement in ST changes. Review of Systems Review of Systems: ROS unobtainable: Yes unobtainable due to mental status PMFSH Past Medical History Medical History Anxiety Benign prostatic hyperplasia Cerebrovascular accident Chronic anemia Dementia Glaucoma Hypertension Insomnia Insulin dependent type 2 diabetes mellitus Kidney stones Overweight (BMI 25.0-29.9) Parkinsons Type 2 diabetes mellitus Surgical History Surgical Histo
--- NOTE | 2023-07-15 09:40 | PM.CNNEP ---
Assessment and Plan Assessment and plan (1) Acute kidney injury: Code(s): N17.9 - Acute kidney failure, unspecified Status: Acute Assessment and Plan: normal renal function at baseline despite this, given his risk factor profile, may have some underlying renal dysfunction/CKD acute insult likely multifatorial ATN from: infection/sepsis NSTEMI acute respiratory failure/hypoxia need for diuresis check renal ultrasound, urine studies and CPK follow trend of repeat labs and UOP (2) Acute hypoxic respiratory failure: Code(s): J96.01 - Acute respiratory failure with hypoxia Status: Acute Assessment and Plan: felt to be due to ongoing aspiration pneumonia oxygen/BiPAP support DNR/DNI status confirmed (3) Altered mental status: Code(s): R41.82 - Altered mental status, unspecified Status: Acute Assessment and Plan: complicated by known dementia due to infection/sepsis (?) no significant improvement in status despite maximal therapy (4) Pneumonia: Code(s): J18.9 - Pneumonia, unspecified organism Status: Acute Assessment and Plan: most likely due to recurrent aspiration family has refused G-tube placement in the past continue respiratory support on antibiotics follow culture data (5) Hypertension: Code(s): I10 - Essential (primary) hypertension Status: Chronic Assessment and Plan: reasonable control follow the trend of hemodynamics (6) Diabetes mellitus: Qualifiers: Diabetes mellitus complication status: with hyperglycemia Diabetes mellitus long term care pharmacist insulin use: with custodial use Diabetes mellitus type: type 2 Qualified Code(s): E11.65 - Type 2 diabetes mellitus with hyperglycemia; Z79.4 - alf (current) use of insulin Code(s): E11.9 - Type 2 diabetes mellitus without complications Status: Chronic Assessment and Plan: follow accu-cheks glycemic control per hospitalists I will continue follow the patient with you while he remains hospitalized and make further recommendations as deemed necessary. Thank you for allowing me to participate care of this patient. History of Present Illness Reason for Consult Consult date: 07/15/23 Reason for consult: acute renal failure Chief Complaint Chief complaint: sepsis, pneumonia, hypoxic resp failure, uti History of Present Illness Narrative: Almost all the information that I have obtained is from review of the electronic medical record as the patient is currently altered with regard to his mental status and has declined in general in the last 24 hours and he is unable to provide any history at this time. The patient is a 78-year-old male with a past medical history as outlined below who was transferred to [facility] Emergency Room from his nursing facility further evaluation of altered mental status and hypoxia. It should be noted the patient was just recently hospitalized last month for sepsis thought to be secondary to a urinary tract infection and aspiration pneumonia for which she received appropriate treatment prior to his discharge back to his nursing facility. From what records I am able to review, even when he was discharged back to his nursing facility following his recent bout of sepsis / aspiration pneumonia/ urinary tract infection, he has been progressively getting less and less responsive in general. Reportedly, he has also been having issues and problems with shortness of breath and hypoxia although I am unclear if this was going on following his most recent discharge for more recently. The patient has underlying dementia so I am unclear what change has occurred regarding his altered mental status other than his decreased responsiveness. In any case, due to his change in status, he was sent to the emergency room for further assessment. Workup and evaluation emergency room demonstrated th
--- NOTE | 2023-07-15 09:40 | P.CONNP_ITS ---
Assessment and Plan Assessment and plan (1) Acute kidney injury: Code(s): N17.9 - Acute kidney failure, unspecified Status: Acute Assessment and Plan: * normal renal function at baseline * despite this, given his risk factor profile, may have some underlying renal dysfunction/CKD * acute insult likely multifatorial ATN from: * infection/sepsis * NSTEMI * acute respiratory failure/hypoxia * need for diuresis * check renal ultrasound, urine studies and CPK * follow trend of repeat labs and UOP (2) Acute hypoxic respiratory failure: Code(s): J96.01 - Acute respiratory failure with hypoxia Status: Acute Assessment and Plan: * felt to be due to ongoing aspiration pneumonia * oxygen/BiPAP support * DNR/DNI status confirmed (3) Altered mental status: Code(s): R41.82 - Altered mental status, unspecified Status: Acute Assessment and Plan: * complicated by known dementia * due to infection/sepsis (?) * no significant improvement in status despite maximal therapy (4) Pneumonia: Code(s): J18.9 - Pneumonia, unspecified organism Status: Acute Assessment and Plan: * most likely due to recurrent aspiration * family has refused G-tube placement in the past * continue respiratory support * on antibiotics * follow culture data (5) Hypertension: Code(s): I10 - Essential (primary) hypertension Status: Chronic Assessment and Plan: * reasonable control * follow the trend of hemodynamics (6) Diabetes mellitus: Qualifiers: Diabetes mellitus complication status: with hyperglycemia Diabetes mellitus senior care insulin use: with nutrition tech use Diabetes mellitus type: type 2 Qualified Code(s): E11.65 - Type 2 diabetes mellitus with hyperglycemia; Z79.4 - long-term (current) use of insulin Code(s): E11.9 - Type 2 diabetes mellitus without complications Status: Chronic Assessment and Plan: * follow accu-cheks * glycemic control per hospitalists I will continue follow the patient with you while he remains hospitalized and make further recommendations as deemed necessary. Thank you for allowing me to participate care of this patient. History of Present Illness Reason for Consult Consult date: 07/15/23 Reason for consult: acute renal failure Chief Complaint Chief complaint: sepsis, pneumonia, hypoxic resp failure, uti History of Present Illness Narrative: Almost all the information that I have obtained is from review of the electronic medical record as the patient is currently altered with regard to his mental status and has declined in general in the last 24 hours and he is unable to pr ovide any history at this time. The patient is a 78-year-old male with a past medical history as outlined below who was transferred to [facility] Emergency Room from his nursing facility further evaluation of altered mental status and hypoxia. It should be noted the patient was just recently hospitalized last month for sepsis thought to be secondary to a urinary tract infection and aspiration pneumonia for which she received appropriate treatment prior to his discharge back to his nursing facility. From what records I am able to review, even when he was discharged back to his nursing facility following his recent bout of sepsis / aspiration pneumonia/ urinary tract infection, he has been progressively getting less and less responsive in general. Reportedly, he has also been having issues and problems with shortness of breath an
[2023-07-15] MEDS: METOPROLOL TARTRATE INJ 5 MG/5 ML VIAL 2.5 MG IV PUSH ×3 (10:41→18:56)
--- NOTE | 2023-07-15 10:58 | PC.NURSE ---
Notified MD patient is sinus tach, PRN metoprolol 2.5mg given.
[2023-07-15 12:04] LABS: Glucose Point of Care 249 mg/dl (65-105)
--- NOTE | 2023-07-15 13:02 | PM.IMPN ---
Progress Note: A&P Assessment and Plan (1) Pneumonia: Code(s): J18.9 - Pneumonia, unspecified organism Status: Acute (2) Acute hypoxic respiratory failure: Code(s): J96.01 - Acute respiratory failure with hypoxia Status: Acute (3) Hypomagnesemia: Code(s): E83.42 - Hypomagnesemia Status: Acute (4) Elevated troponin: Code(s): R79.89 - Other specified abnormal findings of blood chemistry Status: Acute (5) Parkinsons: Code(s): G20 - Parkinson's disease Status: Acute (6) Diabetes mellitus: Qualifiers: Diabetes mellitus complication status: with hyperglycemia Diabetes mellitus remote computer terminal operator insulin use: with remote computer terminal operator use Diabetes mellitus type: type 2 Qualified Code(s): E11.65 - Type 2 diabetes mellitus with hyperglycemia; Z79.4 - alf (current) use of insulin Code(s): E11.9 - Type 2 diabetes mellitus without complications Status: Acute (7) Sepsis: Code(s): A41.9 - Sepsis, unspecified organism Status: Ruled-out Plan This is a 78-year-old male with past medical history significant for insulin-dependent diabetes mellitus, dementia. patient was brought to the emergency room due to altered mental status and hypoxia. He was recently admitted with the same with pneumonia. Was treated with IV antibiotics and was discharged. Has dysphagia with laryngeal penetration and aspiration. Was supposed to be on soft and bite size diet level with mildly thickened liquids. Initial workup in the ED showed fever with temperature 38.8? P tachycardic oxygen via nasal cannula at 6 L maintaining 97%. 0.8 electrolytes within normal limits. Lactic acid was a 1.8 at 1.5. Which was replaced. Elevated troponin 0.049. BNP was 2510. Lipase 22 procalcitonin was 0.4 urinalysis showed 21-50 wbc's. RSV were negative. Patient received fluid bolus in the ER was empirically started on vancomycin cefepime. Saturation on high-flow nasal cannula and hence was placed on BiPAP. Patient transferred to IMU for further treatment. ABG 7.43/36/72/23. Troponin trend 0.041-0.04 9-0.149 Repeat ABG 7.41/31/73/20. Chest x-ray with mild patchy infiltrate and/or atelectasis med and both lower lung zones. CT chest abdomen pelvis showed bilateral pulmonary infiltrates right greater than left probable mild reactive hard prominence. Mild emphysema. Pancreatic calcifications consistent with chronic pancreatitis bilateral nonobstructive nephrolithiasis. Bilateral L5 pars an articular surface defects with grade 2 anterolisthesis at L5-S1. Severe degenerative disc disease at L5-S1. Suspect aspiration is and ongoing issue with repeated pneumonia Continue antibiotics as ordered with vancomycin cefepime and azithromycin. Urine culture also grew Enterococcus species. Blood culture remains negative to date. Antibiotic was switched to Unasyn Dysphagia coughing spell with diet. Speech to see and recommended NPO. Will eventually will need G-tube placement which he is against. Goals of care discussion ongoing Underlying dementia long-term resident? Sepsis he met criteria for sepsis with altered mental status fever hypoxic respiratory failure continue IV antibiotics. Ammonia level was normal. Maintain oxygen supplementation to keep oxygen saturation more than 90%. DuoNebs as ordered. Altered mental status likely due to lorazepam he received on 07/12/2023 0.5 mg at 2:44 a.m. and 1 mg at 2:58 a.m. 07/13/2023: Patient decompensated with worsening hypoxia overnight on 07/13/2023. Saturation has lowered to 80% chest x-ray with worsening right upper lobe infiltrate. One dose of Lasix was given repeat labs suggestive of shock liver mild LONA severe lactic acidosis. Elevated troponin suggestive of non ST elevation [place]. for which heparin has been started. Rectal aspirin was given. Echocardiogram 07/14/2023 with EF 30-35% hypokinesis of mid anterior septum apex anterior wall. Moderate MR. Cardiolog
[2023-07-15] MEDS: AZITHROMYCIN 500 MG/NS 250 ML 500 MG/250 ML BAG 250 MG IVPB (15:29)
[2023-07-15 19:22] LABS: Glucose Point of Care 213 mg/dl (65-105)
[2023-07-16] VITALS (33 sets, daily range): BP systolic 98–148; BP diastolic 52–85; PULSE 72–124; RESP 20–30; TEMP 36.4–36.8; O2SAT 94–100
[2023-07-16 00:31] LABS: Glucose Point of Care 237 mg/dl (65-105)
[2023-07-16] MEDS: IPRATROPIUM 0.5 MG/ALBUTEROL SULFATE 2.5 MG AMPUL.NEB 3 ML INHALATION ×4 (02:07→20:35)
[2023-07-16] MEDS: METOPROLOL TARTRATE INJ 5 MG/5 ML VIAL 2.5 MG IV PUSH ×4 (02:09→18:30)
[2023-07-16] MEDS: HEPARIN SOD/D5W 100 UNITS/ML 25,000 UNITS/250 ML BAG 11 UNITS IV CONT (02:09)
[2023-07-16 05:47] LABS: Basophils Absolute Auto 0.1 K/mm3 (0.0-0.1); Basophils Percent Auto 0.6 % (0.2-1.2); Hematocrit 29.9 % (42.0-52.0); Hemoglobin 9.2 g/dL (14.0-18.0); Immature Granulocyte Absolute 0.06 K/mm3 (0.00-0.031); Immature Granulocyte Percent A 0.7 % (0-0.5); Lymphocytes Percent Auto 5.6 % (18.3-44.2); Mean Corpuscular HGB Conc 30.8 g/dl (32-36); Mean Corpuscular Hemoglobin 25.8 pg (26-34); Mean Platelet Volume 11.8 fl (7.4-10.4); Monocytes Absolute Auto 0.4 K/mm3 (0.1-0.6); Neutrophils Absolute Auto 7.8 K/mm3 (1.3-6.7); Neutrophils Percent Auto 88.1 % (45.5-73.1); Platelet Count Result 239 k/mm3 (150-375); Red Blood Count 3.56 M/mm3 (4.6-6.20); Red Cell Distribution Width 14.8 % (11.5-14.5); White Blood Count 8.9 K/mm3 (4.5-10.0)
[2023-07-16 06:00] LABS: Partial Thromboplastin Time 83.6 Seconds (22.3-36.8)
[2023-07-16 06:02] LABS: Albumin Level 2.9 g/dL (3.5-5.1); Alkaline Phosphatase 101 U/L (38-126); Anion Gap 6 mmol/L (4-12); Blood Urea Nitrogen 60 mg/dL (9-20); Calcium 8.1 mg/dL (8.4-10.2); Carbon Dioxide 25 mmol/L (22-30); Chloride 116 mmol/L (98-107); Estimated CRCL calculation 19 ml/min; Estimated Glomerular Filt Rate 21; Glucose 257 mg/dL (65-110); Potassium 3.7 mmol/L (3.4-5.0); Sodium 147 mmol/L (137-145)
[2023-07-16 06:22] LABS: Creatine Kinase 100 U/L (55-170)
[2023-07-16 06:30] LABS: Thyroid Stimulating Hormone Reflex 0.507 uIU/mL (0.465-4.68)
[2023-07-16 06:36] LABS: Alanine Aminotransferase 1088 U/L (6-50); Aspartate Amino Transferase 1177 U/L (17-59)
[2023-07-16 07:00] LABS: Hepatitis B Surface Antigen Negative (Negative)
[2023-07-16 07:15] LABS: Hepatitis B Surface Antibody > 1000.00 s/c
[2023-07-16 07:21] LABS: Hepatitis B Surface Anti Res Positive
[2023-07-16] MEDS: DORNASE ALFA INH SOLN 1 MG/ML 2.5 ML AMP 2.5 MG INHALATION ×2 (07:49→20:35)
[2023-07-16 08:34] LABS: Total Protein Urine Random 118 mg/dL
[2023-07-16 08:41] LABS: Sodium Urine Random 70 meq/L; Urea Random Urine 495 MG/DL
[2023-07-16] MEDS: AMPICILLIN SULB 3 GM/NS 100 ML 3 GM/100 ML VIAL IVPB ×2 (08:44→20:37)
[2023-07-16] MEDS: ASPIRIN 300 MG SUPPOSITORY RECTAL (08:44)
[2023-07-16] MEDS: CENTRAL LINE FLUSH 10 ML IV PUSH ×3 (08:45→20:37)
--- NOTE | 2023-07-16 10:35 | PM.IMPN ---
Progress Note: A&P Assessment and Plan (1) Acute kidney injury: Code(s): N17.9 - Acute kidney failure, unspecified Status: Acute (2) Pneumonia: Code(s): J18.9 - Pneumonia, unspecified organism Status: Acute (3) Acute hypoxic respiratory failure: Code(s): J96.01 - Acute respiratory failure with hypoxia Status: Acute (4) Hypomagnesemia: Code(s): E83.42 - Hypomagnesemia Status: Acute (5) Elevated troponin: Code(s): R79.89 - Other specified abnormal findings of blood chemistry Status: Acute (6) Parkinsons: Code(s): G20 - Parkinson's disease Status: Acute (7) Dementia: Code(s): F03.90 - Unspecified dementia, unspecified severity, without behavioral disturbance, psychotic disturbance, mood disturbance, and anxiety Status: Acute Plan # aspiration pneumonia # sepsis secondary to pneumonia # transaminitis from sepsis # acute metabolic encephalopathy # acute hypoxic respiratory failure - patient likely have recurrent aspiration pneumonia. patient did not want PEG tube. We are limited in what we can discussing goals of care with patient's son Luis - patient appears to have worsening dysphagia - ABx: unasyn and azithromycin - will follow up with family for hospice consult and to consider comfort care - held off on TPN for now as family discuss goals of care - still requires bipap to maintain O2 saturation greater than 90%. will try to wean again, was down to 5L O2 by NC - blood cultures, urine cultures - continue duonebs q6hr - LFTs downtrending, likely elevated from sepsis on presentation - still poorly responsive #NSTEMI -trop elevated to 6 -medical management: aspirin suppository -cardiology consulted: med management with aspirin and heparin drip -continue heparin drip for now #LONA -Cr elevated after diuresis, Cr 2.9, likely pre-renal -nephrology consulted -starting to develop hypernatremia and hyperchloremia # end of life care - patient has lack of improvement despite antibiotics worsening dysphagia. patient is NPO since admission and does not want PEG tube. Despite supportive care he is not showing clinical improvement. hospice is appropriate. family would like to hold off on TPN for now. will reassess tomorrow # Chronic condition - NPO held home meds - insulin-dependent type 2 diabetes: home insulin and metformin held. despite NPO blood sugars 200s -dementia: Zyprexa - essential hypertension: Norvasc, losartan - COPD: Trelegy - insomnia: Trazodone - oxybutynin Diet: NPO DVT prophylaxis: heparin drip Code status: DNR/DNI Disposition: poor prognosis Time Spent With Patient Time: 40 minutes Subjective Date/time seen: 07/16/23 10:35 Interval history: Patient seen examined. he is not arousable, still requiring BiPAP. he was weaned off BiPAP yesterday however overnight he was placed back on BiPAP for hypoxia. I discussed case with patient's son Luis would like to hold off on TPN and is considering hospice. patient's renal function still is same as yesterday. Patient's overall prognosis is very poor. Review of Systems Review of Systems: Unable to obtain due to mental status Exam Narrative: - GENERAL: chronically ill-appearing male in respiratory distress - EYES: anicteric - LUNGS: diminished lung sounds, tachypneic, coarse lung sounds, on BiPAP - CARDIOVASCULAR: Regular rate and rhythm. - ABDOMEN: Soft, non-tender and non-distended. - EXTREMITIES: No edema. Peripheral pulses 2+. Non-tender. - NEUROLOGIC: unable to assess, unarousable, somnolent - PSYCHIATRIC: unable to assess - SKIN: No rashes or lesions. Warm. Objective Data Vital Signs Vital Signs: Vital Signs - 24 hr 07/15/23 10:41 07/15/23 11:24 07/15/23 11:46 Temperature 36.7 C Pulse Rate 126 H 98 96 Respiratory Rate 22 H 20 Blood Pressure 108/68 Pulse Oximetry 99 100 Oxygen Delivery BiPAP Oxygen Flow Rate
[2023-07-16 11:50] LABS: Glucose Point of Care 245 mg/dl (65-105)
[2023-07-16 12:00] LABS: Eosinophil Urine None Seen % (None Seen)
[2023-07-16 12:10] LABS: Urine Eos QC 2nd Tech Confirmed
--- NOTE | 2023-07-16 12:32 | P.PNNP_ITS ---
Progress Note: A&P Assessment and Plan (1) Acute kidney injury: Code(s): N17.9 - Acute kidney failure, unspecified Status: Acute Assessment and Plan: * no significant change * normal renal function at baseline * despite this, given his risk factor profile, may have some underlying renal dysfunction/CKD * acute insult likely multifactorial ATN from: * infection/sepsis * NSTEMI * acute respiratory failure/hypoxia * need for diuresis * evaluation to date noted: * renal ultrasound noted * urine electrolytes slightly prerenal * urine eosinophils negative * moderate proteinuria * CPK okay * reasonable urine output noted * follow trend of repeat labs and UOP (2) Hypernatremia: Code(s): E87.0 - Hyperosmolality and hypernatremia Status: Acute Assessment and Plan: * due to free water deficit and NPO status * since G-tube/feeding tube not an option, consider D5W IVFs (but may not tolerated with current respiratory status) * follow trend (3) Acute hypoxic respiratory failure: Code(s): J96.01 - Acute respiratory failure with hypoxia Status: Acute Assessment and Plan: * felt to be due to ongoing aspiration pneumonia * oxygen/BiPAP support * DNR/DNI status confirmed (4) Altered mental status: Code(s): R41.82 - Altered mental status, unspecified Status: Acute Assessment and Plan: * complicated by known dementia * due to infection/sepsis (?) * no significant improvement in status despite maximal therapy (5) Pneumonia: Code(s): J18.9 - Pneumonia, unspecified organism Status: Acute Assessment and Plan: * most likely due to recurrent aspiration * family has refused G-tube placement in the past * continue respiratory support * on antibiotics * follow culture data (6) Hypertension: Code(s): I10 - Essential (primary) hypertension Status: Chronic Assessment and Plan: * reasonable control * follow the trend of hemodynamics (7) Diabetes mellitus: Qualifiers: Diabetes mellitus complication status: with hyperglycemia Diabetes mellitus terminal clerk insulin use: with terminal clerk use Diabetes mellitus type: type 2 Qualified Code(s): E11.65 - Type 2 diabetes mellitus with hyperglycemia; Z 79.4 - care home (current) use of insulin Code(s): E11.9 - Type 2 diabetes mellitus without complications Status: Chronic Assessment and Plan: * follow accu-cheks * glycemic control per hospitalists Ongoing discussions with family regarding level of care given patient's recent hospitalizations as well as lack of improvement with current/aggressive therapy. Will continue to follow. Subjective Date/time seen: 07/16/23 12:32 Interval history: Follow-up for acute kidney injury/acute renal failure. Renal function about the same if not a tad better; mentation remains poor and is barely arousable at the time of my visit; on/off BiPAP support due to ongoing hypoxia; overall, no significant improvement in the last 24 hours; ongoing discussions with family regarding level of care noted. Exam Narrative: General: ill appearing and elderly male in mild distress Heart: normal S1 and S2; no rub Lungs: coarse breath sounds Abdomen: soft, nontender, nondistended, positive bowel sounds Extremities: no cyanosis or clubbing; trace edema Skin: warm and dry Objective Data Vital Signs Vital Signs:
--- NOTE | 2023-07-16 12:32 | PM.PNNEP ---
Progress Note: A&P Assessment and Plan (1) Acute kidney injury: Code(s): N17.9 - Acute kidney failure, unspecified Status: Acute Assessment and Plan: no significant change normal renal function at baseline despite this, given his risk factor profile, may have some underlying renal dysfunction/CKD acute insult likely multifactorial ATN from: infection/sepsis NSTEMI acute respiratory failure/hypoxia need for diuresis evaluation to date noted: renal ultrasound noted urine electrolytes slightly prerenal urine eosinophils negative moderate proteinuria CPK okay reasonable urine output noted follow trend of repeat labs and UOP (2) Hypernatremia: Code(s): E87.0 - Hyperosmolality and hypernatremia Status: Acute Assessment and Plan: due to free water deficit and NPO status since G-tube/feeding tube not an option, consider D5W IVFs (but may not tolerated with current respiratory status) follow trend (3) Acute hypoxic respiratory failure: Code(s): J96.01 - Acute respiratory failure with hypoxia Status: Acute Assessment and Plan: felt to be due to ongoing aspiration pneumonia oxygen/BiPAP support DNR/DNI status confirmed (4) Altered mental status: Code(s): R41.82 - Altered mental status, unspecified Status: Acute Assessment and Plan: complicated by known dementia due to infection/sepsis (?) no significant improvement in status despite maximal therapy (5) Pneumonia: Code(s): J18.9 - Pneumonia, unspecified organism Status: Acute Assessment and Plan: most likely due to recurrent aspiration family has refused G-tube placement in the past continue respiratory support on antibiotics follow culture data (6) Hypertension: Code(s): I10 - Essential (primary) hypertension Status: Chronic Assessment and Plan: reasonable control follow the trend of hemodynamics (7) Diabetes mellitus: Qualifiers: Diabetes mellitus complication status: with hyperglycemia 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 Will continue to follow. Subjective Date/time seen: 07/16/23 12:32 Interval history: Follow-up for acute kidney injury/acute renal failure. Renal function about the same if not a tad better; mentation remains poor and is barely arousable at the time of my visit; on/off BiPAP support due to ongoing hypoxia; overall, no significant improvement in the last 24 hours; ongoing discussions with family regarding level of care noted. Exam Narrative: General: ill appearing and elderly male in mild distress Heart: normal S1 and S2; no rub Lungs: coarse breath sounds Abdomen: soft, nontender, nondistended, positive bowel sounds Extremities: no cyanosis or clubbing; trace edema Skin: warm and dry Objective Data Vital Signs Vital Signs: Vital Signs Temp Pulse Resp BP Pulse Ox O2 Del Method O2 Flow Rate 07/16/23 12:05 96 High Flow Nasal Cannula 5 07/16/23 12:00 96 High Flow Nasal Cannula 5 07/16/23 11:45 97.6 F 82 23 H 103/62 98 07/16/23 10:00 84 07/16/23 08:00 99 07/16/23 08:00 100 BiPAP 07/16/23 08:44 98 07/16/23 08:00 99 28 H 07/16/23 07:44 97 27 H 07/16/23 07:44 99 BiPAP 07/16/23 07:44 97 27 H 99 BiPAP 07/16/23 07:37 98.2 F 96 27 H 148/85 H 99 06/0
[2023-07-16] MEDS: AZITHROMYCIN 500 MG/NS 250 ML 500 MG/250 ML BAG 250 MG IVPB (13:35)
[2023-07-16 18:34] LABS: Glucose Point of Care 222 mg/dl (65-105)
[2023-07-16 18:53] LABS: Pneumococcal Antigen Urine NOT DETECTED
[2023-07-16] MEDS: LATANOPROST 0.005% OP SOLN 2.5 ML BTL 1 DROP EACH EYE (20:38)
[2023-07-16 23:30] LABS: Glucose Point of Care 219 mg/dl (65-105)
[2023-07-17] VITALS (30 sets, daily range): BP systolic 106–142; BP diastolic 54–80; PULSE 75–128; RESP 16–32; TEMP 35.6–36.6; O2SAT 94–100
[2023-07-17] MEDS: METOPROLOL TARTRATE INJ 5 MG/5 ML VIAL 2.5 MG IV PUSH ×4 (00:23→18:42)
[2023-07-17] MEDS: HEPARIN SOD/D5W 100 UNITS/ML 25,000 UNITS/250 ML BAG 11 UNITS IV CONT (00:24)
[2023-07-17 00:38] LABS: Legionella pneumophila Ag Ur NOT DETECTED
--- NOTE | 2023-07-17 03:39 | PCRCNOTE ---
0200 updraft treatment not administered due to patient's HR being 120-130. RN asked that the treatment be held since his HR increased following the 1999 updraft treatment. Treatment to resume at 0800.
[2023-07-17] MEDS: CENTRAL LINE FLUSH 10 ML IV PUSH ×3 (04:14→20:14)
[2023-07-17 04:43] LABS: Basophils Percent Auto 0.3 % (0.2-1.2); Eosinophils Absolute Auto 0.1 K/mm3 (0-0.3); Eosinophils Percent Auto 0.8 % (0-4.4); Hematocrit 28.4 % (42.0-52.0); Hemoglobin 8.8 g/dL (14.0-18.0); Immature Granulocyte Absolute 0.06 K/mm3 (0.00-0.031); Immature Granulocyte Percent A 0.7 % (0-0.5); Lymphocytes Absolute Auto 0.79 K/mm3 (0.9-3.2); Lymphocytes Percent Auto 8.6 % (18.3-44.2); Mean Corpuscular Hemoglobin 26.6 pg (26-34); Mean Corpuscular Volume 85.8 fl (80-100); Monocytes Absolute Auto 0.6 K/mm3 (0.1-0.6); Monocytes Percent Auto 6.2 % (2.6-8.5); Neutrophils Absolute Auto 7.7 K/mm3 (1.3-6.7); Neutrophils Percent Auto 83.4 % (45.5-73.1); Platelet Count Result 205 k/mm3 (150-375); Red Blood Count 3.31 M/mm3 (4.6-6.20); Red Cell Distribution Width 14.8 % (11.5-14.5); White Blood Count 9.2 K/mm3 (4.5-10.0)
[2023-07-17 04:44] LABS: Albumin Level 2.7 g/dL (3.5-5.1); Alkaline Phosphatase 96 U/L (38-126); Anion Gap 5 mmol/L (4-12); Bilirubin,Total 0.8 mg/dL (0.2-1.3); Blood Urea Nitrogen 66 mg/dL (9-20); Carbon Dioxide 27 mmol/L (22-30); Chloride 118 mmol/L (98-107); Estimated CRCL calculation 20 ml/min; Estimated Glomerular Filt Rate 23; Glucose 236 mg/dL (65-110); Magnesium 2.1 mg/dL (1.6-2.3); Potassium 3.5 mmol/L (3.4-5.0); Sodium 150 mmol/L (137-145)
[2023-07-17 04:45] LABS: Partial Thromboplastin Time 101.3 Seconds (22.3-36.8)
[2023-07-17 05:04] LABS: Alanine Aminotransferase 1426 U/L (6-50); Aspartate Amino Transferase 1294 U/L (17-59)
[2023-07-17] MEDS: IPRATROPIUM 0.5 MG/ALBUTEROL SULFATE 2.5 MG AMPUL.NEB 3 ML INHALATION ×3 (07:33→20:51)
[2023-07-17] MEDS: DORNASE ALFA INH SOLN 1 MG/ML 2.5 ML AMP 2.5 MG INHALATION ×2 (07:35→20:52)
[2023-07-17] MEDS: FLUTICASONE/UMECLIDIN/VILANTER 100-62.5-25 MCG ELLIPTA 1 PUFF INHALATION (07:35)
[2023-07-17] MEDS: ASPIRIN 300 MG SUPPOSITORY RECTAL (08:55)
[2023-07-17] MEDS: AMPICILLIN SULB 3 GM/NS 100 ML 3 GM/100 ML VIAL IVPB ×2 (08:56→20:13)
--- NOTE | 2023-07-17 11:01 | PM.IMPN ---
Progress Note: A&P Assessment and Plan (1) Acute kidney injury: Code(s): N17.9 - Acute kidney failure, unspecified Status: Acute (2) Pneumonia: Code(s): J18.9 - Pneumonia, unspecified organism Status: Acute (3) Acute hypoxic respiratory failure: Code(s): J96.01 - Acute respiratory failure with hypoxia Status: Acute (4) Hypomagnesemia: Code(s): E83.42 - Hypomagnesemia Status: Acute (5) Elevated troponin: Code(s): R79.89 - Other specified abnormal findings of blood chemistry Status: Acute (6) Parkinsons: Code(s): G20 - Parkinson's disease Status: Acute (7) Dementia: Code(s): F03.90 - Unspecified dementia, unspecified severity, without behavioral disturbance, psychotic disturbance, mood disturbance, and anxiety Status: Acute Plan # aspiration pneumonia # sepsis secondary to pneumonia # transaminitis from sepsis # acute metabolic encephalopathy # acute hypoxic respiratory failure - patient likely have recurrent aspiration pneumonia. patient did not want PEG tube. We are limited in what we can discussing goals of care with patient's son Luis - patient appears to have worsening dysphagia - ABx: unasyn and azithromycin - will follow up with family for hospice consult and to consider comfort care - held off on TPN for now as family discuss goals of care - still requires bipap to maintain O2 saturation greater than 90%. will try to wean again, was down to 5L O2 by NC - blood cultures, urine cultures - continue duonebs q6hr - LFTs downtrending, likely elevated from sepsis on presentation - still poorly responsive #NSTEMI -trop elevated to 6 -medical management: aspirin suppository -cardiology consulted: med management with aspirin and heparin drip -continue heparin drip for now #LONA -Cr elevated after diuresis, Cr 2.9, likely pre-renal -nephrology consulted -starting to develop hypernatremia and hyperchloremia # end of life care - patient has lack of improvement despite antibiotics worsening dysphagia. patient is NPO since admission and does not want PEG tube. Despite supportive care he is not showing clinical improvement. hospice is appropriate. family would like to hold off on TPN for now. # Chronic condition - NPO held home meds - insulin-dependent type 2 diabetes: home insulin and metformin held. despite NPO blood sugars 200s -dementia: Zyprexa - essential hypertension: Norvasc, losartan - COPD: Trelegy - insomnia: Trazodone - oxybutynin Diet: NPO DVT prophylaxis: heparin drip Code status: DNR/DNI Disposition: poor prognosis patient has a feels it medical management, no improvement of condition, now patient is not responsive to verbal or pain stimuli, not oriented x3, patient is at end stage of life, patient's son requests transfer patient to hospice care. The consulted hospice care, plans [facility] Subjective Date/time seen: 07/17/23 11:01 Interval history: I saw and examined the patient and bedside in presents of patient's son and hospice care team. Patient was unresponsive, right facial droop, no obvious distress. patient had tachycardia tachypnea, blood pressure stable, afebrile. Labs reviewed, anemia hemoglobin close to baseline, sodium 158 trending up, elevated BUN creatinine close to baseline Exam Narrative: GENERAL: ill-appearing, severe malnutrition - EYES: EOMI. Anicteric. - HENT: dry mucous membrane, - LUNGS: Clear to auscultation bilaterally, no wheezing, rhonchi, or rales. tachypnea - CARDIOVASCULAR: Regular rate and rhythm. No murmur. No JVD. - ABDOMEN: Soft, non-tender and non-distended. No palpable masses. - EXTREMITIES: No edema. Peripheral pulses 2+. Non-tender. - NEUROLOGIC: right facial droop, not moving all extremities - PSYCHIATRIC: unresponsive, not oriented x 3. - SKIN: No rashes or lesions. Warm. - LYMPH: No cervical lympha
--- NOTE | 2023-07-17 12:35 | PM.DS ---
DS: Summary Time Spent with Patient Time attestation: Total time spent providing and/or coordinating discharge services: DS: Data Data Completed and Pending Labs on day of discharge: Labs from last 24 hours 07/17/23 07/16/23 07/16/23 04:13 23:27 18:31 WBC 9.2 RBC 3.31 L Hgb 8.8 L Hct 28.4 L MCV 85.8 MCH 26.6 MCHC 31.0 L RDW 14.8 H Plt Count 205 MPV 12.0 H Immature Gran % (Auto) 0.7 H Neut % (Auto) 83.4 H Lymph % (Auto) 8.6 L Bollinger % (Auto) 6.2 Eos % (Auto) 0.8 Baso % (Auto) 0.3 Lymph # (Auto) 0.79 L Bollinger # (Auto) 0.6 Eos # (Auto) 0.1 Baso # (Auto) 0.0 Abs Immat Gran (auto) 0.06 H Absolute Neuts (auto) 7.7 H Absolute Nucleated RBC 0.000 Nucleated RBC % 0.0 APTT 101.3 H Sodium 150 H Potassium 3.5 Chloride 118 H Carbon Dioxide 27 Anion Gap 5 BUN 66 H Creatinine 2.70 H Estim Creat Clear Calc 20 Estimated GFR 23 L Glucose 236 H POC Capillary Glucose 219 H 222 H Calcium 8.0 L Magnesium 2.1 Total Bilirubin 0.8 AST 1294 H ALT 1426 H Alkaline Phosphatase 96 Total Protein 6.0 L Albumin 2.7 L Ur L.pneumophila Ag Urine Pneumococcal Ag 07/13/23 13:05 WBC RBC Hgb Hct MCV MCH MCHC RDW Plt Count MPV Immature Gran % (Auto) Neut % (Auto) Lymph % (Auto) Bollinger % (Auto) Eos % (Auto) Baso % (Auto) Lymph # (Auto) Bollinger # (Auto) Eos # (Auto) Baso # (Auto) Abs Immat Gran (auto) Absolute Neuts (auto) Absolute Nucleated RBC Nucleated RBC % APTT Sodium Potassium Chloride Carbon Dioxide Anion Gap BUN Creatinine Estim Creat Clear Calc Estimated GFR Glucose POC Capillary Glucose Calcium Magnesium Total Bilirubin AST ALT Alkaline Phosphatase Total Protein Albumin Ur L.pneumophila Ag Not detected Urine Pneumococcal Ag Not detected Preliminary micro results at discharge 07/12/23 01:36 Urine Culture - Preliminary Unspecified Enterococcus species Discharge Plan Discharge Consulting providers: Case Harrison; Lela Hooper Patient Instructions: Aspiration Pneumonia (DC) Discharge Medications: No Action latanoprost 0.005 % drops 1 drp EACH EYE HS oxybutynin chloride 5 mg tablet extended release 24hr 5 mg PO DAILY Qty: 90 1RF losartan [Cozaar] 50 mg tablet 50 mg PO HS trazodone 50 mg tablet 50 mg PO HS olanzapine 5 mg tablet 5 mg PO Q12H albuterol sulfate 90 mcg/actuation Hfa Aerosol Inhaler 2 puff INHALATION Q4H PRN (Reason: Shortness Of Breath Or Wheezing) metformin 500 mg tablet 500 mg PO BID aspirin 81 mg Tablet 81 mg PO DAILY albuterol sulfate 90 mcg/actuation HFA aerosol inhaler 2 puff INHALATION Q4H ondansetron 4 mg tablet,disintegrating 4 mg translingual PC cholecalciferol (vitamin D3) 125 mcg (5,000 unit) Capsule 125 mcg PO DAILY insulin aspart U-100 [Novolog FlexPen U-100 Insulin] 100 unit/mL (3 mL) insulin pen See Protocol SUBCUT AC Protocol: Insulin Corrective High-Dose Condition: glucose < 70 mg/dl Dose/Route: Follow hypoglycemia order Condition: glucose 70-200 mg/dl Dose/Route: No additional insulin Condition: glucose 201-250 mg/dl Dose/Route: 4 units sub-Q Condition: glucose 251-300 mg/dl Dose/Route: 5 units sub-Q Condition: glucose 301-350 mg/dl Dose/Route: 6 units sub-Q Condition: glucose 351-400 mg/dl Dose/Route: 8 units sub-Q Condition: glucose > 400 mg/dl Dose/Route: Call MD Protocol Text: *No Correction Dose at Bedtime* (DME) Novofine Autocover 30 gauge x 1/3 needle MISCELLANEOUS Breztri Aerosphere 160-9-4.8 mcg/actuation HFA aerosol inhaler 2 inh INHALATION BID acetaminophen 325 mg Tablet 650 mg PO Q6H PRN (Reason: Pain (Scale Score 1-3)) Glucagon Emergency Kit (human) 1 mg recon soln 1 mg IM ONCE PRN (Reason: Hypogl
--- NOTE | 2023-07-17 12:39 | PM.PNNEP ---
Progress Note: A&P Assessment and Plan (1) Acute kidney injury: Code(s): N17.9 - Acute kidney failure, unspecified Status: Acute Assessment and Plan: no significant change normal renal function at baseline despite this, given his risk factor profile, may have some underlying renal dysfunction/CKD acute insult likely multifactorial ATN from: infection/sepsis NSTEMI acute respiratory failure/hypoxia need for diuresis evaluation to date noted: renal ultrasound noted urine electrolytes slightly prerenal urine eosinophils negative moderate proteinuria CPK okay reasonable urine output noted follow trend of repeat labs and UOP (2) Hypernatremia: Code(s): E87.0 - Hyperosmolality and hypernatremia Status: Acute Assessment and Plan: due to free water deficit and NPO status since G-tube/feeding tube not an option, consider D5W IVFs (but may not tolerated with current respiratory status) follow trend (3) Acute hypoxic respiratory failure: Code(s): J96.01 - Acute respiratory failure with hypoxia Status: Acute Assessment and Plan: felt to be due to ongoing aspiration pneumonia oxygen/BiPAP support DNR/DNI status confirmed (4) Altered mental status: Code(s): R41.82 - Altered mental status, unspecified Status: Acute Assessment and Plan: complicated by known dementia due to infection/sepsis (?) no significant improvement in status despite maximal therapy (5) Pneumonia: Code(s): J18.9 - Pneumonia, unspecified organism Status: Acute Assessment and Plan: most likely due to recurrent aspiration family has refused G-tube placement in the past continue respiratory support on antibiotics follow culture data (6) Hypertension: Code(s): I10 - Essential (primary) hypertension Status: Chronic Assessment and Plan: reasonable control follow the trend of hemodynamics (7) Diabetes mellitus: Qualifiers: Diabetes mellitus complication status: with hyperglycemia Diabetes mellitus jail insulin use: with jail use Diabetes mellitus type: type 2 Qualified Code(s): E11.65 - Type 2 diabetes mellitus with hyperglycemia; 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 Will continue to follow. Subjective Date/time seen: 07/17/23 12:39 Interval history: Follow-up for acute kidney injury/acute renal failure. Patient remains poorly responsive and altered at the time of my visit; better urine output in the last 24 hours but renal function/creatinine remains abnormal; worsening hypernatremia noted (likely due to NPO status and poor oral intake) as well; no other acute issues/events overnight or earlier this morning; informed by nursing that family is consider hospice/palliative therapy given patient's ongoing declining medical status despite all therapy to date. Exam Narrative: General: ill appearing and elderly male in mild distress Heart: normal S1 and S2; no rub Lungs: coarse breath sounds Abdomen: soft, nontender, nondistended, positive bowel sounds Extremities: no cyanosis or clubbing; trace edema Skin: warm and intact Objective Data Vital Signs Vital Signs: Vital Signs Temp Pulse Resp BP Pulse Ox O2 Del Method O2 Flow Rate 07/17/23 12:30 81 Nasal Cannula 4 07/17/23 10:00 83 07/17/23 08:00 86 07/17/23 11:24 96.0 F L 91 32 H 130/78 96 07/17/23 08:13 97.6 F 83 20 113/76 100 07/17/23 07:45 82 24 H 07/17/23 07:33 75 24 H
--- NOTE | 2023-07-17 12:39 | P.PNNP_ITS ---
Progress Note: A&P Assessment and Plan (1) Acute kidney injury: Code(s): N17.9 - Acute kidney failure, unspecified Status: Acute Assessment and Plan: * no significant change * normal renal function at baseline * despite this, given his risk factor profile, may have some underlying renal dysfunction/CKD * acute insult likely multifactorial ATN from: * infection/sepsis * NSTEMI * acute respiratory failure/hypoxia * need for diuresis * evaluation to date noted: * renal ultrasound noted * urine electrolytes slightly prerenal * urine eosinophils negative * moderate proteinuria * CPK okay * reasonable urine output noted * follow trend of repeat labs and UOP (2) Hypernatremia: Code(s): E87.0 - Hyperosmolality and hypernatremia Status: Acute Assessment and Plan: * due to free water deficit and NPO status * since G-tube/feeding tube not an option, consider D5W IVFs (but may not tolerated with current respiratory status) * follow trend (3) Acute hypoxic respiratory failure: Code(s): J96.01 - Acute respiratory failure with hypoxia Status: Acute Assessment and Plan: * felt to be due to ongoing aspiration pneumonia * oxygen/BiPAP support * DNR/DNI status confirmed (4) Altered mental status: Code(s): R41.82 - Altered mental status, unspecified Status: Acute Assessment and Plan: * complicated by known dementia * due to infection/sepsis (?) * no significant improvement in status despite maximal therapy (5) Pneumonia: Code(s): J18.9 - Pneumonia, unspecified organism Status: Acute Assessment and Plan: * most likely due to recurrent aspiration * family has refused G-tube placement in the past * continue respiratory support * on antibiotics * follow culture data (6) Hypertension: Code(s): I10 - Essential (primary) hypertension Status: Chronic Assessment and Plan: * reasonable control * follow the trend of hemodynamics (7) Diabetes mellitus: Qualifiers: Diabetes mellitus complication status: with hyperglycemia 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 Will continue to follow. Subjective Date/time seen: 07/17/23 12:39 Interval history: Follow-up for acute kidney injury/acute renal failure. Patient remains poorly responsive and altered at the time of my visit; better urine output in the last 24 hours but renal function/creatinine remains abnormal; worsening hypernatremia noted (likely due to NPO status and poor oral intake) as well; no other acute issues/events overnight or earlier this morning; informed by nursing that family is consider hospice/palliative therapy given patient's ongoing declining medical status despite all therapy to date. Exam Narrative: General: ill appearing and elderly male in mild distress Heart: normal S1 and S2; no rub Lungs: coarse breath sounds Abdomen: soft,
--- NOTE | 2023-07-17 12:54 | PC.NURSE ---
Spoke with Dr. Perez concerning patient going hospice once discharged. Verbal orders to stop heparin drip.
[2023-07-17 14:33] LABS: Glucose Point of Care 212 mg/dl (65-105)
[2023-07-17] MEDS: LATANOPROST 0.005% OP SOLN 2.5 ML BTL 1 DROP EACH EYE (20:14)
[2023-07-18] VITALS (20 sets, daily range): BP systolic 103–132; BP diastolic 56–67; PULSE 92–108; RESP 20–36; TEMP 37.2–39.5; O2SAT 93–100
[2023-07-18] MEDS: METOPROLOL TARTRATE INJ 5 MG/5 ML VIAL 2.5 MG IV PUSH ×2 (00:55→06:05)
[2023-07-18] MEDS: IPRATROPIUM 0.5 MG/ALBUTEROL SULFATE 2.5 MG AMPUL.NEB 3 ML INHALATION ×3 (02:42→14:13)
[2023-07-18 05:03] LABS: Hepatitis B Core Ab Total REACTIVE (NON-REACTIVE)
[2023-07-18] MEDS: CENTRAL LINE FLUSH 10 ML IV PUSH (06:03)
[2023-07-18] MEDS: DORNASE ALFA INH SOLN 1 MG/ML 2.5 ML AMP 2.5 MG INHALATION (07:52)
--- NOTE | 2023-07-18 09:08 | PCDIET ---
Pt is NPO x 6 days. Noted family is wanting placement on hospice care. No nutrition recommendations. Comfort care.
--- NOTE | 2023-07-18 09:51 | PM.IMPN ---
Progress Note: A&P Assessment and Plan (1) Acute kidney injury: Code(s): N17.9 - Acute kidney failure, unspecified Status: Acute (2) Pneumonia: Code(s): J18.9 - Pneumonia, unspecified organism Status: Acute (3) Acute hypoxic respiratory failure: Code(s): J96.01 - Acute respiratory failure with hypoxia Status: Acute (4) Hypomagnesemia: Code(s): E83.42 - Hypomagnesemia Status: Acute (5) Elevated troponin: Code(s): R79.89 - Other specified abnormal findings of blood chemistry Status: Acute (6) Parkinsons: Code(s): G20 - Parkinson's disease Status: Acute (7) Dementia: Code(s): F03.90 - Unspecified dementia, unspecified severity, without behavioral disturbance, psychotic disturbance, mood disturbance, and anxiety Status: Acute Plan # aspiration pneumonia # sepsis secondary to pneumonia # transaminitis from sepsis # acute metabolic encephalopathy # acute hypoxic respiratory failure - patient likely have recurrent aspiration pneumonia. patient did not want PEG tube. We are limited in what we can discussing goals of care with patient's son Luis - patient appears to have worsening dysphagia - ABx: unasyn and azithromycin - will follow up with family for hospice consult and to consider comfort care - held off on TPN for now as family discuss goals of care - still requires bipap to maintain O2 saturation greater than 90%. will try to wean again, was down to 5L O2 by NC - blood cultures, urine cultures - continue duonebs q6hr - LFTs downtrending, likely elevated from sepsis on presentation - still poorly responsive #NSTEMI -trop elevated to 6 -medical management: aspirin suppository -cardiology consulted: med management with aspirin and heparin drip -continue heparin drip for now #LONA -Cr elevated after diuresis, Cr 2.9, likely pre-renal -nephrology consulted -starting to develop hypernatremia and hyperchloremia # end of life care - patient has lack of improvement despite antibiotics worsening dysphagia. patient is NPO since admission and does not want PEG tube. Despite supportive care he is not showing clinical improvement. hospice is appropriate. family would like to hold off on TPN for now. # Chronic condition - NPO held home meds - insulin-dependent type 2 diabetes: home insulin and metformin held. despite NPO blood sugars 200s -dementia: Zyprexa - essential hypertension: Norvasc, losartan - COPD: Trelegy - insomnia: Trazodone - oxybutynin Diet: NPO DVT prophylaxis: heparin drip Code status: DNR/DNI Disposition: poor prognosis patient has a feels it medical management, no improvement of condition, now patient is not responsive to verbal or pain stimuli, not oriented x3, patient is at end stage of life, patient's son requests transfer patient to hospice care. The consulted hospice care, plans discharge patient tomorrow to alf for hospice care Subjective Date/time seen: 07/18/23 09:51 Interval history: I saw and examined the patient. patient has no new issue or event overnight. Patient was unresponsive, right facial droop, no obvious distress. patient had tachycardia tachypnea, blood pressure stable, afebrile. Exam Narrative: GENERAL: ill-appearing, severe malnutrition - EYES: EOMI. Anicteric. - HENT: dry mucous membrane, - LUNGS: Clear to auscultation bilaterally, no wheezing, rhonchi, or rales. tachypnea - CARDIOVASCULAR: Regular rate and rhythm. No murmur. No JVD. - ABDOMEN: Soft, non-tender and non-distended. No palpable masses. - EXTREMITIES: No edema. Peripheral pulses 2+. Non-tender. - NEUROLOGIC: right facial droop, not moving all extremities - PSYCHIATRIC: unresponsive, not oriented x 3. - SKIN: No rashes or lesions. Warm. - LYMPH: No cervical lymphadenopathy. Objective Data Vital Signs Vital Signs: Vital Signs - 24 hr 07/17/23 11:24 07/17/23 10:00 07/17/23 12:30
[2023-07-18] MEDS: ASPIRIN 300 MG SUPPOSITORY RECTAL (10:52)
[2023-07-18] MEDS: AMPICILLIN SULB 3 GM/NS 100 ML 3 GM/100 ML VIAL IVPB (10:52)
[2023-07-18 12:23] LABS: Glucose Point of Care 245 mg/dl (65-105)
--- NOTE | 2023-07-18 13:37 | PM.DS ---
DS: Admitting Diagnosis Discharge Date 07/17 Admitting Diagnosis (1) Acute kidney injury: Code(s): N17.9 - Acute kidney failure, unspecified Status: Acute (2) Pneumonia: Code(s): J18.9 - Pneumonia, unspecified organism Status: Acute (3) Acute hypoxic respiratory failure: Code(s): J96.01 - Acute respiratory failure with hypoxia Status: Acute (4) Hypomagnesemia: Code(s): E83.42 - Hypomagnesemia Status: Acute (5) Elevated troponin: Code(s): R79.89 - Other specified abnormal findings of blood chemistry Status: Acute (6) Parkinsons: Code(s): G20 - Parkinson's disease Status: Acute (7) Dementia: Code(s): F03.90 - Unspecified dementia, unspecified severity, without behavioral disturbance, psychotic disturbance, mood disturbance, and anxiety Status: Acute DS: Discharge Diagnosis Discharge Diagnosis (1) Acute kidney injury: Code(s): N17.9 - Acute kidney failure, unspecified Status: Acute (2) Pneumonia: Code(s): J18.9 - Pneumonia, unspecified organism Status: Acute (3) Acute hypoxic respiratory failure: Code(s): J96.01 - Acute respiratory failure with hypoxia Status: Acute (4) Hypomagnesemia: Code(s): E83.42 - Hypomagnesemia Status: Acute (5) Elevated troponin: Code(s): R79.89 - Other specified abnormal findings of blood chemistry Status: Acute (6) Parkinsons: Code(s): G20 - Parkinson's disease Status: Acute (7) Dementia: Code(s): F03.90 - Unspecified dementia, unspecified severity, without behavioral disturbance, psychotic disturbance, mood disturbance, and anxiety Status: Acute DS: Summary Hospital Course Hospital Course: per H&P: patient 78-year-old gentleman who presents emergency department with chief complaint of altered mental status and oxygen requirement increased.? Patient recently for aspiration pneumonia discharge back to [place] and per the facility patient has been less responsive and has been short of breath and hypoxic. Patient unresponsive on BiPAP this a.m. while seen. Not in respiratory distress BiPAP was removed and was placed on oxygen via nasal cannula. The following med issues have been addressed during hospitalization # aspiration pneumonia # sepsis secondary to pneumonia # transaminitis from sepsis # acute metabolic encephalopathy # acute hypoxic respiratory failure patient likely have recurrent aspiration pneumonia. patient did not want PEG tube. We are limited in what we can discussing goals of care with patient's son Luis - patient appears to have worsening dysphagia - ABx: unasyn and azithromycin - will follow up with family for hospice consult and to consider comfort care - held off on TPN for now as family discuss goals of care - still requires bipap to maintain O2 saturation greater than 90%. will try to wean again, was down to 5L O2 by NC - blood cultures, urine cultures - continue duonebs q6hr - LFTs downtrending, likely elevated from sepsis on presentation - still poorly responsive #NSTEMI -trop elevated to 6 -medical management: aspirin suppository -cardiology consulted: med management with aspirin and heparin drip -continue heparin drip for now #LONA -Cr elevated after diuresis, Cr 2.9, likely pre-renal -nephrology consulted -starting to develop hypernatremia and hyperchloremia # end of life care - patient has lack of improvement despite antibiotics worsening dysphagia. patient is NPO since admission and does not want PEG tube. Despite supportive care he is not showing clinical improvement. hospice is appropriate. family would like to hold off on TPN for now. # Chronic condition - NPO held home meds - insulin-dependent type 2 diabetes: home insulin and metformin held. despite NPO blood sugars 200s -dementia: Zyprexa - essential hypertension: Norvasc, losartan - COPD: Treleg
--- NOTE | 2023-07-18 18:30 | PC.NURSE ---
correction called to request current POLST form. Informed detention DON that we do not have a current POLST form and electronic semiconductor processor suggested DON call family.
[2023-07-22 20:59] LABS: Mycoplasma IgM Antibody Titer 94 U/mL
== END 2023-07-18 17:19 | disposition hospice, home (50) | DRG 871 ==
LOC: ANHED 05:21 → ANHIMU 05:49 → ANH2MED 07-13 13:31 → ANHIMU 07-14 03:00
PROVIDERS: Internal Medicine; Internal Medicine Nephrology; Student in an Organized Health Care Education/Training Program; Admitting Provider Internal Medicine; Emergency Provider Emergency Medicine; PCP Internal Medicine; Visit Provider Hospitalist
DX: A41.9 Sepsis, unspecified organism (principal); G93.41 Metabolic encephalopathy; J96.01 Acute respiratory failure with hypoxia; R57.8 Other shock; I21.A1 Myocardial infarction type 2; K72.00 Acute and subacute hepatic failure without coma; J69.0 Pneumonitis due to inhalation of food and vomit; N17.9 Acute kidney failure, unspecified; E87.0 Hyperosmolality and hypernatremia; E87.20 Acidosis, unspecified; N39.0 Urinary tract infection, site not specified; E46 Unspecified protein-calorie malnutrition; Z68.1 Body mass index [BMI] 19.9 or less, adult; E83.42 Hypomagnesemia; E11.65 Type 2 diabetes mellitus with hyperglycemia; B95.2 Enterococcus as the cause of diseases classified elsewhere; R65.20 Severe sepsis without septic shock; R74.01 Elevation of levels of liver transaminase levels; R13.10 Dysphagia, unspecified; G47.00 Insomnia, unspecified; G20.A1 Parkinson's disease without dyskinesia, without mention of fluctuations; F03.90 Unspecified dementia, unspecified severity, without behavioral disturbance, psychotic disturbance, mood disturbance, and anxiety; F41.9 Anxiety disorder, unspecified; I10 Essential (primary) hypertension; J43.9 Emphysema, unspecified; N40.0 Benign prostatic hyperplasia without lower urinary tract symptoms; Z79.4 Long term (current) use of insulin; Z79.84 Long term (current) use of oral hypoglycemic drugs; Z79.85 Long-term (current) use of injectable non-insulin antidiabetic drugs; Z79.82 Long term (current) use of aspirin; Z66 Do not resuscitate; Z86.73 Personal history of transient ischemic attack (TIA), and cerebral infarction without residual deficits
CPT/HCPCS: 36415; 36569; 36600; 71045; 71260; 74177; 76775; 80053; 80202; 81001; 81050; 82140; 82550; 82570; 82805; 82948; 83605; 83690; 83735; 83880; 84145; 84156; 84300; 84443; 84484; 84540; 85025; 85380; 85384; 85610; 85730; 85999; 86704; 86706; 86738; 87040; 87077; 87086; 87088; 87181; 87340; 87449; 87637; 87641; 87899; 92610; 93005; 93306; 94002; 94003; 94640; 96361; 96365; 96366; 96367; 96368; 96375; 99285; A9270; C8929; J0295; J0456; J0692; J1644; J1650; J1940; J2060; J3370; J3475; J7030; J7070; Q9967